=== PATIENT | female | born 1935 | race Hispanic/Latino ===

== ENCOUNTER 2018-10-25 22:07 | Inpatient (IN) | payer OTHER ==
[~2018-10-25] VITALS: Ht 149.9 cm; Wt 66.2 kg
[2018-10-25] MEDS ORDERED: ALBUTEROL/IPRATROPIUM 3 ML NEB NEB ONE (22:30)
[2018-10-25] MEDS ORDERED: METHYLPREDNISOLONE SOD SUCC 125 MG/2ML VIAL IV ONE (22:30)
[2018-10-25] MEDS ORDERED: ACETAMINOPHEN 325 MG TAB PO ONE (22:45)
[2018-10-25] MEDS ORDERED: SODIUM CHLORIDE 0.9% 1000ML 1,000 ML IV SCH (22:45)
[2018-10-25] MEDS ORDERED: CEFTRIAXONE SOD 1 GM/NS 50 ML 50 ML IV ONE (22:45)
[2018-10-25] MEDS ORDERED: LORATADINE10 MG PO (23:05)
[2018-10-25] MEDS ORDERED: TYLENOL WITH C1 EACH PO (23:05)
[2018-10-25] MEDS ORDERED: PRAVASTATIN SOD40 MG (23:05)
[2018-10-25] MEDS ORDERED: LISINOPRIL10 MG PO (23:05)
[2018-10-25] MEDS ORDERED: ALENDRONATE SOD35 MG (23:05)
[2018-10-25] MEDS ORDERED: CARVEDILOL12.5 MG PO (23:05)
[2018-10-25] MEDS ORDERED: CLOPIDOGREL75 MG PO (23:05)
[2018-10-25] MEDS ORDERED: AUGMENTIN 500-1 EACH PO (23:05)
[2018-10-25] MEDS ORDERED: BENZONATATE100 MG PO (23:05)
[2018-10-25] MEDS ORDERED: NIFEDIPINE ER30 M1 PO (23:05)
[2018-10-25] MEDS ORDERED: MAGNESIUM OXID400 MG PO (23:05)
[2018-10-25] MEDS ORDERED: GABAPENTIN300 MG PO (23:05)
[2018-10-25] MEDS ORDERED: FUROSEMIDE40 MG PO (23:05)
[2018-10-25] MEDS ORDERED: SODIUM CHLORIDE FLUSH 10 ML SYR INJ PRN (23:15)
--- NOTE | 2018-10-25 23:24 | Diagnostic Imaging Report ---
Examination: Single AP view of the chest. COMPARISON: None. INDICATION: Cough with blood IMPRESSION: 1. Lines and Tubes: None 2. Bilateral basal airspace opacities, right greater than left. Ill-defined patchy airspace opacity in the right upper lobe. No effusion. Findings may represent multifocal pneumonia, in the appropriate clinical setting. 3. Cardiomediastinal silhouette is normal. Pulmonary vasculature is normal. 4. No acute bony abnormalities. Deformity of the left eighth and likely ninth ribs, likely representing healed fractures. Generalized osteopenia. Signed by: Dr. Mookie Wilkins M.D. on 10/25/2018 11:20 PM
--- OUTSIDE RECORDS SUMMARY | 2018-10-25 23:26 | XMS REPORT | Clinical Summary ---
Author Author CARMELITA [facility] Organization [facility] Address Unknown Phone Unavailable Care Team Providers Care Heel Sorter Name Role Phone Erika Sumner PCP Unavailable Allergies Comments Active Allergy Reactions Severity Noted Date Clindamycin Diarrhea, 08/28/2017 Nausea And Vomiting Medications End Date Status Medication Sig Dispensed Refills Start Date Active insulin aspart Inject 45 0 protamine-insulin aspart Units (NOVOLOG 70/30) 100 subcutaneousl unit/mL (70-30) y daily with injectionIndications: breakfast . diabetes mellitus Active calcium & magnesium Take 1 tablet 0 carbonates (MYLANTA) by mouth 311-232 mg per tablet daily. Active blood sugar diagnostic 1 each by 0 (GLUCOSE BLOOD) Strp Other - See 5 Admin Instructions route. Active insulin pen needles (BD Inject 1 0 ULTRA-FINE RANDY) 4 mm x Syringe 5 32 G subcutaneousl y. Active alendronate (FOSAMAX) 35 35 mg every 7 0 MG tablet days . 5 Active aspirin 81 MG EC tablet Take 81 mg by 0 mouth daily . 5 Active clopidogrel (PLAVIX) 75 75 mg daily . 0 mg tablet 5 Active gabapentin (NEURONTIN) Take 300 mg 0 300 MG capsule by mouth 5 nightly . Active insulin aspart Inject 35 0 protamine-insulin aspart units before 5 (NOVOLOG MIX 70/30) 100 dinner. unit/mL (70-30) injection Active pravastatin (PRAVACHOL) Take 20 mg by 0 20 MG tablet mouth. 5 Active omega-3 fatty acids-fish Take 2 g by 0 oil 340-1,000 mg Cap per mouth daily. capsule Active docusate sodium (COLACE) Take 250 mg 0 250 MG capsule by mouth daily. Active lactulose (CHRONULAC) 20 Take 20 g by 0 gram/30 mL solution mouth 3 (three) times daily as needed. Active lidocaine (LIDODERM) 5 % Place 1 patch 0 patch onto the skin daily Remove & Discard patch within 12 hours or as directed by MD . Active potassium chloride Take 10 mEq 0 (KLOR-CON) 10 MEQ CR by mouth tablet daily. Active ergocalciferol (VITAMIN Take 50,000 0 D2) 50,000 unit capsule Units by mouth once a week. Active acetaminophen-codeine Take 1 tablet 0 (TYLENOL #3) 300-30 mg by mouth per tablet every 4 (four) hours as needed for Pain. Active oxybutynin (DITROPAN) 5 Take 5 mg by 0 MG tablet mouth every night as needed . Active furosemide (LASIX) 40 MG Take 40 mg by 0 tablet mouth 2 (two) times daily. Active NIFEdipine (ADALAT CC) 30 Take 30 mg by 0 MG 24 hr tablet mouth daily. Active lisinopril Take 40 mg by 0 (PRINIVIL,ZESTRIL) 40 MG mouth daily. tablet Active magnesium oxide (MAG-OX) Take 400 mg 0 400 mg (241.3 mg by mouth magnesium) tablet daily. Active carvedilol (COREG) 12.5 Take 12.5 mg 0 MG tablet by mouth 2 (two) times daily with breakfast and dinner. 09/05/2019 Active dicyclomine (BENTYL) 20 Take 1 tablet 20 tablet 0 mg tablet (20 mg total) 9 by mouth 2 (two) times daily. 06/20/2018 carvedilol (COREG) 12.5 Take 1 tablet 60 tablet 11 MG tablet (12.5 mg 7 total) by mouth 2 (two) times daily. 06/20/2018 furosemide (LASIX) 40 MG Take 1 tablet 30 tablet 11 tablet (40 mg total) 7 by mouth daily. 06/20/2018 lisinopril Take 1 tablet 30 tablet 11 (PRINIVIL,ZESTRIL) 40 MG (40 mg total) 7 tablet by mouth daily. 06/20/2018 magnesium oxide (MAG-OX) Take 1 tablet 30 tablet 11 400 mg tablet (400 mg 7 total) by mouth daily. 06/20/2018 NIFEdipine (ADALAT CC) 30 Take 1 tablet 30 tablet 11 MG 24 hr tablet (30 mg total) 7 by mouth daily. 09/05/2018 Discontinued ondansetron (ZOFRAN) 4 MG Take 1 tablet 16 tablet 0 tablet (4 mg total) 9 by mouth every 6 (six) hours for 7 days. 09/12/2018 ciprofloxacin HCl (CIPRO) Take 1 tablet 14 tablet 0 500 MG tablet (500 mg 9 total) by mouth 2 (two) times daily for 7 days. 09/15/2018 diphenoxylate-atropine Take 1 tablet 20 tablet 0 (LOMOTIL) 2.5-0.025 mg by mouth 4 9 per tablet (four) times daily as needed for Diarrhea for up to 10 days. Max Daily Amount: 4 tablets 09/12/2018 ondansetron (ZOFRAN) 4 MG Take 1 tablet 16 tablet 0 tablet (4 mg total) 9 by mouth every 6 (six) hours for 7 days. Active Problems Problem Noted Date Pleural effusion, left 06/13/2017 Multiple rib fractures 05/05/2017 Fall, initial encounter 05/05/2017 Chest wall contusion, right, initial encounter 05/05/2017 Chest wall contusion, left, initial encounter 05/05/2017 Diarrhea 09/24/2014 PAD (peripheral artery disease) 04/24/2014 Chest pain 01/07/2013 CAD (coronary artery disease) CAD (coronary artery disease) Status post coronary artery stent placement Overview: ICD9 DX Bilingual Medical Assistant Encounters Care Team Description Date Type Specialty Stephy Moncada MD Enterocolitis (Primary Dx); Abdominal pain, unspecified abdominal location; Leukocytosis, unspecified type; History of diabetes mellitus 09/05/2018 Emergency Emergency Medicine 09/05/2018 Orders Only General Internal Medicine 09/05/2018 Travel after 10/24/2017 Immunizations Name Dates Previously Given Next Due Pneumococcal 01/09/2013 Polysaccharide (Pneumovax) Social History Date Tobacco Use Types Packs/Day Years Used Never Smoker Smokeless Tobacco: Never Used Alcohol Use Drinks/Week oz/Week Comments No Sex Assigned at Date Recorded Not on file Industry Job Start Date Occupation Not on file Not on file Not on file Travel End Travel History Travel Start No recent travel history available. Last Filed Vital Signs Time Taken Vital Sign Reading 09/05/2018 7:00 PM [facility] Blood Pressure 135/56 09/05/2018 2:17 PM [employer] Pulse 68 09/05/2018 2:17 PM [employer] [employer] Temperature 35.7 C (96.3 F) 09/05/2018 2:17 PM [employer] Respiratory Rate 18 09/05/2018 7:00 PM [employer] Oxygen Saturation 98% - Inhaled Oxygen - Concentration - Weight - 09/05/2018 2:17 PM [employer] [employer] Height 147.3 cm (4' 10") - Body Mass Index - Plan of Treatment Not on file Procedures Comments Procedure Name Priority Date/Time Associated Diagnosis REPORT OF PROCEDURE - 09/09/2018 ENDOSCOPY SCAN 5:[address] ABDOMEN/PELVIS WITH IV STAT 09/05/2018 CONTRAST 5:13 PM [facility]EARCH DIETITIAN ED ECG INTERPRETATION Routine 09/05/2018 4:07 PM [employer]EARCH DI[employer]ITIAN ECG 12-LEAD Routine 09/05/2018 3:28 PM [facility] DI[employer] Procedure Note - Interface, External Ris In - 09/05/2018 6:26 PM [employer]EARCH DI[employer]IAN Ventricula r Rate 76 BPM Atrial Rate 76 BPM P-R Interval 216 ms QRS Duration 86 ms Q-T Interval 422 ms QTC Calculatio n(Bazett) 474 ms P [place] 54 degrees R [place] 31 degrees T [place] 87 degrees Sinus rhythm with 1st degree A-V block Prolonged QT Abnormal ECG When compared with ECG of 7 21:19, Premature ventricula r complexes are no longer Present NM interval has increased T wave inversion less evident in Anterolate ral leads ECG 12-LEAD STAT 09/05/2018 3:28 PM [employer]EARCH DIETITIAN CBC W/PLT COUNT & AUTO STAT 09/05/2018 DIFFERENTIAL 2:49 PM [employer]EARCH DIET[employer]IAN URINALYSIS W/ MICROSCOPIC STAT 09/05/2018 2:49 PM [employer]EARCH DIETITIAN CBC W/PLT COUNT & AUTO STAT 09/05/2018 DIFFERENTIAL 2:49 PM [employer]EARCH DI[employer]IAN LIPASE STAT 09/05/2018 2:49 PM [employer]EARCH DIET[employer]IAN AMYLASE STAT 09/05/2018 2:49 PM [employer]EARCH DIET[employer]IAN HEPATIC FUNCTION PANEL STAT 09/05/2018 2:49 PM [employer]EARCH DIETITIAN BASIC METABOLIC PANEL (7) STAT 09/05/2018 2:49 PM RESEARCH DIETITIAN after 10/24/2017 Results * EKG-SCANNED (09/09/2018 5:23 PM RESEARCH DIETITIAN) Narrative Performed At * CT abdomen pelvis with IV contrast (09/05/2018 5:13 PM RESEARCH DIETITIAN) Narrative Performed At FINAL REPORT [facility] DOSE REDUCTION: The examination was performed according to departmental dose-optimization program which includes automated exposure control, adjustment of the mA and/or kV according to patient size and/or use of iterative reconstruction technique. TECHNIQUE: CT of the abdomen and pelvis with intravenous contrast. COMPARISON: 05/05/2017, CT, 09/24/2014 Discussion: Atelectasis/scarring lung bases noted. Partially depicted heart is enlarged. No suspicious liver lesion. There is dilatation of the common bile duct, stable from before. Status post cholecystectomy. A 1.5 cm cystic structure along the gallbladder fossa with peripheral calcifications is stable from previous.Spleen, pancreas, adrenal glands are unremarkable. There is a subcentimeter hypodensity in the left kidney, too small to characterize. Otherwise kidneys are unremarkable. There is colonic diverticulosis. No findings of diverticulitis. There are fluid levels throughout the small bowel. Fluid levels in the colon are seen. Nonspecific enterocolitis is suspected. The appearance is atypical for diverticulitis. The appendix is not well visualized. However there is noinflammatory stranding or fluid collection inthe right lower quadrant to suggest the presence of appendicitis. No ascites. No organized fluid collections or abscess. Vascular calcifications are noted. Aorta and IVC are normal in caliber. Uterine calcifications are seen. Otherwise uterus, bilateral adnexa, and bladder appear unremarkable. Small fat-containing focal hernia. Bones demonstrate osteopenia and degenerative changes. Left rib deformities are noted. IMPRESSION: 1. Fluid levels in the small bowel and colon suggestive of nonspecific enterocolitis. Colonic diverticulosis, no findings of diverticulitis. Signed: Uriel Hyde MD Report Verified Date/Time:09/05/2018 17:35:39 Reading Location: [facility] Radiology Reading Room Procedure Note Interface, External Ris In - 09/05/2018 5:37 PM RESEARCH DIETITIAN FINAL REPORT DOSE REDUCTION: The examination was performed according to departmental dose-optimization program which includes automated exposure control, adjustment of the mA and/or kV according to patient size and/or use of iterative reconstruction technique. TECHNIQUE: CT of the abdomen and pelvis with intravenous contrast. COMPARISON: 05/05/2017, CT, 09/24/2014 Discussion: Atelectasis/scarring lung bases noted. Partially depicted heart is enlarged. No suspicious liver lesion. There is dilatation of the common bile duct, stable from before. Status post cholecystectomy. A 1.5 cm cystic structure along the gallbladder fossa with peripheral calcifications is stable from previous. Spleen, pancreas, adrenal glands are unremarkable. There is a subcentimeter hypodensity in the left kidney, too small to characterize. Otherwise kidneys are unremarkable. There is colonic diverticulosis. No findings of diverticulitis. There are fluid levels throughout the small bowel. Fluid levels in the colon are seen. Nonspecific enterocolitis is suspected. The appearance is atypical for diverticulitis. The appendix is not well visualized. However there is no inflammatory stranding or fluid collection in the right lower quadrant to suggest the presence of appendicitis. No ascites. No organized fluid collections or abscess. Vascular calcifications are noted. Aorta and IVC are normal in caliber. Uterine calcifications are seen. Otherwise uterus, bilateral adnexa, and bladder appear unremarkable. Small fat-containing focal hernia. Bones demonstrate osteopenia and degenerative changes. Left rib deformities are noted. IMPRESSION: 1. Fluid levels in the small bowel and colon suggestive of nonspecific enterocolitis. Colonic diverticulosis, no findings of diverticulitis. Signed: Uriel Hyde MD Report Verified Date/Time: 09/05/2018 17:35:39 Reading Location: [facility] Radiology Reading Room Performing Organization Address City/State/[facility] Phone Number GE RIS * ECG/EKG Interpretation (09/05/2018 4:07 PM RESEARCH DIETITIAN) Narrative Performed At Stephy Moncada MD 09/05/20188:06 PM ECG/EKG Interpretation Date/Time: 09/05/2018 4:51 PM Performed by: Stephy Moncada MD Authorized by: Stephy Moncada MD The ECG was interpreted by ED physician. This ECG was not compared with previous ECG(s).The ECG is interpreted as sinus rhythm. Rate is normal rate. Conduction: conduction normal. ST segments abnormal. T waves normal. [place] is normal. Other findings: no other findings. Clinical Impression: non-specific ECG and abnormal ECG * ECG 12 lead (09/05/2018 3:28 PM RESEARCH DIETITIAN) Narrative Performed At Ventricular Rate 76 BPM GE MUSE Atrial Rate 76 BPM P-R Interval 216 ms QRS Duration 86 ms Q-T Interval 422 ms QTC Calculation(Bazett) 474 ms P [place] 54 degrees R [place] 31 degrees T [place] 87 degrees Sinus rhythm with 1st degree A-V block Prolonged QT Abnormal ECG When compared with ECG of 13-JUN-2017 21:19, Premature ventricular complexes are no longer Present NM interval has increased T wave inversion less evident in Anterolateral leads Confirmed by MD MIGUEL A, IHAB ([id number]) on 09/06/2018 6:53:15 PM Procedure Note Interface, External Ris In - 09/06/2018 6:53 PM RESEARCH DIETITIAN Ventricular Rate 76 BPM Atrial Rate 76 BPM P-R Interval 216 ms QRS Duration 86 ms Q-T Interval 422 ms QTC Calculation(Bazett) 474 ms P [place] 54 degrees R [place] 31 degrees T [place] 87 degrees Sinus rhythm with 1st degree A-V block Prolonged QT Abnormal ECG When compared with ECG of 13-JUN-2017 21:19, Premature ventricular complexes are no longer Present NM interval has increased T wave inversion less evident in Anterolateral leads Confirmed by MD MIGUEL A, IHAB ([id number]) on 09/06/2018 6:53:15 PM Performing Organization Address City/State/[facility] Hospital[facility] Phone Number GE MUSE * CBC with platelet count + automated diff (09/05/2018 2:49 PM RESEARCH DIETITIAN) WBC 11.8 (H) 3.5 - 10.5 K/L [facility] RBC 4.36 3.93 - 5.22 M/L [facility] Hemoglobin 13.0 11.2 - 15.7 GM/DL [facility] Hematocrit 41.9 34.1 - 44.9 % [facility] MCV 96.1 (H) 79.4 - 94.8 fL [facility] MCH 29.8 25.6 - 32.2 pg [facility] MCHC 31.0 (L) 32.2 - 35.5 GM/DL [facility] RDW 13.2 11.7 - 14.4 % [facility] Platelets 212 150 - 450 K/CU MM [facility] MPV 10.6 9.4 - 12.3 fL [facility] nRBC 0 0 - 0 /100 WBC [facility] % Neutros 84 % [facility] % Lymphs 10 % [facility] % Monos 6 % [facility] % Eos 0 % [facility] % Baso 0 % [facility] # Neutros 9.88 (H) 1.56 - 6.13 K/L [facility] # Lymphs 1.13 (L) 1.18 - 3.74 K/L [facility] # Monos 0.66 (H) 0.24 - 0.36 K/L [facility] # Eos 0.01 (L) 0.04 - 0.36 K/L [facility] # Baso 0.03 0.01 - 0.08 K/L [facility] Immature 1 0 - 1 % [facility] Granulocytes-Relative [facility] Specimen Blood - Arm, Left Performing Organization Address City/[facility]/Zipcode Phone Number [facility] [address] [place] [address] [facility] * Urinalysis w/ Microscopic (09/05/2018 2:49 PM RESEARCH DIETITIAN) Color, UA Light Yellow [facility] Clarity, UA Clear [facility] Specific [place], UA 1.006 1.001 - 1.035 [facility] pH, UA 6.5 5.0 - 8.0 [facility] Protein, UA Negative Negative [facility] Glucose, UA Negative Negative [facility] Ketones, UA Trace (A) Negative [facility] Bilirubin, UA Negative Negative [facility] Blood, UA Trace (A) Negative [facility] Nitrite, UA Negative Negative [facility] Leukocytes, UA Trace (A) Negative [facility] Urobilinogen, UA 0.2 0.2 - 1.0 mg/dL [facility] RBC, UA 2 /HPF [facility] WBC, UA 1 /HPF [facility] Bacteria, UA Occasional [facility] Squam Epithel, UA 1 /HPF [facility] Hyaline Casts, UA 17 /LPF [facility] Specimen Source Urine, Clean Catch [facility] Specimen Urine - Urine, Clean Catch Performing Organization Address City/[facility]/Zipcode Phone Number [facility] [address] [place] [address] [facility] * Lipase (09/05/2018 2:49 PM RESEARCH DIETITIAN) Lipase 44 8 - 78 U/L [facility] Specimen Blood - Arm, Left Performing Organization Address [facility] Hospitalconv Phone Number [address] [address] [phone] * Amylase (09/05/2018 2:49 PM RESEARCH DIETITIAN) Amylase 157 (H) 25 - 125 U/L [facility] Specimen Blood - Arm, Left Performing Organization Address [facility] Hospitalconv Phone Number [place] [phone] * Hepatic function panel (09/05/2018 2:49 PM RESEARCH DIETITIAN) Protein, Total 7.4 6.0 - 8.3 gm/dL [facility] Albumin 3.9 3.5 - 5.0 g/dL [facility] Total Bilirubin 1.0 0.2 - 1.2 mg/dL [facility] Bilirubin, Direct 0.6 (H) 0.1 - 0.5 mg/dL [facility] Alkaline Phosphatase 72 40 - 150 U/L [facility] AST 36 (H) 5 - 34 U/L [facility] ALT 14 6 - 55 U/L [facility] Specimen Blood - Arm, Left Performing Organization Address [facility] Hospitalconv Phone Number [address] [address] [phone] [place] [address] * Basic Metabolic Panel (09/05/2018 2:49 PM RESEARCH DIETITIAN) Sodium 136 136 - 145 meq/L [facility] Potassium 4.4 3.5 - 5.1 meq/L [facility] Chloride 98 98 - 107 meq/L [facility] CO2 27 22 - 29 meq/L [facility] BUN 21 7 - 21 mg/dL [facility] Creatinine 1.14 0.57 - 1.25 mg/dL [facility] Glucose 279 (H) 70 - 105 mg/dL [facility] Calcium 9.2 8.4 - 10.2 mg/dL [facility] EGFR 46Comment: ESTIMATED GFR IS mL/min/1.73 sq m [facility] NOT ACCURATE CREATININE [facility] CLEARANCE IN PREDICTING GLOMERULAR FILTRATION RATE. ESTIMATED GFR IS NOT APPLICABLE FOR DIALYSIS PATIENTS. Specimen Blood - Arm, Left Performing Organization Address City/State/Zipcode Phone Number [facility] [address] [place] [address] [facility] after 10/24/2017 Insurance Payer Benefit Subscriber ID Type Phone Address Plan / Group [employer] [place] Contracted Advance Directives For more information, please contact: [address] [phone] Date Inactivated Comments Code Status Date Activated 06/20/2017 2:25 PM Full Code 06/13/2017 6:02 PM This code status was determined by: Patient 05/07/2017 6:12 PM Full Code 05/05/2017 7:44 AM This code status was determined by: Patient 11/16/2015 12:05 PM Full Code 11/16/2015 5:45 AM This code status was determined by: Patient 04/26/2014 3:00 PM Full Code 04/24/2014 6:35 AM This code status was determined by: Patient 01/09/2013 4:26 PM All possible means of support, including: cardiac massage, mechanical ventilation, and defibrillation will be used to support life. Code ONE 01/08/2013 12:06 AM
--- OUTSIDE RECORDS SUMMARY | 2018-10-25 23:27 | XMS REPORT ---
Author Author [facility] Address Unknown Phone Unavailable Care Team Providers Care Handbag Designer Name Role Phone MEHNAZ MON Unavailable Unavailable Cameron REDDING Unavailable Unavailable KRYSTAL VALENZUELA Unavailable Unavailable SERG BRADLEY Unavailable Unavailable Problems This patient has no known problems. Allergies, Adverse Reactions, Alerts This patient has no known allergies or adverse reactions. Medications This patient has no known medications. Results Test Description Test Time Test Comments Text Results Atomic Results Result Comments CXR 1 [facility] 2018-10-25 23:18:00 [place] [address] Patient Name: DAYSI WALSH MR #: [id number] : 1935 Age/Sex: 83/F Req #: [id number] Adm Physician: MEHNAZ MON MD Ordered by: RICK RAVI MD Report #: [id number] Location: [facility] Room/Bed: [place] [address] Procedure: [id number] HOPD/CXR 1 [facility] Exam Date: 10/25/18 Exam Time: 2310 REPORT STATUS: Signed Examination: Single AP view of the chest. COMPARISON: None. INDICATION: Cough with blood IMPRESSION: 1. Lines and Tubes: None 2. Bilateral basal airspace opacities, right greater than left. Ill-defined patchy airspace opacity in the right upper lobe. No effusion. Findings may represent multifocal pneumonia, in the appropriate clinical setting. 3. Cardiomediastinal silhouette is normal. Pulmonary vasculature is normal. 4. No acute bony abnormalities. Deformity of the left eighth and likely ninth ribs, likely representing healed fractures. Generalized osteopenia. Signed by: Dr. Mookie Marie M.D. on 10/25/2018 11:20 PM Dictated By: MOOKIE MARIE MD 19 Transcribed By: MARY on 10/25/182319 COPY TO: RICK RAVI MD CT, ABDOMEN 2018-09-05 17:35:00 Reason for exam:->ABDOMINAL PAINWhat is the patient's sedation requirement?->No Sedation FINAL REPORT DOSE REDUCTION: The examination was [...] Colonic diverticulosis, no findings of diverticulitis. Signed: Sam [place] port Verified Date/Time: 09/05/2018 17:35:39 Reading Location: [facility] Radiology Reading Room SE 2018-09-05 15:23:00 LIPASE (BEAKER) (test onmr=009) 44 U/L 8-78 [id number] 15:23:00* Test Item Value Reference Range Comments AMYLASE (BEAKER) (test hhtv=142) 157 U/L 25-125 BASIC METABOLIC [id number] 15:23:00* Test Item Value Reference Range Comments SODIUM (BEAKER) (test rwvi=010) 136 meq/L 136-145 POTASSIUM (BEAKER) (test bxbt=524) 4.4 meq/L 3.5-5.1 CHLORIDE (BEAKER) (test vcxl=671) 98 meq/L 98-107 CO2 (BEAKER) (test ajtz=692) 27 meq/L 22-29 BLOOD UREA NITROGEN (BEAKER) (test lzxp=339) 21 mg/dL 7-21 CREATININE (BEAKER) (test oaxp=596) 1.14 mg/dL 0.57-1.25 GLUCOSE RANDOM (BEAKER) (test zdvq=307) 279 mg/dL 70-105 CALCIUM (BEAKER) (test oxoj=182) 9.2 mg/dL 8.4-10.2 EGFR (BEAKER) (test veui=5248) 46 mL/min/1.73 sq m ESTIMATED GFR IS NOT ACCURATE CREATININE CLEARANCE IN PREDICTING GLOMERULAR FILTRATION RATE. ESTIMATED GFR IS NOT APPLICABLE FOR DIALYSIS PATIENTS. HEPATIC FUNCTION [id number] 15:23:00* Test Item Value Reference Range Comments TOTAL PROTEIN (BEAKER) (test llrp=229) 7.4 gm/dL 6.0-8.3 ALBUMIN (BEAKER) (test wvkx=4767) 3.9 g/dL 3.5-5.0 BILIRUBIN TOTAL (BEAKER) (test hjdy=780) 1.0 mg/dL 0.2-1.2 BILIRUBIN DIRECT (BEAKER) (test ebfn=303) 0.6 mg/dL 0.1-0.5 ALKALINE PHOSPHATASE (BEAKER) (test brgf=398) 72 U/L 40-150 AST (SGOT) (BEAKER) (test bfru=677) 36 U/L 5-34 ALT (SGPT) (BEAKER) (test lvjs=055) 14 U/L 6-55 CBC W/PLT COUNT & AUTO [id number] 15:10:00* Test Item Value Reference Range Comments WHITE BLOOD CELL COUNT (BEAKER) (test frgq=417) 11.8 K/ L 3.5-10.5 RED BLOOD CELL COUNT (BEAKER) (test tkkw=272) 4.36 M/ L 3.93-5.22 HEMOGLOBIN (BEAKER) (test yniu=781) 13.0 GM/DL 11.2-15.7 HEMATOCRIT (BEAKER) (test xqif=016) 41.9 % 34.1-44.9 MEAN CORPUSCULAR VOLUME (BEAKER) (test veey=573) 96.1 fL 79.4-94.8 MEAN CORPUSCULAR HEMOGLOBIN (BEAKER) (test idgp=917) 29.8 pg 25.6-32.2 MEAN CORPUSCULAR HEMOGLOBIN CONC (BEAKER) (test aqqm=841) 31.0 GM/DL 32.2-35.5 RED CELL DISTRIBUTION WIDTH (BEAKER) (test tnxg=598) 13.2 % 11.7-14.4 PLATELET COUNT (BEAKER) (test yhah=761) 212 K/CU MM 150-450 MEAN PLATELET VOLUME (BEAKER) (test dpsa=709) 10.6 fL 9.4-12.3 NUCLEATED RED BLOOD CELLS (BEAKER) (test intz=421) 0 /100 WBC 0-0 NEUTROPHILS RELATIVE PERCENT (BEAKER) (test mjeg=164) 84 % LYMPHOCYTES RELATIVE PERCENT (BEAKER) (test qqbc=082) 10 % MONOCYTES RELATIVE PERCENT (BEAKER) (test hxiy=954) 6 % EOSINOPHILS RELATIVE PERCENT (BEAKER) (test dwxm=596) 0 % BASOPHILS RELATIVE PERCENT (BEAKER) (test wfog=906) 0 % NEUTROPHILS ABSOLUTE COUNT (BEAKER) (test fwsl=184) 9.88 K/ L 1.56-6.13 LYMPHOCYTES ABSOLUTE COUNT (BEAKER) (test reqp=963) 1.13 K/ L 1.18-3.74 MONOCYTES ABSOLUTE COUNT (BEAKER) (test jchr=755) 0.66 K/ L 0.24-0.36 EOSINOPHILS ABSOLUTE COUNT (BEAKER) (test zxdz=774) 0.01 K/ L 0.04-0.36 BASOPHILS ABSOLUTE COUNT (BEAKER) (test ualu=912) 0.03 K/ L 0.01-0.08 IMMATURE GRANULOCYTES-RELATIVE PERCENT (BEAKER) (test jaow=5491) 1 % 0-1 URINALYSIS W/ [id number] 15:04:00* Test Item Value Reference Range Comments COLOR (BEAKER) (test jbon=438) Light Yellow CLARITY (BEAKER) (test rzie=089) Clear SPECIFIC GRAVITY UA (BEAKER) (test oxhv=422) 1.006 1.001-1.035 PH UA (BEAKER) (test mayh=476) 6.5 5.0-8.0 PROTEIN UA (BEAKER) (test ahko=197) Negative Negative GLUCOSE UA (BEAKER) (test wchj=756) Negative Negative KETONES UA (BEAKER) (test enir=746) Trace Negative BILIRUBIN UA (BEAKER) (test zono=866) Negative Negative BLOOD UA (BEAKER) (test uqfq=945) Trace Negative NITRITE UA (BEAKER) (test pmjr=498) Negative Negative LEUKOCYTE ESTERASE UA (BEAKER) (test cmle=397) Trace Negative UROBILINOGEN UA (BEAKER) (test tauk=793) 0.2 mg/dL 0.2-1.0 RBC UA (BEAKER) (test vvox=209) 2 /HPF WBC UA (BEAKER) (test lawg=319) 1 /HPF BACTERIA (BEAKER) (test ilzl=879) Occasional SQUAMOUS EPITHELIAL (BEAKER) (test efrn=550) 1 /HPF HYALINE CASTS (BEAKER) (test csnp=909) 17 /LPF SOURCE(BEAKER) (test ivtb=6262) Urine, Clean Catch POCT-GLUCOSE [id number] 08:51:00* Test Item Value Reference Range Comments POC-GLUCOSE METER (BEAKER) (test rrqa=7595) 118 mg/dL 70-110 TESTED AT [facility] [address] [facility] [address] [id number] 06:06:00* Test Item Value Reference Range Comments MAGNESIUM (BEAKER) (test vyhb=018) 2.3 mg/dL 1.6-2.6 BASIC METABOLIC [id number] 06:06:00* Test Item Value Reference Range Comments SODIUM (BEAKER) (test kkbw=982) 140 meq/L 136-145 POTASSIUM (BEAKER) (test antj=864) 4.7 meq/L 3.5-5.1 CHLORIDE (BEAKER) (test okts=871) 103 meq/L 98-107 CO2 (BEAKER) (test amww=590) 29 meq/L 22-29 BLOOD UREA NITROGEN (BEAKER) (test ytkq=171) 25 mg/dL 7-21 CREATININE (BEAKER) (test rwvr=793) 0.81 mg/dL 0.57-1.25 GLUCOSE RANDOM (BEAKER) (test xecf=357) 124 mg/dL 70-105 CALCIUM (BEAKER) (test lamg=753) 9.5 mg/dL 8.4-10.2 EGFR (BEAKER) (test fard=1374) 68 mL/min/1.73 sq m ESTIMATED GFR IS NOT ACCURATE CREATININE CLEARANCE IN PREDICTING GLOMERULAR FILTRATION RATE. ESTIMATED GFR IS NOT APPLICABLE FOR DIALYSIS PATIENTS. POCT-GLUCOSE [id number] 21:34:00* Test Item Value Reference Range Comments POC-GLUCOSE METER (BEAKER) (test zgpf=4052) 113 mg/dL 70-110 TESTED AT [place] [id number] [facility] [address] POCT-GLUCOSE [id number] 17:41:00* Test Item Value Reference Range Comments POC-GLUCOSE METER (BEAKER) (test bmov=0638) 116 mg/dL 70-110 TESTED AT [facility] [address] [facility] [address] POCT-GLUCOSE [id number] 12:00:00* Test Item Value Reference Range Comments POC-GLUCOSE METER (BEAKER) (test yhtq=0617) 327 mg/dL 70-110 TESTED AT [place] [address] [facility] [address] POCT-GLUCOSE [id number] 08:08:00* Test Item Value Reference Range Comments POC-GLUCOSE METER (BEAKER) (test yrhe=7964) 186 mg/dL 70-110 TESTED AT [place] [id number] [facility] [address] RAD, CHEST, 1 VIEW, NON [id number] 07:39:00Reason for exam:->effusionFINAL REPORT Chest one view. Clinical history: effusion Comparison: The liver 2016 Discussion: A frontal chest is provided. Cardiomed iastinal contours are unchanged. There is persistent left basilar atelectasis or consolidation. No new airspace disease identified. No evidence of pneumothor ax, or large effusion. Signed: Gumaro [place] Verified Date/Time: 06/19/2017 07:39:03 Reading Location: [facility] Radiology Reading Room [facility] signed by: GUMARO VEGAS M.D. on 06/19/2017 07:39 AM CBC W/PLT COUNT & AUTO [id number] 07:06:00* Test Item Value Reference Range Comments WHITE BLOOD CELL COUNT (BEAKER) (test skck=929) 5.7 K/ L 3.5-10.5 RED BLOOD CELL COUNT (BEAKER) (test fzsu=074) 4.12 M/ L 3.93-5.22 HEMOGLOBIN (BEAKER) (test zfxl=061) 12.3 GM/DL 11.2-15.7 HEMATOCRIT (BEAKER) (test scch=533) 38.7 % 34.1-44.9 MEAN CORPUSCULAR VOLUME (BEAKER) (test ruco=341) 93.9 fL 79.4-94.8 MEAN CORPUSCULAR HEMOGLOBIN (BEAKER) (test muzg=234) 29.9 pg 25.6-32.2 MEAN CORPUSCULAR HEMOGLOBIN CONC (BEAKER) (test lydd=661) 31.8 GM/DL 32.2-35.5 RED CELL DISTRIBUTION WIDTH (BEAKER) (test tiqi=083) 13.2 % 11.7-14.4 PLATELET COUNT (BEAKER) (test xerv=073) 210 K/CU MM 150-450 MEAN PLATELET VOLUME (BEAKER) (test bvco=177) 10.4 fL 9.4-12.3 NUCLEATED RED BLOOD CELLS (BEAKER) (test tunv=030) 0 /100 WBC 0-0 NEUTROPHILS RELATIVE PERCENT (BEAKER) (test poiz=407) 55 % LYMPHOCYTES RELATIVE PERCENT (BEAKER) (test qeqb=431) 33 % MONOCYTES RELATIVE PERCENT (BEAKER) (test ugpp=525) 9 % EOSINOPHILS RELATIVE PERCENT (BEAKER) (test zney=056) 2 % BASOPHILS RELATIVE PERCENT (BEAKER) (test fxpk=850) 1 % NEUTROPHILS ABSOLUTE COUNT (BEAKER) (test qehc=025) 3.11 K/ L 1.56-6.13 LYMPHOCYTES ABSOLUTE COUNT (BEAKER) (test szwz=734) 1.90 K/ L 1.18-3.74 MONOCYTES ABSOLUTE COUNT (BEAKER) (test piya=759) 0.51 K/ L 0.24-0.36 EOSINOPHILS ABSOLUTE COUNT (BEAKER) (test bfyu=737) 0.12 K/ L 0.04-0.36 BASOPHILS ABSOLUTE COUNT (BEAKER) (test wzxs=788) 0.05 K/ L 0.01-0.08 IMMATURE GRANULOCYTES-RELATIVE PERCENT (BEAKER) (test rltc=2524) 0 % 0-1 [id number] 05:53:00* Test Item Value Reference Range Comments MAGNESIUM (BEAKER) (test pimt=822) 2.1 mg/dL 1.6-2.6 BASIC METABOLIC [id number] 05:53:00* Test Item Value Reference Range Comments SODIUM (BEAKER) (test lafj=331) 139 meq/L 136-145 POTASSIUM (BEAKER) (test fxhw=666) 4.4 meq/L 3.5-5.1 CHLORIDE (BEAKER) (test zpzq=415) 105 meq/L 98-107 CO2 (BEAKER) (test peyj=091) 30 meq/L 22-29 BLOOD UREA NITROGEN (BEAKER) (test cnyi=918) 22 mg/dL 7-21 CREATININE (BEAKER) (test pawa=934) 0.74 mg/dL 0.57-1.25 GLUCOSE RANDOM (BEAKER) (test ztqa=854) 149 mg/dL 70-105 CALCIUM (BEAKER) (test faat=149) 8.8 mg/dL 8.4-10.2 EGFR (BEAKER) (test jrcy=1233) 76 mL/min/1.73 sq m ESTIMATED GFR IS NOT ACCURATE CREATININE CLEARANCE IN PREDICTING GLOMERULAR FILTRATION RATE. ESTIMATED GFR IS NOT APPLICABLE FOR DIALYSIS PATIENTS. POCT-GLUCOSE [id number] 21:33:00* Test Item Value Reference Range Comments POC-GLUCOSE METER (BEAKER) (test dwbj=1620) 238 mg/dL 70-110 TESTED AT [facility] [address] [facility] [address] POCT-GLUCOSE [id number] 18:42:00* Test Item Value Reference Range Comments POC-GLUCOSE METER (BEAKER) (test mxor=0807) 91 mg/dL 70-110 TESTED AT [facility] [address] [facility] [address] POCT-GLUCOSE [id number] 18:08:00* Test Item Value Reference Range Comments POC-GLUCOSE METER (BEAKER) (test dtpo=9097) 48 mg/dL 70-110 TESTED AT [place] [address] [facility] [address] RAD, CHEST, 1 VIEW, NON [id number] 17:06:00Reason for exam:->s/p Thoracentesis pt. in u/s Should this be performed at the bedside?->YesFINAL REPORT Chest, one view. HISTORY: Thoracentesis COMP ARISON: 06/18/2017 at 11:42 AM IMPRESSION: Interval resolution of left-sided pl eural effusion. No identifiable pneumothorax. Unchanged linear atelectasis in th e left lower lung. No new focal consolidation. Cardiomediastinal silhouette is m ildly enlarged but unchanged from prior examination. Signed: Izaiah Braun MDRepo rt Verified Date/Time: 06/18/2017 17:06:55 Reading Location: [address] Reading Room Electronically signed by: IZAIAH BRAUN MD on 2016 05:06 PM U/S, [id number] 16:39:00Laterality?->LeftReason for exam:->hx of fall with fracture ribs . now has pleural effusionFINAL REPORT Ultrasound guided left thoracentesis Clinical History: Pleural effusion Modality: Ultrasound Local Anesthesia: 10 cc1% lidocaine Technique: Informed consent is obtained. The risks of pain, bleeding, infection, lung collapse/pneumothorax, injury to adjacent structures, and adver se medication reactions are discussed with the patient. After informed consent is obtained, the patient's left hemithorax is scanned from the back, with the pa tient upright. After the largest fluid pocket area is marked, the skin is prepp ed and draped in the usual sterile manner. After the area is anesthetized, a 4 Maltese catheter is advanced into the pleural space. Approximately 700 cc. of se rosanguineous fluid is drained, without immediate complications. Fluid is sent for analysis. Post procedure chest x-ray is pending. Patient disposition: Patient is discharged from the ultrasound department after the thoracentesis in good condition. Impression: Successful and uncomplicated ultrasound guided left thoracentesis is performed. Signed: Izaiah Braun Verified Date/Time: 08/18/2016 16:39:25 Reading Location: [facility] [address] Ultrasound Reading Room Estefania ctronically signed by: IZAIAH BRAUN MD on 06/18/2017 04:39 PM RAD, CHEST, 1 VIEW, NON [id number] 12:13:00Reason for exam:->PLEURAL EFFUSIONShould this be performed at the bedside?->YesFINAL REPORT Chest one view. Clinical history: PLEURAL EFFUSION Comparison: June 17, 2017 Discussion: A frontal chest is provided. Cardiomediastinal contours are unchanged. A small left effusion with left basilar atelectasis or consolidation appear unchanged. No new consolidation. No vascular congestion, or pneumothorax. Signed: Gumaro [place] Verified Date/Time: 06/18/2017 12:13:39 Reading Location: [facility] Radiology Reading Room -GLUCOSE [id number] 10:47:00* Test Item Value Reference Range Comments POC-GLUCOSE METER (BEAKER) (test hclq=1980) 229 mg/dL 70-110 TESTED AT [facility] [address] [facility] [address] POCT-GLUCOSE [id number] 07:54:00* Test Item Value Reference Range Comments POC-GLUCOSE METER (BEAKER) (test bjnq=2012) 91 mg/dL 70-110 TESTED AT [place] [address] [facility] [address] [id number] 06:30:00* Test Item Value Reference Range Comments PROTIME (BEAKER) (test mysz=758) 14.7 seconds 11.7-14.7 INR (BEAKER) (test ussk=685) 1.2 <=5.9 PARTIAL THROMBOPLASTIN TIME (BEAKER) (test zecb=250) 37.6 seconds 22.5-36.0 RECOMMENDED COUMADIN/WARFARIN INR THERAPY RANGESSTANDARD DOSE: 2.0 - 3.0 Inclu aliza: PROPHYLAXIS for venous thrombosis, systemic embolization; TREATMENT for jay ous thrombosis and/or pulmonary embolus.HIGH RISK: Target INR is 2.5-3.5 for pat ients with mechanical heart valves.CBC W/PLT COUNT & AUTO [id number] 06:22:00* Test Item Value Reference Range Comments WHITE BLOOD CELL COUNT (BEAKER) (test nxfk=855) 5.8 K/ L 3.5-10.5 RED BLOOD CELL COUNT (BEAKER) (test fkon=927) 3.92 M/ L 3.93-5.22 HEMOGLOBIN (BEAKER) (test eadb=100) 11.7 GM/DL 11.2-15.7 HEMATOCRIT (BEAKER) (test bqez=499) 36.9 % 34.1-44.9 MEAN CORPUSCULAR VOLUME (BEAKER) (test jtlo=384) 94.1 fL 79.4-94.8 MEAN CORPUSCULAR HEMOGLOBIN (BEAKER) (test ntuq=568) 29.8 pg 25.6-32.2 MEAN CORPUSCULAR HEMOGLOBIN CONC (BEAKER) (test wtup=094) 31.7 GM/DL 32.2-35.5 RED CELL DISTRIBUTION WIDTH (BEAKER) (test cygf=344) 13.5 % 11.7-14.4 PLATELET COUNT (BEAKER) (test ytdn=154) 239 K/CU MM 150-450 MEAN PLATELET VOLUME (BEAKER) (test iaic=455) 10.7 fL 9.4-12.3 NUCLEATED RED BLOOD CELLS (BEAKER) (test uwyg=748) 0 /100 WBC 0-0 NEUTROPHILS RELATIVE PERCENT (BEAKER) (test uukn=681) 56 % LYMPHOCYTES RELATIVE PERCENT (BEAKER) (test wmum=114) 32 % MONOCYTES RELATIVE PERCENT (BEAKER) (test tcma=700) 8 % EOSINOPHILS RELATIVE PERCENT (BEAKER) (test sjsu=343) 3 % BASOPHILS RELATIVE PERCENT (BEAKER) (test wldh=145) 1 % NEUTROPHILS ABSOLUTE COUNT (BEAKER) (test tikg=180) 3.25 K/ L 1.56-6.13 LYMPHOCYTES ABSOLUTE COUNT (BEAKER) (test brxh=399) 1.87 K/ L 1.18-3.74 MONOCYTES ABSOLUTE COUNT (BEAKER) (test cxzg=434) 0.46 K/ L 0.24-0.36 EOSINOPHILS ABSOLUTE COUNT (BEAKER) (test wopz=736) 0.16 K/ L 0.04-0.36 BASOPHILS ABSOLUTE COUNT (BEAKER) (test tdxs=980) 0.04 K/ L 0.01-0.08 IMMATURE GRANULOCYTES-RELATIVE PERCENT (BEAKER) (test jsll=9467) 0 % 0-1 [id number] 06:07:00* Test Item Value Reference Range Comments MAGNESIUM (BEAKER) (test hqzh=330) 2.1 mg/dL 1.6-2.6 BASIC METABOLIC [id number] 06:07:00* Test Item Value Reference Range Comments SODIUM (BEAKER) (test vime=927) 141 meq/L 136-145 POTASSIUM (BEAKER) (test ovxb=609) 3.8 meq/L 3.5-5.1 CHLORIDE (BEAKER) (test xupq=791) 106 meq/L 98-107 CO2 (BEAKER) (test tnry=574) 28 meq/L 22-29 BLOOD UREA NITROGEN (BEAKER) (test mgpa=838) 23 mg/dL 7-21 CREATININE (BEAKER) (test letf=206) 0.71 mg/dL 0.57-1.25 GLUCOSE RANDOM (BEAKER) (test afbq=281) 51 mg/dL 70-105 CALCIUM (BEAKER) (test miaz=018) 8.7 mg/dL 8.4-10.2 EGFR (BEAKER) (test ihtg=4656) 79 mL/min/1.73 sq m ESTIMATED GFR IS NOT ACCURATE CREATININE CLEARANCE IN PREDICTING GLOMERULAR FILTRATION RATE. ESTIMATED GFR IS NOT APPLICABLE FOR DIALYSIS PATIENTS. POCT-GLUCOSE [id number] 21:52:00* Test Item Value Reference Range Comments POC-GLUCOSE METER (BEAKER) (test ybhk=1812) 216 mg/dL 70-110 TESTED AT [facility] [address] [facility] [address] RAD, CHEST, 2 [id number] 18:32:00Reason for exam:->left plerual effusion. FINAL REPORT History: Left pleural effusion Comparison: 06/17/2017, 06/15/2017 Findings: Multiple left-sided rib fractures are again not ed. Left lower lobe atelectasis is unchanged in appearance. Small left pleural e ffusion may have slightly increased. No pneumothorax is identified. Small focus of airspace consolidation in the right upper lobe is also unchanged. No right pl eural effusion. The cardiac shadow is partially obscured. The thoracic aorta is tortuous. Signed: Horacio Mcdonald Verified Date/Time: 06/17/2017 18:32:22 Reading Location: [address] Ortho Consult Reading Room -GLUCOSE [id number] 17:28:00* Test Item Value Reference Range Comments POC-GLUCOSE METER (BEAKER) (test hdxk=6851) 177 mg/dL 70-110 TESTED AT [address] [address] POCT-GLUCOSE [id number] 12:36:00* Test Item Value Reference Range Comments POC-GLUCOSE METER (BEAKER) (test htim=9953) 193 mg/dL 70-110 TESTED AT [address] [address] RAD, CHEST, 1 VIEW, NON [id number] 09:59:00Reason for exam:->chfFINAL REPORT CHEST ONE VIEW HISTORY: Congestive heart failure COMPARISON: 06/15/2017 FINDINGS: Single portable AP examination of the chest was performed. Left lower lobe consolidation and small left pleural effusion are unchanged in appearance. Right lung clear. No right pleural effusion. No pne umothorax. Cardiac shadow normal in size. Signed: Horacio Mcdonald Verified Date/Time: 06/17/2017 09:59:30 Reading Location: [address] Ortho Consult Re ading Room -GLUCOSE [id number] 08:33:00* Test Item Value Reference Range Comments POC-GLUCOSE METER (BEAKER) (test coff=7174) 233 mg/dL 70-110 TESTED AT [address] [address] [id number] 06:12:00* Test Item Value Reference Range Comments MAGNESIUM (BEAKER) (test fqou=942) 1.9 mg/dL 1.6-2.6 BASIC METABOLIC [id number] 06:12:00* Test Item Value Reference Range Comments SODIUM (BEAKER) (test yiti=545) 140 meq/L 136-145 POTASSIUM (BEAKER) (test batq=512) 4.2 meq/L 3.5-5.1 CHLORIDE (BEAKER) (test vpah=977) 105 meq/L 98-107 CO2 (BEAKER) (test usan=520) 26 meq/L 22-29 BLOOD UREA NITROGEN (BEAKER) (test dxnf=025) 21 mg/dL 7-21 CREATININE (BEAKER) (test nzdq=096) 0.69 mg/dL 0.57-1.25 GLUCOSE RANDOM (BEAKER) (test pgtk=554) 114 mg/dL 70-105 CALCIUM (BEAKER) (test rvbt=040) 8.8 mg/dL 8.4-10.2 EGFR (BEAKER) (test yilt=1500) 82 mL/min/1.73 sq m ESTIMATED GFR IS NOT ACCURATE CREATININE CLEARANCE IN PREDICTING GLOMERULAR FILTRATION RATE. ESTIMATED GFR IS NOT APPLICABLE FOR DIALYSIS PATIENTS. B-TYPE NATRIURETIC FACTOR (BNP)2017-06-17 06:05:00* Test Item Value Reference Range Comments B-TYPE NATRIURETIC PEPTIDE (BEAKER) (test llel=479) 100 pg/mL 0-100 POCT-GLUCOSE [id number] 22:09:00* Test Item Value Reference Range Comments POC-GLUCOSE METER (BEAKER) (test xnel=2512) 151 mg/dL 70-110 TESTED AT [address] [address] POCT-GLUCOSE [id number] 17:22:00* Test Item Value Reference Range Comments POC-GLUCOSE METER (BEAKER) (test xizx=7179) 131 mg/dL 70-110 TESTED AT [address] [address] POCT-GLUCOSE [id number] 11:53:00* Test Item Value Reference Range Comments POC-GLUCOSE METER (BEAKER) (test vsba=9256) 305 mg/dL 70-110 Notified VERONICA BENAVIDES/TESTED AT [address] [address] POCT-GLUCOSE [id number] 08:04:00* Test Item Value Reference Range Comments POC-GLUCOSE METER (BEAKER) (test gizy=6356) 171 mg/dL 70-110 TESTED AT [facility] [address] [place] [address] [id number] 07:29:00* Test Item Value Reference Range Comments MAGNESIUM (BEAKER) (test naof=514) 2.0 mg/dL 1.6-2.6 BASIC METABOLIC [id number] 07:29:00* Test Item Value Reference Range Comments SODIUM (BEAKER) (test fowa=134) 140 meq/L 136-145 POTASSIUM (BEAKER) (test mdpc=708) 4.1 meq/L 3.5-5.1 CHLORIDE (BEAKER) (test qjsa=794) 105 meq/L 98-107 CO2 (BEAKER) (test xhft=482) 27 meq/L 22-29 BLOOD UREA NITROGEN (BEAKER) (test lxjj=057) 23 mg/dL 7-21 CREATININE (BEAKER) (test kezd=694) 0.73 mg/dL 0.57-1.25 GLUCOSE RANDOM (BEAKER) (test tusv=966) 149 mg/dL 70-105 CALCIUM (BEAKER) (test lrie=691) 8.7 mg/dL 8.4-10.2 EGFR (BEAKER) (test pylb=2385) 77 mL/min/1.73 sq m ESTIMATED GFR IS NOT ACCURATE CREATININE CLEARANCE IN PREDICTING GLOMERULAR FILTRATION RATE. ESTIMATED GFR IS NOT APPLICABLE FOR DIALYSIS PATIENTS. CBC W/PLT COUNT & AUTO [id number] 05:35:00* Test Item Value Reference Range Comments WHITE BLOOD CELL COUNT (BEAKER) (test rhap=061) 5.1 K/ L 3.5-10.5 RED BLOOD CELL COUNT (BEAKER) (test fyyj=656) 3.83 M/ L 3.93-5.22 HEMOGLOBIN (BEAKER) (test pcxx=721) 11.3 GM/DL 11.2-15.7 HEMATOCRIT (BEAKER) (test wgtd=627) 36.1 % 34.1-44.9 MEAN CORPUSCULAR VOLUME (BEAKER) (test jfmk=824) 94.3 fL 79.4-94.8 MEAN CORPUSCULAR HEMOGLOBIN (BEAKER) (test egbf=513) 29.5 pg 25.6-32.2 MEAN CORPUSCULAR HEMOGLOBIN CONC (BEAKER) (test phcl=350) 31.3 GM/DL 32.2-35.5 RED CELL DISTRIBUTION WIDTH (BEAKER) (test rspz=393) 13.5 % 11.7-14.4 PLATELET COUNT (BEAKER) (test jtok=548) 229 K/CU MM 150-450 MEAN PLATELET VOLUME (BEAKER) (test cjom=948) 10.2 fL 9.4-12.3 NUCLEATED RED BLOOD CELLS (BEAKER) (test jesq=877) 0 /100 WBC 0-0 NEUTROPHILS RELATIVE PERCENT (BEAKER) (test esmh=059) 50 % LYMPHOCYTES RELATIVE PERCENT (BEAKER) (test zoow=965) 37 % MONOCYTES RELATIVE PERCENT (BEAKER) (test wgdx=970) 9 % EOSINOPHILS RELATIVE PERCENT (BEAKER) (test qusv=154) 3 % BASOPHILS RELATIVE PERCENT (BEAKER) (test cbbh=868) 1 % NEUTROPHILS ABSOLUTE COUNT (BEAKER) (test bdxp=115) 2.54 K/ L 1.56-6.13 LYMPHOCYTES ABSOLUTE COUNT (BEAKER) (test rfiz=029) 1.89 K/ L 1.18-3.74 MONOCYTES ABSOLUTE COUNT (BEAKER) (test pqil=394) 0.48 K/ L 0.24-0.36 EOSINOPHILS ABSOLUTE COUNT (BEAKER) (test jfry=080) 0.13 K/ L 0.04-0.36 BASOPHILS ABSOLUTE COUNT (BEAKER) (test nigi=831) 0.03 K/ L 0.01-0.08 IMMATURE GRANULOCYTES-RELATIVE PERCENT (BEAKER) (test gmsj=6490) 0 % 0-1 POCT-GLUCOSE [id number] 20:52:00* Test Item Value Reference Range Comments POC-GLUCOSE METER (BEAKER) (test udqp=0145) 232 mg/dL 70-110 TESTED AT [address] [address] POCT-GLUCOSE [id number] 17:40:00* Test Item Value Reference Range Comments POC-GLUCOSE METER (BEAKER) (test nxuq=8868) 164 mg/dL 70-110 TESTED AT [address] [address] POCT-GLUCOSE [id number] 12:14:00* Test Item Value Reference Range Comments POC-GLUCOSE METER (BEAKER) (test tede=9542) 246 mg/dL 70-110 TESTED AT [address] [address] PLATELET AGGREGATION: FUNCTION [id number] 10:23:00* Test Item Value Reference Range Comments WEAK ADP RESULT(BEAKER) (test mpik=2757) 64 % 60-91 PLATELET FUNCTION SCREEN INTERP (BEAKER) (test vgbu=5878) 60-100% indicates normal platelet function [id number] (BEAKER) (test faax=5306) Amanda Guardado MD (electronic signature) PLATELET COUNT AGG (BEAKER) (test xibi=6100) 254 K/CU MM 150-450 RAD, CHEST, 1 VIEW, NON [id number] 08:37:00Reason for exam:->chfFINAL REPORT Chest one view. Clinical history: chf Comparison: June 14, 2017 Discussion: A frontal chest is provided. Cardiomediastinal contours are unchanged. Unchanged vague opacity in the right upper lung. S table pleural-parenchymal opacity in the left lower lung. No pneumothorax. Mild interstitial prominence. Signed: Gumaro Vegas Verified Date/Time: 06/06 08:37:33 Reading Location: [facility] Radiology Reading Room El ectronically signed by: GUMARO VEGAS M.D. on 06/15/2017 08:37 AM POCT-GLUCOSE [id number] 08:21:00* Test Item Value Reference Range Comments POC-GLUCOSE METER (BEAKER) (test ubrn=7456) 168 mg/dL 70-110 TESTED AT [place] [id number] [facility] [address] [id number] 07:04:00* Test Item Value Reference Range Comments MAGNESIUM (BEAKER) (test uxpa=810) 2.2 mg/dL 1.6-2.6 BASIC METABOLIC [id number] 07:04:00* Test Item Value Reference Range Comments SODIUM (BEAKER) (test wjvz=759) 141 meq/L 136-145 POTASSIUM (BEAKER) (test ayoa=836) 3.8 meq/L 3.5-5.1 CHLORIDE (BEAKER) (test ylsh=829) 104 meq/L 98-107 CO2 (BEAKER) (test rbyj=663) 28 meq/L 22-29 BLOOD UREA NITROGEN (BEAKER) (test yfkj=750) 21 mg/dL 7-21 CREATININE (BEAKER) (test cliz=148) 0.81 mg/dL 0.57-1.25 GLUCOSE RANDOM (BEAKER) (test pobf=994) 151 mg/dL 70-105 CALCIUM (BEAKER) (test rzjg=991) 9.1 mg/dL 8.4-10.2 EGFR (BEAKER) (test wbaz=8529) 68 mL/min/1.73 sq m ESTIMATED GFR IS NOT ACCURATE CREATININE CLEARANCE IN PREDICTING GLOMERULAR FILTRATION RATE. ESTIMATED GFR IS NOT APPLICABLE FOR DIALYSIS PATIENTS. POCT-GLUCOSE [id number] 21:27:00* Test Item Value Reference Range Comments POC-GLUCOSE METER (BEAKER) (test ptzw=1152) 209 mg/dL 70-110 TESTED AT [address] [address] POCT-GLUCOSE [id number] 17:49:00* Test Item Value Reference Range Comments POC-GLUCOSE METER (BEAKER) (test byad=0451) 195 mg/dL 70-110 TESTED AT [address] [address] POCT-GLUCOSE [id number] 11:56:00* Test Item Value Reference Range Comments POC-GLUCOSE METER (BEAKER) (test edok=6017) 233 mg/dL 70-110 TESTED AT [address] [address] RAD, CHEST, 1 VIEW, NON [id number] 08:16:00Reason for exam:->SHORTNESS OF BREATHFINAL REPORT Chest one view. Clinical history: SHORTNESS OF BREATH Comparison: 06/13/2017 Discussion: A frontal chest is provided. Cardiomediastinal contours are unchanged. Stable left lower thorax pleural parenchymal opacity. Right upper lung airspace opacity appears slightly more prominent. Low lung volume. No pneumothorax. Signed: Gumaro Vegas Verified Date/Time: 06/14/2017 08:16:32 Reading Location: [facility] Radiology Reading Room -GLUCOSE [id number] 07:47:00* Test Item Value Reference Range Comments POC-GLUCOSE METER (BEAKER) (test ofnl=2596) 126 mg/dL 70-110 TESTED AT [facility] [address] [facility] [address] POCT-GLUCOSE [id number] 07:47:00* Test Item Value Reference Range Comments POC-GLUCOSE METER (BEAKER) (test qnqf=6649) 142 mg/dL 70-110 TESTED AT [facility] [address] [facility] [address] [id number] 05:38:00* Test Item Value Reference Range Comments MAGNESIUM (BEAKER) (test nupv=337) 1.8 mg/dL 1.6-2.6 Specimen slightly hemolyzed BASIC METABOLIC [id number] 05:38:00* Test Item Value Reference Range Comments SODIUM (BEAKER) (test vjmp=379) 143 meq/L 136-145 POTASSIUM (BEAKER) (test ails=953) 4.1 meq/L 3.5-5.1 Specimen slightly hemolyzed CHLORIDE (BEAKER) (test smmc=424) 106 meq/L 98-107 CO2 (BEAKER) (test havt=832) 27 meq/L 22-29 BLOOD UREA NITROGEN (BEAKER) (test sdcg=270) 18 mg/dL 7-21 CREATININE (BEAKER) (test abws=164) 0.78 mg/dL 0.57-1.25 Specimen slightly hemolyzed GLUCOSE RANDOM (BEAKER) (test kdtn=795) 119 mg/dL 70-105 CALCIUM (BEAKER) (test ogcb=226) 9.5 mg/dL 8.4-10.2 EGFR (BEAKER) (test izpu=6449) 71 mL/min/1.73 sq m ESTIMATED GFR IS NOT ACCURATE CREATININE CLEARANCE IN PREDICTING GLOMERULAR FILTRATION RATE. ESTIMATED GFR IS NOT APPLICABLE FOR DIALYSIS PATIENTS. B-TYPE NATRIURETIC FACTOR (BNP)2017-06-14 05:34:00* Test Item Value Reference Range Comments B-TYPE NATRIURETIC PEPTIDE (BEAKER) (test tign=664) 492 pg/mL 0-100 CBC W/PLT COUNT & AUTO [id number] 05:08:00* Test Item Value Reference Range Comments WHITE BLOOD CELL COUNT (BEAKER) (test hmjl=294) 5.9 K/ L 3.5-10.5 RED BLOOD CELL COUNT (BEAKER) (test zybb=167) 3.86 M/ L 3.93-5.22 HEMOGLOBIN (BEAKER) (test prep=366) 11.5 GM/DL 11.2-15.7 HEMATOCRIT (BEAKER) (test jjiu=912) 36.2 % 34.1-44.9 MEAN CORPUSCULAR VOLUME (BEAKER) (test ckyc=536) 93.8 fL 79.4-94.8 MEAN CORPUSCULAR HEMOGLOBIN (BEAKER) (test hzqi=898) 29.8 pg 25.6-32.2 MEAN CORPUSCULAR HEMOGLOBIN CONC (BEAKER) (test gegm=576) 31.8 GM/DL 32.2-35.5 RED CELL DISTRIBUTION WIDTH (BEAKER) (test pvpx=026) 13.8 % 11.7-14.4 PLATELET COUNT (BEAKER) (test psap=621) 235 K/CU MM 150-450 MEAN PLATELET VOLUME (BEAKER) (test scoa=898) 10.3 fL 9.4-12.3 NUCLEATED RED BLOOD CELLS (BEAKER) (test dton=882) 0 /100 WBC 0-0 NEUTROPHILS RELATIVE PERCENT (BEAKER) (test hihy=271) 57 % LYMPHOCYTES RELATIVE PERCENT (BEAKER) (test xswc=715) 33 % MONOCYTES RELATIVE PERCENT (BEAKER) (test pzfs=588) 9 % EOSINOPHILS RELATIVE PERCENT (BEAKER) (test hqor=563) 1 % BASOPHILS RELATIVE PERCENT (BEAKER) (test oagj=843) 1 % NEUTROPHILS ABSOLUTE COUNT (BEAKER) (test psjb=129) 3.35 K/ L 1.56-6.13 LYMPHOCYTES ABSOLUTE COUNT (BEAKER) (test mukv=546) 1.94 K/ L 1.18-3.74 MONOCYTES ABSOLUTE COUNT (BEAKER) (test gxca=048) 0.54 K/ L 0.24-0.36 EOSINOPHILS ABSOLUTE COUNT (BEAKER) (test ilvz=346) 0.06 K/ L 0.04-0.36 BASOPHILS ABSOLUTE COUNT (BEAKER) (test drjd=447) 0.03 K/ L 0.01-0.08 IMMATURE GRANULOCYTES-RELATIVE PERCENT (BEAKER) (test ncfw=4754) 0 % 0-1 CREATINE KINASE (CK), TOTAL AND [id number] 21:58:00* Test Item Value Reference Range Comments CREATINE KINASE TOTAL (BEAKER) (test tyjm=784) 79 U/L 29-200 CREATINE KINASE-MB (BEAKER) (test rpoh=507) 1.8 ng/mL 0.0-6.6 CREATINE KINASE-MB INDEX (BEAKER) (test onnk=500) 2.3 % CK-MB Reference Range:<6.7 Normal6.7-10.0 Borderline>10.0 Abnormal TROPONIN [id number] 21:58:00* Test Item Value Reference Range Comments TROPONIN I (BEAKER) (test mjsh=295) 0.02 ng/mL 0.00-0.03 Troponin I (TnI) levels must be interpreted in the context of the presenting sym ptoms and the clinical findings. Elevated TnI levels indicate myocardial damage, but are not specific for ischemic heart disease. Elevated TnI levels are seen in patients with other cardiac conditions (including myocarditis and congestive h eart failure), and slight TnI elevations occur in patients with other conditions , including sepsis, renal failure, acidosis, acute neurological disease, and per sistent tachyarrhythmia.HEMOGLOBIN [id number] 21:58:00* Test Item Value Reference Range Comments HEMOGLOBIN A1C (BEAKER) (test aujj=367) 5.9 % 4.3-6.1 TSH/FREE T4 IF [id number] 21:55:00* Test Item Value Reference Range Comments THYROID STIMULATING HORMONE (BEAKER) (test fsyt=413) 0.58 uIU/mL 0.35-4.94 LIPID [id number] 21:51:00* Test Item Value Reference Range Comments TRIGLYCERIDES (BEAKER) (test zljt=412) 76 mg/dL CHOLESTEROL (BEAKER) (test pwiz=204) 122 mg/dL HDL CHOLESTEROL (BEAKER) (test mlfr=647) 58 mg/dL LDL CHOLESTEROL CALCULATED (BEAKER) (test cjwa=579) 49 mg/dL Triglyceride Reference Range: Low Risk <150 Borderline 150-199 High Risk 200-499 Very High Risk >=500Cholesterol Reference Range: Low Risk <200 Borderline 200-239 High Risk >240HDL Cholesterol Reference Range: Low Risk >=60 High Risk <40LDL Cholesterol Reference Range: Optimal <100 Near Optimal 100-129 Borderline 130-159 High 160-189 Very High >=190 HEPATIC FUNCTION [id number] 21:51:00* Test Item Value Reference Range Comments TOTAL PROTEIN (BEAKER) (test sedc=075) 6.9 gm/dL 6.0-8.3 ALBUMIN (BEAKER) (test qnpn=7707) 3.6 g/dL 3.5-5.0 BILIRUBIN TOTAL (BEAKER) (test eqkj=180) 0.7 mg/dL 0.2-1.2 BILIRUBIN DIRECT (BEAKER) (test seyo=860) 0.3 mg/dL 0.1-0.5 ALKALINE PHOSPHATASE (BEAKER) (test ssah=103) 79 U/L 40-150 AST (SGOT) (BEAKER) (test irty=304) 21 U/L 5-34 ALT (SGPT) (BEAKER) (test luyr=756) 10 U/L 6-55 CT, CHEST, WITHOUT [id number] 20:07:00FINAL REPORT History: Left pleural effusion. TECHNIQUE: Helical CT of the chest was performed without contrast utilizing multiple windows, sagittal and coronal reformations. This exam was performed according to our departmental dose optimization program which includes automated exposure control, adjustment of the mA and/or KV according to the patient's size and/or use of iterative reconstruction technique. FINDINGS: Correlation is made with patient's previous study performed May 05, 2017. Chest CT: As before, multiple left lower posterior lateral rib fractures are present. No new fractures are identified. A moderate-sized left pleural effusion has developed. Increased opacity in the left lower lobe likely represents atelectasis related to the adjacent fractures and effusion. Patchy airspace opacity has developed in the right upper and lower lobes, possibly pneumonitis. Lungs are otherwise clear. No pneumothorax. Moder ate atherosclerotic calcification of the aorta and great vessels is seen. Scatte red small nonpathologic-appearing mediastinal lymph nodes are present. Thyroid g land is small but otherwise unremarkable. Central airways are patent. Moderate d iffuse degenerative changes of the spine are present. Images obtained through th e upper abdomen are unremarkable. IMPRESSION: 1. New moderate size left pleural effusion and probable left lower lobe atelectasis related to the presence of mil dly displaced left posterior lateral rib fractures, as previously described. 2. New airspace opacity in the right upper and lower lobes, possibly pneumonitis. 3 . Mild cardiomegaly and diffuse atherosclerosis. Signed: Shelly Lazaro Verified Date/Time: 06/13/2017 20:07:50 Reading Location: [facility] B1 [id number] Consult Reading Room 0 8:07 PM CREATINE KINASE (CK), TOTAL AND [id number] 15:35:00* Test Item Value Reference Range Comments CREATINE KINASE TOTAL (BEAKER) (test xzvo=843) 90 U/L 29-200 CREATINE KINASE-MB (BEAKER) (test fdap=858) 1.9 ng/mL 0.0-6.6 CREATINE KINASE-MB INDEX (BEAKER) (test qgkd=854) 2.1 % CK-MB Reference Range:<6.7 Normal6.7-10.0 Borderline>10.0 Abnormal TROPONIN [id number] 15:35:00* Test Item Value Reference Range Comments TROPONIN I (BEAKER) (test cvgk=572) 0.02 ng/mL 0.00-0.03 Troponin I (TnI) levels must be interpreted in the context of the presenting sym ptoms and the clinical findings. Elevated TnI levels indicate myocardial damage, but are not specific for ischemic heart disease. Elevated TnI levels are seen in patients with other cardiac conditions (including myocarditis and congestive h eart failure), and slight TnI elevations occur in patients with other conditions , including sepsis, renal failure, acidosis, acute neurological disease, and per sistent tachyarrhythmia.B-TYPE NATRIURETIC FACTOR (BNP)2017-06-13 15:34:00* Test Item Value Reference Range Comments B-TYPE NATRIURETIC PEPTIDE (BEAKER) (test eppi=271) 554 pg/mL 0-100 BASIC METABOLIC [id number] 15:27:00* Test Item Value Reference Range Comments SODIUM (BEAKER) (test rbkv=114) 140 meq/L 136-145 POTASSIUM (BEAKER) (test gosj=797) 4.1 meq/L 3.5-5.1 CHLORIDE (BEAKER) (test kdxy=744) 106 meq/L 98-107 CO2 (BEAKER) (test oxrs=113) 26 meq/L 22-29 BLOOD UREA NITROGEN (BEAKER) (test kuft=904) 13 mg/dL 7-21 CREATININE (BEAKER) (test xgtw=047) 0.73 mg/dL 0.57-1.25 GLUCOSE RANDOM (BEAKER) (test oewb=789) 105 mg/dL 70-105 CALCIUM (BEAKER) (test apkm=983) 9.5 mg/dL 8.4-10.2 EGFR (BEAKER) (test ffyj=9180) 77 mL/min/1.73 sq m ESTIMATED GFR IS NOT ACCURATE CREATININE CLEARANCE IN PREDICTING GLOMERULAR FILTRATION RATE. ESTIMATED GFR IS NOT APPLICABLE FOR DIALYSIS PATIENTS. CBC W/PLT COUNT & AUTO [id number] 15:09:00* Test Item Value Reference Range Comments WHITE BLOOD CELL COUNT (BEAKER) (test layc=995) 7.1 K/ L 3.5-10.5 RED BLOOD CELL COUNT (BEAKER) (test plaf=038) 3.94 M/ L 3.93-5.22 HEMOGLOBIN (BEAKER) (test npiz=845) 11.8 GM/DL 11.2-15.7 HEMATOCRIT (BEAKER) (test fggi=189) 37.1 % 34.1-44.9 MEAN CORPUSCULAR VOLUME (BEAKER) (test scqh=172) 94.2 fL 79.4-94.8 MEAN CORPUSCULAR HEMOGLOBIN (BEAKER) (test kglv=284) 29.9 pg 25.6-32.2 MEAN CORPUSCULAR HEMOGLOBIN CONC (BEAKER) (test xcxd=265) 31.8 GM/DL 32.2-35.5 RED CELL DISTRIBUTION WIDTH (BEAKER) (test acgl=708) 13.7 % 11.7-14.4 PLATELET COUNT (BEAKER) (test brxz=209) 234 K/CU MM 150-450 MEAN PLATELET VOLUME (BEAKER) (test ezzn=126) 10.4 fL 9.4-12.3 NUCLEATED RED BLOOD CELLS (BEAKER) (test migs=909) 0 /100 WBC 0-0 NEUTROPHILS RELATIVE PERCENT (BEAKER) (test ucdn=909) 65 % LYMPHOCYTES RELATIVE PERCENT (BEAKER) (test ozuj=334) 26 % MONOCYTES RELATIVE PERCENT (BEAKER) (test qsil=150) 8 % EOSINOPHILS RELATIVE PERCENT (BEAKER) (test owio=175) 1 % BASOPHILS RELATIVE PERCENT (BEAKER) (test cana=012) 1 % NEUTROPHILS ABSOLUTE COUNT (BEAKER) (test xzke=444) 4.59 K/ L 1.56-6.13 LYMPHOCYTES ABSOLUTE COUNT (BEAKER) (test abyo=006) 1.80 K/ L 1.18-3.74 MONOCYTES ABSOLUTE COUNT (BEAKER) (test olvz=002) 0.55 K/ L 0.24-0.36 EOSINOPHILS ABSOLUTE COUNT (BEAKER) (test ryew=546) 0.07 K/ L 0.04-0.36 BASOPHILS ABSOLUTE COUNT (BEAKER) (test esof=814) 0.04 K/ L 0.01-0.08 IMMATURE GRANULOCYTES-RELATIVE PERCENT (BEAKER) (test vfuq=5419) 0 % 0-1 RAD, CHEST, 2 [id number] 14:19:00Reason for exam:->SHORTNESS OF BREATHFINAL REPORT AP and lateral chest HISTORY: Shortness of breath COMPARISON: 09/24/2014. Chest CT, 05/05/2017 IMPRESSION:Cardiomegaly similar to previous. Moderate left effusion with adjacent airspace disease. Faint opacities in the right upper lobe may reflect asymmetric edema or pneumonia. No pneum othorax. Signed: Wade Gomez MDReport Verified Date/Time: 06/13/2017 14:19: 33 Reading Location: [facility] Mammo Reading Room -GLUCOSE [id number] 07:57:00* Test Item Value Reference Range Comments POC-GLUCOSE METER (BEAKER) (test azwa=9842) 153 mg/dL 70-110 TESTED AT [address] [address] POCT-GLUCOSE [id number] 21:26:00* Test Item Value Reference Range Comments POC-GLUCOSE METER (BEAKER) (test pdsj=3630) 211 mg/dL 70-110 TESTED AT [address] [address] POCT-GLUCOSE [id number] 17:33:00* Test Item Value Reference Range Comments POC-GLUCOSE METER (BEAKER) (test ianx=8726) 199 mg/dL 70-110 TESTED AT [address] [address] POCT-GLUCOSE [id number] 12:15:00* Test Item Value Reference Range Comments POC-GLUCOSE METER (BEAKER) (test yqcu=4584) 208 mg/dL 70-110 TESTED AT [place] [id number] [facility] [address] POCT-GLUCOSE [id number] 08:13:00* Test Item Value Reference Range Comments POC-GLUCOSE METER (BEAKER) (test ppgv=7672) 142 mg/dL 70-110 TESTED AT [facility] [address] [facility] [address] [id number] 06:14:00* Test Item Value Reference Range Comments PHOSPHORUS (BEAKER) (test pnvk=051) 3.4 mg/dL 2.3-4.7 [id number] 06:14:00* Test Item Value Reference Range Comments MAGNESIUM (BEAKER) (test hqgv=286) 1.5 mg/dL 1.6-2.6 BASIC METABOLIC [id number] 06:14:00* Test Item Value Reference Range Comments SODIUM (BEAKER) (test qkng=964) 141 meq/L 136-145 POTASSIUM (BEAKER) (test qnxa=809) 4.4 meq/L 3.5-5.1 CHLORIDE (BEAKER) (test qyqt=378) 105 meq/L 98-107 CO2 (BEAKER) (test navc=985) 29 meq/L 22-29 BLOOD UREA NITROGEN (BEAKER) (test wbvk=079) 15 mg/dL 7-21 CREATININE (BEAKER) (test xjln=591) 0.74 mg/dL 0.57-1.25 GLUCOSE RANDOM (BEAKER) (test jpji=059) 160 mg/dL 70-105 CALCIUM (BEAKER) (test vsmk=280) 9.1 mg/dL 8.4-10.2 EGFR (BEAKER) (test heys=0665) 76 mL/min/1.73 sq m ESTIMATED GFR IS NOT ACCURATE CREATININE CLEARANCE IN PREDICTING GLOMERULAR FILTRATION RATE. ESTIMATED GFR IS NOT APPLICABLE FOR DIALYSIS PATIENTS. CBC W/PLT COUNT & AUTO [id number] 05:46:00* Test Item Value Reference Range Comments WHITE BLOOD CELL COUNT (BEAKER) (test mgzi=737) 4.5 K/ L 3.5-10.5 RED BLOOD CELL COUNT (BEAKER) (test zuzh=820) 3.53 M/ L 3.93-5.22 HEMOGLOBIN (BEAKER) (test gyqz=604) 10.4 GM/DL 11.2-15.7 HEMATOCRIT (BEAKER) (test bvpp=045) 32.7 % 34.1-44.9 MEAN CORPUSCULAR VOLUME (BEAKER) (test uekj=987) 92.6 fL 79.4-94.8 MEAN CORPUSCULAR HEMOGLOBIN (BEAKER) (test dvpk=147) 29.5 pg 25.6-32.2 MEAN CORPUSCULAR HEMOGLOBIN CONC (BEAKER) (test gldx=768) 31.8 GM/DL 32.2-35.5 RED CELL DISTRIBUTION WIDTH (BEAKER) (test nayr=496) 13.4 % 11.7-14.4 PLATELET COUNT (BEAKER) (test ynok=633) 157 K/CU MM 150-450 MEAN PLATELET VOLUME (BEAKER) (test zvjg=243) 10.8 fL 9.4-12.3 NUCLEATED RED BLOOD CELLS (BEAKER) (test zlrg=601) 0 /100 WBC 0-0 NEUTROPHILS RELATIVE PERCENT (BEAKER) (test styf=109) 50 % LYMPHOCYTES RELATIVE PERCENT (BEAKER) (test axfy=146) 39 % MONOCYTES RELATIVE PERCENT (BEAKER) (test mgds=524) 9 % EOSINOPHILS RELATIVE PERCENT (BEAKER) (test mlzr=862) 2 % BASOPHILS RELATIVE PERCENT (BEAKER) (test spkm=505) 0 % NEUTROPHILS ABSOLUTE COUNT (BEAKER) (test skhj=346) 2.23 K/ L 1.56-6.13 LYMPHOCYTES ABSOLUTE COUNT (BEAKER) (test vrmh=345) 1.75 K/ L 1.18-3.74 MONOCYTES ABSOLUTE COUNT (BEAKER) (test otoh=754) 0.40 K/ L 0.24-0.36 EOSINOPHILS ABSOLUTE COUNT (BEAKER) (test djpq=822) 0.08 K/ L 0.04-0.36 BASOPHILS ABSOLUTE COUNT (BEAKER) (test vhjx=725) 0.02 K/ L 0.01-0.08 IMMATURE GRANULOCYTES-RELATIVE PERCENT (BEAKER) (test gvfv=0639) 0 % 0-1 POCT-GLUCOSE [id number] 21:12:00* Test Item Value Reference Range Comments POC-GLUCOSE METER (BEAKER) (test nuhb=1996) 206 mg/dL 70-110 TESTED AT [facility] [address] [facility] [address] POCT-GLUCOSE [id number] 17:19:00* Test Item Value Reference Range Comments POC-GLUCOSE METER (BEAKER) (test aznt=3495) 209 mg/dL 70-110 TESTED AT [facility] [address] [facility] [address] POCT-GLUCOSE [id number] 15:47:00* Test Item Value Reference Range Comments POC-GLUCOSE METER (BEAKER) (test qwil=0497) 210 mg/dL 70-110 TESTED AT [facility] [address] [facility] [address] URINALYSIS W/ [id number] 14:50:00* Test Item Value Reference Range Comments COLOR (BEAKER) (test bycl=908) Light Yellow CLARITY (BEAKER) (test xeuk=570) Clear SPECIFIC GRAVITY UA (BEAKER) (test lcxi=485) 1.008 1.001-1.035 PH UA (BEAKER) (test rxnl=378) 5.0 5.0-8.0 PROTEIN UA (BEAKER) (test urvf=299) Negative Negative GLUCOSE UA (BEAKER) (test umil=821) Negative Negative KETONES UA (BEAKER) (test znfu=220) Negative Negative BILIRUBIN UA (BEAKER) (test chyz=102) Negative Negative BLOOD UA (BEAKER) (test riqs=133) Trace Negative NITRITE UA (BEAKER) (test qhoi=822) Negative Negative LEUKOCYTE ESTERASE UA (BEAKER) (test iibb=515) Moderate Negative UROBILINOGEN UA (BEAKER) (test icib=659) 0.2 mg/dL 0.2-1.0 RBC UA (BEAKER) (test rmpa=331) 1 /HPF WBC UA (BEAKER) (test yacs=361) 15 /HPF BACTERIA (BEAKER) (test kcso=362) Rare SQUAMOUS EPITHELIAL (BEAKER) (test fxru=425) 2 /HPF HYALINE CASTS (BEAKER) (test kzba=086) 2 /LPF SOURCE(BEAKER) (test uovp=9246) Urine, Clean Catch POCT-GLUCOSE [id number] 09:47:00* Test Item Value Reference Range Comments POC-GLUCOSE METER (BEAKER) (test wukz=1501) 155 mg/dL 70-110 TESTED AT [facility] [address] [facility] [address] BASIC METABOLIC [id number] 06:47:00* Test Item Value Reference Range Comments SODIUM (BEAKER) (test mdkh=628) 139 meq/L 136-145 POTASSIUM (BEAKER) (test vnmn=039) 5.2 meq/L 3.5-5.1 Specimen slightly hemolyzed CHLORIDE (BEAKER) (test hjyb=159) 107 meq/L 98-107 CO2 (BEAKER) (test rvqx=821) 25 meq/L 22-29 BLOOD UREA NITROGEN (BEAKER) (test qigq=241) 19 mg/dL 7-21 CREATININE (BEAKER) (test eswh=234) 0.89 mg/dL 0.57-1.25 Specimen slightly hemolyzed GLUCOSE RANDOM (BEAKER) (test qisw=077) 130 mg/dL 70-105 CALCIUM (BEAKER) (test nirx=529) 9.5 mg/dL 8.4-10.2 EGFR (BEAKER) (test rxnq=6935) 61 mL/min/1.73 sq m ESTIMATED GFR IS NOT ACCURATE CREATININE CLEARANCE IN PREDICTING GLOMERULAR FILTRATION RATE. ESTIMATED GFR IS NOT APPLICABLE FOR DIALYSIS PATIENTS. [id number] 06:17:00* Test Item Value Reference Range Comments PARTIAL THROMBOPLASTIN TIME (BEAKER) (test piju=866) 34.1 seconds 22.5-36.0 PROTHROMBIN [id number] 06:16:00* Test Item Value Reference Range Comments PROTIME (BEAKER) (test bjpr=348) 13.7 seconds 11.7-14.7 INR (BEAKER) (test zunb=617) 1.1 <=5.9 RECOMMENDED COUMADIN/WARFARIN INR THERAPY RANGESSTANDARD DOSE: 2.0 - 3.0 Inclu aliza: PROPHYLAXIS for venous thrombosis, systemic embolization; TREATMENT for jay ous thrombosis and/or pulmonary embolus.HIGH RISK: Target INR is 2.5-3.5 for pat ients with mechanical heart valves.CBC W/PLT COUNT & AUTO [id number] 06:07:00* Test Item Value Reference Range Comments WHITE BLOOD CELL COUNT (BEAKER) (test kxte=553) 7.0 K/ L 3.5-10.5 RED BLOOD CELL COUNT (BEAKER) (test ywmj=969) 3.75 M/ L 3.93-5.22 HEMOGLOBIN (BEAKER) (test zget=184) 11.0 GM/DL 11.2-15.7 HEMATOCRIT (BEAKER) (test iekh=438) 36.7 % 34.1-44.9 MEAN CORPUSCULAR VOLUME (BEAKER) (test ouyo=668) 97.9 fL 79.4-94.8 MEAN CORPUSCULAR HEMOGLOBIN (BEAKER) (test essl=457) 29.3 pg 25.6-32.2 MEAN CORPUSCULAR HEMOGLOBIN CONC (BEAKER) (test skvs=784) 30.0 GM/DL 32.2-35.5 RED CELL DISTRIBUTION WIDTH (BEAKER) (test yora=483) 13.4 % 11.7-14.4 PLATELET COUNT (BEAKER) (test hrwv=070) 174 K/CU MM 150-450 MEAN PLATELET VOLUME (BEAKER) (test qrut=099) 11.0 fL 9.4-12.3 NUCLEATED RED BLOOD CELLS (BEAKER) (test yowu=388) 0 /100 WBC 0-0 NEUTROPHILS RELATIVE PERCENT (BEAKER) (test hkke=044) 65 % LYMPHOCYTES RELATIVE PERCENT (BEAKER) (test cuxt=004) 25 % MONOCYTES RELATIVE PERCENT (BEAKER) (test ihtt=756) 7 % EOSINOPHILS RELATIVE PERCENT (BEAKER) (test pblv=496) 2 % BASOPHILS RELATIVE PERCENT (BEAKER) (test iqwl=282) 1 % NEUTROPHILS ABSOLUTE COUNT (BEAKER) (test gchc=405) 4.50 K/ L 1.56-6.13 LYMPHOCYTES ABSOLUTE COUNT (BEAKER) (test cnbm=939) 1.77 K/ L 1.18-3.74 MONOCYTES ABSOLUTE COUNT (BEAKER) (test grax=425) 0.47 K/ L 0.24-0.36 EOSINOPHILS ABSOLUTE COUNT (BEAKER) (test dmbx=830) 0.13 K/ L 0.04-0.36 BASOPHILS ABSOLUTE COUNT (BEAKER) (test cnyh=401) 0.04 K/ L 0.01-0.08 IMMATURE GRANULOCYTES-RELATIVE PERCENT (BEAKER) (test gvkj=3922) 1 % 0-1 CT, CHEST, WITHOUT [id number] 05:21:00Reason for exam:->FALLWhat is the patient's sedation requirement?->No SedationFINAL REPORT CT, CHEST, WITHOUT CONTRAST, CT, ABDOMEN \T\ PELVIS, WITHOUT IV CONTRAST INDICATION: Abd trauma, blunt, patient is stableFALLon anticoagulation COMPARISON: September 24, 2014 TECHNIQUE:Noncontrast chest, abdomen and pelvis CT. Coronal and sagittal reformatted images obtained. DOSE REDUCTION: Dose modulation, iterative reconstruction, and/or weight-based adjustment of the mA/kV was utilized to reduce the radiation dose to as low as reasonably achievable. NOTE: Absence of intravenous contrast decreases sensitivity for focal lesions and vascular pathology. FINDINGS: Chest:Lungs and pleura: Mild ap ical emphysematous changes. Subsegmental atelectasis at the bases. No effusion o r pneumothorax.Central airways: Patent with senescent calcification of the trach eal cartilages.Adenopathy: None.Heart and pericardium: Normal cardiac size. No p ericardial effusion. Advanced calcified coronary artery disease.Great vessels: N ormal calibers. Regional skeleton: Displaced fractures of left posterior ribs ei ght and nine. Buckle deformities are present posteriorly at rib eight, likely re presenting remote injury. Abdomen/Pelvis: Liver: No parenchymal abnormality.Gall bladder and biliary tree: No ductal dilation. Redemonstration of peripheral calc ifications of the mid to distal gallbladder.Pancreas: No acute findings.Spleen: No acute findingsAdrenal Glands: No acute findings.Kidneys and ureters: No hydro nephrosis or nephrolithiasis.Bladder and reproductive organs: Unremarkable. Stom ach and Duodenum: No significant findings.Small and large intestine: Normal cj bers.Appendix: The appendix is not identified. No pericecal inflammatory changes are present. Major vascular structures: No aortic aneurysm. Dense calcific athe rosclerotic disease with extension into all major branches.Peritoneum and retrop eritoneum: No free air, fluid or adenopathy. Skeleton: Severe degenerative c hanges in the axial skeleton. No vertebral body fracture.Additional findings: Walker perficial soft tissue hematoma over the left flank. Multiple calcified granuloma s over the hips suggesting sequela of subcutaneous injections. Small locules of gas are noted superficial to the aforementioned rib fractures. IMPRESSION: Limi bambi noncontrast evaluation. Displaced fractures posteriorly on the left at eight and nine. Overlying soft tissue hematoma. Tiny subcutaneous locules of gas with out associated pneumothorax. Otherwise, no traumatic abnormality in the chest, a bdomen or pelvis. Signed: JR Coreas Robert [facility] Verified Date/Time: 05/05/2017 05:21:47 Reading Location: [facility] B1 C013Y CT Body Reading Room Elec tronically signed by: RICK COREAS on 05/05/2017 05:[address], ABDOMEN 2017-05-05 05:21:00Reason for exam:->FALLWhat is the patient's sedation requirement?->No SedationFINAL REPORT CT, CHEST, WITHOUT CONTRAST, CT, ABDOMEN \T\ PELVIS, WITHOUT IV CONTRAST INDICATION: Abd trauma, blunt, patient is stableFALLon anticoagulation COMPARISON: September 24, 2014 TECHNIQUE:Noncontrast chest, abdomen and pelvis CT. Coronal and sagittal reformatted images obtained. DOSE REDUCTION: Dose modulation, iterative reconstruction, and/or weight-based adjustment of the mA/kV was utilized to reduce the radiation dose to as low as reasonably achievable. NOTE: Absence of intravenous contrast decreases sensitivity for focal lesions and vascular pathology. FINDINGS: Chest:Lungs and pleura: Mild apical emphysematous changes. Subsegmental atelectasis at the bases. No effusion or pneumothorax.Central airways: Patent with senescent calcification of the tracheal cartilages.Adenopathy: None.Heart and pericardium: Normal cardiac size. No p ericardial effusion. Advanced calcified coronary artery disease.Great vessels: N ormal calibers. Regional skeleton: Displaced fractures of left posterior ribs ei ght and nine. Buckle deformities are present posteriorly at rib eight, likely re presenting remote injury. Abdomen/Pelvis: Liver: No parenchymal abnormality.Gall bladder and biliary tree: No ductal dilation. Redemonstration of peripheral calc ifications of the mid to distal gallbladder.Pancreas: No acute findings.Spleen: No acute findingsAdrenal Glands: No acute findings.Kidneys and ureters: No hydro nephrosis or nephrolithiasis.Bladder and reproductive organs: Unremarkable. Stom ach and Duodenum: No significant findings.Small and large intestine: Normal cj bers.Appendix: The appendix is not identified. No pericecal inflammatory changes are present. Major vascular structures: No aortic aneurysm. Dense calcific athe rosclerotic disease with extension into all major branches.Peritoneum and retrop eritoneum: No free air, fluid or adenopathy. Skeleton: Severe degenerative c hanges in the axial skeleton. No vertebral body fracture.Additional findings: Walker perficial soft tissue hematoma over the left flank. Multiple calcified granuloma s over the hips suggesting sequela of subcutaneous injections. Small locules of gas are noted superficial to the aforementioned rib fractures. IMPRESSION: Limi bambi noncontrast evaluation. Displaced fractures posteriorly on the left at eight and nine. Overlying soft tissue hematoma. Tiny subcutaneous locules of gas with out associated pneumothorax. Otherwise, no traumatic abnormality in the chest, a bdomen or pelvis. Signed: JR Coreas Robert MDReport Verified Date/Time: 05/05/2017 05:21:47 Reading Location: [facility] B1 C013Y CT Body Reading Room Elec tronically signed by: RICK COREAS on 05/05/2017 05:21 AM
[2018-10-25] MEDS ORDERED: ACETAMINOPHEN 325 MG TAB PO PRN (23:30)
[2018-10-25] MEDS ORDERED: ONDANSETRON HCL INJ 2MG/ML 2ML 2 MG/ML VIAL IV PRN (23:30)
[2018-10-25] MEDS ORDERED: DEXTROSE 50% SYRINGE 50 ML IV PRN (23:30)
[2018-10-25] MEDS ORDERED: MORPHINE SULFATE INJ 4 MG/ML INJ 1ML IV PRN (23:30)
[2018-10-25] MEDS ORDERED: MORPHINE SULFATE 2 MG/ML SYR 1ML IV STA (23:54)
[2018-10-26] VITALS (7 sets, daily range): BP systolic 128–176; BP diastolic 66–73
[2018-10-26] MEDS ORDERED: SODIUM CHLORIDE 0.9% 250ML 250 ML ONE (01:33)
[2018-10-26] MEDS: AZITHROMYCIN 500MG/SOD CHL 0.9% 250ML BAG IV SCH ×2 (01:52→23:45)
[2018-10-26] MEDS: ALBUTEROL SULF 0.083% NEB SOLN 3 ML NEB NEB SCH ×2 (03:00→07:48)
[2018-10-26] MEDS: IPRATROPIUM BROMIDE 0.02% 2.5 ML NEB NEB SCH ×2 (03:00→07:48)
--- NOTE | 2018-10-26 03:08 | NUR ---
PT ARRIVED ON THE UNIT VIA STRETCHER AT 0034 WITH AMBULANCE SERVICE. PT DAUGHTER AT BEDSIDE. PT IS A&OX3. NO RESPIRATORY DISTRESS NOTED. BED IN THE LOWEST POSITION, LOCKED, BED ALARM ON, AND CALL LIGHT WITHIN REACH. PT AND DAUGHTER ORIENTED TO THE ROOM. ADMISSION AND CALL LIGHT WITHIN REACH. WILL CONTINUE TO MONITOR.
[2018-10-26] MEDS ORDERED: ASPIR 8181 MG (06:13)
--- NOTE | 2018-10-26 07:03 | NUR ---
RECEIVED PATIENT RESTING IN BED. NO ACUTE DISTRESS NOTED. DAUGHTER AT BEDSIDE. CALL LIGHT WITHIN REACH. BED IN THE LOWEST POSITION. BED ALARM ON.
[2018-10-26] MEDS: INSULIN REGULAR, HUMAN 100 UNIT/1 ML 3ML VIAL SQ SCH ×4 (08:30→21:59)
[2018-10-26] MEDS ORDERED: ALBUTEROL/IPRATROPIUM 3 ML NEB NEB PRN (10:00)
[2018-10-26] MEDS ORDERED: ACETAMINOPHEN/CODEINE 300MG - 30MG TAB PO PRN (10:00)
[2018-10-26] MEDS ORDERED: INSULIN GLARGINE 100 UNITS/ML VIAL SQ ONE (10:30)
[2018-10-26] MEDS: PIPER-TAZ 3.375 GM 50 ML IV SCH ×3 (10:53→21:58)
[2018-10-26] MEDS: MAGNESIUM OXIDE 400 MG TAB PO SCH (10:53)
[2018-10-26] MEDS: CLOPIDOGREL BISULFATE 75 MG TAB PO SCH (10:53)
[2018-10-26] MEDS: CARVEDILOL 12.5 MG TAB PO SCH ×2 (10:53→17:00)
[2018-10-26] MEDS: LORATADINE 10 MG TAB PO SCH (10:53)
--- NOTE | 2018-10-26 11:30 | NUR ---
PARI FROM LAB CALLED STATING THAT PATIENT HAS AN ORDER FOR SPUTUM THAT NEEDS TO BE COLLECTED. UPON CHECKING THE MICROBIOLOGY TAB IT SEEMS THAT THE SAMPLE HAS ALREADY BEEN SENT AND PENDING.
[2018-10-26] MEDS: ALBUTEROL/IPRATROPIUM 3 ML NEB NEB SCH ×2 (13:40→18:22)
--- NOTE | 2018-10-26 14:07 | Diagnostic Imaging Report ---
CT chest without enhancement CPT code: 01332 INDICATION: Hemoptysis for 2 1/2 weeks TECHNIQUE: Thin collimation axial images obtained from the thoracic inlet to the level of the diaphragm without intravenous contrast. Dose reduction techniques used: Automated exposure control, adjustment of the mAs and/or kVp according to patient size, standardized low-dose protocol, and/or iterative reconstruction technique. RADIATION DOSE: Total DLP: 481.05 mGy*cm Estimated effective dose: (DLP x 0.015 x size factor) mSv CTDIvol has been reviewed. It is below the limits set by the Radiation Protocol Committee (RPC). COMPARISON: Chest x-ray 10/25/2018. CHEST FINDINGS: Lymph nodes: No enlarged axillary, supraclavicular lymph nodes. Mediastinal lymph nodes are increased in number and size. For example, a subcarinal lymph node measures 1.5 cm in AP dimension. A right paratracheal lymph node measures 1.1 cm.. Thyroid: Normal in size with coarse calcification in the left lobe.. Mediastinum/airways: The heart is enlarged with heavy calcifications of the coronary arteries. No pericardial effusion. Main pulmonary artery measures 2.7 cm. The ascending aorta measures 3.3 cm. There are occasional throughout the tracheobronchial tree and small amount of mucous layering dependently in the right and left bronchi. Lungs: Right: Diffusely hyperinflated. As seen on chest x-ray, there are multifocal airspace opacities in each lobe. No increased attenuation to suggest blood products Left: Diffusely hyperinflated. As seen on chest x-ray, there are multifocal airspace opacities in each lobe, particularly in the lower lobe. No increased attenuation to suggest blood products. Pleura: Small posterior layering right pleural effusion. No pneumothorax. ABDOMEN FINDINGS: Calcification in the hilum of the liver may be within the gallbladder. There are vascular calcifications throughout. No soft tissue mass or lymphadenopathy. Bones: Diffusely demineralized with moderate degenerative changes throughout the spine. No destructive lesions. There are multiple chronic fracture deformities of several left posterior ribs. IMPRESSION: 1. Multifocal airspace opacities consistent with pneumonia. The presence of dependently layering material in the bronchi raises the possibility of aspiration. 2. Prominent mediastinal lymph nodes may be reactive to an infectious process. 3. Cardiomegaly and atherosclerosis. 4. Hilar calcification at the liver may be vascular or due to a calcified gallstone. Signed by: Dr. Jun Almanza MD on 10/26/2018 2:04 PM
--- NOTE | 2018-10-26 15:57 | Consultation ---
DATE OF CONSULTATION: 10/26/2018 Pulmonary Consultation CONSULTING PHYSICIAN: Richard Quiñones MD REASON FOR CONSULT: Pneumonia and hemoptysis. CHIEF COMPLAINT: Cough and shortness of breath. HISTORY OF PRESENT ILLNESS: Ms. Aguirre is an 83-year-old female. She is Niuean speaking. She presented to the emergency room with a complaint of shortness of breath and cough. The patient reports that a week ago, she traveled to [place] and she started having some cough there and when she came here, she started having some shortness of breath. She is a lifelong nonsmoker. Denies any history of asthma. She does not drink. She has history of hypertension, coronary artery disease, peripheral artery disease, and history of carotid stents. REVIEW OF SYSTEMS: GENERAL: Denies any fever or chills. HEAD: Denies any head trauma. ENT: Denies any earache. CVS: Denies any chest pain. RESPIRATORY: Shortness of breath. GI: Denies any nausea or vomiting. MUSCULOSKELETAL: Denies any arthralgias or myalgias. NEURO: Denies any focal weakness. The rest of the review of systems are negative except as in HPI. PAST MEDICAL HISTORY: Diabetes, coronary artery disease, peripheral arterial disease, and carotid stent. PAST SURGICAL HISTORY: Toe amputation. FAMILY AND SOCIAL HISTORY: She does not smoke. Does not drink. She lives with her . No one sick at home. PHYSICAL EXAMINATION: VITAL SIGNS: Temperature 97.3, pulse of 66, blood pressure 161/66, respiratory rate of 18, and O2 saturation 95% on 3 L. HEENT: Head is atraumatic, normocephalic. NECK: Supple. CHEST: Crackles more pronounced on the right side and wheezing as well. Reduced air entry. HEART: S1 and S2 audible. ABDOMEN: Soft, nontender. EXTREMITIES: No clubbing, cyanosis, or edema. NEUROLOGIC: Awake and alert. IMAGING: Chest x-ray, I have reviewed the images showing dense right lower lobe infiltrate on the left side. Also, there is an ill-defined infiltrate. LABORATORY DATA: She had her labs done at the free-standing ER. Sodium was 139, potassium 3.8. Her white cell count was less than 11,000 with platelets of 223. ASSESSMENT AND PLAN: Ms. Aguirre is an 83-year-old female, presented with cough and shortness of breath. Chest x-ray is highly suggestive of pneumonia. Current problems: 1. Multilobar pneumonia, the patient recently traveled outside the country and mild hemoptysis. I will send sputum for Gram stain cultures and AFB. 2. If hemoptysis persists, may need bronchoscopy. 3. Continue the patient on Zosyn and azithromycin as ordered by you. Nebulizer treatment. Oxygen as needed. Thank you for this consult. MD SAGAR Caruso/JOSE /[id number]
--- NOTE | 2018-10-26 16:37 | NUR ---
PT LIVES WITH HER DTR PIETER GOOD [phone] IN A HOUSE IN [place] DTR IS HOME WITH HER ALL DAY PT HAS A WALKER AND GLUCOMETER NO HOME HEALTH CARE PCP DR RITCHIE SAGE PLAN IS HOME WITH HOME HEALTH VS SNF GAVE PT'S DTR MY CARD CM TO FOLLOW
--- NOTE | 2018-10-26 16:57 | History and Physical ---
PRIMARY CARE PHYSICIAN: Beverly Soto MD CHIEF COMPLAINT: Hemoptysis, hypoxia, pneumonia, not feeling well. HISTORY OF PRESENT ILLNESS: The patient is an 83-year-old female, who has not been feeling well for the past week or so. The patient came in with wheezing. She has also had fever and increasing cough with productive sputum, greenish flaky bloody sputum. The patient is a nonsmoker. She has extensive history of coronary disease with previous coronary stent. The patient also has peripheral vascular disease as well as diabetes type 2. She is admitted. She is still having fever. PAST MEDICAL HISTORY: Diabetes type 2, coronary disease with stents, osteoporosis, hypertension, peripheral vascular and arterial disease, carotid disease with stents. PAST SURGICAL HISTORY: Multiple toe amputations, total of 3. Stent in lower extremity. Appendectomy at a young age. ALLERGIES: CLINDAMYCIN. HOME MEDICATIONS: Alendronate, acetaminophen, Augmentin, aspirin, Tessalon Perles, Coreg, Plavix, Lasix, gabapentin, lisinopril, Claritin, magnesium, nifedipine, and pravastatin. REVIEW OF SYSTEMS: Hemoptysis, increasing shortness of breath, weakness, productive cough with greenish sputum. PHYSICAL EXAMINATION: VITAL SIGNS: T-max was 101, blood pressure 148/79, pulse rate 104, and respirations 22. GENERAL: The patient is ambulatory. She is not in any distress at this time. HEENT: Normocephalic, atraumatic. Anicteric. NECK: Supple grossly. PULMONARY: Bilateral coarse rales and wheezing. CARDIOVASCULAR: S1, S2. Tachycardia. ABDOMEN: Soft. EXTREMITIES: No cyanosis or edema. NEUROLOGIC: No gross focal deficit. LABORATORY DATA: WBC is 11.8, hemoglobin 11.3, hematocrit 34.2, and platelets 223. Chemistry: Sodium 139, potassium 3.8, chloride is 103, bicarb 29, BUN is 16, creatinine 0.7, glucose is 300. Chest x-ray showed bilateral basilar airspace opacity, right greater than left, ill-defined patchy airspace opacity in the right upper lobe as well. No effusion. IMPRESSION: 1. Multilobar pneumonia. 2. Fever. 3. Sepsis. 4. Multiple extensive chronic medical problems. PLAN: A CT of the chest without contrast. Repeated lab work. Insulin sliding scale coverage. We will continue with home medications. Because of the patient's stent and coronary problem, we will continue with aspirin and Plavix. We will give the patient nebulizer treatment and antitussive. We will follow up on the patient's status. MD JEANIE Wynne/DEVONL /[id number] cc: Beverly Soto MD Office #[phone]
[2018-10-26] MEDS ORDERED: ENOXAPARIN SOD INJ 40 MG/0.4 ML SYR SC SCH (17:00)
[2018-10-26] MEDS: LISINOPRIL 20 MG TAB PO SCH (17:00)
[2018-10-26] MEDS: BENZONATATE 100 MG CAP PO SCH ×2 (17:00→21:58)
[2018-10-26] MEDS ORDERED: LISINOPRIL 10 MG TAB PO SCH (17:00)
--- NOTE | 2018-10-26 19:02 | NUR ---
REPORT GIVEN TO ONCOMING NURSE, PATIENT IS RESTING IN BED. NO ACUTE DISTRESS NOTED. DAUGHTER AT BEDSIDE. CALL LIGHT WITHIN REACH. BED IN THE LOWEST POSITION.
--- NOTE | 2018-10-26 19:45 | NUR ---
Received patient from day nurse, patient is stable, safety and fall precautions maintained as per hospital protocol: bed in lowest position and locked, needed items beside bed and call or[place] placed close to patient, patient is currently stable will continue to monitor.
[2018-10-26] MEDS: GABAPENTIN 300 MG CAP PO SCH (21:58)
[2018-10-27] VITALS (9 sets, daily range): BP systolic 105–156; BP diastolic 46–98
[2018-10-27] MEDS: PIPER-TAZ 3.375 GM 50 ML IV SCH ×3 (05:20→16:45)
[2018-10-27] MEDS: NIFEDIPINE CR 30 MG TAB PO SCH ×2 (05:20→08:37)
--- NOTE | 2018-10-27 06:56 | NUR ---
RECEIVED PATIENT RESTING IN BED. NO ACUTE DISTRESS NOTED. DAUGHTER AT BEDSIDE. CALL LIGHT WITHIN REACH. BED IN THE LOWEST POSITION. BED ALARM ON.
[2018-10-27 07:00] LABS: BASOPHILS % 0.1 % (0.0-1.0); HEMATOCRIT 30.6 % (34.2-44.1); HEMOGLOBIN 9.7 g/dL (12.0-16.0); LYMPHOCYTES # (AUTO) 1.5 (1.0-3.2); LYMPHOCYTES % 10.4 % (18.0-39.1); MEAN CORPUSCULAR HGB CONC 31.7 g/dL (31-35); MEAN CORPUSCULAR VOLUME 91.6 fL (81-99); MONOCYTES # (AUTO) 0.6 (0.2-0.8); MONOCYTES % 4.4 % (4.4-11.3); NEUTROPHILS # (AUTO) 12.2 (2.1-6.9); NEUTROPHILS % 84.5 % (38.7-80.0); PLATELET COUNT 202 x10e3/uL (140-360); RED BLOOD COUNT 3.34 x10e6/uL (3.6-5.1); RED CELL DISTRIBUTION WIDTH 13.8 % (11.7-14.4)
--- NOTE | 2018-10-27 07:19 | NUR ---
patient endorsed to next shift for continuity of care.
[2018-10-27] MEDS: INSULIN REGULAR, HUMAN 100 UNIT/1 ML 3ML VIAL SQ SCH ×4 (07:30→21:26)
[2018-10-27 07:31] LABS: CHOL/HDL RATIO 1.9 (3.0-3.6); MAGNESIUM 1.9 MG/DL (1.3-2.1); PHOSPHORUS 2.6 MG/DL (2.3-4.7)
[2018-10-27 07:34] LABS: THYROID STIMULATING HORMONE 0.42 uIU/mL (0.350-4.940)
[2018-10-27 07:42] LABS: ANION GAP 10.4 mmol/L (8-16); BLOOD UREA NITROGEN 19 mg/dL (7-26); BUN/CREATININE RATIO 25 (6-25); CALCIUM 8.4 mg/dL (8.4-10.2); CARBON DIOXIDE 27 mmol/L (22-29); CHLORIDE 104 mmol/L (98-107); CREATININE, SERUM 0.75 mg/dL (0.57-1.11); EST GLOMERULAR FILTRATION RATE > 60 ML/MIN (60-); GLUCOSE 113 mg/dL (74-118); POTASSIUM 3.4 mmol/L (3.5-5.1); SODIUM 138 mmol/L (136-145)
[2018-10-27] MEDS: ALBUTEROL/IPRATROPIUM 3 ML NEB NEB SCH ×4 (07:50→22:25)
[2018-10-27 07:52] LABS: FOLATE 10.8 ng/mL (7.0-15.4)
[2018-10-27] MEDS: ASPIRIN 81 MG CHEW TAB PO SCH (08:44)
[2018-10-27] MEDS: CLOPIDOGREL BISULFATE 75 MG TAB PO SCH (08:45)
[2018-10-27] MEDS: BENZONATATE 100 MG CAP PO SCH (08:45)
[2018-10-27] MEDS: MAGNESIUM OXIDE 400 MG TAB PO SCH (08:45)
[2018-10-27] MEDS: CARVEDILOL 12.5 MG TAB PO SCH ×2 (08:45→16:45)
[2018-10-27] MEDS: LISINOPRIL 20 MG TAB PO SCH ×2 (08:45→16:45)
[2018-10-27] MEDS: LORATADINE 10 MG TAB PO SCH (08:45)
[2018-10-27] MEDS ORDERED: GUAIFENESIN/CODEINE 10 ML CUP PO PRN (12:00)
--- NOTE | 2018-10-27 12:21 | NUR ---
DR. MON ROUNDMAGY AT THIS TIME. NOTIFIED OF POTASSIUM LEVEL OF 3.4, PER MD HE WILL TAKE CARE OF IT.
[2018-10-27] MEDS ORDERED: POTASSIUM CHLORIDE 10MEQ EA PO NR (12:45)
--- NOTE | 2018-10-27 15:15 | NUR ---
PATIENT'S O2 SAT AT 86 ON NC @ 3L, RT PLACED PATIENT ON HIGH FLOW NC AT 10L.
--- NOTE | 2018-10-27 17:46 | NUR ---
PATIENT IS ON HIGH FLOW NC @ 5L AND O2 SAT IS 85-87%, PATIENT IS HAVING MILD SOB, NOTIFIED RT.
--- NOTE | 2018-10-27 17:54 | NUR ---
PATIENT PLACED ON NON-REBREATHER MASK, HER O2 SAT IS 94%. WILL NOTIFY LAY OUT DRAFTER.
--- NOTE | 2018-10-27 17:56 | NUR ---
PAGED CONDUIT WORKER TO INFORM HIM OF PATIENT'S STATUS IN REGARDS TO O2 SAT.
--- NOTE | 2018-10-27 18:00 | NUR ---
PER DR. IVAN ORDER CHEST X-RAY AND TRANSFER PATIENT TO ICU FOR CLOSE MONITORING.
--- NOTE | 2018-10-27 18:15 | NUR ---
SPOKE TO CUONG OTERO FOR PATIENT TO BE TRANSFERRED TO IMCU INSTEAD OF ICU.
--- NOTE | 2018-10-27 18:20 | NUR ---
PATIENT'S O2 SAT IS 98% ON NON-REBREATHER MASK, RESPIRATIONS EVEN AND UNLABORED. WILL CONTINUE TO MONITOR.
--- NOTE | 2018-10-27 18:47 | Diagnostic Imaging Report ---
Examination: Single AP view of the chest. COMPARISON: None. INDICATION: Shortness of breath DISCUSSION: Lines/tubes: None. Lungs: Multifocal pneumonia most prominent involving the right lung. Pleura: No pleural effusion or pneumothorax. Heart and mediastinum: The heart and the mediastinum are unremarkable. Bones and soft tissues: No acute bony abnormalities. IMPRESSION: 1. No acute cardiopulmonary abnormalities. Signed by: Dr. Elmer Finley M.D. on 10/27/2018 6:44 PM
--- NOTE | 2018-10-27 19:16 | NUR ---
REPORT GIVEN TO ONCOMING NURSE. PATIENT IS RESTING IN BED, RESPIRATIONS EVEN AND UNLABORED, NO ACUTE DISTRESS NOTED, NO SOB. DAUGHTER AT BEDSIDE. CALL LIGHT WITHIN REACH. BED IN THE LOWEST POSITION. PATIENT IS TO BE TRANSFERRED TO [facility] ONCE BED IN AVAILABLE, ONCOMING NURSE TO NOTIFY ATTENDING PHYSICIAN OF ROOM NUMBER ONCE PATIENT IS MOVED.
--- NOTE | 2018-10-27 20:31 | NUR ---
PATIENT TRANSFERRED TO IMCU DUE TO HYPOXIA, Dr. Laird made aware. Report given to nurse Dina.
--- NOTE | 2018-10-27 22:05 | NUR ---
PATIENT CONTINUE RESTING IN BED, HIGH FLOW PER NC REMAIN INTACT, PATIENT OPEN HER EYES AND ABLE TO COMMUNICATE THROUGH HER DAUGHTER BECAUSE SHE'S [place] SPEAKING ONLY BUT ONCE SHE ANSWERS THE QUESTION OR QUESTIONS SHES BACK TO SLEEPING. TEMPERATURE NOTED, CALL MD AND NEW ORDERS NOTED.
[2018-10-27] MEDS ORDERED: FUROSEMIDE INJ 10 MG/ML 4 ML VIAL ONE (22:59)
[2018-10-27] MEDS ORDERED: FUROSEMIDE INJ 10 MG/ML 4 ML VIAL IV ONE (23:00)
[2018-10-27] MEDS ORDERED: CEFTRIAXONE SOD 1 GRAM/0.9% SOD CHL 50ML BAG IV SCH (23:15)
[2018-10-27] MEDS ORDERED: VANCOMYCIN 1GM/NS 250 ML 250 ML ONE (23:36)
[2018-10-27] MEDS ORDERED: SODIUM CHLORIDE 0.9% 250ML 250 ML ONE (23:40)
[2018-10-27] MEDS: VANCOMYCIN 500MG/NS 0.9% 100ML 100 ML IV SCH (23:55)
[2018-10-27] MEDS: GABAPENTIN 300 MG CAP PO SCH (23:55)
--- NOTE | 2018-10-27 23:59 | NUR ---
CALLED DR. MON AND RECEIVED ORDER AND WAS INFORMED TO CALL DR. IVAN, CALLED DR. IVAN AND NEW ORDERS NOTED. ABG'S DONE. FAMILY AT THE BEDSIDE. WILL CONTINUE TO MONITOR.
[2018-10-28] VITALS (9 sets, daily range): BP systolic 122–161; BP diastolic 45–62
[2018-10-28] MEDS: ACETAMINOPHEN 325 MG TAB PO PRN
[2018-10-28] MEDS: AZITHROMYCIN 500MG/SOD CHL 0.9% 250ML BAG IV SCH ×2 (01:27→22:42)
[2018-10-28] MEDS: ALBUTEROL/IPRATROPIUM 3 ML NEB NEB SCH ×4 (02:05→19:45)
[2018-10-28] MEDS: PIPER-TAZ 3.375 GM 50 ML IV SCH ×5 (02:10→22:01)
[2018-10-28 05:18] LABS: BASOPHILS % 0.2 % (0.0-1.0); HEMATOCRIT 30.5 % (34.2-44.1); HEMOGLOBIN 9.5 g/dL (12.0-16.0); LYMPHOCYTES # (AUTO) 1.8 (1.0-3.2); LYMPHOCYTES % 14.3 % (18.0-39.1); MEAN CORPUSCULAR HEMOGLOBIN 28.9 pg (28-32); MEAN CORPUSCULAR HGB CONC 31.1 g/dL (31-35); MEAN CORPUSCULAR VOLUME 92.7 fL (81-99); MONOCYTES # (AUTO) 0.6 (0.2-0.8); NEUTROPHILS % 80.1 % (38.7-80.0); PLATELET COUNT 175 x10e3/uL (140-360); RED BLOOD COUNT 3.29 x10e6/uL (3.6-5.1)
[2018-10-28 05:48] LABS: ANION GAP 11.7 mmol/L (8-16); BLOOD UREA NITROGEN 20 mg/dL (7-26); BUN/CREATININE RATIO 26 (6-25); CALCIUM 8.6 mg/dL (8.4-10.2); CARBON DIOXIDE 26 mmol/L (22-29); CHLORIDE 104 mmol/L (98-107); CREATININE, SERUM 0.77 mg/dL (0.57-1.11); EST GLOMERULAR FILTRATION RATE > 60 ML/MIN (60-); GLUCOSE 96 mg/dL (74-118); POTASSIUM 3.7 mmol/L (3.5-5.1); SODIUM 138 mmol/L (136-145)
[2018-10-28 06:22] LABS: ABG HCO3 26 mmol/L (23-28); ABG PCO2 42 mmHg (41-51); ABG PO2 104 mmHg (80-105)
[2018-10-28] MEDS: INSULIN REGULAR, HUMAN 100 UNIT/1 ML 3ML VIAL SQ SCH ×4 (07:30→20:44)
--- NOTE | 2018-10-28 08:00 | NUR ---
MD IVAN INTO SEE PT, DISCUSSED POC
--- NOTE | 2018-10-28 08:41 | NUR ---
MD MON INTO SEE PT, DISCUSSED POC
[2018-10-28] MEDS ORDERED: FUROSEMIDE INJ 10 MG/ML 4 ML VIAL IV ONE (08:45)
[2018-10-28] MEDS: CARVEDILOL 12.5 MG TAB PO SCH ×2 (09:00→20:45)
[2018-10-28] MEDS: CLOPIDOGREL BISULFATE 75 MG TAB PO SCH (09:00)
[2018-10-28] MEDS: ASPIRIN 81 MG CHEW TAB PO SCH (09:00)
[2018-10-28] MEDS: NIFEDIPINE CR 30 MG TAB PO SCH (09:00)
[2018-10-28] MEDS: LISINOPRIL 10 MG TAB PO SCH ×2 (09:00→20:45)
[2018-10-28] MEDS: MAGNESIUM OXIDE 400 MG TAB PO SCH (09:00)
[2018-10-28] MEDS ORDERED: LISINOPRIL 20 MG TAB PO SCH ×2 (09:00)
[2018-10-28] MEDS: LORATADINE 10 MG TAB PO SCH (09:00)
--- NOTE | 2018-10-28 09:30 | NUR ---
PT FAMILY REMOVED PT BIPAP, GAVE A "FEW SIPS OF WATER", PT NOTED TO BE COUGHING, PT FAMILY EDUCATED TO NOT GIVE ANYTHING BY MOUTH UNTIL OKAYED BY NURSE OR MD, FAMILY VERBALIZED UNDERSTANDING
--- NOTE | 2018-10-28 09:45 | NUR ---
EDUCATED ABOUT IMM, SIGNED, FILED IN CHART, WITH COPY LEFT WITH FAMILY AT BEDSIDE.
--- NOTE | 2018-10-28 09:45 | NUR ---
SPOKE WITH SPEECH THERAPIST, AWARE OF CONSULT
[2018-10-28] MEDS: VANCOMYCIN 500MG/NS 0.9% 100ML 100 ML IV SCH ×2 (10:30→20:45)
--- NOTE | 2018-10-28 10:55 | NUR ---
RESPIRATORY ATTEMPTED TO PLACE PT ON HI FOR SPEECH SWALLOW EVALUATION, PT SATS DECREASED, BIPAP PLACED Addendum: 10/28/18 at 1528 by Chantell Nick RN UNABLE TO COMPLETE SWALLOW EVALUATION AT THIS TIME, "WILL TRY AGAIN TOMORROW"
[2018-10-28] MEDS: HEPARIN SOD (PORCINE) 5,000 UNIT/ML VIAL SC SCH ×2 (11:00→20:44)
--- NOTE | 2018-10-28 11:00 | NUR ---
BLACKWOOD PLACED PER MD ORDER, 950ML YELLOW URINE DRAINED UPON INSERTION, PT TOLERATED WELL
[2018-10-28] MEDS ORDERED: ETOMIDATE 40 MG/ 20ML VIAL IV ONE (12:00)
[2018-10-28] MEDS ORDERED: SUCCINYLCHOLINE CHLORIDE 20 MG/ML 10ML VIAL ONE (12:00)
--- NOTE | 2018-10-28 12:45 | NUR ---
MOUTH CARE PROVIDED, CALL LIGHT WITHIN REACH
--- NOTE | 2018-10-28 15:28 | NUR ---
VOICES NO NEEDS AT THIS TIME, CALL LIGHT WITHIN REACH, FAMILY AT SIDE
--- NOTE | 2018-10-28 17:11 | NUR ---
TELEPHONED MD MON TO MAKE AWARE PT UNABLE TO SWALLOW PO MEDICATIONS AT THIS TIME DUE TO COUGHING WITH LIQUIDS AND SATS DECREASING WITHOUT BIPAP IN PLACE, AND THAT SPEECH WILL ATTEMPT ANOTHER TIME TOMORROW TO DO BEDSIDE SWALLOW, AWAITING CALL BACK
--- NOTE | 2018-10-28 18:32 | NUR ---
REPOSITIONED, MOUTH CARE PROVIDED, CALL LIGHT WITHIN REACH, FAMILY AT SIDE
--- NOTE | 2018-10-28 20:28 | NUR ---
CALLED AND SPOKE WITH DR MON, MADE HIM AWARE THAT PER REPORTS FROM DAY SHIFT NURSE PATIENT GOT ASPIRATED AND COUGHING EVERY TIME SHE DRINKS, AND SHE HASNT BEEN GETTING PO MEDS EITHER. MD ORDERED CLONIDINE PATCH AT THIS TIME. ORDER CARRIED OUT.
[2018-10-28] MEDS: GABAPENTIN 300 MG CAP PO SCH (20:45)
[2018-10-28] MEDS: CLONIDINE HCL 0.2 MG/24 HR 1 EA PATCH TOP SCH (22:00)
[2018-10-29] VITALS (19 sets, daily range): BP systolic 109–159; BP diastolic 38–85
[2018-10-29] MEDS: ALBUTEROL/IPRATROPIUM 3 ML NEB NEB SCH ×4 (01:20→19:15)
[2018-10-29] MEDS: PIPER-TAZ 3.375 GM 50 ML IV SCH ×3 (04:38→16:12)
[2018-10-29 05:28] LABS: BASOPHILS % 0.1 % (0.0-1.0); HEMATOCRIT 32.2 % (34.2-44.1); HEMOGLOBIN 10.1 g/dL (12.0-16.0); LYMPHOCYTES # (AUTO) 0.8 (1.0-3.2); LYMPHOCYTES % 5.8 % (18.0-39.1); MEAN CORPUSCULAR HEMOGLOBIN 28.9 pg (28-32); MEAN CORPUSCULAR HGB CONC 31.4 g/dL (31-35); MONOCYTES # (AUTO) 0.7 (0.2-0.8); MONOCYTES % 5.3 % (4.4-11.3); NEUTROPHILS % 88.2 % (38.7-80.0); PLATELET COUNT 211 x10e3/uL (140-360); RED CELL DISTRIBUTION WIDTH 13.9 % (11.7-14.4)
[2018-10-29 05:52] LABS: INR 1.2; PROTHROMBIN TIME 15.8 seconds (11.9-14.5)
[2018-10-29 06:03] LABS: ANION GAP 12.3 mmol/L (8-16); BLOOD UREA NITROGEN 17 mg/dL (7-26); BUN/CREATININE RATIO 23 (6-25); CALCIUM 9.3 mg/dL (8.4-10.2); CARBON DIOXIDE 27 mmol/L (22-29); CHLORIDE 101 mmol/L (98-107); CREATININE, SERUM 0.73 mg/dL (0.57-1.11); EST GLOMERULAR FILTRATION RATE > 60 ML/MIN (60-); GLUCOSE 183 mg/dL (74-118); POTASSIUM 3.3 mmol/L (3.5-5.1); SODIUM 137 mmol/L (136-145)
--- NOTE | 2018-10-29 07:09 | Diagnostic Imaging Report ---
EXAMINATION: CHEST SINGLE (PORTABLE) INDICATION: pneumonia COMPARISON: Chest x-ray 10/27/2018, chest CT FINDINGS: AP view TUBES and LINES: None. LUNGS: Mild worsening of multifocal pneumonia PLEURA: Small pleural effusions. No pneumothorax. HEART AND MEDIASTINUM: The cardiomediastinal silhouette is unremarkable. BONES AND SOFT TISSUES: No acute osseous lesion. Soft tissues are unremarkable. UPPER ABDOMEN: No free air under the diaphragm. IMPRESSION: Mild interval worsening of multifocal pneumonia. Signed by: DR. Duane Alonso MD on 10/29/2018 7:05 AM
--- NOTE | 2018-10-29 07:57 | NUR ---
Consult called to Dr. Addison service
--- NOTE | 2018-10-29 08:45 | NUR ---
ASSESSMENT: Spiritual distress Kettle Worker responded to Rapid Response. Pt's daughter, Rosangela, worried about mother's health. Pt's daughter states she and her sister take turns staying with their mother. Pt's daughter states her sister is en route. Intervention: Provided calming pastoral presence. Provided prayer. Provided information about availability of guide domestic tour and provided business card. Outcome: Will follow as able. GIANCARLO Rueda Spiritual Care Department O: [phone] Pager: [phone] ([phone] number calling from)
[2018-10-29] MEDS ORDERED: PANTOPRAZOLE 40 MG 10ML VIAL IV STA (08:55)
[2018-10-29] MEDS: NIFEDIPINE CR 30 MG TAB PO SCH (09:00)
[2018-10-29] MEDS ORDERED: PROPOFOL IV EMULSION 10MG/ML 100 ML IV PRN (09:00)
[2018-10-29] MEDS: PANTOPRAZOLE 40 MG 10ML VIAL IV SCH (09:00)
[2018-10-29] MEDS ORDERED: POTASSIUM CHLORIDE 20MEQ/15ML UDC NG PRN (09:15)
[2018-10-29] MEDS: INSULIN REGULAR, HUMAN 100 UNIT/1 ML 3ML VIAL SQ SCH ×4 (09:29→21:37)
--- NOTE | 2018-10-29 09:31 | NUR ---
MD MORALEZ PAGED TO NOTIFY OF ELEVATED TROPONIN. AWAITING CALL BACK
[2018-10-29] MEDS ORDERED: POTASSIUM CHLORIDE 20MEQ/15ML UDC ONE (09:47)
[2018-10-29] MEDS ORDERED: PANTOPRAZOLE 40 MG 10ML VIAL ONE (09:47)
[2018-10-29] MEDS: ASPIRIN 81 MG CHEW TAB PO SCH (10:03)
[2018-10-29] MEDS: MAGNESIUM OXIDE 400 MG TAB PO SCH (10:03)
[2018-10-29] MEDS: CLOPIDOGREL BISULFATE 75 MG TAB PO SCH (10:03)
[2018-10-29] MEDS: PROPOFOL IV EMULSION 10MG/ML 100 ML IV SCH (10:04)
[2018-10-29] MEDS: CARVEDILOL 12.5 MG TAB PO SCH ×2 (10:05→21:00)
[2018-10-29] MEDS: LISINOPRIL 10 MG TAB PO SCH ×2 (10:05→21:00)
--- NOTE | 2018-10-29 10:07 | Diagnostic Imaging Report ---
EXAM: CHEST SINGLE (PORTABLE), AP Portable DATE: 10/29/2018 Time stamp on exam: 8:54 AM INDICATION: Respiratory distress with rapid response team called. COMPARISON: 10/29/2018 at 5:57 AM FINDINGS: LINES/TUBES: Endotracheal tube has been added. LUNGS: Worsening multifocal pulmonary opacities. PLEURA: No effusions or pneumothorax. HEART AND MEDIASTINUM: Normal size and contour. BONES AND SOFT TISSUES: No acute findings. IMPRESSION: 1. Endotracheal tube in appropriate location. 2. Significant worsening of pulmonary opacities. Signed by: Dr. Chema Mcconnell DO on 10/29/2018 10:04 AM
--- NOTE | 2018-10-29 10:16 | Diagnostic Imaging Report ---
Abdomen, one view dated 10/29/2018 at 9:17 AM. History: NG tube placement. Findings: There is an NG tube with tip below the diaphragm extending into the stomach. Stomach bubble is prominent. The intestinal gas pattern is nonobstructive. Diffuse vascular calcification is present. There no masses or abnormal calcifications. The osseous structures reveal severe degenerative changes of the spine. IMPRESSION: 1. No acute abdominal abnormality. 2. NG tube with its tip below the diaphragm. Signed by: Dr. Chema Mcconnell DO on 10/29/2018 10:12 AM
[2018-10-29] MEDS: VANCOMYCIN 500MG/NS 0.9% 100ML 100 ML IV SCH ×2 (10:20→22:11)
[2018-10-29] MEDS: HEPARIN SOD (PORCINE) 5,000 UNIT/ML VIAL SC SCH (10:20)
[2018-10-29] MEDS: FENTANYL CITRATE INJ 2,000 MCG in SODIUM CHLORIDE 0.9% 250ML 210 ML IV PRN (10:21)
[2018-10-29] MEDS ORDERED: ASPIRIN 81 MG CHEW TAB PO ONE (10:30)
[2018-10-29 10:39] LABS: ABG HCO3 22 mmol/L (23-28); ABG PCO2 24 mmHg (41-51); ABG PH 7.57 (7.31-7.41); ABG PO2 86 mmHg (80-105)
[2018-10-29 13:44] LABS: ABG HCO3 26 mmol/L (23-28); ABG PCO2 40 mmHg (41-51); ABG PH 7.42 (7.31-7.41); ABG PO2 67 mmHg (80-105)
--- NOTE | 2018-10-29 14:31 | NUR ---
ST Note: Recent events noted. Pt currently intubated and transferred to ICU. Will f/u as indicated.
[2018-10-29 15:01] LABS: ABG HCO3 27 mmol/L (23-28); ABG PCO2 39 mmHg (41-51); ABG PH 7.45 (7.31-7.41); ABG PO2 72 mmHg (80-105)
--- NOTE | 2018-10-29 15:23 | NUR ---
Nutrition Intervention Note RD Recommendation(s) for Physician: -Rec to initiate continuous TF of Vital HP @20mL/hr and advance to goal rate of 55mL/hr as tolerated (1320kcal, 116g protein, and 1103mL H2O) -Rec 30mL free water flushes q 4hr; additional per MD discretion -Check daily labs, weight, and gastric tolerance Plan of Care: RD following, monitoring for tolerance and adequacy, TF rec Nutrition reason for involvement: Diagnosis RD Assessment Chart reviewed. 83yo F, who was admitted for fever, cough, and wheezing. Rapid response was called this AM. Pt was subsequently intubated and ventilated. Abd X-ray was negative. RUBBER ENGRAVER following. Unable to obtain hx from pt; no family on bedside during my time of visit. Labs reviewed. Will communicate TF rec with RN when ok to feed. Will continue to monitor and follow. Principal Problems/Diagnoses: PNA, sepsis PMH: Diabetes type 2, coronary disease with stents, osteoporosis, hypertension, peripheral vascular and arterial disease, carotid disease with stents. GI: abdomen soft, non-tender round, flatus present, +NGT Skin: No pressure wound noted Labs: (10/29) K 3.3 L, Glucose 183 216 H Meds: insulin, fentanyl, abx, propofol, mg oxide Ht: 59in Wt: 152.31lb BMI: 30.8kg/m2 IBW: 95lb Malnutrition Evaluation (10/29) The patient does not meet criteria for a specified degree of malnutrition at this time. Will re-evaluate at follow-up as appropriate. Nutrition Prescription (Diet Order): NPO Estimated Nutritional Needs: Calories: 1242 1380kcal(18-20kcal/kg/d) Weight used: current BW Protein: 90 138g(1.3-2g/kg/d) Weight used: current BW Diet Adequacy: Not meeting calorie needs, Not meeting protein needs Diet Education Needs Assessment: Diet education indicated, but patient not appropriate for education at this time. Nutrition Care Level: mod Nutrition Diagnosis: Inadequate oral intake related to current medical status (intubated/ ventilated) as evidenced by pt requiring EN as main source of nutrition. Goal: Patient will meet 75-100% of estimated needs by follow up Progress: N/A Interventions: Composition, Rate, Route Monitoring/Evaluation: Total energy intake, Total protein intake, Formula/Solution, Weight change, Labs, Gastric tolerance Signed: Kena Ha, MS, RD, LD
--- NOTE | 2018-10-29 17:08 | Consultation ---
DATE OF CONSULTATION: 10/29/2018 Cardiology Consultation Note Thank you so much for asking me see this challenging patient in consultation. HISTORY OF PRESENT ILLNESS: Ms. Aguirre is an 83-year-old lady with diabetes and known coronary artery disease, who has been hospitalized at [facility] since presentation on October 25. History of present illness obtained from the family at the bedside. Her family reports that she had been having some dyspnea and cough, but has been doing pretty well in the recent past. PAST MEDICAL HISTORY: Significant for diabetes, previous coronary artery disease. I am told by the family that she had coronary stenting and myocardial infarction about 2010. There is some peripheral vascular disease as well with toe amputation. She may have had a carotid stent as well. Full details are not available. She has hypertension and takes a complex medical regimen at home. PERSONAL HISTORY: Not available at this time. SOCIAL HISTORY: Not available at this time. FAMILY HISTORY: Not available at this time. PHYSICAL EXAMINATION: GENERAL: At this time shows an elderly woman who is sedated and on ventilator. She was intubated this morning for respiratory insufficiency. VITAL SIGNS: Temperature is 100.4, blood pressure 159/61. HEAD, EYES, EARS, NOSE, AND THROAT: Remarkable for the endotracheal tube. THORAX: Heart sounds S1, S2 are equal. There is no significant murmur audible. LUNGS: Have good air movement with the ventilator and endotracheal tube. ABDOMEN: Protuberant. EXTREMITIES: Have no edema. DIAGNOSTIC DATA: EKG shows sinus rhythm with anteroseptal scar. LABORATORY DATA: Today's laboratory studies show hemoglobin 10.1, white count 13.6. BUN 17, creatinine 0.7, glucose 183. Chest x-ray shows multifocal pneumonia. ASSESSMENT: 1. Pneumonia with respiratory insufficiency. 2. Clinical congestive heart failure with echocardiogram yesterday suggesting ejection fraction 30% to 35%. 3. Type 2 adult onset diabetes. 4. Peripheral vascular disease. PLAN: Agree with ventilator support and antibiotics. Her prognosis is guarded. I have discussed with family at the bedside. Thank you for asking me to see her in consultation. MD PAULINA Palm/JOSE /[id number] cc: MD Fernando Romero MD
[2018-10-29 17:26] LABS: CREATINE KINASE MB 0.4 ng/mL (0-5.0)
[2018-10-29] MEDS: ACETAMINOPHEN 325 MG TAB PO PRN (17:59)
--- NOTE | 2018-10-29 18:55 | NUR ---
MD MORALEZ PAGED FOR TROPONIN RESULTS. AWAITING CALL BACK
--- NOTE | 2018-10-29 18:58 | NUR ---
SPOKE TO REGARDING TROPONIN. NO NEW ORDERS RECEIVED
--- NOTE | 2018-10-29 20:16 | NUR ---
APPLIED COOL COMPRESSES TO PATIENTS BACK OF NECK, APPLIED TWO TOWELS AROUND COMPRESSES TO PREVENT SKIN INJURY
[2018-10-29] MEDS: GABAPENTIN 300 MG CAP PO SCH (21:00)
[2018-10-29] MEDS: METHYLPREDNISOLONE SOD SUCC 40 MG/ML VIAL 1ML IV SCH (22:11)
[2018-10-29 22:48] LABS: HIV 1&2 AB SCREEN NON-REACTIVE (NONREACTIVE)
[2018-10-30] VITALS (22 sets, daily range): BP systolic 132–174; BP diastolic 40–69
[2018-10-30] LABS: CREATINE KINASE MB 0.6 ng/mL (0-5.0)
[2018-10-30] MEDS: PIPER-TAZ 3.375 GM 50 ML IV SCH ×5 (00:09→22:30)
[2018-10-30] MEDS: AZITHROMYCIN 500MG/SOD CHL 0.9% 250ML BAG IV SCH ×2 (00:45→23:50)
--- NOTE | 2018-10-30 01:01 | NUR ---
DR SILVA PAGED FOR ELEVATED TROPONIN
--- NOTE | 2018-10-30 01:06 | NUR ---
SPOKE TO DR SILVA, READ BACK TROPONIN 2.695, NEW ORDERS WERE TO CANCEL CARDIAC ENZYMES DUE AT 0600, TELEPHONE ORDER READ BACK
--- NOTE | 2018-10-30 01:30 | Consultation ---
DATE OF CONSULTATION: 10/29/2018 Consultation Note REASON FOR CONSULTATION: Respiratory failure, pneumonia, and sepsis. HISTORY OF PRESENT ILLNESS: This patient who is currently in the intensive care unit. She originally came to our hospital here on October 25. According to the family, the patient has been sick for 2 weeks before she came here with cough, fever, sensation of not feeling well, and some shortness of breath. She went to see her doctor. The patient was seen and started on oral meds . She was given oral antibiotics and some cough syrup, but the patient continued to not feeling well and then she started to have blood in her sputum. So, the patient was sent to the Emergency Room. In the Emergency Room, she was evaluated and she was admitted. She comes here with shortness of breath and cough with productive of some blood recently. The patient apparently was in [place] a week ago and started to have cough when she was back from [place]. The patient is currently intubated. The family is at the bedside. PAST MEDICAL HISTORY: Diabetes mellitus, coronary artery disease, peripheral vascular disease, and carotid artery stent placement. PAST SURGICAL HISTORY: Toe amputation. ALLERGIES: NKA. SOCIAL HISTORY: There is no smoking, drug abuse, or alcohol abuse. She lives with her . There is no one sick in the family. She was in [place] recently. The patient was admitted on October 26. She has been seen by Pulmonary. She has been seen by Cardiology. When she came here, her workup showed that she had multilobar pneumonia, so the patient was admitted. Blood cultures obtained and sputum cultures obtained. LABORATORY DATA: Revealed a white count of 14.4, came down to 12.47, then 13.62; hemoglobin 9.7; hematocrit 30; the diff was reviewed. Her sodium is 137, potassium 3.3, and creatinine 0.73. Her cultures _ still pending. Her influenza A and B were negative. The patient who is currently on insulin, piperacillin/tazobactam, vancomycin, lisinopril, aspirin, azithromycin, and nifedipine. She had a chest CT on the , which showed multilobar opacities noted, consistent with pneumonia. Because of the distribution, there was a concern about aspiration. Chest x-ray showed worsening pulmonary opacity. PHYSICAL EXAMINATION: GENERAL: She is intubated and sedated. VITAL SIGNS: Her temperature is 100.4. She has been running with temperatures since admission. Currently, her heart rate is 54, O2 saturation is 100, and blood pressure 103/99. HEENT: She is not icteric. NECK: Supple. No JVD. No carotid bruit. No thyromegaly. CHEST: Few crackles bilateral. COR: S1 and S2. No S3, S4, or murmur. ABDOMEN: Soft. Bowel sounds present. No tenderness. No hepatosplenomegaly. EXTREMITIES: No edema. IMPRESSION: 1. Pneumonia, multifocal. I am concerned she may also have an early adult respiratory distress syndrome or bronchiolitis obliterans organizing pneumonia. 2. Anemia. 3. I am concerned that the patient while on good coverage of antibiotic, remains on fever, which is a concern if she has other pathology, so I agree with collagen workup. We will also obtain human immunodeficiency virus. Continue with the IV antibiotic. We would also add steroid. We will discuss with Pulmonary. 4. Agree with OFELIA, sed rates, C reactive protein and we will also check human immunodeficiency virus. We will follow. MD CHANCE Romero/JOSE /[id number]
[2018-10-30] MEDS: ALBUTEROL/IPRATROPIUM 3 ML NEB NEB SCH ×4 (02:40→18:45)
[2018-10-30 05:04] LABS: BASOPHILS % 0.1 % (0.0-1.0); HEMATOCRIT 29.4 % (34.2-44.1); LYMPHOCYTES # (AUTO) 0.8 (1.0-3.2); LYMPHOCYTES % 6.7 % (18.0-39.1); MEAN CORPUSCULAR HEMOGLOBIN 28.3 pg (28-32); MEAN CORPUSCULAR HGB CONC 30.6 g/dL (31-35); MEAN CORPUSCULAR VOLUME 92.5 fL (81-99); MONOCYTES # (AUTO) 0.4 (0.2-0.8); MONOCYTES % 3.4 % (4.4-11.3); NEUTROPHILS % 89.3 % (38.7-80.0); PLATELET COUNT 196 x10e3/uL (140-360); RED BLOOD COUNT 3.18 x10e6/uL (3.6-5.1); RED CELL DISTRIBUTION WIDTH 14.2 % (11.7-14.4)
[2018-10-30] MEDS: METHYLPREDNISOLONE SOD SUCC 40 MG/ML VIAL 1ML IV SCH ×3 (05:29→22:00)
[2018-10-30 05:30] LABS: ANION GAP 12.8 mmol/L (8-16); POTASSIUM 3.8 mmol/L (3.5-5.1)
--- NOTE | 2018-10-30 06:18 | Diagnostic Imaging Report ---
EXAMINATION: CHEST SINGLE (PORTABLE) INDICATION: PNEUMONIA COMPARISON: Chest x-ray 10/29/2018, chest CT 10/26/2018 FINDINGS: AP view TUBES and LINES: Endotracheal tube tip projects 3.9 cm above the ara. NG/OG tube side hole and tip project over the gastric body. LUNGS: Improvement of multifocal airspace opacities. PLEURA: Small pleural effusions. No pneumothorax. HEART AND MEDIASTINUM: The cardiomediastinal silhouette is unremarkable. There are atherosclerotic calcifications within the aorta. BONES AND SOFT TISSUES: No acute osseous lesion. Soft tissues are unremarkable. UPPER ABDOMEN: No free air under the diaphragm. IMPRESSION: Improvement in multifocal airspace opacities. Signed by: DR. Duane Alonso MD on 10/30/2018 6:14 AM
[2018-10-30] MEDS: PROPOFOL IV EMULSION 10MG/ML 100 ML IV SCH (06:34)
[2018-10-30] MEDS: INSULIN REGULAR, HUMAN 100 UNIT/1 ML 3ML VIAL SQ SCH ×4 (08:00→17:22)
[2018-10-30] MEDS: CARVEDILOL 12.5 MG TAB PO SCH ×2 (09:00→18:19)
[2018-10-30] MEDS: LISINOPRIL 10 MG TAB PO SCH ×2 (09:00→18:20)
[2018-10-30] MEDS: NIFEDIPINE CR 30 MG TAB PO SCH (09:00)
--- NOTE | 2018-10-30 09:30 | NUR ---
ST note: Pt remains intubated. Will f/u as indicated.
[2018-10-30] MEDS: VANCOMYCIN 500MG/NS 0.9% 100ML 100 ML IV SCH ×2 (09:32→21:13)
[2018-10-30] MEDS: PANTOPRAZOLE 40 MG 10ML VIAL IV SCH (09:32)
[2018-10-30] MEDS ORDERED: SODIUM CHLORIDE 0.9% 250ML 250 ML ONE (09:42)
[2018-10-30] MEDS ORDERED: LIDOCAINE HCL 4% 50 ML BTL ONE (10:26)
--- NOTE | 2018-10-30 11:00 | NUR ---
ASSESSMENT: Spiritual concern Pt's daughters relieved and hopeful following mother's procedure. Laborer Tanbark visited family in waiting room. Intervention: Provided empathic listening. Reminded pt's family of availability of client service administrator's services. Outcome: Will continue to follow as able. GIANCALRO Rueda Spiritual Care Department O: [phone] Pager: [phone] ([phone] number calling from)
--- NOTE | 2018-10-30 12:16 | Diagnostic Imaging Report ---
Examination: Single AP view of the chest. COMPARISON: 10/30/2018 at 0541 INDICATION: Status post bronchoscopy DISCUSSION: Endotracheal and enteric tubes are unchanged in position. Interval progression of multifocal consolidations right worse than left. No pneumothorax status post bronchoscopy. Stable cardiomediastinal contour. No acute osseous abnormality. IMPRESSION: Stable position of support lines and tubes. Worsening multifocal consolidations right greater than left relative to the examination from 0542 hours. Signed by: Dr. Fernando Corley M.D. on 10/30/2018 12:13 PM
--- NOTE | 2018-10-30 13:31 | NUR ---
WOUND CARE SCREEN: THIS IS AN 83 YEAR OLD FEMALE PATIENT ADMITTED TO [facility]. PATIENT'S NURYS SCORE IS 15, WHICH IS APPROPRIATE FOR PATIENT. PUP INTERVENTIONS ARE IN PLACE, INCLUDING ALTERNATING PRESSURE RELIEF MATTRESS, BILATERAL HEEL PROTECTORS WITH PILLOW SUSPENSION, AND TURN EVERY 2 HOURS AND PRN. THANK YOU FOR THIS WOUND CARE SCREEN. Addendum: 10/30/18 at 1335 by Maria E Anthony RN Amended: Links added.
--- NOTE | 2018-10-30 13:34 | Operative Report ---
DATE OF PROCEDURE: 10/30/2018 SURGEON: Fernando De Oliveira MD The patient of Dr. Quiñones and Dr. Shelton. The patient with bilateral pulmonary infiltrates and fever, cultures negative today. Procedure was performed for bacteriologic studies. The patient was bronchoscoped through a #7.5 mm endotracheal tube. Tube was seen to be in good position, approximately 2 cm above the ara. Lavage was obtained from the right upper lobe. Approximately 60 mL of saline was instilled. Following this, washings were obtained from the tracheobronchial tree. There was moderate amount of white secretion. No obstructing endobronchial lesions, moderate bronchitis. No obvious blood loss. Procedure was well tolerated. She was oxygenated with 100% oxygen during the procedure with saturation remained above 96%. MD RIK Paulino/MODL /[id number]
[2018-10-30] MEDS: ACETAMINOPHEN 325 MG TAB PO PRN (17:17)
[2018-10-30] MEDS: MAGNESIUM OXIDE 400 MG TAB PO SCH (17:29)
--- NOTE | 2018-10-30 19:30 | NUR ---
Received patient hemodynamically stable
[2018-10-30] MEDS: GABAPENTIN 300 MG CAP PO SCH (21:13)
[2018-10-31] VITALS (23 sets, daily range): BP systolic 139–178; BP diastolic 0–103
[2018-10-31] MEDS ORDERED: SODIUM CHLORIDE 0.9% 250ML 250 ML ONE (01:06)
[2018-10-31] MEDS: ALBUTEROL/IPRATROPIUM 3 ML NEB NEB SCH ×4 (02:25→19:33)
[2018-10-31] MEDS: PIPER-TAZ 3.375 GM 50 ML IV SCH ×4 (04:30→22:30)
--- NOTE | 2018-10-31 05:00 | NUR ---
Patient given a full bedbath, hemodynamically stable
[2018-10-31] MEDS: INSULIN REGULAR, HUMAN 100 UNIT/1 ML 3ML VIAL SQ SCH ×4 (06:30→16:30)
[2018-10-31] MEDS: METHYLPREDNISOLONE SOD SUCC 40 MG/ML VIAL 1ML IV SCH ×2 (06:30→17:00)
--- NOTE | 2018-10-31 07:07 | NUR ---
Patient handed over hemodynamically stable
[2018-10-31] MEDS: NIFEDIPINE CR 30 MG TAB PO SCH (09:00)
[2018-10-31] MEDS: PANTOPRAZOLE 40 MG 10ML VIAL IV SCH (09:00)
[2018-10-31] MEDS: CARVEDILOL 12.5 MG TAB PO SCH ×2 (09:00→20:23)
[2018-10-31] MEDS: LISINOPRIL 10 MG TAB PO SCH ×2 (09:00→20:24)
[2018-10-31] MEDS: ASPIRIN 81 MG CHEW TAB PO SCH (09:00)
[2018-10-31] MEDS: MAGNESIUM OXIDE 400 MG TAB PO SCH (09:00)
[2018-10-31] MEDS: VANCOMYCIN 500MG/NS 0.9% 100ML 100 ML IV SCH ×2 (09:30→21:30)
[2018-10-31] MEDS: PROPOFOL IV EMULSION 10MG/ML 100 ML IV SCH (14:31)
--- NOTE | 2018-10-31 16:41 | NUR ---
Nutrition Intervention Note RD Recommendation(s) for Physician: -Rec to increase continuous TF of Vital HP to goal rate of 55mL/hr as tolerated. (1320kcal, 116g protein, and 1103mL H2O) -Rec 30mL free water flushes q 4hr; additional per MD discretion -Check daily labs, weight, and gastric tolerance Plan of Care: RD following, monitoring for tolerance and adequacy, TF rec Nutrition reason for involvement: Follow up RD Assessment 10/31: Chart reviewed. Pt was discussed during AM rounds. Pt remained intubated and ventilated. Sedation on. No pressor meds. Vital HP started at 20mL/hr today. RN aware of goal rate; will advance as tolerated. BG running 230 290 with Solu-medrol (insulin ordered). Will continue to monitor and follow. 10/29: Chart reviewed. 83yo F, who was admitted for fever, cough, and wheezing. Rapid response was called this AM. Pt was subsequently intubated and ventilated. Abd X-ray was negative. FENCE GATE ASSEMBLER following. Unable to obtain hx from pt; no family on bedside during my time of visit. Labs reviewed. Will communicate TF rec with RN when ok to feed. Will continue to monitor and follow. Principal Problems/Diagnoses: PNA, sepsis PMH: Diabetes type 2, coronary disease with stents, osteoporosis, hypertension, peripheral vascular and arterial disease, carotid disease with stents. GI: abdomen soft, non-tender round, LBM 10/28, +NGT Skin: No pressure wound noted Labs: (10/31) No chemistry lab (10/29) K 3.3 L, Glucose 183 216 H Meds: propofol, insulin, abx, protonix, Mag Oxide Ht: 59in Wt: 152.31lb; 147lb BMI: 30.8kg/m2 IBW: 95lb Malnutrition Evaluation (10/29) The patient does not meet criteria for a specified degree of malnutrition at this time. Will re-evaluate at follow-up as appropriate. Nutrition Prescription (Diet Order): Vital HP @40mL/hr Estimated Nutritional Needs: Calories: 1242 1380kcal (18-20kcal/kg/d) Weight used: current BW Protein: 90 138g (1.3-2g/kg/d) Weight used: current BW Diet Adequacy: Not meeting calorie needs, Not meeting protein needs Diet Education Needs Assessment: Diet education indicated, but patient not appropriate for education at this time. Nutrition Care Level: mod Nutrition Diagnosis: Inadequate oral intake related to current medical status (intubated/ ventilated) as evidenced by pt requiring EN as main source of nutrition. Goal: Patient will meet 75-100% of estimated needs by follow up Progress: Progressing Interventions: Composition, Rate, Route Monitoring/Evaluation: Total energy intake, Total protein intake, Formula/Solution, Weight change, Labs, Gastric tolerance Signed: Kena Ha MS, RD, LD
--- NOTE | 2018-10-31 19:30 | NUR ---
Received patient stable in bed, remains sedated with fentanyl and propofol and mechanically ventilated. Restrained. for rapid weaning in the AM
[2018-10-31] MEDS: ACETAMINOPHEN 325 MG TAB PO PRN (20:00)
[2018-10-31] MEDS: GABAPENTIN 300 MG CAP PO SCH (20:23)
[2018-10-31] MEDS: AZITHROMYCIN 500MG/SOD CHL 0.9% 250ML BAG IV SCH (23:15)
[2018-11-01] VITALS (24 sets, daily range): BP systolic 102–188; BP diastolic 35–66
[2018-11-01] MEDS: ALBUTEROL/IPRATROPIUM 3 ML NEB NEB SCH ×4 (01:10→19:10)
[2018-11-01] MEDS: PIPER-TAZ 3.375 GM 50 ML IV SCH ×4 (04:30→21:22)
--- NOTE | 2018-11-01 05:00 | NUR ---
Patient given a full bath, NPO since 3am, rapid weaning initiated
[2018-11-01 05:14] LABS: HEMATOCRIT 31.1 % (34.2-44.1); HEMOGLOBIN 9.6 g/dL (12.0-16.0); LYMPHOCYTES # (AUTO) 0.6 (1.0-3.2); LYMPHOCYTES % 7.4 % (18.0-39.1); MEAN CORPUSCULAR HGB CONC 30.9 g/dL (31-35); MONOCYTES # (AUTO) 0.6 (0.2-0.8); MONOCYTES % 6.8 % (4.4-11.3); NEUTROPHILS # (AUTO) 7.2 (2.1-6.9); NEUTROPHILS % 85.1 % (38.7-80.0); PLATELET COUNT 170 x10e3/uL (140-360); RED BLOOD COUNT 3.31 x10e6/uL (3.6-5.1)
[2018-11-01 05:46] LABS: CALCIUM 8.4 mg/dL (8.4-10.2); CREATININE, SERUM 0.9 mg/dL (0.57-1.11)
[2018-11-01] MEDS: INSULIN REGULAR, HUMAN 100 UNIT/1 ML 3ML VIAL SQ SCH (06:00)
--- NOTE | 2018-11-01 06:30 | Diagnostic Imaging Report ---
EXAMINATION: CHEST SINGLE (PORTABLE) INDICATION: intubated COMPARISON: Chest x-ray 10/30/2018 at 1200 hrs, chest CT 10/26/2018 FINDINGS: AP view TUBES and LINES: Endotracheal tube tip projects 4 cm above the ara. NG/OG tube side hole projects over the gastric body, tip extends out of the field of view. LUNGS: Improvement of multifocal airspace opacities. PLEURA: Small pleural effusions. No pneumothorax. HEART AND MEDIASTINUM: The cardiomediastinal silhouette is unremarkable. There are atherosclerotic calcifications within the aorta. BONES AND SOFT TISSUES: No acute osseous lesion. Soft tissues are unremarkable. UPPER ABDOMEN: No free air under the diaphragm. IMPRESSION: Improvement in multifocal airspace opacities. Signed by: DR. Duane Alonso MD on 11/01/2018 6:27 AM
--- NOTE | 2018-11-01 07:09 | NUR ---
Handed over stable
[2018-11-01] MEDS: LISINOPRIL 10 MG TAB PO SCH ×2 (08:56→20:33)
[2018-11-01] MEDS: METHYLPREDNISOLONE SOD SUCC 40 MG/ML VIAL 1ML IV SCH ×2 (08:56→18:34)
[2018-11-01] MEDS: MAGNESIUM OXIDE 400 MG TAB PO SCH (08:56)
[2018-11-01] MEDS: ASPIRIN 81 MG CHEW TAB PO SCH (08:56)
[2018-11-01] MEDS: CARVEDILOL 12.5 MG TAB PO SCH ×2 (08:56→20:32)
[2018-11-01] MEDS: PANTOPRAZOLE 40 MG 10ML VIAL IV SCH (08:56)
[2018-11-01] MEDS: NIFEDIPINE CR 30 MG TAB PO SCH (09:00)
[2018-11-01] MEDS: VANCOMYCIN 500MG/NS 0.9% 100ML 100 ML IV SCH ×2 (09:30→20:32)
[2018-11-01] MEDS ORDERED: DEXTROSE 50% SYRINGE 50 ML IV PRN (09:45)
[2018-11-01] MEDS ORDERED: INSULIN GLARGINE 100 UNITS/ML VIAL SQ ONE ×2 (09:45→18:15)
--- NOTE | 2018-11-01 10:43 | NUR ---
ST Note: Pt remains intubated. Pt is at very high risk for aspiration due to PNA on admission and vent >48 hours. Pt should have bedside swallow evaluation by this service prior to the initiation of any po diet. Recommend NGT stay in place if pt to be extubated soon. Discussed with VERONICA Bernard, who will pass information along to VERONICA Ruiz.
[2018-11-01] MEDS ORDERED: INSULIN LISPRO 100 UNIT/1 ML 3ML VIAL SQ SCH ×2 (11:30→18:00)
[2018-11-01] MEDS: ACETAMINOPHEN 325 MG TAB PO PRN (12:30)
[2018-11-01] MEDS: DEXTROSE 5% 1,000 ML IV SCH (14:35)
[2018-11-01] MEDS: PROPOFOL IV EMULSION 10MG/ML 100 ML IV SCH (16:16)
--- NOTE | 2018-11-01 18:11 | NUR ---
notified dr. morales of temp 102, blood sugar 393, and bp 188/58 hr 64. see orders for meds, and he states check with dr. abdalla to see about anything besides tylenol and cooling for the fever. paged eliasb
[2018-11-01] MEDS ORDERED: ACETAMINOPHEN 1000 MG/100 ML IV PRN (18:15)
[2018-11-01] MEDS: INSULIN LISPRO 100 UNIT/1 ML 3ML VIAL SQ SCH ×2 (18:34→22:06)
--- NOTE | 2018-11-01 19:00 | NUR ---
Bedside report received from Sara Jacome RN. Care plan reviewed, family is present at the bedside. No signs of distress, pain, or discomfort noted at this time.
[2018-11-01] MEDS: GABAPENTIN 300 MG CAP PO SCH (20:33)
[2018-11-01] MEDS: FENTANYL CITRATE INJ 2,000 MCG in SODIUM CHLORIDE 0.9% 250ML 210 ML IV PRN (20:54)
[2018-11-01] MEDS ORDERED: INSULIN GLARGINE 100 UNITS/ML VIAL SQ SCH (21:00)
[2018-11-01] MEDS: HEPARIN SOD (PORCINE) 5,000 UNIT/ML VIAL SC SCH (21:13)
[2018-11-01] MEDS: INSULIN GLARGINE 100 UNITS/ML VIAL SQ SCH (22:05)
[2018-11-01] MEDS: AZITHROMYCIN 500MG/SOD CHL 0.9% 250ML BAG IV SCH (23:00)
[2018-11-02] VITALS (22 sets, daily range): BP systolic 152–197; BP diastolic 40–64
[2018-11-02] MEDS: ALBUTEROL/IPRATROPIUM 3 ML NEB NEB SCH ×4 (00:50→18:27)
[2018-11-02] MEDS: INSULIN LISPRO 100 UNIT/1 ML 3ML VIAL SQ SCH ×6 (02:05→21:54)
[2018-11-02] MEDS: PROPOFOL IV EMULSION 10MG/ML 100 ML IV SCH (04:00)
[2018-11-02 05:00] LABS: BASOPHILS % 0.1 % (0.0-1.0); LYMPHOCYTES # (AUTO) 0.8 (1.0-3.2); LYMPHOCYTES % 8.3 % (18.0-39.1); MEAN CORPUSCULAR HEMOGLOBIN 28.2 pg (28-32); MEAN CORPUSCULAR HGB CONC 30.3 g/dL (31-35); MONOCYTES # (AUTO) 0.5 (0.2-0.8); MONOCYTES % 5.4 % (4.4-11.3); NEUTROPHILS # (AUTO) 8.4 (2.1-6.9); NEUTROPHILS % 84.5 % (38.7-80.0); PLATELET COUNT 134 x10e3/uL (140-360); RED BLOOD COUNT 3.55 x10e6/uL (3.6-5.1); RED CELL DISTRIBUTION WIDTH 14.2 % (11.7-14.4)
[2018-11-02] MEDS: PIPER-TAZ 3.375 GM 50 ML IV SCH ×4 (05:00→21:54)
[2018-11-02 05:17] LABS: ANION GAP 11.9 mmol/L (8-16); CREATININE, SERUM 0.93 mg/dL (0.57-1.11); POTASSIUM 3.9 mmol/L (3.5-5.1)
[2018-11-02] MEDS: DEXTROSE 5% 1,000 ML IV SCH (05:28)
--- NOTE | 2018-11-02 07:00 | NUR ---
Bedside report given to Sara Jacome RN. Care plan reviewed. Family present at the bedside.
[2018-11-02] MEDS: METHYLPREDNISOLONE SOD SUCC 40 MG/ML VIAL 1ML IV SCH ×2 (08:04→17:34)
[2018-11-02] MEDS: PANTOPRAZOLE 40 MG 10ML VIAL IV SCH (08:56)
[2018-11-02] MEDS: HEPARIN SOD (PORCINE) 5,000 UNIT/ML VIAL SC SCH ×2 (08:57→20:00)
[2018-11-02] MEDS: MAGNESIUM OXIDE 400 MG TAB PO SCH (09:05)
[2018-11-02] MEDS: ASPIRIN 81 MG CHEW TAB PO SCH (09:05)
[2018-11-02] MEDS: LISINOPRIL 10 MG TAB PO SCH ×2 (09:05→20:00)
[2018-11-02] MEDS: CARVEDILOL 12.5 MG TAB PO SCH ×2 (09:05→20:00)
[2018-11-02] MEDS: VANCOMYCIN 500MG/NS 0.9% 100ML 100 ML IV SCH ×2 (09:44→20:00)
[2018-11-02 10:03] LABS: ABG HCO3 26 mmol/L (23-28); ABG PCO2 38 mmHg (41-51); ABG PH 7.44 (7.31-7.41); ABG PO2 61 mmHg (80-105)
--- NOTE | 2018-11-02 19:00 | NUR ---
Bedside report received from Sara Jacome RN. Care plan reviewed, family is present at the bedside. No signs of distress, pain, or discomfort noted at this time. Per report from Sara Jacome RN pt tolerated temporary weaning trial this morning and wants to repeat again in the morning.
[2018-11-02] MEDS: ACETAMINOPHEN 325 MG TAB PO PRN (19:53)
[2018-11-02] MEDS: GABAPENTIN 300 MG CAP PO SCH (20:00)
[2018-11-02] MEDS: INSULIN GLARGINE 100 UNITS/ML VIAL SQ SCH (21:54)
--- NOTE | 2018-11-02 22:43 | Progress Note ---
DATE: 11/02/2018 SUBJECTIVE: Ms. Aguirre remains on the ventilator, but she is doing better, more comfortable. Her vent setting has also improved. Could not obtain review of system. Her family at the bedside. Discussed with them the findings so far. All her cultures are negative. The bronch shows yeast. LABORATORY DATA: Showed the white count is 9.98, hemoglobin of 10, hematocrit of 33. Her sodium 150, potassium of 3.9, creatinine 0.93. PHYSICAL EXAMINATION: GENERAL: She is sedated. VITAL SIGNS: Temperature is 100.3. HEENT: She does not appear icteric. NECK: Supple. CHEST: Few crackles. COR: S1, S2. No S3, S4, or murmur. ABDOMEN: Soft. Bowel sounds present. No tenderness. EXTREMITIES: No edema. IMPRESSION AND PLAN: Pneumonia, concerned about development of bronchiolitis obliterans organizing pneumonia. Chest x-ray showing improvement. Ventilatory-holland seem to be getting better. Continue with the current choice plan of 8 days of IV antibiotic and steroid to be weaned slowly. So far, her laboratory data, her chlamydia is negative, HIV negative, influenza was negative, Legionella was negative. Discussed with Pulmonary, Dr. De Oliveira. Discussed with the patient and son and the nurse. Continue as ordered. We will follow. MD CHANCE Romero/MODL /[id number]
--- NOTE | 2018-11-02 23:00 | NUR ---
New bottle of propofol hung at this time.
[2018-11-02] MEDS: AZITHROMYCIN 500MG/SOD CHL 0.9% 250ML BAG IV SCH (23:56)
[2018-11-03] VITALS (21 sets, daily range): BP systolic 129–188; BP diastolic 33–74
[2018-11-03] MEDS: ALBUTEROL/IPRATROPIUM 3 ML NEB NEB SCH ×4 (00:30→19:30)
[2018-11-03] MEDS: DEXTROSE 5% 1,000 ML IV SCH ×2 (02:00→19:35)
[2018-11-03] MEDS: INSULIN LISPRO 100 UNIT/1 ML 3ML VIAL SQ SCH ×6 (02:26→21:37)
[2018-11-03] MEDS: PIPER-TAZ 3.375 GM 50 ML IV SCH ×3 (05:45→16:26)
--- NOTE | 2018-11-03 06:13 | Diagnostic Imaging Report ---
EXAMINATION: CHEST SINGLE (PORTABLE) INDICATION: pneumonia COMPARISON: Chest x-ray 11/01/2018 at 1200 hrs, chest CT 10/26/2018 FINDINGS: AP view TUBES and LINES: Endotracheal tube tip projects 5 cm above the ara. NG/OG tube side hole projects over the gastric body, tip extends out of the field of view. LUNGS: Mild improvement of multifocal airspace opacities. PLEURA: Small pleural effusions, left greater than right. No pneumothorax. HEART AND MEDIASTINUM: The cardiomediastinal silhouette is unremarkable. There are atherosclerotic calcifications within the aorta. BONES AND SOFT TISSUES: No acute osseous lesion. Soft tissues are unremarkable. UPPER ABDOMEN: No free air under the diaphragm. IMPRESSION: Mild improvement in multifocal airspace opacities. Signed by: DR. Duane Alonso MD on 11/03/2018 6:10 AM
--- NOTE | 2018-11-03 07:00 | NUR ---
Bedside report given to Sara Jacome RN.
[2018-11-03] MEDS: PROPOFOL IV EMULSION 10MG/ML 100 ML IV SCH ×3 (09:00→22:00)
[2018-11-03] MEDS: PANTOPRAZOLE 40 MG 10ML VIAL IV SCH (09:58)
[2018-11-03] MEDS: METHYLPREDNISOLONE SOD SUCC 40 MG/ML VIAL 1ML IV SCH ×2 (09:58→16:26)
[2018-11-03] MEDS: ASPIRIN 81 MG CHEW TAB PO SCH (09:59)
[2018-11-03] MEDS: CARVEDILOL 12.5 MG TAB PO SCH ×2 (09:59→21:35)
[2018-11-03] MEDS: MAGNESIUM OXIDE 400 MG TAB PO SCH (09:59)
[2018-11-03] MEDS: LISINOPRIL 10 MG TAB PO SCH ×2 (09:59→21:35)
[2018-11-03] MEDS: HEPARIN SOD (PORCINE) 5,000 UNIT/ML VIAL SC SCH ×2 (10:01→21:36)
[2018-11-03] MEDS: VANCOMYCIN 500MG/NS 0.9% 100ML 100 ML IV SCH (10:04)
[2018-11-03] MEDS ORDERED: FENTANYL CITRATE/PF 100MCG/2 ML INJ IV ONE (13:30)
--- NOTE | 2018-11-03 18:52 | Progress Note ---
DATE: 11/03/2018 SUBJECTIVE: Ms. Aguirre remains on the ventilator, lethargic but clinically she seems comfortable. Her vitals are stable. Temperature 99.6, although she had fever only of 101.5. Vent holland setting seem to be stable. Discussed with Dr. De Oliveira earlier and also discussed with the family and her nurse. REVIEW OF SYSTEMS: Could not be obtained. PHYSICAL EXAMINATION: GENERAL: She is currently comfortable. VITAL SIGNS: Stable as mentioned above. HEENT: Normocephalic. NECK: Supple. CHEST: Few crackles at the bases. COR: S1, S2. No murmur. ABDOMEN: Soft. Bowel sounds present. No tenderness. EXTREMITIES: No edema. IMPRESSION: 1. Pneumonia. The patient received nine days of IV antibiotic. I am going to stop her antibiotic based on her fever, still concerned about early bronchiolitis obliterans organizing pneumonia or other, however, x-ray does not suggest that. At one point she was in high FiO2 and I was thinking maybe she was going to develop ARDS, but her oxygenation has improved and we cannot wean her out of the vent totally. We are going to observe one more day. 2. The issue is her fever now. It could be drug fever. At the present time, I am going to stop her antibiotics since clinically she seems to be stable and reassess in the morning. 3. Respiratory failure. 4. Anemia of chronic disease. 5. We will follow. MD CHANCE Romero/MODFredo /[id number]
--- NOTE | 2018-11-03 19:00 | NUR ---
Bedside report received from Sara Jacome RN.
[2018-11-03] MEDS: GABAPENTIN 100 MG CAP PO SCH (21:35)
[2018-11-03] MEDS: INSULIN GLARGINE 100 UNITS/ML VIAL SQ SCH (21:36)
[2018-11-04] VITALS (23 sets, daily range): BP systolic 125–180; BP diastolic 34–92
[2018-11-04] MEDS: ALBUTEROL/IPRATROPIUM 3 ML NEB NEB SCH ×4 (01:10→19:32)
[2018-11-04] MEDS: INSULIN LISPRO 100 UNIT/1 ML 3ML VIAL SQ SCH ×6 (02:05→22:45)
[2018-11-04 05:30] LABS: BASOPHILS % 0.2 % (0.0-1.0); EOSINOPHILS # (AUTO) 0.1 (0.0-0.4); EOSINOPHILS % 0.4 % (0.0-6.0); HEMATOCRIT 30.5 % (34.2-44.1); HEMOGLOBIN 9.4 g/dL (12.0-16.0); LYMPHOCYTES # (AUTO) 1.5 (1.0-3.2); LYMPHOCYTES % 11.8 % (18.0-39.1); MEAN CORPUSCULAR HEMOGLOBIN 28.5 pg (28-32); MEAN CORPUSCULAR HGB CONC 30.8 g/dL (31-35); MEAN CORPUSCULAR VOLUME 92.4 fL (81-99); MONOCYTES # (AUTO) 0.6 (0.2-0.8); MONOCYTES % 4.4 % (4.4-11.3); NEUTROPHILS # (AUTO) 10.3 (2.1-6.9); NEUTROPHILS % 81.5 % (38.7-80.0); PLATELET COUNT 128 x10e3/uL (140-360)
[2018-11-04 05:45] LABS: ANION GAP 10.9 mmol/L (8-16); BLOOD UREA NITROGEN 41 mg/dL (7-26); BUN/CREATININE RATIO 50 (6-25); CALCIUM 7.9 mg/dL (8.4-10.2); CARBON DIOXIDE 25 mmol/L (22-29); CHLORIDE 112 mmol/L (98-107); CREATININE, SERUM 0.82 mg/dL (0.57-1.11); EST GLOMERULAR FILTRATION RATE > 60 ML/MIN (60-); GLUCOSE 389 mg/dL (74-118); POTASSIUM 3.9 mmol/L (3.5-5.1); SODIUM 144 mmol/L (136-145)
--- NOTE | 2018-11-04 06:36 | Diagnostic Imaging Report ---
EXAMINATION: CHEST SINGLE (PORTABLE) INDICATION: Mechanical Ventilation, PNA COMPARISON: Chest x-ray 11/03/2018 at 1200 hrs, chest CT 10/26/2018 FINDINGS: AP view TUBES and LINES: Endotracheal tube tip projects 4.6 cm above the ara. NG/OG tube side hole projects over the gastric body, tip extends out of the field of view. LUNGS: Mild improvement of multifocal airspace opacities. PLEURA: Small pleural effusions, left greater than right. No pneumothorax. HEART AND MEDIASTINUM: The cardiomediastinal silhouette is unremarkable. There are atherosclerotic calcifications within the aorta. BONES AND SOFT TISSUES: No acute osseous lesion. Soft tissues are unremarkable. UPPER ABDOMEN: No free air under the diaphragm. IMPRESSION: Mild improvement in multifocal airspace opacities. Signed by: DR. Duane Alonso MD on 11/04/2018 6:33 AM
--- NOTE | 2018-11-04 08:41 | NUR ---
ST Note: Pt remains intubated. Pt is at very high risk for aspiration due to PNA on admission and vent >48 hours. Pt should have bedside swallow evaluation by this service prior to the initiation of any po diet. Recommend NGT stay in place if pt to be extubated soon. Handoff to VERONICA Landaverde
[2018-11-04] MEDS: METHYLPREDNISOLONE SOD SUCC 40 MG/ML VIAL 1ML IV SCH ×2 (08:46→16:26)
[2018-11-04] MEDS: PANTOPRAZOLE 40 MG 10ML VIAL IV SCH (08:46)
[2018-11-04] MEDS: ASPIRIN 81 MG CHEW TAB PO SCH (08:48)
[2018-11-04] MEDS: CARVEDILOL 12.5 MG TAB PO SCH ×2 (08:49→20:26)
[2018-11-04] MEDS: LISINOPRIL 10 MG TAB PO SCH ×2 (08:49→20:27)
[2018-11-04] MEDS: MAGNESIUM OXIDE 400 MG TAB PO SCH (08:49)
--- NOTE | 2018-11-04 09:20 | NUR ---
RT NOTIFIED DR TIRADO REGARDING PT STATUS AND WEANING. EXTUBATED BY RT AT THIS TIME. TOLERATES WELL. FAMILY IS AT BEDSIDE AND IS UPDATED ON CURRENT POC. THEY VERBALIZE UNDERSTANDING AND CONSENT. NPO UNTIL SPEECH EVAL.
--- NOTE | 2018-11-04 10:14 | NUR ---
ASSESSMENT: Spiritual concern Pt's daughter relieved and optimistic concerning mother's progress. Pt's daughter and brother at bedside. Intervention: Provided pastoral presence and empathic listening. Provided prayer. Outcome: Pt's family expressed appreciation for prayer and support. GIANCARLO FRANCIS Head Pumper Spiritual Care Department O: [phone] Pager: [phone] ([phone] number calling from)
--- NOTE | 2018-11-04 10:24 | NUR ---
ST WITH NEMS THERAPY AT THIS TIME. PT PARTICIPATING POSSIBLE Addendum: 11/04/18 at 1634 by Saima Hill RN WRONG PT
[2018-11-04] MEDS ORDERED: FUROSEMIDE INJ 10 MG/ML 2 ML VIAL IV ONE (14:00)
--- NOTE | 2018-11-04 14:19 | NUR ---
WOUND CARE - PUP SCREEN NURYS SCALE: 11 HOB : 45 DEGREES PUP : STRICT ACTIVE PARTIAL SKIN SCREEN DONE FOR PRESSURE ULCERS. RECEIVED PT WITH HOB AT 45 DEGREES DUE RECENT EXTUBATION, CONTRAINDICATION TO LOWER BED TO 30 DEGREES AND REPOSITION PATIENT AT THIS TIME. PATIENT TO REMAIN IN SUPINE POSITION AT THIS TIME. UNABLE TO TO ASSESS SACRUM. PATIENT HAS HEEL PROTECTOR IN PLACE. NO PRESSURE ULCERS. Addendum: 11/04/18 at 1445 by Rex Bey RN Amended: Links added. Addendum: 11/04/18 at 1448 by Rex Bey RN PT ON ALTERNATING PRESSURE MATTRESS
--- NOTE | 2018-11-04 16:34 | NUR ---
CALLED DR MON REGARDING ELEVATED BS. LEFT VM.
--- NOTE | 2018-11-04 16:37 | NUR ---
ST NOTE: BSE acknowledged, pt extubated at 0900, will complete BSE on 11/05/18. Handoff to VERONICA Landaverde
[2018-11-04 17:46] LABS: ABG HCO3 24 mmol/L (23-28); ABG PCO2 36 mmHg (41-51); ABG PH 7.43 (7.31-7.41); ABG PO2 132 mmHg (80-105)
[2018-11-04] MEDS: CLONIDINE HCL 0.2 MG/24 HR 1 EA PATCH TOP SCH (20:26)
[2018-11-04] MEDS: GABAPENTIN 100 MG CAP PO SCH (20:26)
[2018-11-04] MEDS: INSULIN GLARGINE 100 UNITS/ML VIAL SQ SCH (20:27)
[2018-11-05] VITALS (25 sets, daily range): BP systolic 129–177; BP diastolic 31–51
[2018-11-05] MEDS: ALBUTEROL/IPRATROPIUM 3 ML NEB NEB SCH ×4 (01:20→19:20)
[2018-11-05] MEDS: INSULIN GLARGINE 100 UNITS/ML VIAL SQ SCH ×3 (05:55→21:19)
[2018-11-05] MEDS: INSULIN LISPRO 100 UNIT/1 ML 3ML VIAL SQ SCH ×3 (06:01→17:10)
[2018-11-05] MEDS: ASPIRIN 81 MG CHEW TAB PO SCH (08:03)
[2018-11-05] MEDS: PANTOPRAZOLE 40 MG 10ML VIAL IV SCH (08:03)
[2018-11-05] MEDS: METHYLPREDNISOLONE SOD SUCC 40 MG/ML VIAL 1ML IV SCH ×2 (08:03→17:09)
[2018-11-05] MEDS: CARVEDILOL 12.5 MG TAB PO SCH ×3 (08:04→22:21)
[2018-11-05] MEDS: MAGNESIUM OXIDE 400 MG TAB PO SCH (08:04)
[2018-11-05] MEDS: LISINOPRIL 10 MG TAB PO SCH ×2 (08:05→21:17)
[2018-11-05] MEDS: POTASSIUM CHLORIDE 20MEQ/15ML UDC NG SCH (12:20)
[2018-11-05] MEDS: FUROSEMIDE 20 MG TAB PO SCH (12:21)
--- NOTE | 2018-11-05 14:36 | NUR ---
Nutrition Intervention Note RD Recommendation(s) for Physician: - Rec advancing to ADA 1600 if PO is feasible; diet texture per SOLAR TECH - If PO is not feasible, rec changing continuous TF to Glucerna 1.2 @45mL/hr (1296kcal, 65g protein, 870mL water). - Check daily labs, weight, and gastric tolerance Plan of Care: RD following, monitoring for tolerance and adequacy, TF rec Nutrition reason for involvement: Follow up RD Assessment 11/05: Pt was discussed during AM rounds. Pt was extubated on 11/04. TF running with Vital HP @40ml/hr, tolerating well with 30ml gastric residual recorded. BG between 270 - 380, on Solu-Medrol. Insulin has been increased. BSE pending. Will communicate TF rec with RN if PO is not feasible after swallow eval. Will continue to monitor and follow. 10/31: Chart reviewed. Pt was discussed during AM rounds. Pt remained intubated and ventilated. Sedation on. No pressor meds. Vital HP started at 20mL/hr today. RN aware of goal rate; will advance as tolerated. BG running 230 290 with Solu-medrol (insulin ordered). Will continue to monitor and follow. 10/29: Chart reviewed. 83yo F, who was admitted for fever, cough, and wheezing. Rapid response was called this AM. Pt was subsequently intubated and ventilated. Abd X-ray was negative. SOLAR TECH following. Unable to obtain hx from pt; no family on bedside during my time of visit. Labs reviewed. Will communicate TF rec with RN when ok to feed. Will continue to monitor and follow. Principal Problems/Diagnoses: PNA, sepsis PMH: Diabetes type 2, coronary disease with stents, osteoporosis, hypertension, peripheral vascular and arterial disease, carotid disease with stents. GI: abdomen soft, non-tender round, flatus present, +NGT Skin: No pressure wound noted Labs: No lab for 11/05 (10/31) No chemistry lab (10/29) K 3.3 L, Glucose 183 216 H Meds: lasix, KCl, insulin, lantus, lisinopril, Mg oxide, Solu-medrol, protonix Ht: 59in Wt: 152.31lb; 147lb; 153.37lb BMI: 30.8kg/m2 IBW: 95lb Malnutrition Evaluation (10/29) The patient does not meet criteria for a specified degree of malnutrition at this time. Will re-evaluate at follow-up as appropriate. Nutrition Prescription (Diet Order): Vital HP @40mL/hr Estimated Nutritional Needs: Calories: 1242 1380kcal (18-20kcal/kg/d) Weight used: current BW Protein: 90 138g (1.3-2g/kg/d) Weight used: current BW Diet Adequacy: meeting calorie needs, meeting protein needs Diet Education Needs Assessment: Diet education indicated, but patient not appropriate for education at this time. Nutrition Care Level: low Nutrition Diagnosis: Inadequate oral intake related to current medical status (intubated/ ventilated) as evidenced by pt requiring EN as main source of nutrition. Goal: Patient will meet 75-100% of estimated needs by follow up Progress: Goal met Interventions: Composition, Rate, Route Monitoring/Evaluation: Total energy intake, Total protein intake, Formula/Solution, Weight change, Labs, Gastric tolerance Signed: Kena Ha, MS, RD, LD
[2018-11-05] MEDS: GABAPENTIN 100 MG CAP PO SCH (21:17)
[2018-11-06] VITALS (26 sets, daily range): BP systolic 118–182; BP diastolic 33–111
[2018-11-06] MEDS: INSULIN LISPRO 100 UNIT/1 ML 3ML VIAL SQ SCH ×6 (00:31→23:37)
[2018-11-06] MEDS: ALBUTEROL/IPRATROPIUM 3 ML NEB NEB SCH ×5 (01:35→19:15)
[2018-11-06] MEDS: HYDRALAZINE HCL 20 MG/ML VIAL IV PRN (03:50)
[2018-11-06] MEDS: POTASSIUM CHLORIDE 20MEQ/15ML UDC NG SCH (10:37)
[2018-11-06] MEDS: LISINOPRIL 10 MG TAB PO SCH ×2 (10:37→20:23)
[2018-11-06] MEDS: CARVEDILOL 12.5 MG TAB PO SCH ×2 (10:37→20:23)
[2018-11-06] MEDS: METHYLPREDNISOLONE SOD SUCC 40 MG/ML VIAL 1ML IV SCH ×2 (10:37→18:46)
[2018-11-06] MEDS: MAGNESIUM OXIDE 400 MG TAB PO SCH (10:37)
[2018-11-06] MEDS: ASPIRIN 81 MG CHEW TAB PO SCH (10:37)
[2018-11-06] MEDS: PANTOPRAZOLE 40 MG 10ML VIAL IV SCH (10:37)
[2018-11-06] MEDS: INSULIN GLARGINE 100 UNITS/ML VIAL SQ SCH ×2 (10:38→20:07)
--- NOTE | 2018-11-06 13:00 | NUR ---
WOUND CARE ROUNDS- PUP SCREEN BS 11 HOB Elevated 30 Degrees ( NGT Feeds) Patient Turned Left Position with wedges Bilateral Heel Protectors in Place Barrier Cream to perirectal area. Right Gluteal/ Perirectal ulceration present. Serous scant fluid noted. Superficial ucleration r/t erosion. IMPRESSION: Right Gluteal- Incontinence Related Ulceration- Superficial, erosion Sacral- DTI- Pressure Ulcer RECOMMENDATION: 1. SACRUM- DTI- Pressure Ulcer: - Apply Venelex and cover with Allevyn Foam Dressing Daily 2. Right Gluteal- Incontinence Related Ulcer - Cleanse area with Mild Soap and Water then pat dry thoroughly. - Apply Largo Cream q12h and PRN Soiling. 3.Continue Alternating Pressure Air Mattress 4. Turn and Reposition q2h 5. Maintain HOB elevated up to 30 Degrees. 6. Continue Bilateral Heel Protectors. Addendum: 11/06/18 at 1452 by Mario Fried RN Amended: Links added.
--- NOTE | 2018-11-06 16:23 | Diagnostic Imaging Report ---
PROCEDURE: X-RAY MODIFIED BARIUM SWALLOW COMPARISON: None. INDICATION: Possible aspiration. Radiation Details: Fluoroscopy time: 2.2 minutes Cumulative dose: 8.9 mGy DISCUSSION: Fluoroscopic examination was performed in conjunction with speech pathology during swallowing a variety of thin and thick liquid consistencies. Provided images demonstrate laryngeal penetration with trace aspiration. Partially seen nasogastric tube. CONCLUSION: Modified barium swallow demonstrating laryngeal penetration with trace aspiration. Please refer to the speech pathology report for further details. Signed by: Dr. Lawanda Ascencio MD on 11/06/2018 4:20 PM
[2018-11-06] MEDS: ZINC OXIDE / BALSAM PERU 30 GM TUBE TOP SCH (16:43)
[2018-11-06] MEDS: GABAPENTIN 100 MG CAP PO SCH (20:23)
[2018-11-07] VITALS (17 sets, daily range): BP systolic 100–167; BP diastolic 32–87
[2018-11-07] MEDS: ALBUTEROL/IPRATROPIUM 3 ML NEB NEB SCH ×3 (01:25→19:00)
[2018-11-07] MEDS: ZINC OXIDE / BALSAM PERU 30 GM TUBE TOP SCH ×2 (03:00→15:49)
[2018-11-07] MEDS: INSULIN LISPRO 100 UNIT/1 ML 3ML VIAL SQ SCH ×3 (06:00→17:35)
[2018-11-07] MEDS: POTASSIUM CHLORIDE 20MEQ/15ML UDC NG SCH (09:00)
[2018-11-07] MEDS: INSULIN GLARGINE 100 UNITS/ML VIAL SQ SCH ×2 (09:00→21:30)
[2018-11-07] MEDS: ASPIRIN 81 MG CHEW TAB PO SCH (09:00)
[2018-11-07] MEDS: PANTOPRAZOLE 40 MG 10ML VIAL IV SCH (09:00)
[2018-11-07] MEDS: CARVEDILOL 12.5 MG TAB PO SCH ×2 (09:00→21:00)
[2018-11-07] MEDS: MAGNESIUM OXIDE 400 MG TAB PO SCH (09:00)
[2018-11-07] MEDS: CLOPIDOGREL BISULFATE 75 MG TAB PO SCH (09:00)
[2018-11-07] MEDS: FUROSEMIDE 20 MG TAB PO SCH (09:00)
[2018-11-07] MEDS: LISINOPRIL 10 MG TAB PO SCH ×2 (09:00→22:30)
[2018-11-07] MEDS: METHYLPREDNISOLONE SOD SUCC 40 MG/ML VIAL 1ML IV SCH ×2 (09:45→17:34)
--- NOTE | 2018-11-07 10:50 | NUR ---
Pt unavailable at this time. Pt's nurse performing procedure bedside. I will follow up as able. GIANCARLO FRANCIS [facility] O: [phone] Pager: [phone] ([phone] number calling from)
--- NOTE | 2018-11-07 16:55 | NUR ---
Received report from ICU. Patient is being transferred to room 209.
--- NOTE | 2018-11-07 20:29 | NUR ---
RECEIVED PT IN BED LETHARGIC .DENIES PAIN .FAMILY AT THE BEDSIDE .CALL LIGHT WITH IN REACH .HELPED THE PT WITH BEDPAN .SACRUM STAGE 1 AND PUT THE DRESSING .CONTINUE TO MONITOR
[2018-11-07] MEDS: GABAPENTIN 100 MG CAP PO SCH (22:30)
[2018-11-08] VITALS (8 sets, daily range): BP systolic 135–177; BP diastolic 60–73
[2018-11-08] MEDS: ZINC OXIDE / BALSAM PERU 30 GM TUBE TOP SCH ×3 (03:00→14:24)
[2018-11-08 05:35] LABS: BASOPHILS % 0.2 % (0.0-1.0); EOSINOPHILS # (AUTO) 0.2 (0.0-0.4); EOSINOPHILS % 1.8 % (0.0-6.0); HEMATOCRIT 29.2 % (34.2-44.1); HEMOGLOBIN 9.1 g/dL (12.0-16.0); LYMPHOCYTES # (AUTO) 1.6 (1.0-3.2); LYMPHOCYTES % 13.2 % (18.0-39.1); MEAN CORPUSCULAR HEMOGLOBIN 28.9 pg (28-32); MEAN CORPUSCULAR HGB CONC 31.2 g/dL (31-35); MEAN CORPUSCULAR VOLUME 92.7 fL (81-99); MONOCYTES # (AUTO) 0.8 (0.2-0.8); MONOCYTES % 6.8 % (4.4-11.3); NEUTROPHILS # (AUTO) 9.1 (2.1-6.9); NEUTROPHILS % 76.6 % (38.7-80.0); PLATELET COUNT 244 x10e3/uL (140-360); RED BLOOD COUNT 3.15 x10e6/uL (3.6-5.1); RED CELL DISTRIBUTION WIDTH 15.1 % (11.7-14.4)
[2018-11-08] MEDS: INSULIN LISPRO 100 UNIT/1 ML 3ML VIAL SQ SCH ×4 (06:00→17:33)
[2018-11-08 06:07] LABS: ALANINE AMINOTRANSFERASE 34 IU/L (0-55); ALBUMIN 1.8 g/dL (3.5-5.0); ALBUMIN/GLOBULIN RATIO 0.6 (0.8-2.0); ALKALINE PHOSPHATASE 63 IU/L (40-150); ANION GAP 7.8 mmol/L (8-16); BLOOD UREA NITROGEN 25 mg/dL (7-26); BUN/CREATININE RATIO 42 (6-25); CALCIUM 8.2 mg/dL (8.4-10.2); CARBON DIOXIDE 30 mmol/L (22-29); CHLORIDE 106 mmol/L (98-107); CREATININE, SERUM 0.59 mg/dL (0.57-1.11); EST GLOMERULAR FILTRATION RATE > 60 ML/MIN (60-); GLUCOSE 64 mg/dL (74-118); POTASSIUM 3.8 mmol/L (3.5-5.1); SODIUM 140 mmol/L (136-145)
--- NOTE | 2018-11-08 06:30 | NUR ---
PT RESTING AND DENIES PAIN BS IS 69 AND GIVEN ORANGE JUICE .CALL LIGHT WITH IN REACH .FAMILY AT THE BEDSIDE
[2018-11-08] MEDS: ALBUTEROL/IPRATROPIUM 3 ML NEB NEB SCH ×4 (07:00→20:40)
--- NOTE | 2018-11-08 07:35 | NUR ---
REPORT GIVEN TO ON COMING NURSE
[2018-11-08] MEDS: INSULIN GLARGINE 100 UNITS/ML VIAL SQ SCH ×2 (09:00→21:30)
[2018-11-08] MEDS: METHYLPREDNISOLONE SOD SUCC 40 MG/ML VIAL 1ML IV SCH ×2 (09:37→16:48)
[2018-11-08] MEDS: LISINOPRIL 10 MG TAB PO SCH ×2 (09:37→21:36)
[2018-11-08] MEDS: CARVEDILOL 12.5 MG TAB PO SCH ×2 (09:37→21:36)
[2018-11-08] MEDS: MAGNESIUM OXIDE 400 MG TAB PO SCH (09:37)
[2018-11-08] MEDS: PANTOPRAZOLE 40 MG 10ML VIAL IV SCH (09:37)
[2018-11-08] MEDS: CLOPIDOGREL BISULFATE 75 MG TAB PO SCH (09:37)
[2018-11-08] MEDS: ASPIRIN 81 MG CHEW TAB PO SCH (09:37)
[2018-11-08] MEDS: FUROSEMIDE 20 MG TAB PO SCH (09:37)
[2018-11-08] MEDS: POTASSIUM CHLORIDE 20MEQ/15ML UDC NG SCH (09:38)
--- NOTE | 2018-11-08 12:50 | NUR ---
GOT CHOICE SIGNED FOR [facility] FAXED CLINICALS WAITING ON AUTH.
--- NOTE | 2018-11-08 16:30 | NUR ---
patient c/o mouth being sore. notified.
[2018-11-08] MEDS: NYSTATIN SUSPENSION 5 ML UDC PO SCH ×2 (17:32→21:36)
[2018-11-08] MEDS: GABAPENTIN 100 MG CAP PO SCH (21:36)
[2018-11-09] VITALS (8 sets, daily range): BP systolic 123–183; BP diastolic 52–76
[2018-11-09] MEDS: ALBUTEROL/IPRATROPIUM 3 ML NEB NEB SCH ×4 (01:00→18:40)
[2018-11-09] MEDS: ZINC OXIDE / BALSAM PERU 30 GM TUBE TOP SCH ×3 (04:00→23:52)
[2018-11-09] MEDS: NYSTATIN SUSPENSION 5 ML UDC PO SCH ×3 (05:57→21:05)
[2018-11-09] MEDS: INSULIN LISPRO 100 UNIT/1 ML 3ML VIAL SQ SCH ×4 (05:57→18:00)
[2018-11-09] MEDS: MAGNESIUM OXIDE 400 MG TAB PO SCH (09:32)
[2018-11-09] MEDS: PANTOPRAZOLE SOD 40 MG TABEC PO SCH (09:32)
[2018-11-09] MEDS: CLOPIDOGREL BISULFATE 75 MG TAB PO SCH (09:32)
[2018-11-09] MEDS: LISINOPRIL 10 MG TAB PO SCH (09:32)
[2018-11-09] MEDS: FUROSEMIDE 20 MG TAB PO SCH (09:32)
[2018-11-09] MEDS: ASPIRIN 81 MG CHEW TAB PO SCH (09:32)
[2018-11-09] MEDS: CARVEDILOL 12.5 MG TAB PO SCH ×2 (09:32→21:05)
[2018-11-09] MEDS: METHYLPREDNISOLONE SOD SUCC 40 MG/ML VIAL 1ML IV SCH (09:32)
[2018-11-09] MEDS: POTASSIUM CHLORIDE 20MEQ/15ML UDC NG SCH (09:36)
[2018-11-09] MEDS: INSULIN GLARGINE 100 UNITS/ML VIAL SQ SCH ×2 (09:56→20:50)
[2018-11-09] MEDS: HYDRALAZINE HCL 20 MG/ML VIAL IV PRN (12:09)
[2018-11-09] MEDS: GABAPENTIN 100 MG CAP PO SCH (21:05)
[2018-11-09] MEDS: LISINOPRIL 20 MG TAB PO SCH (21:05)
[2018-11-10] VITALS (8 sets, daily range): BP systolic 114–161; BP diastolic 48–71
[2018-11-10] MEDS: INSULIN LISPRO 100 UNIT/1 ML 3ML VIAL SQ SCH ×5 (00:33→21:30)
[2018-11-10] MEDS: ALBUTEROL/IPRATROPIUM 3 ML NEB NEB SCH ×4 (00:40→19:55)
[2018-11-10] MEDS: NYSTATIN SUSPENSION 5 ML UDC PO SCH ×3 (05:49→21:02)
[2018-11-10] MEDS: MAGNESIUM OXIDE 400 MG TAB PO SCH (08:56)
[2018-11-10] MEDS: FUROSEMIDE 20 MG TAB PO SCH (08:56)
[2018-11-10] MEDS: PANTOPRAZOLE SOD 40 MG TABEC PO SCH (08:56)
[2018-11-10] MEDS: METHYLPREDNISOLONE SOD SUCC 40 MG/ML VIAL 1ML IV SCH (08:56)
[2018-11-10] MEDS: ASPIRIN 81 MG CHEW TAB PO SCH (08:56)
[2018-11-10] MEDS: CLOPIDOGREL BISULFATE 75 MG TAB PO SCH (08:56)
[2018-11-10 08:57] LABS: BASOPHILS % 0.1 % (0.0-1.0); EOSINOPHILS # (AUTO) 0.1 (0.0-0.4); HEMATOCRIT 30.6 % (34.2-44.1); HEMOGLOBIN 9.7 g/dL (12.0-16.0); LYMPHOCYTES # (AUTO) 1.8 (1.0-3.2); LYMPHOCYTES % 18.6 % (18.0-39.1); MEAN CORPUSCULAR HEMOGLOBIN 29.1 pg (28-32); MEAN CORPUSCULAR HGB CONC 31.7 g/dL (31-35); MEAN CORPUSCULAR VOLUME 91.9 fL (81-99); MONOCYTES # (AUTO) 0.8 (0.2-0.8); MONOCYTES % 8.1 % (4.4-11.3); NEUTROPHILS # (AUTO) 6.8 (2.1-6.9); NEUTROPHILS % 70.7 % (38.7-80.0); PLATELET COUNT 302 x10e3/uL (140-360); RED BLOOD COUNT 3.33 x10e6/uL (3.6-5.1); RED CELL DISTRIBUTION WIDTH 15.7 % (11.7-14.4)
[2018-11-10] MEDS: CARVEDILOL 12.5 MG TAB PO SCH ×2 (08:57→20:18)
[2018-11-10] MEDS: LISINOPRIL 20 MG TAB PO SCH ×2 (08:57→20:19)
[2018-11-10] MEDS: INSULIN GLARGINE 100 UNITS/ML VIAL SQ SCH ×2 (09:00→21:30)
[2018-11-10 09:03] LABS: ANION GAP 9.1 mmol/L (8-16); BLOOD UREA NITROGEN 21 mg/dL (7-26); BUN/CREATININE RATIO 33 (6-25); CALCIUM 8.2 mg/dL (8.4-10.2); CARBON DIOXIDE 29 mmol/L (22-29); CHLORIDE 103 mmol/L (98-107); CREATININE, SERUM 0.63 mg/dL (0.57-1.11); EST GLOMERULAR FILTRATION RATE > 60 ML/MIN (60-); GLUCOSE 63 mg/dL (74-118); POTASSIUM 4.1 mmol/L (3.5-5.1); SODIUM 137 mmol/L (136-145)
[2018-11-10] MEDS: POTASSIUM CHLORIDE 20MEQ/15ML UDC NG SCH (09:27)
[2018-11-10] MEDS: ZINC OXIDE / BALSAM PERU 30 GM TUBE TOP SCH (15:26)
[2018-11-10] MEDS: GABAPENTIN 100 MG CAP PO SCH (20:19)
[2018-11-11] VITALS (9 sets, daily range): BP systolic 106–166; BP diastolic 44–63
[2018-11-11] MEDS: ALBUTEROL/IPRATROPIUM 3 ML NEB NEB SCH ×4 (00:35→19:42)
[2018-11-11] MEDS: ZINC OXIDE / BALSAM PERU 30 GM TUBE TOP SCH ×2 (01:09→14:35)
[2018-11-11] MEDS: NYSTATIN SUSPENSION 5 ML UDC PO SCH ×3 (05:24→22:00)
[2018-11-11] MEDS: INSULIN LISPRO 100 UNIT/1 ML 3ML VIAL SQ SCH ×4 (07:30→21:00)
[2018-11-11] MEDS: PANTOPRAZOLE SOD 40 MG TABEC PO SCH (07:30)
--- NOTE | 2018-11-11 08:30 | NUR ---
The pt. is awake and alert. The daughter is at the bedside and is assisting with movement for the pt. The bed rails are elevated and the pt advised to call for assistance if needed.
[2018-11-11] MEDS: INSULIN GLARGINE 100 UNITS/ML VIAL SQ SCH ×2 (09:00→21:00)
[2018-11-11] MEDS: POTASSIUM CHLORIDE 20MEQ/15ML UDC NG SCH (09:19)
[2018-11-11] MEDS: METHYLPREDNISOLONE SOD SUCC 40 MG/ML VIAL 1ML IV SCH (09:19)
[2018-11-11] MEDS: ASPIRIN 81 MG CHEW TAB PO SCH (09:19)
[2018-11-11] MEDS: FUROSEMIDE 20 MG TAB PO SCH (09:20)
[2018-11-11] MEDS: CLOPIDOGREL BISULFATE 75 MG TAB PO SCH (09:20)
[2018-11-11] MEDS: LISINOPRIL 20 MG TAB PO SCH ×2 (09:20→21:42)
[2018-11-11] MEDS: CARVEDILOL 12.5 MG TAB PO SCH ×2 (09:20→21:00)
[2018-11-11] MEDS: MAGNESIUM OXIDE 400 MG TAB PO SCH (09:20)
[2018-11-11] MEDS: ACETAMINOPHEN 325 MG TAB PO PRN (10:14)
[2018-11-11] MEDS ORDERED: ONDANSETRON HCL 4 MG ORAL DISINTEGRATING TAB PO PRN (15:30)
--- NOTE | 2018-11-11 19:20 | NUR ---
Patient received lying in bed. AAO x 2. Daughter at bedside. Patient made comfortable and instructed to call for assistance when needed. Call light within reach.
[2018-11-11] MEDS: CLONIDINE HCL 0.2 MG/24 HR 1 EA PATCH TOP SCH (21:42)
[2018-11-11] MEDS: GABAPENTIN 100 MG CAP PO SCH (21:45)
[2018-11-12] VITALS (8 sets, daily range): BP systolic 105–142; BP diastolic 40–62
[2018-11-12] MEDS: ALBUTEROL/IPRATROPIUM 3 ML NEB NEB SCH ×4 (01:07→20:00)
[2018-11-12] MEDS: ZINC OXIDE / BALSAM PERU 30 GM TUBE TOP SCH ×2 (03:00→15:39)
[2018-11-12] MEDS: NYSTATIN SUSPENSION 5 ML UDC PO SCH ×3 (06:40→22:00)
--- NOTE | 2018-11-12 06:51 | Diagnostic Imaging Report ---
EXAMINATION: CHEST 2 VIEWS INDICATION: Hypoxia. Pneumonia. COMPARISON: Chest x-ray 11/04/2018. 11/03/2018. FINDINGS: PA and lateral views TUBES and LINES: None. LUNGS: Lungs are moderately inflated. Increasing bilateral airspace opacities predominantly in the upper lobes. PLEURA: Tiny bilateral pleural effusions HEART AND MEDIASTINUM: The cardiomediastinal silhouette is unremarkable. BONES AND SOFT TISSUES: No acute osseous lesion. Healed left rib fracture deformities. Soft tissues are unremarkable. UPPER ABDOMEN: No free air under the diaphragm. IMPRESSION: Increase in bilateral multifocal airspace opacities. Signed by: Dr. Emanuel Claros M.D. on 11/12/2018 6:48 AM
--- NOTE | 2018-11-12 07:12 | NUR ---
pt asleep resp even and unlabored at this time no distress noted, family member at bedside, pt easily aroused, pt able to make needs known, call light in reach.
[2018-11-12] MEDS: INSULIN LISPRO 100 UNIT/1 ML 3ML VIAL SQ SCH ×4 (07:30→21:00)
[2018-11-12] MEDS: PANTOPRAZOLE SOD 40 MG TABEC PO SCH (07:30)
[2018-11-12] MEDS: CARVEDILOL 12.5 MG TAB PO SCH ×2 (09:00→21:58)
[2018-11-12] MEDS: ASPIRIN 81 MG CHEW TAB PO SCH (09:00)
[2018-11-12] MEDS: POTASSIUM CHLORIDE 20MEQ/15ML UDC NG SCH (09:00)
[2018-11-12] MEDS: METHYLPREDNISOLONE SOD SUCC 40 MG/ML VIAL 1ML IV SCH (09:00)
[2018-11-12] MEDS: FUROSEMIDE 20 MG TAB PO SCH (09:00)
[2018-11-12] MEDS: MAGNESIUM OXIDE 400 MG TAB PO SCH (09:00)
[2018-11-12] MEDS: LISINOPRIL 20 MG TAB PO SCH ×2 (09:00→21:58)
[2018-11-12] MEDS: CLOPIDOGREL BISULFATE 75 MG TAB PO SCH (09:00)
--- NOTE | 2018-11-12 09:48 | NUR ---
ASSESSMENT: Spiritual concern Pt & daughter anxious about selecting a rehab facility. Pt's daughter states she wants to select the "right" place for her mother. Pt's daughter states she will visit facilities tomorrow before making a decision. Intervention: Provided empathic listening. Provided prayer. Outcome: Pt & daughter expressed appreciation for visit. GIANCARLO Chaparrolain Spiritual Care Department O: [phone] Pager: [phone] ([phone] number calling from)
--- NOTE | 2018-11-12 14:45 | NUR ---
WOUND CARE ROUNDS- PUP SCREEN BS 11 Strict PUP Protocol active HOB Elevated 30 Degrees ( NGT Feeds) Patient Turned Right Position with wedges Bilateral Heel Protectors in Place Patient presents with Dermatologic rash to bilateral groin and perirectal area. - Pressure ulcer Healing to Sacral. Linear Ulcer (0.5x0.2cm). Healing IMPRESSION: PERIRECTAL, BILATERAL GLUTEAL, AND GROIN AREAS - YEAST- DERMATOLOGIC RASH Sacral- DTI- Pressure Ulcer - Healing RECOMMENDATION: 1. Sacral - DTI - Continue Chelsey Cream Daily and PRN Soiling. 2. Perineal/ Bilateral Gluteal/ Perirectal Area- Dermatologic Rash- Yeast: - Wash area with mild soap and water then pat dry thoroughly. - Apply Nystatin Cream q12h and PRN Soiling 3.Continue Alternating Pressure Air Mattress 4. Turn and Reposition q2h 5. Maintain HOB elevated up to 30 Degrees. 6. Continue Bilateral Heel Protectors. Addendum: 11/12/18 at 1502 by Mario Fried RN Amended: Links added.
--- NOTE | 2018-11-12 16:25 | NUR ---
Nutrition Intervention Note RD Recommendation(s) for Physician: - Continue current diet Plan of Care: RD following, monitoring for tolerance and adequacy Nutrition reason for involvement: Follow up RD Assessment 11/11: Pt discussed during am rounds. Pt advanced to diet on 11/07, pt tolerating and eating well per daughter at bedside. Noted 75-100% po intake per chart. No reported GI distress or difficulties chewing or swallowing. Will monitor and continue to follow. 11/05: Pt was discussed during AM rounds. Pt was extubated on 11/04. TF running with Vital HP @40ml/hr, tolerating well with 30ml gastric residual recorded. BG between 270 - 380, on Solu-Medrol. Insulin has been increased. BSE pending. Will communicate TF rec with RN if PO is not feasible after swallow eval. Will continue to monitor and follow. 10/31: Chart reviewed. Pt was discussed during AM rounds. Pt remained intubated and ventilated. Sedation on. No pressor meds. Vital HP started at 20mL/hr today. RN aware of goal rate; will advance as tolerated. BG running 230 290 with Solu-medrol (insulin ordered). Will continue to monitor and follow. 10/29: Chart reviewed. 83yo F, who was admitted for fever, cough, and wheezing. Rapid response was called this AM. Pt was subsequently intubated and ventilated. Abd X-ray was negative. ENVIRONMENTAL EDUCATOR following. Unable to obtain hx from pt; no family on bedside during my time of visit. Labs reviewed. Will communicate TF rec with RN when ok to feed. Will continue to monitor and follow. Principal Problems/Diagnoses: PNA, sepsis PMH: Diabetes type 2, coronary disease with stents, osteoporosis, hypertension, peripheral vascular and arterial disease, carotid disease with stents. GI: abdomen soft, non-tender round, flatus present. LBM 11/10 Skin: R buttocks wound- no staging Labs: 11/10: Gluc 63, POC Gluc 101-221 No lab for 11/05 (10/31) No chemistry lab (10/29) K 3.3 L, Glucose 183 216 H Meds: lasix, KCl, insulin, lantus, Mg oxide, Solu-medrol, protonix, zofran Ht: 59in Wt: 152.31lb; 147lb; 153.37lb BMI: 30.8kg/m2 IBW: 95lb Malnutrition Evaluation (10/29) The patient does not meet criteria for a specified degree of malnutrition at this time. Will re-evaluate at follow-up as appropriate. Nutrition Prescription (Diet Order): 1800 ADA Estimated Nutritional Needs: Calories: 1242 1380kcal (18-20kcal/kg/d) Weight used: current BW Protein: 90 138g (1.3-2g/kg/d) Weight used: current BW Diet Adequacy: meeting calorie needs, meeting protein needs Diet Education Needs Assessment: Diet education not indicated at this time. Nutrition Care Level: low Nutrition Diagnosis: Inadequate oral intake related to current medical status (intubated/ ventilated) as evidenced by pt requiring EN as main source of nutrition. Goal: Patient will meet 75-100% of estimated needs by follow up Progress: Goal met Interventions: Modified diet Monitoring/Evaluation: Total energy intake, Total protein intake, Modified diet Signed: Lucy Knott RD, LD, [facility]
--- NOTE | 2018-11-12 19:14 | NUR ---
report given to oncoming nurse, for continued care.
[2018-11-12] MEDS: NYSTATIN 100,000 UNITS/GM CRM 30GM TUBE TOP SCH (21:58)
[2018-11-12] MEDS: GABAPENTIN 100 MG CAP PO SCH (21:58)
[2018-11-13] VITALS: BP 106/46
[2018-11-13] MEDS: ALBUTEROL/IPRATROPIUM 3 ML NEB NEB SCH ×3 (00:15→13:00)
[2018-11-13] MEDS: ZINC OXIDE / BALSAM PERU 30 GM TUBE TOP SCH ×2 (03:00→16:15)
[2018-11-13 04:00] VITALS: BP 135/39
[2018-11-13] MEDS: NYSTATIN SUSPENSION 5 ML UDC PO SCH ×2 (05:40→14:51)
--- NOTE | 2018-11-13 06:41 | NUR ---
Wound dressing performed as per MD's orders. Patient tolerated well.
[2018-11-13] MEDS: INSULIN LISPRO 100 UNIT/1 ML 3ML VIAL SQ SCH ×3 (07:30→17:37)
[2018-11-13 08:10] VITALS: BP 164/65
[2018-11-13 08:30] VITALS: BP 164/65
[2018-11-13] MEDS ORDERED: PREDNISONE 20 MG TAB PO SCH (09:00)
[2018-11-13] MEDS: ASPIRIN 81 MG CHEW TAB PO SCH (09:30)
[2018-11-13] MEDS: CLOPIDOGREL BISULFATE 75 MG TAB PO SCH (09:30)
[2018-11-13] MEDS: FUROSEMIDE 20 MG TAB PO SCH (09:30)
[2018-11-13] MEDS: PANTOPRAZOLE SOD 40 MG TABEC PO SCH (09:30)
[2018-11-13] MEDS: MAGNESIUM OXIDE 400 MG TAB PO SCH (09:30)
[2018-11-13] MEDS: NYSTATIN 100,000 UNITS/GM CRM 30GM TUBE TOP SCH (09:31)
[2018-11-13] MEDS: LISINOPRIL 20 MG TAB PO SCH (09:31)
[2018-11-13] MEDS: CARVEDILOL 12.5 MG TAB PO SCH (09:33)
[2018-11-13 09:47] LABS: BASOPHILS % 0.4 % (0.0-1.0); EOSINOPHILS # (AUTO) 0.1 (0.0-0.4); EOSINOPHILS % 1.4 % (0.0-6.0); HEMATOCRIT 31.3 % (34.2-44.1); HEMOGLOBIN 9.8 g/dL (12.0-16.0); LYMPHOCYTES % 23.9 % (18.0-39.1); MEAN CORPUSCULAR HEMOGLOBIN 28.9 pg (28-32); MEAN CORPUSCULAR HGB CONC 31.3 g/dL (31-35); MEAN CORPUSCULAR VOLUME 92.3 fL (81-99); MONOCYTES # (AUTO) 0.5 (0.2-0.8); MONOCYTES % 6.5 % (4.4-11.3); NEUTROPHILS # (AUTO) 5.6 (2.1-6.9); NEUTROPHILS % 67.1 % (38.7-80.0); PLATELET COUNT 268 x10e3/uL (140-360); RED BLOOD COUNT 3.39 x10e6/uL (3.6-5.1); RED CELL DISTRIBUTION WIDTH 15.8 % (11.7-14.4)
[2018-11-13 10:04] LABS: ANION GAP 8.8 mmol/L (8-16); BLOOD UREA NITROGEN 16 mg/dL (7-26); BUN/CREATININE RATIO 24 (6-25); CALCIUM 8.3 mg/dL (8.4-10.2); CARBON DIOXIDE 32 mmol/L (22-29); CHLORIDE 100 mmol/L (98-107); CREATININE, SERUM 0.66 mg/dL (0.57-1.11); EST GLOMERULAR FILTRATION RATE > 60 ML/MIN (60-); GLUCOSE 133 mg/dL (74-118); POTASSIUM 4.8 mmol/L (3.5-5.1); SODIUM 136 mmol/L (136-145)
[2018-11-13] MEDS: POTASSIUM CHLORIDE 20MEQ/15ML UDC NG SCH (10:47)
[2018-11-13 12:00] VITALS: BP 171/63
--- NOTE | 2018-11-13 16:17 | NUR ---
IMM letter delivered and explained to pt's daughter Leilani at bedside. She verbalized understanding. Signed copy placed in chart. Copy to Leilani.
--- NOTE | 2018-11-13 16:23 | NUR ---
PT ACCEPTED AT [facility] [address] SHELLEY AMOS CALL REPORT TO [phone], RTF GIVEN TO NURSE WILL FAX PASRR IN AM, FILED POST DISCHARGE STATUS FORM IN CHART
--- NOTE | 2018-11-13 16:44 | NUR ---
CARE HOME FACILITY DISCHARGE INFORMATION PATIENT HAS BEEN ACCEPTED TO: NAME: [facility] ADDRESS: [id number] , [place] [address] ACCEPTING MD: DR. ROSA ROOM: 112A NURSE CALL REPORT TO: [phone] IMM SIGNED AND OBTAINED (if applicable): THE FOLLOWING DOCUMENTS MUST ACCOMPANY PATIENT FOR TRANSFER: COPIED CHART: SQE RTF: AG ONTIVEROS [id number] DNR: N/A Addendum: 11/13/18 at 1649 by Brandy Marte CM DTR SIGNED AMBULANCE CHOICE LETTER. WILLY DISPO SIGNED AND PLACED IN CHART.
[2018-11-13 17:00] VITALS: BP 168/67
--- NOTE | 2018-11-13 17:02 | NUR ---
Spoke to and received new orders to d/c patient and transfer to [facility], [place]. patient accepted and will be admiting to room 112A.
--- NOTE | 2018-11-13 17:18 | NUR ---
report called to Aaliyah nurse at [facility].
[2018-11-13] MEDS ORDERED: INSULIN GLARGINE 100 UNITS/ML VIAL SQ SCH (21:00)
[2018-11-14] MEDS ORDERED: FUROSEMIDE 20 MG TAB PO SCH (09:00)
[2018-11-14] MEDS ORDERED: FUROSEMIDE 40 MG TAB PO SCH (09:00)
== END 2018-11-13 19:17 | DRG 870 ==
LOC: FSED 22:07 → ERHOLD 22:22 → MED/SURG3 10-26 00:42 → IMCU 10-27 20:22 → ICU 10-29 13:21 → MED/SURG2 11-07 17:51
PROVIDERS: ADMIT Internal Medicine; ATTEND Internal Medicine
PROC: 5A09357 Assistance with Respiratory Ventilation, Less than 24 Consecutive Hours, Continuous Positive Airway Pressure (ICD-10-PCS; 2018-10-28)
PROC: 5A1955Z Respiratory Ventilation, Greater than 96 Consecutive Hours (ICD-10-PCS; 2018-10-29)
PROC: 0BH17EZ Insertion of Endotracheal Airway into Trachea, Via Natural or Artificial Opening (ICD-10-PCS; 2018-10-29)
PROC: 0B9C8ZX Drainage of Right Upper Lung Lobe, Via Natural or Artificial Opening Endoscopic, Diagnostic (ICD-10-PCS; 2018-10-30)
PROC: 0B918ZX Drainage of Trachea, Via Natural or Artificial Opening Endoscopic, Diagnostic (ICD-10-PCS; principal; 2018-10-30 09:30)
DX: A41.9 Sepsis, unspecified organism (principal); J18.0 Bronchopneumonia, unspecified organism; J15.9 Unspecified bacterial pneumonia; B37.1 Pulmonary candidiasis; J96.01 Acute respiratory failure with hypoxia; R65.21 Severe sepsis with septic shock; I50.23 Acute on chronic systolic (congestive) heart failure; J69.0 Pneumonitis due to inhalation of food and vomit; R04.2 Hemoptysis; R09.02 Hypoxemia; E11.65 Type 2 diabetes mellitus with hyperglycemia; Z88.8 Allergy status to other drugs, medicaments and biological substances; Z82.49 Family history of ischemic heart disease and other diseases of the circulatory system; I25.10 Atherosclerotic heart disease of native coronary artery without angina pectoris; Z95.5 Presence of coronary angioplasty implant and graft; E11.51 Type 2 diabetes mellitus with diabetic peripheral angiopathy without gangrene; Z95.820 Peripheral vascular angioplasty status with implants and grafts; M81.0 Age-related osteoporosis without current pathological fracture; Z95.828 Presence of other vascular implants and grafts; Z79.82 Long term (current) use of aspirin; Z89.429 Acquired absence of other toe(s), unspecified side; D63.8 Anemia in other chronic diseases classified elsewhere; R13.10 Dysphagia, unspecified; R53.81 Other malaise; I11.0 Hypertensive heart disease with heart failure
CPT/HCPCS: 31622; 36415; 36600; 71045; 71046; 71250; 74018; 74230; 80048; 80053; 80061; 80202; 82550; 82553; 82607; 82746; 82805; 82948; 83036; 83605; 83735; 84100; 84145; 84443; 84484; 85025; 85610; 85651; 86021; 86039; 86140; 86332; 86631; 86738; 87040; 87070; 87086; 87102; 87109; 87110; 87116; 87205; 87206; 87278; 87335; 87390; 87400; 87449; 88112; 88305; 88312; 93005; 93306; 94002; 94003; 94640; 94660; 96372; 97139; 99284; G0433; G0435; J0330; J0360; J0456; J1644; J1815; J1940; J2270; J2543; J2920; J3370; J7050; J7070; J7512

== ENCOUNTER 2019-07-26 12:51 | Inpatient (IN) | payer OTHER ==
[~2019-07-26] VITALS: Ht 149.9 cm; Wt 65.8 kg
[~2019-07-26 12:51] MED LIST: ALENDRONATE SOD35 MG; ASPIR 8181 MG PO; AUGMENTIN 500-1 EACH PO; BENZONATATE100 MG PO; CARVEDILOL12.5 MG PO; CLOPIDOGREL75 MG PO; FUROSEMIDE40 MG PO; GABAPENTIN300 MG PO; LISINOPRIL10 MG PO; LORATADINE10 MG PO; MAGNESIUM OXID400 MG PO; NIFEDIPINE ER30 M1 PO; PRAVASTATIN SOD40 MG PO; TYLENOL WITH C1 EACH PO
[2019-07-26 14:01] LABS: BASOPHILS % 0.5 % (0.0-1.0); EOSINOPHILS # (AUTO) 0.1 (0.0-0.4); EOSINOPHILS % 0.9 % (0.0-6.0); HEMATOCRIT 30.9 % (34.2-44.1); HEMOGLOBIN 9.8 g/dL (12.0-16.0); LYMPHOCYTES # (AUTO) 1.8 (1.0-3.2); LYMPHOCYTES % 22.8 % (18.0-39.1); MEAN CORPUSCULAR HEMOGLOBIN 28.9 pg (28-32); MEAN CORPUSCULAR HGB CONC 31.7 g/dL (31-35); MEAN CORPUSCULAR VOLUME 91.2 fL (81-99); MONOCYTES # (AUTO) 0.5 (0.2-0.8); MONOCYTES % 6.4 % (4.4-11.3); NEUTROPHILS # (AUTO) 5.3 (2.1-6.9); NEUTROPHILS % 68.7 % (38.7-80.0); PLATELET COUNT 300 x10e3/uL (140-360); RED BLOOD COUNT 3.39 x10e6/uL (3.6-5.1); RED CELL DISTRIBUTION WIDTH 13.4 % (11.7-14.4)
[2019-07-26] MEDS ORDERED: IPRATROPIUM BROMIDE 0.02% 2.5 ML NEB NEB STA (14:09)
[2019-07-26 14:15] LABS: ALANINE AMINOTRANSFERASE 13 IU/L (0-55); ALBUMIN 2.9 g/dL (3.5-5.0); ALKALINE PHOSPHATASE 71 IU/L (40-150); ANION GAP 14.3 mmol/L (8-16); BLOOD UREA NITROGEN 17 mg/dL (7-26); BUN/CREATININE RATIO 20 (6-25); CALCIUM 8.8 mg/dL (8.4-10.2); CARBON DIOXIDE 26 mmol/L (22-29); CHLORIDE 103 mmol/L (98-107); CREATININE, SERUM 0.84 mg/dL (0.57-1.11); EST GLOMERULAR FILTRATION RATE > 60 ML/MIN (60-); GLUCOSE 172 mg/dL (74-118); POTASSIUM 4.3 mmol/L (3.5-5.1); SODIUM 139 mmol/L (136-145)
[2019-07-26] MEDS ORDERED: ALBUTEROL SULF 0.083% NEB SOLN 3 ML NEB NEB ONE (14:30)
--- NOTE | 2019-07-26 15:22 | Diagnostic Imaging Report ---
EXAMINATION: CHEST SINGLE (PORTABLE) INDICATION: Cough, URI. COMPARISON: Chest radiograph 11/12/2018. FINDINGS: TUBES and LINES: None. LUNGS: Lungs are moderately inflated. There are patchy opacities in the bilateral lung bases. Central vascular congestion. PLEURA: No pleural effusion or pneumothorax. HEART AND MEDIASTINUM: The cardiomediastinal silhouette is mildly enlarged. BONES AND SOFT TISSUES: No acute osseous lesion. Soft tissues are unremarkable. UPPER ABDOMEN: No free air under the diaphragm. IMPRESSION: Patchy opacities in the lung bases, suggestive of pneumonia in the setting of cough. Recommend follow-up chest radiograph in 6-8 weeks to assess for resolution. Mild cardiomegaly with central vascular congestion. Signed by: Dr. Lawanda Ascencio MD on 07/26/2019 3:19 PM
[2019-07-26] MEDS ORDERED: AZITHROMYCIN 500MG/SOD CHL 0.9% 250ML BAG IV SCH (16:15)
[2019-07-26] MEDS ORDERED: CEFTRIAXONE SOD 1 GRAM/0.9% SOD CHL 50ML BAG IV SCH (16:15)
[2019-07-26] MEDS ORDERED: CEFTRIAXONE SOD 1 GM/NS 50 ML 50 ML IV SCH (16:30)
[2019-07-26] MEDS: AZITHROMYCIN 500MG/NS 250 ML 250 ML IV SCH (16:41)
[2019-07-26 17:44] LABS: CREATINE KINASE MB 2.1 ng/mL (0-5.0)
[2019-07-26 17:49] VITALS: BP 142/65
[2019-07-26 17:57] VITALS: BP 142/65
[2019-07-26] MEDS ORDERED: OMEGA 3 FISH O1 EACH PO (17:57)
[2019-07-26] MEDS ORDERED: CALCIUM 500+D1 EACH PO (17:57)
[2019-07-26] MEDS ORDERED: FLUTICASONE PRO16 GM (17:57)
[2019-07-26] MEDS ORDERED: PANTOPRAZOLE SO40 MG PO (17:57)
[2019-07-26] MEDS ORDERED: VITAMIN D250 MCG PO (17:57)
[2019-07-26] MEDS ORDERED: LYRICA25 MG PO (17:57)
[2019-07-26] MEDS ORDERED: IPRATROPIU0.2 MG/1 M (17:57)
[2019-07-26] MEDS ORDERED: GLARGINE SQ (17:57)
[2019-07-26] MEDS ORDERED: BACLOFEN10 MG PO (17:57)
[2019-07-26] MEDS ORDERED: DOXYCYCLINE HY100 MG PO (17:57)
[2019-07-26] MEDS ORDERED: NOVOLIN 70100 UNIT/3 SQ (17:57)
[2019-07-26] MEDS ORDERED: SYMBICORT 16010.2 GM INH (17:57)
[2019-07-26 18:03] VITALS: BP 142/65
[2019-07-26] MEDS ORDERED: ACETAMINOPHEN/CODEINE 300MG - 30MG TAB PO PRN (18:30)
[2019-07-26] MEDS ORDERED: BACLOFEN 10 MG TAB PO PRN (18:30)
[2019-07-26] MEDS ORDERED: ACETAMINOPHEN 325 MG TAB PO PRN (18:30)
[2019-07-26] MEDS ORDERED: DEXTROSE 50% SYRINGE 50 ML IV PRN (18:30)
--- NOTE | 2019-07-26 18:30 | NUR ---
Pt received from ER at 1700. Pt axo4 and able to verbalize needs. Pt is mostly east timorese speaking. Pt is being admitted for Pneumonia. She is on 2l/NC and breaths are even and unlabored. Dr. Quiñones notified and home medications were restarted. Pt denies any pain at this time. Family at the bedside.
--- NOTE | 2019-07-26 19:15 | NUR ---
patient received awake, alert, lying quietly in bed. no c/o pain noted. respirations even and unlabored. 02/2l/nc in use. family noted at the bedside. patient/family instructed to call for assistance when needed.
[2019-07-26 19:30] VITALS: BP 128/83
[2019-07-26 20:00] VITALS: BP 128/83
[2019-07-26] MEDS: INSULIN LISPRO 100 UNIT/1 ML 3ML VIAL SQ SCH (20:55)
[2019-07-26] MEDS: PREGABALIN 25 MG CAP PO SCH (21:00)
[2019-07-26] MEDS ORDERED: PRAVASTATIN 20 MG TAB PO SCH (21:00)
[2019-07-26] MEDS: NIFEDIPINE CR 30 MG TAB PO SCH (21:00)
[2019-07-26] MEDS: BENZONATATE 100 MG CAP PO PRN (21:05)
[2019-07-27] VITALS (7 sets, daily range): BP systolic 103–152; BP diastolic 55–68
--- NOTE | 2019-07-27 03:30 | NUR ---
cardiac markers #2 drawn with am labs and sent to lab at this time.
[2019-07-27 03:44] LABS: BASOPHILS % 0.7 % (0.0-1.0); EOSINOPHILS # (AUTO) 0.1 (0.0-0.4); EOSINOPHILS % 1.9 % (0.0-6.0); HEMATOCRIT 31.7 % (34.2-44.1); HEMOGLOBIN 9.9 g/dL (12.0-16.0); LYMPHOCYTES # (AUTO) 2.1 (1.0-3.2); MEAN CORPUSCULAR HEMOGLOBIN 28.4 pg (28-32); MEAN CORPUSCULAR HGB CONC 31.2 g/dL (31-35); MEAN CORPUSCULAR VOLUME 91.1 fL (81-99); MONOCYTES # (AUTO) 0.5 (0.2-0.8); MONOCYTES % 8.8 % (4.4-11.3); NEUTROPHILS % 51.3 % (38.7-80.0); PLATELET COUNT 279 x10e3/uL (140-360); RED BLOOD COUNT 3.48 x10e6/uL (3.6-5.1); RED CELL DISTRIBUTION WIDTH 13.3 % (11.7-14.4)
[2019-07-27 03:57] LABS: ANION GAP 12.2 mmol/L (8-16); BLOOD UREA NITROGEN 15 mg/dL (7-26); BUN/CREATININE RATIO 20 (6-25); CARBON DIOXIDE 29 mmol/L (22-29); CHLORIDE 104 mmol/L (98-107); CREATININE, SERUM 0.76 mg/dL (0.57-1.11); EST GLOMERULAR FILTRATION RATE > 60 ML/MIN (60-); GLUCOSE 72 mg/dL (74-118); POTASSIUM 4.2 mmol/L (3.5-5.1); SODIUM 141 mmol/L (136-145)
[2019-07-27 04:04] LABS: CREATINE KINASE MB 1.2 ng/mL (0-5.0)
[2019-07-27] MEDS ORDERED: LISINOPRIL 20 MG TAB PO SCH (09:00)
[2019-07-27] MEDS: CALCIUM CARBONATE 500 MG CHEWABLE TABS PO SCH (09:00)
[2019-07-27] MEDS ORDERED: FUROSEMIDE 40 MG TAB PO SCH (09:00)
[2019-07-27] MEDS ORDERED: ERGOCALCIFEROL 50,000 UNIT CAP PO SCH (09:00)
[2019-07-27] MEDS: CARVEDILOL 12.5 MG TAB PO SCH ×2 (09:20→16:57)
[2019-07-27] MEDS: PANTOPRAZOLE SOD 40 MG TABEC PO SCH (09:20)
[2019-07-27] MEDS: FLUTICASONE PROPIONATE NASAL SPRAY NS SCH (09:21)
[2019-07-27] MEDS: MAGNESIUM OXIDE 400 MG TAB PO SCH (09:21)
[2019-07-27] MEDS: LORATADINE 10 MG TAB PO SCH (09:21)
[2019-07-27] MEDS: ASPIRIN 81 MG CHEW TAB PO SCH (09:21)
[2019-07-27] MEDS: OMEGA 3 POLYUNSAT FATTY ACIDS 1000 MG SOFTGEL PO SCH (09:21)
[2019-07-27] MEDS: CLOPIDOGREL BISULFATE 75 MG TAB PO SCH (09:22)
[2019-07-27] MEDS: INSULIN LISPRO 100 UNIT/1 ML 3ML VIAL SQ SCH ×4 (09:29→21:02)
[2019-07-27] MEDS: BENZONATATE 100 MG CAP PO PRN ×3 (09:40→23:18)
[2019-07-27] MEDS: ALBUTEROL/IPRATROPIUM 3 ML NEB NEB SCH ×4 (10:10→23:00)
[2019-07-27] MEDS: BUDESONIDE/FORMOTEROL 160/4.5MCG INHALER INH SCH ×2 (10:21→20:52)
[2019-07-27] MEDS ORDERED: SODIUM CHLORIDE 0.9% 250ML 250 ML ONE (11:54)
[2019-07-27] MEDS: PIPER-TAZ 3.375 GM 50 ML IV SCH ×3 (12:00→23:25)
--- NOTE | 2019-07-27 13:08 | Diagnostic Imaging Report ---
EXAMINATION: CT scan of the chest without contrast. TECHNIQUE: Spiral CT images of the chest were performed from the lung apices to the level of the adrenal glands. No intravenous contrast was administered per physician's request. Coronal and sagittal reformatted images were obtained. COMPARISON: Portable chest 07/26/2019 CLINICAL HISTORY:Pneumonia DISCUSSION: ABSENCE OF INTRAVENOUS CONTRAST DECREASES SENSITIVITY FOR DETECTION OF FOCAL LESIONS AND VASCULAR PATHOLOGY. LINES/TUBES: None. LUNGS AND AIRWAYS: Moderate right and mild left lower lobe compressive atelectasis. Wedge-shaped consolidation with a few air bronchograms in the lateral aspect of the right middle lobe against the major fissure (best seen in sagittal image 34). Multiple linear opacities in the lingula, bilateral lower lobes, likely represent subsegmental atelectasis or scarring. Bilateral central bronchial wall thickening. No pulmonary nodules or masses are noted in the aerated parenchyma. Mild intralobular septal thickening in the upper lobes. The airways are clear, without endobronchial lesions. PLEURA: Small to moderate right and small left pleural effusions. No pneumothorax. HEART AND MEDIASTINUM: 9 mm peripherally calcified nodule in the left thyroid lobe (series 2, image 8). Mild cardiomegaly. Extensive atherosclerotic calcification of the coronary arteries and to lesser degree thoracic aorta. Aorta is nonaneurysmal. Main pulmonary artery is borderline the mildly enlarged, measuring 3.1 cm. LYMPH NODES: There is no mediastinal or axillary lymphadenopathy. Difficult to assess for hilar adenopathy given the lack of intravenous contrast. ABDOMEN: Limited unenhanced views of the upper abdomen show no abnormality within the visualized liver, spleen, pancreas. 3 mm calcification in the right renal sinus (series 2, image 120 and 3 mm calcification in the left superior pole (series 2, image 104) may represent nonobstructing calculi versus vascular calcifications. Marked atherosclerotic calcification of the aorta, aortic branches (particularly the origin of the SMA and bilateral renal arteries). The adrenal glands are normal. Peripherally calcified structure near level of the mary hepatis may represent a gallstone. BONES AND SOFT TISSUES: Generalized osteopenia. Moderate to marked multilevel degenerative disc changes in the thoracic spine. Bilateral breast calcifications (series 2, image 68 and 59), suggesting calcified fibroadenomas. There are punctate calcifications in the left breast tissue (for example series 2, images 63 and 65). IMPRESSION: 1. Small to moderate right and small left pleural effusions with moderate right and mild left lower lobe compressive atelectasis. 2. Wedge-shaped consolidation with air bronchograms in the lateral aspect of the right middle lobe likely represents atelectasis, however, pneumonia is also a consideration, in the appropriate clinical setting.. 3. Mild cardiomegaly. Mild intralobular septal thickening in the upper lobes. Given bilateral pleural effusions, this suggests mild CHF/fluid overload. 4. Punctate calcifications in the left breast tissue which should be further assessed with mammography. Signed by: Dr. Mookie Wilkins M.D. on 07/27/2019 1:04 PM
[2019-07-27 13:14] LABS: CREATINE KINASE MB 1.7 ng/mL (0-5.0)
--- NOTE | 2019-07-27 15:25 | NUR ---
Visit made by the Spiritual Care Department Pastoral Visitor, Kylie Guevara. PV provided pastoral presence, hospitality, prayer, and supportive listening. Pastoral Visitor informed pt/family of the scope of Title Inspector Services and availability. GIANCARLO FRANCIS Pulp Plant Supervisor Spiritual Care Department O: [phone] Pager: [phone] ([phone] number calling from)
--- NOTE | 2019-07-27 15:56 | History and Physical ---
PRIMARY CARE PHYSICIAN: Dr. Beverly Soto. CHIEF COMPLAINT: Failed outpatient treatment for pneumonia. HISTORY: An 84-year-old female was treated for pneumonia, started on the 12th of this month and apparently did not get better. Follow up with Dr. Soto, multiple other antibiotics given, the patient did not get better; therefore, the patient came to the hospital for evaluation. Here, the patient found to have multiple infiltrate in the portable chest x-ray. CT scan of the chest will be needed, but in the meantime, the patient is started on antibiotics. The patient is otherwise, stable. She did have cough and fever. Blood pressure is slightly low, but the patient is on blood pressure medication. Her last admission was back in October 2018, where she was septic due to pneumonia and respiratory failure, required BiPAP and subsequently went into ARDS. The patient was very ill at that time, but started with pneumonia. The patient therefore, will be needed to be admitted now. The patient is otherwise with cough and coarse lung sounds, much improved now. She did have multilobar pneumonia back in October 2018. The patient is admitted for aggressive antibiotic treatment. PAST MEDICAL HISTORY: Congestive heart failure, compensated with ejection fraction of 30% to 35%. Previous severe infection, pneumonia with respiratory failure. Peripheral vascular disease with carotid stent, toe amputation and lower extremity stent. Diabetes type 2, hypertension, dyslipidemia, reflux history, allergic rhinitis. PAST SURGICAL HISTORY: Appendectomy. SOCIAL HISTORY: The patient lives with her family. does not smoke or use alcohol. No regular drug use. ALLERGIES: CLINDAMYCIN. HOME MEDICATIONS: Reviewed. The patient was previously on Augmentin, pneumonia, Tylenol No. 3, aspirin, Baclofen, Bentyl, Tessalon Perles, Symbicort, Coreg, Plavix, doxycycline, Flonase, Lasix, NPH insulin, nebulizer treatment, lisinopril, loratadine, nifedipine ER, Protonix, omega-3 fatty acid, fish oil, pravastatin, Lantus, and Lyrica. PHYSICAL EXAMINATION: VITAL SIGNS: Temperature is 98.7, blood pressure 112/51, pulse rate 65, and respirations 20. GENERAL: The patient is awake. She is alert. HEENT: Normocephalic and atraumatic. Pupils are reactive. Anicteric. NECK: Supple grossly. PULMONARY: Diminished breath sounds bilaterally with coarse. CARDIOVASCULAR: S1 and S2. Regular rate and rhythm. ABDOMEN: Soft. EXTREMITIES: No cyanosis or edema. Multiple toe amputation. NEUROLOGIC: No gross focal deficit. The patient is sitting up, awake, and alert, moving all extremities. LABORATORY DATA: Sodium is 141, potassium 4.2, chloride 104, bicarb 29, BUN is 15, creatinine 0.7, glucose is 72. WBC is 7.6, hemoglobin 9.8, hematocrit 36.9, and platelets is 300. X-ray of the chest, one view show patchy opacity in lung bases. IMPRESSION: 1. Pneumonia, community acquired, failed outpatient treatment with multiple antibiotics. 2. Multiple chronic medical problems including complication of diabetes type 2, on insulin therapy. PLAN: Zosyn IV and azithromycin. Continue with nebulizer treatment. Home medication with some adjustment. Hold off some of the patient's blood pressure medication since it is trending low. The patient has remained stable hemodynamically. No fever. We will obtain a CT of the chest without contrast to document the severity of the pneumonia. The patient had normal WBC and no fever, but the patient is already on oral antibiotics outpatient prior to admission. We will consult Dr. Luis Antonio Machado, mechanical project engineer for close monitoring. MD JEANIE Wynne/DEVONL /[id number]
[2019-07-27] MEDS: AZITHROMYCIN 500MG/NS 250 ML 250 ML IV SCH (16:25)
--- NOTE | 2019-07-27 17:27 | Consultation ---
DATE OF CONSULTATION: Pulmonary Consultation Patient of Dr. Quiñones. HISTORY OF PRESENT ILLNESS: Feli 84-year-old woman, admitted with cough, chills, aches, diagnosed with pneumonia. Cough has been productive of perez sputum. She denies fever. ALLERGIES: ALLERGIC TO CLINDAMYCIN. MEDICATIONS: She had been on doxycycline and possibly Augmentin. Her medications at home are multiple including Atrovent, insulin, aspirin, baclofen, Tessalon Perles, Symbicort, calcium, Coreg, Plavix, vitamin D, Lasix, nifedipine, Protonix, Pravachol, and Lyrica. PAST MEDICAL AND SURGICAL HISTORY: She has a history of coronary artery disease with multiple stents. History of appendectomy. SOCIAL HISTORY: Nonsmoker. PHYSICAL EXAMINATION: GENERAL: She is a well-developed sprightly white female, sitting up, eating. VITAL SIGNS: Temperature 97.4, pulse 54, respirations 18, and blood pressure 121/ . HEENT: Head, normocephalic. Eyes, extraocular movements intact. LUNGS: Rales and rhonchi, left chest. Diminished breath sounds, right base. HEART: Regular rhythm. ABDOMEN: Nontender. EXTREMITIES: Nonedematous. IMPRESSION: Pneumonia, left upper lobe. Congestive heart failure, improving on empiric antibiotic therapy. Consider resuming her Lasix. Continue supportive care. Thank you for this kind referral. MD RIK Paulino/MODL /[id number]
[2019-07-27] MEDS: PREGABALIN 25 MG CAP PO SCH (21:01)
[2019-07-27] MEDS: NIFEDIPINE CR 30 MG TAB PO SCH (21:02)
[2019-07-28] VITALS (7 sets, daily range): BP systolic 126–147; BP diastolic 51–67
[2019-07-28] MEDS: ALBUTEROL/IPRATROPIUM 3 ML NEB NEB SCH ×6 (03:00→23:08)
[2019-07-28] MEDS: PIPER-TAZ 3.375 GM 50 ML IV SCH ×3 (05:38→18:10)
[2019-07-28 06:19] LABS: BASOPHILS % 0.6 % (0.0-1.0); EOSINOPHILS # (AUTO) 0.2 (0.0-0.4); EOSINOPHILS % 2.4 % (0.0-6.0); HEMOGLOBIN 9.2 g/dL (12.0-16.0); LYMPHOCYTES # (AUTO) 1.6 (1.0-3.2); LYMPHOCYTES % 23.7 % (18.0-39.1); MEAN CORPUSCULAR HEMOGLOBIN 28.3 pg (28-32); MEAN CORPUSCULAR HGB CONC 30.7 g/dL (31-35); MEAN CORPUSCULAR VOLUME 92.3 fL (81-99); MONOCYTES # (AUTO) 0.5 (0.2-0.8); MONOCYTES % 7.3 % (4.4-11.3); NEUTROPHILS # (AUTO) 4.3 (2.1-6.9); NEUTROPHILS % 65.8 % (38.7-80.0); PLATELET COUNT 278 x10e3/uL (140-360); RED BLOOD COUNT 3.25 x10e6/uL (3.6-5.1); RED CELL DISTRIBUTION WIDTH 13.3 % (11.7-14.4)
[2019-07-28 06:33] LABS: BLOOD UREA NITROGEN 11 mg/dL (7-26); BUN/CREATININE RATIO 13 (6-25); CALCIUM 8.8 mg/dL (8.4-10.2); CARBON DIOXIDE 30 mmol/L (22-29); CHLORIDE 102 mmol/L (98-107); CREATININE, SERUM 0.86 mg/dL (0.57-1.11); EST GLOMERULAR FILTRATION RATE > 60 ML/MIN (60-); GLUCOSE 115 mg/dL (74-118); SODIUM 140 mmol/L (136-145)
[2019-07-28] MEDS: INSULIN LISPRO 100 UNIT/1 ML 3ML VIAL SQ SCH ×4 (07:30→21:37)
[2019-07-28] MEDS: BUDESONIDE/FORMOTEROL 160/4.5MCG INHALER INH SCH ×2 (07:45→19:00)
[2019-07-28] MEDS: PANTOPRAZOLE SOD 40 MG TABEC PO SCH (07:56)
[2019-07-28] MEDS: FUROSEMIDE 20 MG TAB PO SCH (08:06)
[2019-07-28] MEDS: MAGNESIUM OXIDE 400 MG TAB PO SCH (08:06)
[2019-07-28] MEDS: OMEGA 3 POLYUNSAT FATTY ACIDS 1000 MG SOFTGEL PO SCH (08:06)
[2019-07-28] MEDS: CLOPIDOGREL BISULFATE 75 MG TAB PO SCH (08:06)
[2019-07-28] MEDS: ASPIRIN 81 MG CHEW TAB PO SCH (08:06)
[2019-07-28] MEDS: CARVEDILOL 12.5 MG TAB PO SCH ×2 (08:06→19:23)
[2019-07-28] MEDS: CALCIUM CARBONATE 500 MG CHEWABLE TABS PO SCH (08:07)
[2019-07-28] MEDS: FLUTICASONE PROPIONATE NASAL SPRAY NS SCH (09:26)
[2019-07-28] MEDS: LORATADINE 10 MG TAB PO SCH (09:26)
[2019-07-28] MEDS: BENZONATATE 100 MG CAP PO PRN (16:05)
[2019-07-28] MEDS: AZITHROMYCIN 500MG/NS 250 ML 250 ML IV SCH (19:22)
--- NOTE | 2019-07-28 19:49 | NUR ---
received report from am nurse, patient in the restroom, will continue to monitor.
[2019-07-28] MEDS: PREGABALIN 25 MG CAP PO SCH (21:26)
[2019-07-28] MEDS: NIFEDIPINE CR 30 MG TAB PO SCH (21:26)
[2019-07-29] VITALS (8 sets, daily range): BP systolic 115–154; BP diastolic 56–86
[2019-07-29] MEDS: PIPER-TAZ 3.375 GM 50 ML IV SCH ×4 (00:01→18:13)
--- NOTE | 2019-07-29 01:06 | NUR ---
PATIENT CONTINUE RESTING, NO DISTRESS NOTED, CALL LIGHT IN REACH. FAMILY REMAIN AT THE BEDSIDE. WILL CONTINUE TO MONITOR.
[2019-07-29] MEDS: ALBUTEROL/IPRATROPIUM 3 ML NEB NEB SCH ×6 (04:46→23:05)
--- NOTE | 2019-07-29 06:58 | NUR ---
REPORT GIVEN TO AM NURSE, PATIENT GOING TO THE RESTROOM, FAMILY REMAIN AT THE BEDSIDE.
[2019-07-29] MEDS: BUDESONIDE/FORMOTEROL 160/4.5MCG INHALER INH SCH ×2 (07:10→20:10)
[2019-07-29] MEDS: INSULIN LISPRO 100 UNIT/1 ML 3ML VIAL SQ SCH ×4 (07:30→21:00)
[2019-07-29] MEDS: LORATADINE 10 MG TAB PO SCH (08:30)
[2019-07-29] MEDS: ASPIRIN 81 MG CHEW TAB PO SCH (08:30)
[2019-07-29] MEDS: PANTOPRAZOLE SOD 40 MG TABEC PO SCH (08:30)
[2019-07-29] MEDS: FUROSEMIDE 20 MG TAB PO SCH (08:30)
[2019-07-29] MEDS: CARVEDILOL 12.5 MG TAB PO SCH ×2 (08:30→18:13)
[2019-07-29] MEDS: MAGNESIUM OXIDE 400 MG TAB PO SCH (08:30)
[2019-07-29] MEDS: FLUTICASONE PROPIONATE NASAL SPRAY NS SCH (08:30)
[2019-07-29] MEDS: CALCIUM CARBONATE 500 MG CHEWABLE TABS PO SCH (08:30)
[2019-07-29] MEDS: OMEGA 3 POLYUNSAT FATTY ACIDS 1000 MG SOFTGEL PO SCH (08:30)
[2019-07-29] MEDS: CLOPIDOGREL BISULFATE 75 MG TAB PO SCH (08:30)
[2019-07-29] MEDS ORDERED: AZITHROMYCIN 250 MG TAB PO SCH (17:00)
[2019-07-29] MEDS: BENZONATATE 100 MG CAP PO PRN (18:21)
--- NOTE | 2019-07-29 19:05 | NUR ---
Bedside report received from morning nurse. Pt alert and oriented to name, lying in bed HOB 45 degrees. Denies pain at this time. Call light within reach. Family at bedside. Will continue to monitor.
[2019-07-29] MEDS: PREGABALIN 25 MG CAP PO SCH (21:00)
[2019-07-29] MEDS: NIFEDIPINE CR 30 MG TAB PO SCH (21:00)
[2019-07-30] VITALS: BP 126/54
[2019-07-30] MEDS: ALBUTEROL/IPRATROPIUM 3 ML NEB NEB SCH ×2 (02:47→07:25)
[2019-07-30 04:00] VITALS: BP 162/79
[2019-07-30] MEDS: PIPER-TAZ 3.375 GM 50 ML IV SCH ×2 (05:52)
--- NOTE | 2019-07-30 07:12 | NUR ---
change of report received and walking rounds completed with evening or night nurse supervisor RN. pt resting comfortably, easily aroused. no signs of distress. will continue to monitor.
[2019-07-30 08:00] VITALS: BP 120/61
[2019-07-30] MEDS: INSULIN LISPRO 100 UNIT/1 ML 3ML VIAL SQ SCH (08:41)
[2019-07-30 08:59] VITALS: BP 120/61
[2019-07-30] MEDS: FLUTICASONE PROPIONATE NASAL SPRAY NS SCH (09:00)
[2019-07-30] MEDS: CALCIUM CARBONATE 500 MG CHEWABLE TABS PO SCH (09:08)
[2019-07-30] MEDS: CLOPIDOGREL BISULFATE 75 MG TAB PO SCH (09:08)
[2019-07-30] MEDS: MAGNESIUM OXIDE 400 MG TAB PO SCH (09:09)
[2019-07-30] MEDS: OMEGA 3 POLYUNSAT FATTY ACIDS 1000 MG SOFTGEL PO SCH (09:09)
[2019-07-30] MEDS: FUROSEMIDE 20 MG TAB PO SCH (09:10)
[2019-07-30] MEDS: LORATADINE 10 MG TAB PO SCH (09:10)
[2019-07-30] MEDS: ASPIRIN 81 MG CHEW TAB PO SCH (09:10)
[2019-07-30] MEDS: PANTOPRAZOLE SOD 40 MG TABEC PO SCH (09:11)
[2019-07-30] MEDS: CARVEDILOL 12.5 MG TAB PO SCH (09:11)
[2019-07-30] MEDS: BENZONATATE 100 MG CAP PO PRN (09:17)
[2019-07-30] MEDS ORDERED: LINEZOLID 600 MG TAB PO ONE (10:30)
[2019-07-30] MEDS ORDERED: ZYVOX600 MG PO (11:22)
[2019-07-30] MEDS ORDERED: TESSALON PERLE100 MG PO (11:23)
[2019-07-30 12:00] VITALS: BP 156/68
--- NOTE | 2019-07-30 14:11 | Discharge Summary ---
PRIMARY CARE PHYSICIAN: Dr. Beverly Soto. FINAL DIAGNOSES: 1. Pulmonary consolidation with air bronchogram consistent with right middle lobe pneumonia, failed outpatient treatment with multiple oral antibiotics. 2. Vascular congestion exacerbation of acute on chronic diastolic dysfunction, congestive heart failure secondary to pulmonary stress from pneumonia. 3. Pulmonary symptoms with wheezing and coarses and rales at the bases on examination. SUMMARY: The patient is an 84-year-old female, failed outpatient treatment with multiple oral antibiotics. The patient came in. CT scan shows [id number] right and left pleural effusion consistent with atelectasis versus pulmonary edema from the exacerbation of her heart failure. She has also had a wedge-shaped consolidation with air bronchogram in the lateral aspect of the right middle lobe. She is also has some mild cardiomegaly, which is her baseline. The patient is otherwise stable. She was given diuretic aggressively and also IV antibiotics. The patient is doing much better now. Since she failed Augmentin and doxycycline as an outpatient, the patient will go home with Zyvox 600 mg twice a day for 5 days. She will continue with completing the course of her doxycycline for atypical coverage. The patient is otherwise stable. She will resume her usual home medication. I advised the patient to take extra diuretic if increase in swelling or shortness of breath due to heart failure. The patient is otherwise stable. She will follow up with her family physician, Dr. Soto, in approximately one week. MD JEANIE Wynne/JOSE /[id number]
== END 2019-07-30 12:45 | disposition home or self-care (01) | DRG 177 ==
LOC: ER 12:51 → ERHOLD 16:10 → MED/SURG3 17:06
PROVIDERS: ADMIT Internal Medicine; ATTEND Internal Medicine
DX: J15.6 Pneumonia due to other Gram-negative bacteria (principal); I50.33 Acute on chronic diastolic (congestive) heart failure; I11.0 Hypertensive heart disease with heart failure; I25.10 Atherosclerotic heart disease of native coronary artery without angina pectoris; Z95.5 Presence of coronary angioplasty implant and graft; E11.9 Type 2 diabetes mellitus without complications; Z79.4 Long term (current) use of insulin
CPT/HCPCS: 36415; 71045; 71250; 80048; 80053; 82550; 82553; 82948; 83880; 84484; 85025; 87040; 87070; 87186; 87205; 87400; 94640; 94664; 99284; J0456; J0696; J2543; J7050

== ENCOUNTER 2020-04-09 12:14 | Observation (INO) | payer MEDICARE, OTHER ==
[~2020-04-09] VITALS: Ht 152.4 cm; Wt 71.4 kg
[~2020-04-09 12:14] MED LIST changes: +BACLOFEN10 MG PO; +CALCIUM 500+D1 EACH PO; +DOXYCYCLINE HY100 MG PO; +FLUTICASONE PRO16 GM; +GLARGINE SQ; +IPRATROPIU0.2 MG/1 M; +LYRICA25 MG PO; +NOVOLIN 70100 UNIT/3 SQ; +OMEGA 3 FISH O1 EACH PO; +PANTOPRAZOLE SO40 MG PO; +SYMBICORT 16010.2 GM INH; +TESSALON PERLE100 MG PO; +VITAMIN D250 MCG PO; +ZYVOX600 MG PO
[2020-04-09] MEDS ORDERED: FUROSEMIDE INJ 10 MG/ML 4 ML VIAL IV ONE (13:00)
[2020-04-09 13:32] LABS: BASOPHILS % 0.7 % (0.0-1.0); EOSINOPHILS # (AUTO) 0.1 (0.0-0.4); LYMPHOCYTES # (AUTO) 1.2 (1.0-3.2); LYMPHOCYTES % 20.5 % (18.0-39.1); MEAN CORPUSCULAR HEMOGLOBIN 22.3 pg (28-32); MEAN CORPUSCULAR HGB CONC 28.1 g/dL (31-35); MEAN CORPUSCULAR VOLUME 79.2 fL (81-99); MONOCYTES # (AUTO) 0.5 (0.2-0.8); MONOCYTES % 8.5 % (4.4-11.3); NEUTROPHILS # (AUTO) 4.2 (2.1-6.9); NEUTROPHILS % 69.1 % (38.7-80.0); PLATELET COUNT 203 x10e3/uL (140-360); RED BLOOD COUNT 4.04 x10e6/uL (3.6-5.1); RED CELL DISTRIBUTION WIDTH 18.7 % (11.7-14.4)
--- NOTE | 2020-04-09 13:51 | Diagnostic Imaging Report ---
TECHNIQUE: Frontal view of the chest. INDICATION: ^SOB, WEIGHT GAIN, H/O CHF ^[id number] ^[id number] COMPARISON: 07/26/2019 DISCUSSION: Limited evaluation due to portable technique. Lines and hardware: None Heart and mediastinum: Cardiomediastinal silhouette is enlarged. Central vascular congestion is noted. Lungs and pleura: Prominent interstitial markings are noted. Question trace effusions. Negative for large pneumothorax. Soft tissues and bones: No acute abnormality. Stable multilevel degenerative spine and shoulder joints. IMPRESSION: Cardio megaly, central vascular congestion and prominent interstitial markings with trace effusions are concerning for fluid overload/CHF. Superimposed infection is difficult to exclude. Signed by: Etienne Rangel MD on 04/09/2020 1:48 PM
[2020-04-09 13:52] LABS: INR 1.11; PROTHROMBIN TIME 14.9 seconds (11.9-14.5)
[2020-04-09 13:53] LABS: PARTIAL THROMBOPLASTIN TIME 39.5 seconds (23.8-35.5)
[2020-04-09 14:04] LABS: ALBUMIN 4.5 g/dL (3.5-5.0); ALBUMIN/GLOBULIN RATIO 1.5 (0.8-2.0); ANION GAP 19.1 mmol/L (8-16); CALCIUM 9.2 mg/dL (8.4-10.2); CREATININE, SERUM 0.98 mg/dL (0.57-1.11); POTASSIUM 4.1 mmol/L (3.5-5.1)
[2020-04-09 14:11] LABS: CREATINE KINASE MB 2.5 ng/mL (0-5.0)
--- OUTSIDE RECORDS SUMMARY | 2020-04-09 15:40 | XMS REPORT | Clinical Summary ---
Author Author CARMELITA [facility] Address Unknown Phone Unavailable Care Team Providers Care Cargo Service Supervisor Name Role Phone Erika Sumner PCP Unavailable Allergies Comments Active Allergy Reactions Severity Noted Date Clindamycin Diarrhea, 08/28/2017 Nausea And Vomiting Medications End Date Status Medication Sig Dispensed Refills Start Date Active insulin aspart Inject 45 0 protamine-insulin aspart Units (NOVOLOG 70/30) 100 subcutaneousl unit/mL (70-30) y daily with injectionIndications: breakfast . diabetes Active calcium & magnesium Take 1 tablet 0 carbonates (MYLANTA) by mouth 311-232 mg per tablet daily. Active blood sugar diagnostic 1 each by 0 10/07/09 06 (GLUCOSE BLOOD) Strp Other - See 5 Admin Instructions route. Active insulin pen needles (BD Inject 1 0 ULTRA-FINE RANDY) 4 mm x Syringe 5 32 G subcutaneousl y. Active alendronate (FOSAMAX) 35 35 mg every 7 0 10/07 MG tablet days . 5 Active aspirin 81 MG EC tablet Take 81 mg by 0 mouth daily . 5 Active clopidogrel (PLAVIX) 75 75 mg daily . 0 mg tablet 5 Active gabapentin (NEURONTIN) Take 300 mg 0 10/07/2 01 300 MG capsule by mouth 5 nightly [...] times daily with breakfast and dinner. 09/05/2019 dicyclomine (BENTYL) 20 Take 1 tablet 20 tablet 0 mg tablet (20 mg total) 9 by mouth 2 (two) times daily. Active Problems Problem Noted Date Pleural effusion, left 06/13/2017 Multiple rib fractures 05/05/2017 Fall, initial encounter 05/05/2017 Chest wall contusion, right, initial encounter 05/05 Chest wall contusion, left, initial encounter 2016 Diarrhea 09/24/2014 PAD (peripheral artery disease) 04/24/2014 Chest pain 01/07/2013 CAD (coronary artery disease) CAD (coronary artery disease) Status post coronary artery stent place ment Overview: ICD9 DX Street [employer] Immunizations Name Dates Previously Given Next Due [...] travel history available. Last Filed Vital Signs Not on file Plan of Treatment Not on file Results Not on fileafter 04/09/2019 Insurance Payer Benefit Subscriber ID Type Phone Address Plan / Group [employer] xxxxxxxx [employer] HMO ALL Contracted Advance Directives For more information, please contact: [phone] [place] [address] Date Inactivated Comments Code Status Date Activated [...] 01/09/2013 4:26 PM All possible means of suppor t, including: cardiac massage, mechanical ventilation, and defibrillation will be used to support life. Code ONE 01/08/2013 12:06 AM
[2020-04-09 15:41] LABS: BILIRUBIN,URINE NEGATIVE (NEGATIVE); CLARITY,URINE CLEAR (CLEAR); COLOR,URINE COLORLESS (YELLOW); KETONES,URINE NEGATIVE (NEGATIVE); LEUKOCYTE ESTERASE ,URINE NEGATIVE (NEGATIVE); NITRITE,URINE NEGATIVE (NEGATIVE); PROTEIN,URINE DIPSTICK NEGATIVE (NEGATIVE); URINE UROBILINOGEN 0.2 mg/dL (0.2 - 1)
--- OUTSIDE RECORDS SUMMARY | 2020-04-09 15:41 | XMS REPORT | Continuity of Care Document ---
Author Author [facility] t Organization [facility] Address [address] [place]. [address] [place] [id number] Phone Unavailable Care Team Providers Care Tape Recording Machine Operator Name Role Phone FAYE SAGE PCP Familia JEFFERSON Attphys Unavailable MEHNAZ MON Attphys Unavailable Cameron REDDING Attphys Unavailable KRYSTAL VALENZUELA Attphys Unavailable SERG BRADLEY Attphys Unavailable MEHNAZ MON Admphys Unavailable Cameron SCHREIBER Admphys Unavailable MATEUS, YURY BRICENO Admphys Unavailable Payers Payer Name Policy Type Policy Number Effective Date Expiration Date Tod Rodriguez [id number] 2018 00:00:00 [facility] Problems Condition Name Condition Details Condition Category Status Onset Date Resolution Date Last Treatment Date Treating Clinician Comments Source Pleural effusion, left Pleural effusion, left Disease Active 2017-06-13 00:00:00 [facility] Multiple rib fractures Multiple rib fractures Disease Active 2017-05-05 00:00:00 [facility] Fall, initial encounter Fall, initial encounter Disease Active 2017-05-05 00:00:00 [facility] Chest wall contusion, right, initial encounter Chest w all contusion, right, initial encounter Disease Active 2017-05-05 00:00:00 [facility] Chest wall contusion, left, initial encounter Chest wa ll contusion, left, initial encounter Disease Active 2017-05-05 00:00:00 [facility] Diarrhea Diarrhea Disease Active 2014-09-24 00:00:00 [facility] PAD (peripheral artery disease) PAD (peripheral artery disease) Dis ease Active 2014-04-24 00:00:00 [facility] Chest pain Chest pain Disease Active 2013-01-07 00:00:00 [facility] Hypoxia Hypoxia Problem Active [facility] Pneumonia Pneumonia Problem Active [facility] CAD (coronary artery disease) CAD (coronary artery disease) Disease Active [facility] Status post coronary artery stent placement Status pos t coronary artery stent placement Disease Active Overview: ICD9 DX Repl acer [facility] Allergies, Adverse Reactions, Alerts Allergy Name Allergy Type Status Severity Reaction(s) Onset Date Inacti ve Date Treating Clinician Comments Source Clindamycin Allergy to Substance Active 2019-07-26 00:00:00 [facility] Clindamycin Propensity to adverse reactions Active Diarrhea, Nausea And Vomiting 2017-08-28 00:00:00 [facility] Social History Social Habit Start Date Stop Date Quantity Comments Source Sex Assigned At [facility] Smoking Status Start Date Stop Date Source [facility] Medications Ordered Medication Name Filled Medication Name Start Date Stop Da te Current Medication? Ordering Clinician Indication Dosage Frequency Signature (SIG) Comments Components Source NIFEdipine (ADALAT CC) 30 MG 24 hr tablet 2018-09-05 14:25:26 Yes 30mg QD Take 30 mg by mouth daily. [facility] lisinopril (PRINIVIL,ZESTRIL) 40 MG tablet 2018-09-05 14:25:26 Yes 40mg QD Take 40 mg by mouth daily. [facility] magnesium oxide (MAG-OX) 400 mg (241.3 mg magnesium) tablet 2018-09-05 14:25:26 Yes 400mg QD Take 400 mg by mouth daily. [facility] carvedilol (COREG) 12.5 MG tablet 2018-09-05 14:25:26 Yes 12.5mg Take 12.5 mg by mouth 2 (two) times daily with breakfast and dinner. [facility] furosemide (LASIX) 40 MG tablet 2018-09-05 14:25:25 Yes 40mg Q.5D Take 40 mg by mouth 2 (two) times daily. [facility] dicyclomine (BENTYL) 20 mg tablet 2018-09-05 00:00:00 2019 23:59:00 No 20mg Q.5D Take 1 tablet (20 mg total) by mouth 2 ( two) times daily. [facility] oxybutynin (DITROPAN) 5 MG tablet 2017-06-20 08:48:12 Yes 5mg Take 5 mg by mouth every night as needed . [facility] insulin aspart protamine-insulin aspart (NOVOLOG 70/30) 100 unit/mL (70-30) injection 2017-06-20 08:45:23 Yes diabetes 45U Inject 45 Units subcutaneously daily with breakfast . [facility] acetaminophen-codeine (TYLENOL #3) 300-30 mg per tablet 2017-06-13 23:26:28 Yes 1{tbl} Take 1 tablet b y mouth every 4 (four) hours as needed for Pain. [facility] docusate sodium (COLACE) 250 MG capsule 2017-06-13 13:15:45 Yes 250mg QD Take 250 mg by mouth daily. [facility] lactulose (CHRONULAC) 20 gram/30 mL solution 2017-06-13 13:15:45 Yes 20g Take 20 g by mouth 3 (three) times daily as needed. [facility] lidocaine (LIDODERM) 5 % patch 2017-06-13 13:15:45 Yes 1{patch} Q24H Place 1 patch onto the skin daily Remove & Discard patch within 12 hours or as directed by . [facility] potassium chloride (KLOR-CON) 10 MEQ CR tablet 2017-06-13 13:15: 45 Yes 10meq QD Take 10 mEq by mouth daily. [facility] ergocalciferol (VITAMIN D2) 50,000 unit capsule 2017-06-13 13:15 :45 Yes 58199D Q7D Take 50,000 Units by mouth once a week. [facility] omega-3 fatty acids-fish oil 340-1,000 mg Cap per capsule 2015-11-16 06:05:35 Yes 2g QD Take 2 g by mouth daily. [facility] blood sugar diagnostic (GLUCOSE BLOOD) Strp 2014-10-07 00:00:00 Yes 1{each} 1 each by Other - See Admin Instructions route. [facility] insulin pen needles (BD ULTRA-FINE RANDY) 4 mm x 32 G 2 00:00:00 Yes 1{syringe} Inject 1 Syringe subcutaneously. [facility] alendronate (FOSAMAX) 35 MG tablet 2014-10-07 00:00:00 Yes 35mg 35 mg every 7 days . [facility] aspirin 81 MG EC tablet 2014-10-07 00:00:00 Yes 81mg QD Take 81 mg by mouth daily . [facility] clopidogrel (PLAVIX) 75 mg tablet 2014-10-07 00:00:00 Yes 75mg QD 75 mg daily . [facility] gabapentin (NEURONTIN) 300 MG capsule 2014-10-07 00:00:00 Y es 300mg QD Take 300 mg by mouth nightly . [facility] insulin aspart protamine-insulin aspart (NOVOLOG MIX 70/30) 100 unit/mL (70-30) injection 2014-10-07 00:00:00 Yes Inject 3 5 units before dinner. [facility] pravastatin (PRAVACHOL) 20 MG tablet 2014-10-07 00:00:00 Ye s 20mg Take 20 mg by mouth. [facility] calcium & magnesium carbonates (MYLANTA) 311-232 mg per tabl et 2014-04-24 07:01:18 Yes 1{tbl} QD Take 1 tablet by mouth daily. [facility] Acetaminophen With Codeine (Tylenol With Codeine #3 Ta blet) 1 Each Tablet Acetaminophen With Codeine (Tylenol With Codeine #3 Tablet) 1 Each Tablet Yes 300 Twice A Day as needed for Mild Pain (1-3 ) Or Fever>100.8 [facility] Aspirin (Aspir 81) 81 Mg Tablet. Aspirin (Aspir 81) 81 Mg Tablet. Yes 81 Daily [facility] Baclofen 10 Mg Tablet Baclofen 10 Mg Tablet Yes 10 Bedtime as needed for Muscle Spasm [facility] Benzonatate 100 Mg Capsule Benzonatate 100 Mg Capsule Yes 100 Three Times A Day as needed for Cough [facility] Benzonatate (Tessalon Perle) 100 Mg Capsule Benzonatat e (Tessalon Perle) 100 Mg Capsule Yes 100 Every 6 Hours as needed for Co ugh [facility] Budesonide/Formoterol Fumarate (Symbicor t 160-4.5 Mcg Inhaler) 10.2 Gm Hfa.aer.ad Budesonide/Formoterol Fumarate (Symbicor t 160-4.5 Mcg Inhaler) 10.2 Gm Hfa.aer.ad Yes 2 Twice A Day [facility] Calcium Carbonate/Vitamin D3 (Calcium 500+D Tablet Camelia w) 1 Each Tab.chew Calcium Carbonate/Vitamin D3 (Calcium 500+D Tablet Chew) 1 Each Tab.chew Yes 2 Daily [facility] Carvedilol 12.5 Mg Tablet Carvedilol 12.5 Mg Tablet Yes 12.5 Twice A Day [facility] Clopidogrel Bisulfate (Clopidogrel) 75 Mg Tablet Clopi dogrel Bisulfate (Clopidogrel) 75 Mg Tablet Yes 75 Daily [facility] Doxycycline Hyclate 100 Mg Capsule Doxycycline Hyclate 100 Mg Capsule Yes 100 Twice A Day [facility] Ergocalciferol (Vitamin D2) (Vitamin D2) 50 Mcg Capsul e Ergocalciferol (Vitamin D2) (Vitamin D2) 50 Mcg Capsule Yes 1.25 Weekly [facility] Fluticasone Propionate 16 Gm [place].susp Fluticasone Propiona te 16 Gm [place].susp Yes 2 Daily [facility] Furosemide 40 Mg Tablet Furosemide 40 Mg Tablet Yes 40 Daily [facility] Glargine Glargine Yes 24 Daily With Breakfast [facility] Insulin Nph Hum/Reg Insulin Hm (Novolin 70-30 Flexpen) 100 Unit/1 Ml Insuln.pen Insulin Nph Hum/Reg Insulin Hm (Novolin 70-30 Flexpen) 100 Unit/1 Ml Insuln.pen Yes Twice Daily With Meals [facility] Ipratropium Daykin 0.2 Mg/1 Ml Solution Ipratropium B romide 0.2 Mg/1 Ml Solution Yes 2 Four Times Daily as needed fo r Rhinitis [facility] Linezolid (Zyvox) 600 Mg Tablet Linezolid (Zyvox) 600 Mg Tablet Yes 600 Twice A Day [facility] Lisinopril 10 Mg Tablet Lisinopril 10 Mg Tablet Yes 40 Daily [facility] Loratadine 10 Mg Tablet Loratadine 10 Mg Tablet Yes 10 Daily [facility] Magnesium Oxide 400 Mg Tablet Magnesium Oxide 400 Mg Tablet Yes [address] [facility] Nifedipine (Nifedipine Er) 30 Mg Tab.er.24 Nifedipine (Nifedipine Er) 30 Mg Tab.er.24 Yes 30 Bedtime [facility] [place]-3 Fatty Acids/Fish Oil ([place] 3 Fish Oil Softgel ) 1 Each Capsule. [place] Beach[place] 3 Fatty Acids/Fish Oil ([place] 3 Fish Oil Softgel) 1 Each Capsule. Yes 1 Daily [facility] Pantoprazole Sodium (Protonix) 40 Mg Tablet. Pantopr azole Sodium (Protonix) 40 Mg Tablet. Yes 20 Daily [facility] Pravastatin Sodium 40 Mg Tablet Pravastatin Sodium 40 Mg Tablet Yes 40 Daily [facility] Pregabalin (Lyrica) 25 Mg Cap Pregabalin (Lyrica) 25 Mg Cap Yes Bedtime [facility] Amoxicillin/Potassium Clav (Augmentin 50 0-125 Tablet) 1 Each Tablet, 500 Mg Oral Amoxicillin/Potassium Clav (Augmentin 50 0-125 Tablet) 1 Each Tablet, 500 Mg Oral 2019-07-30 00:00:00 No 500 Twice A Day [facility] Alendronate Sodium 35 Mg Tablet, Alendronate Sodium 35 Mg Tablet , 2019-07-26 00:00:00 No Once [facility] Gabapentin 300 Mg Capsule, 300 Mg Oral Gabapentin 300 Mg Capsule , 300 Mg Oral 2019-07-26 00:00:00 No 300 Bedtime [facility] Immunizations Ordered Immunization Name Filled Immunization Name Date Status Comments Source Pneumococcal Polysaccharide (Pneumovax) 2013-01-09 00:00:0 0 Completed [facility] Procedures Procedure Date / Time Performed Performing Clinician [facility] e Computed tomography of chest without contrast 2019-07-27 00:00:0 0 MEHNAZ MON [facility] X-ray of chest, two views 2018-11-12 00:00:00 HORACIO IVAN CH, I [facility] DRAINAGE OF TRACHEA, ENDO, DIAGN 2018-10-30 00:00:00 EMILIANO IVAN [facility] DRAINAGE OF RIGHT UPPER LUNG LOBE, ENDO, DIAGN 2018-10-30 00:00: 00 HORACIO IVAN [facility] RESPIRATORY VENTILATION, GREATER THAN 96 CONSECUTIVE HOURS 2 00:00:00 [facility] INSERTION OF ENDOTRACHEAL AIRWAY INTO TRACHEA, VIA OPENING 00:00:00 [facility] ASSISTANCE WITH RESPIRATORY VENTILATION, <24 HRS, CPAP 10-28 00:00:00 [facility] Computed tomography of chest without contrast 2018-10-26 00:00:0 0 YAA [facility] Encounters Start Date/Time End Date/Time Encounter Type Admission Type [facility] Care Department Encounter ID Source 2019-07-26 16:10:00 2019-07-30 12:45:00 Discharged Inpatient 1 MEHNAZ MON [facility] [id number] [facility] 2018-10-25 22:22:00 2018-11-13 19:17:00 Discharged Inpatient 1 YAA [facility] [id number] [facility] Results Test Description Test Time Test Comments Results Result Comments Source CHEST SINGLE (PORTABLE) 2020-04-09 13:47:00 [facility] [address] [address] Patient Name: DAYSI AGUIRRE MR #: [id number] : 1935 Age/Sex: 84/F Req #: [id number] Adm Physician: Ordered by: CALEB JEFFERSON MD Report #: [id number] Location: ER Room/Bed: Procedure: [id number] DX/CHEST SINGLE (PORTABLE) Exam Date: 04/09/20 Exam Time: 1315 REPORT STATUS: Signed TECHNIQUE: Frontal view of the chest. INDICATION: SOB, WEIGHT GAIN, H/O CHF [id number] COMPARISON: 07/26/2019 DISCUSSION: Limited evaluation due to portable technique. Lines and hardware: None Heart and mediastinum: Cardio mediastinal silhouette is enlarged. Central vascular congestion is noted. Lungs and pleura: Prominent interstitial markings are noted. Question trace effusions. Negative for large pneumothorax. Soft tissues and bones: No acute abnormality. Stable multilevel degenerative spine and shoulder joints. IMPRESSION: Cardio megaly, central vascular congestion and prominent interstitial markings with trace effusions are concerning for fluid overload/CHF. Superimposed infection is difficult to exclude. Signed by: Etienne Rangel MD on 04/09/2020 1:48 PM Dictated By: ETIENNE RANGEL MD 1348 Transcribed By: MARY on 04/09/20 1348 COPY TO: CALEB JEFFERSON MD Bedside Glucose 2019-07-30 12:04:00 Test Item Bedside Glucose (test code = 51831-0) 193 70-120 H Meter ID: [id number] [facility] 2019-07-30 07:08:00* Test Item Value Reference Range Interpretation Comments Sputum Culture (test code = 624-7) No Result [facility]ided [facility] [id number] 16:31:00* Test Item Value Reference Range Interpretation Comments Blood Culture (test code = 37976072) NO GROWTH AFTER 72 HOURS [facility] [id number] 06:35:00* Test Item Value Reference Range Interpretation Comments Sodium Level (test code = 2951-2) 140 136-145 [facility]lake[facility]assium Lewwp7340-15-96 06:35:00* Test Item Value Reference Range Interpretation Comments Potassium Level (test code = 2823-3) 4.0 3.5-5.1 [facility]lakeChloride [id number] 06:35:00* Test Item Value Reference Range Interpretation Comments Chloride Level (test code = 2075-0) 102 98-107 [facility]lakeCarbon Dioxide Huoob0917-47-12 06:35:00* Test Item Value Reference Range Interpretation Comments Carbon Dioxide Level (test code = 2028-9) 30 22-29 H [facility]lakeAnion [id number] 06:35:00* Test Item Value Reference Range Interpretation Comments Anion Gap (test code = 67509-9) 12.0 8-16 [facility]lakeBlood Urea Obvmabki3307-99-09 06:35:00* Test Item Value Reference Range Interpretation Comments Blood Urea Nitrogen (test code = 3094-0) 11 7-26 [facility]lakeCreatinine2019-12-23 06:35:00* Test Item Value Reference Range Interpretation Comments Creatinine (test code = 2160-0) 0.86 0.57-1.11 [facility]lakeBUN/Creatinine Lkkyl0497-75-85 06:35:00* Test Item Value Reference Range Interpretation Comments BUN/Creatinine Ratio (test code = 3097-3) 13 6-25 [facility]lakeEstimat Glomerular Filtration Rate 2019-07-28 06:35:00* Test Item Value Reference Range Interpretation Comments Estimat Glomerular Filtration Rate (test code = 950353365) > 60 >60 Ranges were taken from the National Kidney Disease Education Program and the [facility] literature.Reference ranges:60 or greater: Wczgxv67-23 ( for 3 consecutive months): Chronic kidney disease 15 or less: Kidney failureTexas Health Harris Methodist Hospital SouthlakeGlucose Llfbp3809-97-84 06:35:00* Test Item Value Reference Range Interpretation Comments Glucose Level (test code = OME0102) 115 74-118 [facility]lakeCalcium Wsadw1928-57-36 06:35:00* Test Item Value Reference Range Interpretation Comments Calcium Level (test code = 32734-4) 8.8 8.4-10.2 [facility]lakeWhite Blood Hdzvb0312-73-42 06:21:00* Test Item Value Reference Range Interpretation Comments White Blood Count (test code = 6690-2) 6.54 4.8-10.8 [facility]lakeRed Blood Zxlep0391-31-82 06:21:00* Test Item Value Reference Range Interpretation Comments Red Blood Count (test code = 789-8) 3.25 3.6-5.1 L [facility]lakeHemoglobin2019-12-23 06:21:00* Test Item Value Reference Range Interpretation Comments Hemoglobin (test code = 31605-8) 9.2 12.0-16.0 L [facility]lakeHematocrit2019-12-23 06:21:00* Test Item Value Reference Range Interpretation Comments Hematocrit (test code = 4544-3) 30.0 34.2-44.1 L [facility] SouthlakeMean Corpuscular Kfwdpl6907-14-98 06:21:00* Test Item Value Reference Range Interpretation Comments Mean Corpuscular Volume (test code = 787-2) 92.3 81-99 [facility]lakeMean Corpuscular Vmziyoxjfj7364-19-65 06:21:00* Test Item Value Reference Range Interpretation Comments Mean Corpuscular Hemoglobin (test code = 785-6) 28.3 28-32 [facility]lakeMean Corpuscular Hemoglobin Concent 2019-07-28 06:21:00* Test Item Value Reference Range Interpretation Comments Mean Corpuscular Hemoglobin Concent (test code = 786-4) 30.7 31-35 L [facility] SouthlakeRed Cell Distribution Xalep1240-57-93 06:21:00* Test Item Value Reference Range Interpretation Comments Red Cell Distribution Width (test code = 64001-4) 13.3 11.7 -14.4 [facility] SouthlakePlatelet Isgut2943-59-73 06:21:00* Test Item Value Reference Range Interpretation Comments Platelet Count (test code = 777-3) 278 140-360 [facility]lakeNeutrophils (%) (Auto)2019-07-28 06:21:00 * Test Item Value Reference Range Interpretation Comments Neutrophils (%) (Auto) (test code = 24657-4) 65.8 38.7-80.0 [facility]lakeLymphocytes (%) (Auto)2019-07-28 06:21:00 * Test Item Value Reference Range Interpretation Comments Lymphocytes (%) (Auto) (test code = 736-9) 23.7 18.0-39.1 [facility]lakeMonocytes (%) (Auto)2019-07-28 06:21:00* Test Item Value Reference Range Interpretation Comments Monocytes (%) (Auto) (test code = 5905-5) 7.3 4.4-11.3 [facility]lakeEosinophils (%) (Auto)2019-07-28 06:21:00 * Test Item Value Reference Range Interpretation Comments Eosinophils (%) (Auto) (test code = 713-8) 2.4 0.0-6.0 [facility]lakeBasophils (%) (Auto)2019-07-28 06:21:00* Test Item Value Reference Range Interpretation Comments Basophils (%) (Auto) (test code = 706-2) 0.6 0.0-1.0 [facility]lakeIM GRANULOCYTES %2019-07-28 06:21:00* Test Item Value Reference Range Interpretation Comments IM GRANULOCYTES % (test code = IM GRANULOCYTES %) 0.2 0.0- 1.0 [facility]lakeNeutrophils # (Auto)2019-07-28 06:21:00* Test Item Value Reference Range Interpretation Comments Neutrophils # (Auto) (test code = 751-8) 4.3 2.1-6.9 [facility]lakeLymphocytes # (Auto)2019-07-28 06:21:00* Test Item Value Reference Range Interpretation Comments Lymphocytes # (Auto) (test code = 43376-4) 1.6 1.0-3.2 [facility]lakeMonocytes # (Auto)2019-07-28 06:21:00* Test Item Value Reference Range Interpretation Comments Monocytes # (Auto) (test code = 742-7) 0.5 0.2-0.8 [facility]lakeEosinophils # (Auto)2019-07-28 06:21:00* Test Item Value Reference Range Interpretation Comments Eosinophils # (Auto) (test code = 711-2) 0.2 0.0-0.4 [facility]lakeBasophils # (Auto)2019-07-28 06:21:00* Test Item Value Reference Range Interpretation Comments Basophils # (Auto) (test code = 704-7) 0.0 0.0-0.1 [facility] SouthlakeAbsolute Immature Granulocyte (auto 2019-07-28 06:21:00* Test Item Value Reference Range Interpretation Comments Absolute Immature Granulocyte (auto (kim t code = Absolute Immature Granulocyte (auto) 0.01 0-0.1 [facility] SouthlakeInfluenza Virus Types A,B Antigen 2019-07-27 15:06:00* Test Item Value Reference Range Interpretation Comments Influenza Virus Types A,B Antigen (test code = 47703-0) NEGATIVE NEGATIVE [facility] SouthlakeB-Type Natriuretic Seougjy5079-88-78 13:14:00* Test Item Value Reference Range Interpretation Comments B-Type Natriuretic Peptide (test code = 08154-8) 1335.7 0-100 H [facility] SouthlakeCreatine Kinase OE5090-68-93 13:14:00* Test Item Value Reference Range Interpretation Comments Creatine Kinase MB (test code = 84222-9) 1.70 0-5.0 [facility] SouthlakeTroponin [id number] 13:14:00* Test Item Value Reference Range Interpretation Comments Troponin I (test code = SYY5622) 0.227 0-0.300 [facility]lakeCreatine Xydfww3219-80-86 13:13:00* Test Item Value Reference Range Interpretation Comments Creatine Kinase (test code = 2157-6) 80 29-168 [facility] SouthlakeCT CHEST [id number] 12:50:00 [facility] [address] [address] Patient Name: DAYSI AGUIRRE MR #: [id number] : 1935 Age/Sex: 84/F Req #: [id number] Adm Physician: MEHNAZ MON MD Ordered by: MEHNAZ MON MD Report #: [id number] Location: [facility] Room/Bed: 2931 Procedure: [id number]/CT CHEST WO Exam Date: 07/27/19 Exam Time: 11 10 REPORT STATUS: Signed EXAMINA TION: CT scan of the chest without contrast. TECHNIQUE: Spiral CT images o f the chest were performed from the lung apices to the level of the adrenal gl ands. No intravenous contrast was administered per physician's request. Coron al and sagittal reformatted images were obtained. COMPARISON: Portable ches t 07/26/2019 CLINICAL HISTORY:Pneumonia DISCUSSION: ABSENCE OF INTRA VENOUS CONTRAST DECREASES SENSITIVITY FOR DETECTION OF FOCAL LESIONS AND VASCU LAR PATHOLOGY. LINES/TUBES: None. LUNGS AND AIRWAYS: Moderate right and mild left lower lobe compressive atelectasis. Wedge-shaped consolidation with a few air bronchograms in the lateral aspect of the right middle lobe ag ainst the major fissure (best seen in sagittal image 34). Multiple linear op acities in the lingula, bilateral lower lobes, likely represent subsegmental a telectasis or scarring. Bilateral central bronchial wall thickening. No pulm onary nodules or masses are noted in the aerated parenchyma. Mild intralobular septal thickening in the upper lobes. The airways are clear, without endobr onchial lesions. PLEURA: Small to moderate right and small left pleural eff usions. No pneumothorax. HEART AND MEDIASTINUM: 9 mm peripherally calcif ied nodule in the left thyroid lobe (series 2, image 8). Mild cardiomegaly. Ex tensive atherosclerotic calcification of the coronary arteries and to lesser d egree thoracic aorta. Aorta is nonaneurysmal. Main pulmonary artery is borderl ine the mildly enlarged, measuring 3.1 cm. LYMPH NODES: There is no media stinal or axillary lymphadenopathy. Difficult to assess for hilar adenopathy g iven the lack of intravenous contrast. ABDOMEN: Limited unenhanced views of the upper abdomen show no abnormality within the visualized liver, spleen, pa ncreas. 3 mm calcification in the right renal sinus (series 2, image 120 and 3 mm calcification in the left superior pole (series 2, image 104) may represent nonobstructing calculi versus vascular calcifications. Marked atherosclerotic calcification of the aorta, aortic branches (particularly the origin of the SMA and bilateral renal arteries). The adrenal glands are normal. Peripherally calcified structure near level of the mary hepatis may represent a gallstone. BONES AND SOFT TISSUES: Generalized osteopenia. Moderate to marked multil evel degenerative disc changes in the thoracic spine. Bilateral breast calci fications (series 2, image 68 and 59), suggesting calcified fibroadenomas. The re are punctate calcifications in the left breast tissue (for example series 2 , images 63 and 65). IMPRESSION: 1. Small to moderate right and sm all left pleural effusions with moderate right and mild left lower lobe compre ssive atelectasis. 2. Wedge-shaped consolidation with air bronchograms in t he lateral aspect of the right middle lobe likely represents atelectasis, [place] bub[place], pneumonia is also a consideration, in the appropriate clinical setting.. 3. Mild cardiomegaly. Mild intralobular septal thickening in the upper lobes. Given bilateral pleural effusions, this suggests mild CHF/fluid overload. 4. Punctate calcifications in the left breast tissue which should be further ass essed with mammography. Signed by: Dr. Mookie Marie M.D. on 9 1:04 PM Dictated By: MOOKIE MARIE MD 1304 Transcribed By: MARY on 07/27/19 1304 CO PY TO: MEHNAZ MON MD CHEST SINGLE (PORTABLE)2019-07-26 15:16:00 [place] [address] Patient Name: DAYSI AGUIRRE MR #: [id number] : 1935 Age/Sex: 84/F Req #: [id number] Adm Physician: Ordered by: TONJA GIRARD DO Report #: [id number] Location: ER Room/Bed: Procedure: [id number] DX/CHEST SINGLE (PORTABLE) Exam Date: 07/26/19 Exam Time: 1330 REPORT STATUS: Signed EXAMINATION: CHEST SINGLE (PORTABLE) INDICATION: Cough, URI. COMPARISON: Chest radiograph 11/12/2018. FINDINGS: TUBES and LINES: None. LUNGS: Lungs are moderately inflated. There are patchy opaci ties in the bilateral lung bases. Central vascular congestion. PLEURA: N o pleural effusion or pneumothorax. HEART AND MEDIASTINUM: The cardiomedi astinal silhouette is mildly enlarged. BONES AND SOFT TISSUES: No acute o sseous lesion. Soft tissues are unremarkable. UPPER ABDOMEN: No free air under the diaphragm. IMPRESSION: Patchy opacities in the lung bases, suggestive of pneumonia in the setting of cough. Recommend follow-up chest r adiograph in 6-8 weeks to assess for resolution. Mild cardiomegaly with c entral vascular congestion. Signed by: Dr. Richard Browning MD on 07/26/2019 3:1 9 PM Dictated By: RICHARD BROWNING MD 18 Transcribed By: MARY on 07/26/199 COPY TO: TONJA LONGORIA DO Total Obbtiqgvd4782-53-60 14:19:00* Test Item Value Reference Range Interpretation Comments Total Bilirubin (test code = 1975-2) 0.4 0.2-1.2 [facility]lakeAspartate Amino Transf (AST/SGOT) 2019-07-26 14:19:00* Test Item Value Reference Range Interpretation Comments Aspartate Amino Transf (AST/SGOT) (test code = Aspartate Amino Transf (AST/SGOT)) 14 5-34 [facility]lakeAlanine Aminotransferase (ALT/SGPT) 2019-07-26 14:19:00* Test Item Value Reference Range Interpretation Comments Alanine Aminotransferase (ALT/SGPT) (test code = 1742-6) 13 0-55 [facility] SouthlakeTotal Joyrbth6442-71-17 14:19:00* Test Item Value Reference Range Interpretation Comments Total Protein (test code = 2885-2) 5.8 6.5-8.1 L [facility]lakeAlbumin2019-12-21 14:19:00* Test Item Value Reference Range Interpretation Comments Albumin (test code = 1751-7) 2.9 3.5-5.0 L [facility] SouthlakeGlobulin2019-12-21 14:19:00* Test Item Value Reference Range Interpretation Comments Globulin (test code = 73068-2) 2.9 2.3-3.5 [facility]lakeAlbumin/Globulin Hatez0545-79-74 14:19:00 * Test Item Value Reference Range Interpretation Comments Albumin/Globulin Ratio (test code = 1759-0) 1.0 0.8-2.0 [facility]lakeAlkaline Yxqlrldgxnh3276-06-55 14:19:00* Test Item Value Reference Range Interpretation Comments Alkaline Phosphatase (test code = 6768-6) 71 40-150 [facility] SouthlakeBedside Jbdyqji4897-77-14 11:29:00* Test Item Value Reference Range Interpretation Comments Bedside Glucose (test code = 31852-2) 216 70-120 H Meter ID: [id number] County Hospitalodium Level 2018-11-13 10:20:00* Test Item Value Reference Range Interpretation Comments Sodium Level (test code = 2951-2) 136 136-145 [facility]lakePotassium Rcasg9841-62-32 10:20:00* Test Item Value Reference Range Interpretation Comments Potassium Level (test code = 2823-3) 4.8 3.5-5.1 [facility] SouthlakeChloride Odwek6279-55-98 10:20:00* Test Item Value Reference Range Interpretation Comments Chloride Level (test code = 2075-0) 100 98-107 [facility] SouthlakeCarbon Dioxide Eohml8928-92-89 10:20:00* Test Item Value Reference Range Interpretation Comments Carbon Dioxide Level (test code = 2028-9) 32 22-29 H [facility] SouthlakeAnion Ujc0795-08-28 10:20:00* Test Item Value Reference Range Interpretation Comments Anion Gap (test code = 99387-9) 8.8 8-16 [facility] SouthlakeBlood Urea Sujokczy2638-10-72 10:20:00* Test Item Value Reference Range Interpretation Comments Blood Urea Nitrogen (test code = 3094-0) 16 7-26 [facility] SouthlakeCreatinine2019-04-10 10:20:00* Test Item Value Reference Range Interpretation Comments Creatinine (test code = 2160-0) 0.66 0.57-1.11 [facility] SouthlakeBUN/Creatinine Nljjc4145-46-38 10:20:00* Test Item Value Reference Range Interpretation Comments BUN/Creatinine Ratio (test code = 3097-3) 24 6-25 [facility] SouthlakeEstimat Glomerular Filtration Rate 2018-11-13 10:20:00* Test Item Value Reference Range Interpretation Comments Estimat Glomerular Filtration Rate (test code = 238692617) > 60 >60 Ranges were taken from the National Kidney Disease Education Program and the [facility] literature.Reference ranges:60 or greater: Wivlfw67-91 ( for 3 consecutive months): Chronic kidney disease 15 or less: Kidney failureTexas Health Harris Methodist Hospital SouthlakeGlucose Xtzkz6631-39-96 10:20:00* Test Item Value Reference Range Interpretation Comments Glucose Level (test code = JJX6577) 133 74-118 H [facility] SouthlakeCalcium Ubinv2428-94-10 10:20:00* Test Item Value Reference Range Interpretation Comments Calcium Level (test code = 89988-0) 8.3 8.4-10.2 L [facility] SouthlakeWhite Blood Mxmbm8802-54-02 09:54:00* Test Item Value Reference Range Interpretation Comments White Blood Count (test code = 6690-2) 8.33 4.8-10.8 [facility] SouthlakeRed Blood Uydmv6496-18-70 09:54:00* Test Item Value Reference Range Interpretation Comments Red Blood Count (test code = 789-8) 3.39 3.6-5.1 L [facility] SouthlakeHemoglobin2019-04-10 09:54:00* Test Item Value Reference Range Interpretation Comments Hemoglobin (test code = 10014-8) 9.8 12.0-16.0 L [facility] SouthlakeHematocrit2019-04-10 09:54:00* Test Item Value Reference Range Interpretation Comments Hematocrit (test code = 4544-3) 31.3 34.2-44.1 L [facility] SouthlakeMean Corpuscular Laxwou9966-98-51 09:54:00* Test Item Value Reference Range Interpretation Comments Mean Corpuscular Volume (test code = 787-2) 92.3 81-99 [facility] SouthlakeMean Corpuscular Pvzboqwayz1397-27-40 09:54:00* Test Item Value Reference Range Interpretation Comments Mean Corpuscular Hemoglobin (test code = 785-6) 28.9 28-32 [facility] SouthlakeMean Corpuscular Hemoglobin Concent 2018-11-13 09:54:00* Test Item Value Reference Range Interpretation Comments Mean Corpuscular Hemoglobin Concent (test code = 786-4) 31.3 31-35 [facility] SouthlakeRed Cell Distribution Tgauf8374-25-56 09:54:00* Test Item Value Reference Range Interpretation Comments Red Cell Distribution Width (test code = 22528-4) 15.8 11.7 -14.4 H [facility] SouthlakePlatelet Einyb0061-41-68 09:54:00* Test Item Value Reference Range Interpretation Comments Platelet Count (test code = 777-3) 268 140-360 [facility] SouthlakeNeutrophils (%) (Auto)2018-11-13 09:54:00 * Test Item Value Reference Range Interpretation Comments Neutrophils (%) (Auto) (test code = 23798-5) 67.1 38.7-80.0 [facility] SouthlakeLymphocytes (%) (Auto)2018-11-13 09:54:00 * Test Item Value Reference Range Interpretation Comments Lymphocytes (%) (Auto) (test code = 736-9) 23.9 18.0-39.1 [facility] SouthlakeMonocytes (%) (Auto)2018-11-13 09:54:00* Test Item Value Reference Range Interpretation Comments Monocytes (%) (Auto) (test code = 5905-5) 6.5 4.4-11.3 [facility]lakeEosinophils (%) (Auto)2018-11-13 09:54:00 * Test Item Value Reference Range Interpretation Comments Eosinophils (%) (Auto) (test code = 713-8) 1.4 0.0-6.0 [facility] SouthlakeBasophils (%) (Auto)2018-11-13 09:54:00* Test Item Value Reference Range Interpretation Comments Basophils (%) (Auto) (test code = 706-2) 0.4 0.0-1.0 [facility] SouthlakeIM GRANULOCYTES %2018-11-13 09:54:00* Test Item Value Reference Range Interpretation Comments IM GRANULOCYTES % (test code = IM GRANULOCYTES %) 0.7 0.0- 1.0 [facility] SouthlakeNeutrophils # (Auto)2018-11-13 09:54:00* Test Item Value Reference Range Interpretation Comments Neutrophils # (Auto) (test code = 751-8) 5.6 2.1-6.9 [facility] SouthlakeLymphocytes # (Auto)2018-11-13 09:54:00* Test Item Value Reference Range Interpretation Comments Lymphocytes # (Auto) (test code = 46277-8) 2.0 1.0-3.2 [facility]lakeMonocytes # (Auto)2018-11-13 09:54:00* Test Item Value Reference Range Interpretation Comments Monocytes # (Auto) (test code = 742-7) 0.5 0.2-0.8 [facility]lakeEosinophils # (Auto)2018-11-13 09:54:00* Test Item Value Reference Range Interpretation Comments Eosinophils # (Auto) (test code = 711-2) 0.1 0.0-0.4 [facility] SouthlakeBasophils # (Auto)2018-11-13 09:54:00* Test Item Value Reference Range Interpretation Comments Basophils # (Auto) (test code = 704-7) 0.0 0.0-0.1 [facility] SouthlakeAbsolute Immature Granulocyte (auto 2018-11-13 09:54:00* Test Item Value Reference Range Interpretation Comments Absolute Immature Granulocyte (auto (kim t code = Absolute Immature Granulocyte (auto) 0.06 0-0.1 [facility] SouthlakeCHEST 2 QDWHV5424-81-07 06:47:00 [place] [address] Patient Name: DAYSI AGUIRRE MR #: [id number] : 1935 Age/Sex: 83/F Req #: [id number] Adm Physician: MEHNAZ MON MD Ordered by: HORACIO IVAN MD Report #: [id number] Location: MED/SURG2 Room/Bed: 209 Procedure: [id number] DX/CHEST 2 VIEWS Exam Date: 11/12/18 Exam Time: 0630 REPORT STATUS: Signed EXAM INATION: CHEST 2 VIEWS INDICATION: Hypoxia. Pneumonia. SHIRIN RISON: Chest x-ray 11/04/2018. 11/03/2018. FINDINGS: PA and lateral vie ws TUBES and LINES: None. LUNGS: Lungs are moderately inflated. Incr easing bilateral airspace opacities predominantly in the upper lobes. PLE URA: Tiny bilateral pleural effusions HEART AND MEDIASTINUM: The cardiome diastinal silhouette is unremarkable. BONES AND SOFT TISSUES: No acute osseous lesion. Healed left rib fracture deformities. Soft tissues are unrema rkable. UPPER ABDOMEN: No free air under the diaphragm. IMPRESSION : Increase in bilateral multifocal airspace opacities. Signed by: Dr. Emanuel Hinkle M.D. on 11/12/2018 6:48 AM Dictated By: EMANUEL HINKLE MD 7 Transcribed By: MARY on 11/12/18647 COPY TO: HORACIO IVAN MD Total Inohdaoan4564-21-11 06:21:00* Test Item Value Reference Range Interpretation Comments Total Bilirubin (test code = 1975-2) 0.6 0.2-1.2 [facility] SouthlakeAspartate Amino Transf (AST/SGOT) 2018-11-08 06:21:00* Test Item Value Reference Range Interpretation Comments Aspartate Amino Transf (AST/SGOT) (test code = Aspartate Amino Transf (AST/SGOT)) 36 5-34 H [facility] SouthlakeAlanine Aminotransferase (ALT/SGPT) 2018-11-08 06:21:00* Test Item Value Reference Range Interpretation Comments Alanine Aminotransferase (ALT/SGPT) (test code = 1742-6) 34 0-55 [facility] SouthlakeTotal Kdqogiu2813-19-26 06:21:00* Test Item Value Reference Range Interpretation Comments Total Protein (test code = 2885-2) 4.9 6.5-8.1 L [facility] SouthlakeAlbumin2019-04-05 06:21:00* Test Item Value Reference Range Interpretation Comments Albumin (test code = 1751-7) 1.8 3.5-5.0 L [facility] SouthlakeGlobulin2019-04-05 06:21:00* Test Item Value Reference Range Interpretation Comments Globulin (test code = 75487-6) 3.1 2.3-3.5 [facility] SouthlakeAlbumin/Globulin Sjkpr9377-69-98 06:21:00 * Test Item Value Reference Range Interpretation Comments Albumin/Globulin Ratio (test code = 1759-0) 0.6 0.8-2.0 L [facility] SouthlakeAlkaline Bbywtvnfamq8967-79-80 06:21:00* Test Item Value Reference Range Interpretation Comments Alkaline Phosphatase (test code = 6768-6) 63 40-150 [facility] SouthlakeBlood Reytjpc2724-21-93 19:24:00* Test Item Value Reference Range Interpretation Comments Blood Culture (test code = 70793530) NO GROWTH AFTER 5 DAYS, FINAL REPORT [facility] SouthlakeMODIFIED BA. VFJTNXV0521-94-76 16:15:00 [place] [address] Patient Name: DAYSI AGUIRRE MR #: [id number] : 1935 Age/Sex: 83/F Req #: [id number] Adm Physician: MEHNAZ MON MD Ordered by: EWELINA TIRADO MD Report #: [id number] Location: ICU Room/Bed: ICU [facility] Procedure: [id number] DX/MODIFIED BA. SWALLOW Exam Date: 11/06/18 Exam Time: 1400 REPORT STATUS: Sig kleber PROCEDURE: X-RAY MODIFIED BARIUM SWALLOW COMPARISON: None. IND ICATION: Possible aspiration. Radiation Details: Fluoroscopy time: 2.2 mi nutes Cumulative dose: 8.9 mGy DISCUSSION: Fluoroscopic examination was p erformed in conjunction with speech pathology during swallowing a variety of t hin and thick liquid consistencies. Provided images demonstrate laryngeal pene tration with trace aspiration. Partially seen nasogastric tube. CONCLUSIO N: Modified barium swallow demonstrating laryngeal penetration with trace a spiration. Please refer to the speech pathology report for further details. Signed by: Dr. Richard Browning MD on 11/06/2018 4:20 PM Dictated By: RICHARD BROWNING MD 1620 Transcribed By: MARY on 11/06/18 1620 COPY TO: EWELINA TIRADO MD Chlamydia pneumoniae IgG Pjgrhqqh6895-86-37 08:57:00* Test Item Value Reference Range Interpretation Comments Chlamydia pneumoniae IgG Antibody (test code = 6913-8) < 1:100 Reference Range:< 1:100[facility] SouthlakeChlamydia trachomatis IgG Orquijsu0410-06-98 08:57:00* Test Item Value Reference Range Interpretation Comments Chlamydia trachomatis IgG Antibody (test code = 51501-4) < 1:100 [facility] SouthlakeChlamydia trachomatis Ab Interpret 2018-11-05 08:57:00* Test Item Value Reference Range Interpretation Comments Chlamydia trachomatis Ab Interpret (test code = Chlamydia trachomatis Ab Interpret) The performance characteristics of these listed assays were validated by [facility] The [place] FDA has not approved or cleared this test. The results of this assay can be used for clinical diagnosis without FDA approval. [facility] is a CLIA certified, CAP accredited laboratory for performing high complexity assays such as these. Testing Performed at: [facility] [address] [place], [place] [address]dia pneumoniae IgG Antibody 2018-11-05 08:57:00* Test Item Value Reference Range Interpretation Comments Chlamydia pneumoniae IgG Antibody (test code = 6913-8) < 1:100 Reference Range:< 1:100[facility]lakeChlamydia trachomatis IgG Ktcgwiyw0638-83-45 08:57:00* Test Item Value Reference Range Interpretation Comments Chlamydia trachomatis IgG Antibody (test code = 87369-7) < 1:100 [facility]lakeChlamydia trachomatis Ab Interpret 2018-11-05 08:57:00* Test Item Value Reference Range Interpretation Comments Chlamydia trachomatis Ab Interpret (test code = Chlamydia trachomatis Ab Interpret) The performance characteristics of these listed assays were validated by [employer]. The [place] FDA has not approved or cleared this test. The results of this assay can be used for clinical diagnosis without FDA approval. [facility] is a CLIA certified, CAP accredited laboratory for performing high complexity assays such as these. Testing Performed at: [facility] [address] [place], [place] [address]Chlamydia pneumoniae IgM Antibody 2018-11-05 08:33:00* Test Item Value Reference Range Interpretation Comments Chlamydia pneumoniae IgM Antibody (test code = 6914-6) <1:10 [facility]lakeChlamydia pneumoniae IgM Antibody 2018-11-05 08:33:00* Test Item Value Reference Range Interpretation Comments Chlamydia pneumoniae IgM Antibody (test code = 6914-6) <1:10 [facility] SouthlakeArterial Blood pM2894-24-69 17:47:00* Test Item Value Reference Range Interpretation Comments Arterial Blood pH (test code = 2744-1) 7.43 7.31-7.41 H [facility] SouthlakeArterial Blood Partial Pressure CO2 2018-11-04 17:47:00* Test Item Value Reference Range Interpretation Comments Arterial Blood Partial Pressure CO2 (test code = 2019-03) 36 41-51 L [facility] SouthlakeArterial Blood Partial Pressure O2 2018-11-04 17:47:00* Test Item Value Reference Range Interpretation Comments Arterial Blood Partial Pressure O2 (test code = 2019-03) 132 80-105 H [facility] SouthlakeArterial Blood UIQ20309-00-12 17:47:00* Test Item Value Reference Range Interpretation Comments Arterial Blood HCO3 (test code = 1960-4) [facility]lakeArterial Blood Base Kzndau7297-87-17 17:47:00* Test Item Value Reference Range Interpretation Comments Arterial Blood Base Excess (test code = 1925-7) 0.0 -2-3 [facility] SouthlakeArterial Blood Oxygen Saturation 2018-11-04 17:47:00* Test Item Value Reference Range Interpretation Comments Arterial Blood Oxygen Saturation (test code = 2708-6) 99.0 95-98 H [facility] SouthlakeFiO22019-04-01 17:47:00* Test Item Value Reference Range Interpretation Comments FiO2 (test code = FiO2) 40 CPAP/ PS PS 7, +5, 40%total rr: 21[facility] Arterial Blood sE3910-05-76 17:47:00* Test Item Value Reference Range Interpretation Comments Arterial Blood pH (test code = 2744-1) 7.43 7.31-7.41 H [facility] SouthlakeArterial Blood Partial Pressure CO2 2018-11-04 17:47:00* Test Item Value Reference Range Interpretation Comments Arterial Blood Partial Pressure CO2 (test code = 2018-8) 36 41-51 L [facility] SouthlakeArterial Blood Partial Pressure O2 2018-11-04 17:47:00* Test Item Value Reference Range Interpretation Comments Arterial Blood Partial Pressure O2 (test code = 2018-8) 132 80-105 H [facility] SouthlakeArterial Blood NBN82252-11-13 17:47:00* Test Item Value Reference Range Interpretation Comments Arterial Blood HCO3 (test code = 1960-4) [facility]lakeArterial Blood Base Snibxv1350-04-41 17:47:00* Test Item Value Reference Range Interpretation Comments Arterial Blood Base Excess (test code = 1925-7) 0.0 -2-3 [facility]lakeArterial Blood Oxygen Saturation 2018-11-04 17:47:00* Test Item Value Reference Range Interpretation Comments Arterial Blood Oxygen Saturation (test code = 2708-6) 99.0 95-98 H [facility] SouthlakeFiO22019-04-01 17:47:00* Test Item Value Reference Range Interpretation Comments FiO2 (test code = FiO2) 40 CPAP/ PS PS 7, +5, 40%total rr: 21[facility] HospitalUrine Legionella Feufhzc6122-25-05 06:41:00* Test Item Value Reference Range Interpretation Comments Urine Legionella Antigen (test code = 02893-3) Negative Negativ e Presumptive negative for L. pneumophila serogroup 1 antigenin urine, suggesting no recent or current infection.Legionnaires' disease cannot be ruled out since o therserogroups and species may also cause disease.Performed at: [facility] [place] [id number] Director: Zena Watson MD, Phone: [phone] Health [facility] SouthlakeMycoplasma pneumoniae IgG Btxcgrnb4619-27-56 06:41:00* Test Item Value Reference Range Interpretation Comments Mycoplasma pneumoniae IgG Antibody (test code = 5255-5) 443 0-99 H Negative: <100 Indeterminate: 100 - 320 Positive: > 320The reference interval established is intended as abaseline only. Values > 100 may indicate a recentinfection with Mycoplasma pneumoniae and need to beconf irmed either by a positive IgM result and/or anadditional specimen drawn 2-4 wee ks later showing asignificant increase in antibody levels.[facility]lakeMycoplasma pneumoniae IgM Aucbccjy0469-53-39 06:41:00* Test Item Value Reference Range Interpretation Comments Mycoplasma pneumoniae IgM Antibody (test code = 5256-3) <770 0-769 Negative <770Clinically significant amount of M. pneumoniae antibodynot detected. Low Positive 770 - 950M. pneumoniae specific IgM presumptively detected. Itis recommended that another sample be collected 1-2weeks later to assure reactivity. Positive >950Highly significant amount of M. pneumoniae specificIgM antibody detected.Performed at: [facility] [id number] Director: Zena Watson MD, Phone: [phone] Health [facility]lake Urine Legionella Xsoyynk0802-05-08 06:41:00* Test Item Value Reference Range Interpretation Comments Urine Legionella Antigen (test code = 52233-8) Negative Negativ e Presumptive negative for L. pneumophila serogroup 1 antigenin urine, suggesting no recent or current infection.Legionnaires' disease cannot be ruled out since o therserogroups and species may also cause disease.Performed at: - [facility]wn[address] [place], [place] [id number] Director: Zena Watson MD, Phone: [phone] [facility] SouthlakeMycoplasma pneumoniae IgG Tmfcpjdo1539-42-19 06:41:00* Test Item Value Reference Range Interpretation Comments Mycoplasma pneumoniae IgG Antibody (test code = 5255-5) 443 0-99 H Negative: <100 Indeterminate: 100 - 320 Positive: > 320The reference interval established is intended as abaseline only. Values > 100 may indicate a recentinfection with Mycoplasma pneumoniae and need to beconf irmed either by a positive IgM result and/or anadditional specimen drawn 2-4 wee ks later showing asignificant increase in antibody levels.[facility]Myc[facility] IgM Tgjztuak4124-28-14 06:41:00* Test Item Value Reference Range Interpretation Comments Mycoplasma pneumoniae IgM Antibody (test code = 5256-3) <770 0-769 Negative <770Clinically significant amount of M. pneumoniae antibodynot detected. Low Positive 770 - 950M. pneumoniae specific IgM presumptively detected. Itis recommended that another sample be collected 1-2weeks later to assure reactivity. Positive >950Highly significant amount of M. pneumoniae specificIgM antibody detected.Performed at: - [facility] [id number] Director: Zena Watson MD, Phone: [phone] [facility] CHEST SINGLE (PORTABLE)2018-11-04 06:31:00 [place] [address] Patient Name: DAYSI AGUIRRE MR #: [id number] : 1935 Age/Sex: 83/F Req #: [id number] Adm Physician: MEHNAZ MON MD Ordered by: HORACIO IVAN MD Report #: [id number] Location: ICU Room/Bed: ICU 1941 Procedure: 0401- 0010 DX/CHEST SINGLE (PORTABLE) Exam Date: 11/04/18 Exam Time: 06 REPORT STATUS: Sign ed EXAMINATION: CHEST SINGLE (PORTABLE) INDICATION: Mechanical Vent ilation, PNA COMPARISON: Chest x-ray 11/03/2018 at 1200 hrs, chest CT 2018 FINDINGS: AP view TUBES and LINES: Endotracheal tube tip projects 4.6 cm above the ara. NG/OG tube side hole projects over the gastric body, tip extends out of the field of view. LUNGS: Mild improve ment of multifocal airspace opacities. PLEURA: Small pleural effusions, le ft greater than right. No pneumothorax. HEART AND MEDIASTINUM: The cardiom ediastinal silhouette is unremarkable. There are atherosclerotic calcification s within the aorta. BONES AND SOFT TISSUES: No acute osseous lesion. Soft tissues are unremarkable. UPPER ABDOMEN: No free air under the diaphragm. IMPRESSION: Mild improvement in multifocal airspace opacities. Signed by: DR. Duane Short MD on 11/04/2018 6:33 AM Dictated By: ANNIE SHORT MD 2 Transc ribed By: MARY on 11/04/18632 COPY TO: HORACIO IVAN MD Bronchial Washings Pffkdtm6327-35-49 10:49:00* Test Item Value Reference Range Interpretation Comments Bronchial Washings Culture (test code = 604-9) Organism: YEAST SPEC IES [facility] Vbbcagl2573-73-61 10:49:00* Test Item Value Reference Range Interpretation Comments Bronchial Washings Culture (test code = 604-9) No Result Data Provi ded [facility])2018-11-03 06:09:00 [facility] [address] [place] [address] Patient Name: DAYSI AGUIRRE MR #: [id number] : 1935 Age/Sex: 83/F Req #: [id number] Adm Physician: MEHNAZ MON MD Ordered by: HORACIO IVAN MD Report #: [id number] Location: ICU Room/Bed: ICU [facility] Procedure: 0331- 0003 DX/CHEST SINGLE (PORTABLE) Exam Date: 11/03/18 Exam Time: 524 REPORT STATUS: Sign ed EXAMINATION: CHEST SINGLE (PORTABLE) INDICATION: pneumonia COMPARISON: Chest x-ray 11/01/2018 at 1200 hrs, chest CT 10/26/2018 FIN DINGS: AP view TUBES and LINES: Endotracheal tube tip projects 5 cm above the ara. NG/OG tube side hole projects over the gastric body, tip e xtends out of the field of view. LUNGS: Mild improvement of multifocal a irspace opacities. PLEURA: Small pleural effusions, left greater than righ t. No pneumothorax. HEART AND MEDIASTINUM: The cardiomediastinal silhouett e is unremarkable. There are atherosclerotic calcifications within the aorta. BONES AND SOFT TISSUES: No acute osseous lesion. Soft tissues are unrem arkable. UPPER ABDOMEN: No free air under the diaphragm. IMPRESSIO N: Mild improvement in multifocal airspace opacities. Signed by: DR. Kyree Short MD on 11/03/2018 6:10 AM Dictated By: DUANE SHORT MD Electr onically Signed By: DUANE SHORT MD on 11/03/18609 Transcribed By: MARY gaona 11/03/18609 COPY TO: HORACIO IVAN MD Sputum Paovvmr8272-30-29 11:57:00* Test Item Value Reference Range Interpretation Comments Sputum Culture (test code = 624-7) Organism: IRINEO PARAPSILOSIS [facility] Direct FA (LAB)2018-11-02 06:35:00* Test Item Value Reference Range Interpretation Comments Legionella Direct FA (LAB) (test code = 53552-1) Negative Negat mele Performed at: [address] [id number] Doctor Of Naturopathic Medicine: Zena Watson MD, Phone: [phone] range: None detect edCBaylor [facility] Direct FA (LAB)2018-11-02 06:35:00* Test Item Value Reference Range Interpretation Comments Legionella Direct FA (LAB) (test code = 39019-9) Negative Negat mele Performed at: [address] [id number] Doctor Of Naturopathic Medicine: Zena Watson MD, Phone: [phone] range: None detect edCCHI [facility] [place], TXChlamydia psittaci IgG Antibody 2018-11-02 06:34:00* Test Item Value Reference Range Interpretation Comments Chlamydia psittaci IgG Antibody (test code = 6916-1) <1:16 N eg:<1:16 This test was developed and its performance characteristicsdetermined by [employer] . It has not been cleared or approvedby the Food and Drug Administration. The FDA hasdetermined that such clearance or approval is notnecessary.Performed at: [address] [id number] Director: Zena Watson MD, Phone: [phone] [facility] Chlamydia psittaci IgM Optfnmia5898-54-86 06:34:00* Test Item Value Reference Range Interpretation Comments Chlamydia psittaci IgM Antibody (test code = 6917-9) <1:10 N eg:<1:10 This test was developed and its performance characteristicsdetermined by [employer] . It has not been cleared or approvedby the Food and Drug Administration. The FDA hasdetermined that such clearance or approval is notnecessary.[facility]lakeChlamydia trachomatis IgM Yjssrqex3566-40-96 06:34:00* Test Item Value Reference Range Interpretation Comments Chlamydia trachomatis IgM Antibody (test code = 92886-0) <0.8 0.0-0.7 Negative <0.8 Borderline 0.8 - 1.0 Positive > 1.0Results for this test are for research purposesonly by the assay's manufactur er. The performancecharacteristics of this product have not beenestablished. R esults should not be used as adiagnostic procedure without confirmation of thedi agnosis by another medically established diagnosticproduct or procedure.Performe d at: [facility] [address] [id number] Dire ctor: Zena Watson MD, Phone: [phone] Health Harris [facility] Hospital SouthlakeChlamydia psittaci IgG Equuksks9325-21-20 06:34:00* Test Item Value Reference Range Interpretation Comments Chlamydia psittaci IgG Antibody (test code = 6916-1) <1:16 N eg:<1:16 This test was developed and its performance characteristicsdetermined by [employer] . It has not been cleared or approvedby the Food and Drug Administration. The FDA hasdetermined that such clearance or approval is notnecessary.Performed at: [facility] [address] [id number] Director: Zena Watson MD, Phone: [phone] Health [facility]lake Chlamydia psittaci IgM Nervblfx9801-85-24 06:34:00* Test Item Value Reference Range Interpretation Comments Chlamydia psittaci IgM Antibody (test code = 6917-9) <1:10 N eg:<1:10 This test was developed and its performance characteristicsdetermined by [employer] . It has not been cleared or approvedby the Food and Drug Administration. The FDA hasdetermined that such clearance or approval is notnecessary.[facility]lakeChlamydia trachomatis IgM Mcqgwcyo2712-50-94 06:34:00* Test Item Value Reference Range Interpretation Comments Chlamydia trachomatis IgM Antibody (test code = 14799-7) <0.8 0.0-0.7 Negative <0.8 Borderline 0.8 - 1.0 Positive > 1.0Results for this test are for research purposesonly by the assay's manufactur er. The performancecharacteristics of this product have not beenestablished. R esults should not be used as adiagnostic procedure without confirmation of thedi agnosis by another medically established diagnosticproduct or procedure.Performe d at: - [facility] SystemMoezmilvbo[address] [place], [place] [id number] Dire ctor: Zena Watson MD, Phone: [phone] [facility] SINGLE (PORTABLE)2018-11-01 06:24:00 [facility] [address] [place] [address] Patient Name: DAYSI AGUIRRE MR #: [id number] : 1935 Age/Sex: 83/F Req #: [id number] Adm Physician: MEHNAZ MON MD Ordered by: HORACIO IVAN MD Report #: [id number] Location: ICU Room/Bed: ICU [facility] Procedure: 0329- 0002 DX/CHEST SINGLE (PORTABLE) Exam Date: 11/01/18 Exam Time: 0535 REPORT STATUS: Sign ed EXAMINATION: CHEST SINGLE (PORTABLE) INDICATION: intubated COMPARISON: Chest x-ray 10/30/2018 at 1200 hrs, chest CT 10/26/2018 FIN DINGS: AP view TUBES and LINES: Endotracheal tube tip projects 4 cm above the ara. NG/OG tube side hole projects over the gastric body, tip e xtends out of the field of view. LUNGS: Improvement of multifocal airspa ce opacities. PLEURA: Small pleural effusions. No pneumothorax. HEART AND MEDIASTINUM: The cardiomediastinal silhouette is unremarkable. There are atherosclerotic calcifications within the aorta. BONES AND SOFT TISSUES: No acute osseous lesion. Soft tissues are unremarkable. UPPER ABDOMEN: N o free air under the diaphragm. IMPRESSION: Improvement in multifoca l airspace opacities. Signed by: DR. Duane Short MD on 11/01/2018 6:27 AM Dictated By: DUANE SHORT MD 6 Transcribed By: MARY on 11/01/18626 COPY TO: HORACIO LOGAN MD p-ANCA Wfrua8111-92-97 16:23:00* Test Item Value Reference Range Interpretation Comments p-ANCA Titer (test code = 74662-1) <1:20 Neg:<1:20 The presence of positive fluorescence exhibiting P-ANCA orC-ANCA patterns alone is not specific for the diagnosis ofWegener's Granulomatosis (WG) or microscopic polyangiitis.Decisions about treatment should not be based solely onANCA IFA re sults. The International ANCA Group Consensusrecommends follow up testing of po sitive sera with both NH-3 and MPO-ANCA enzyme immunoassays. As many as 5% serum samples are positive only by EIA. Ref. AM J Clin Odgyln8313;111:507-513.[facility]lakec-ANCA Ierej8899-07-22 16:23:00* Test Item Value Reference Range Interpretation Comments c-ANCA Titer (test code = 93377-0) <1:20 Neg:<1:20 [facility] SouthlakeAtypical a-NFIU5046-17YMIU2528-43-01 16:23:00* Test Item Value Reference Range Interpretation Comments Atypical p-ANCA (test code = 34416-1) <1:20 Neg:<1:20 The atypical pANCA pattern has been observed in asignificant percentage of patie nts with ulcerative colitis,primary sclerosing cholangitis and autoimmune hepati tis.Performed at: [facility] LabCoRobert [place] [id number] Director: Zena Watson MD, Phone: [phone] Health Harris Methodist Hospital Southlakep-ANCA Tidqp9258-84-74 16:23:00* Test Item Value Reference Range Interpretation Comments p-ANCA Titer (test code = 24537-9) <1:20 Neg:<1:20 The presence of positive fluorescence exhibiting P-ANCA orC-ANCA patterns alone is not specific for the diagnosis ofWegener's Granulomatosis (WG) or microscopic polyangiitis.Decisions about treatment should not be based solely onANCA IFA re sults. The International ANCA Group Consensusrecommends follow up testing of po sitive sera with both NH-3 and MPO-ANCA enzyme immunoassays. As many as 5% serum samples are positive only by EIA. Ref. AM J Clin Nluqye4677;111:507-513.[facility]lakec-ANCA Rdwxb4209-44-10 16:23:00* Test Item Value Reference Range Interpretation Comments c-ANCA Titer (test code = 09868-9) <1:20 Neg:<1:20 [facility] SouthlakeAtypical q-QAQY2086-69YVML6540-94-58 16:23:00* Test Item Value Reference Range Interpretation Comments Atypical p-ANCA (test code = 60600-7) <1:20 Neg:<1:20 The atypical pANCA pattern has been observed in asignificant percentage of patie nts with ulcerative colitis,primary sclerosing cholangitis and autoimmune hepati tis.Performed at: [place] [address]Lab Director: Zena Watson MD, Phone: [phone] Health Harris Methodist Hospital SouthlakeProcalcitonin2019-03-28 14:20:00* Test Item Value Reference Range Interpretation Comments Procalcitonin (test code = 834007740) 0.71 0.00-0.08 H A procalcitonin (PCT) level above 2.0 ng/mL on the firstday of ICU admission is associated with a high risk forprogression to severe sepsis and/or septic shock. A PCT level below 0.5 ng/mL on the first day of ICUadmission is associated with a low risk for progressionto severe sepsis and/or septic shock.Note: Concentrati ons <0.5 ng/mL do not exclude aninfection, on account of localized infections (withoutsystemic signs) which can be associated with such lowconcentrations, or a systemic infection in its initialstages (<6 hours).Furthermore, increased procalcitonin can occur withoutinfection. PCT concentrations between 0.5 and 2.0 ng/mLshould be interpreted taking into account the patient'shistory. It is recommended to retest PCT within 6-24 hoursif any concentrations <2 ng/mL are obtained.Performed at: [facility] [id number] Director: Dom Ventura MD, Phone: [phone] Health Harris [facility] Hospital SouthlakeC-Reactive Xoawmlc9816-54-37 14:20:00* Test Item Value Reference Range Interpretation Comments C-Reactive Protein (test code = 1988-5) 430.1 0.0-4.9 H Results confirmed ondilution.Performed at: [facility] [id number] Director: Dom Ventura MD, Phone: [phone] Health Harris Methodist Hospital SouthlakeProcalcitonin2019-03-28 14:20:00* Test Item Value Reference Range Interpretation Comments Procalcitonin (test code = 498669016) 0.71 0.00-0.08 H A procalcitonin (PCT) level above 2.0 ng/mL on the firstday of ICU admission is associated with a high risk forprogression to severe sepsis and/or septic shock. A PCT level below 0.5 ng/mL on the first day of ICUadmission is associated with a low risk for progressionto severe sepsis and/or septic shock.Note: Concentrati ons <0.5 ng/mL do not exclude aninfection, on account of localized infections (withoutsystemic signs) which can be associated with such lowconcentrations, or a systemic infection in its initialstages (<6 hours).Furthermore, increased procalcitonin can occur withoutinfection. PCT concentrations between 0.5 and 2.0 ng/mLshould be interpreted taking into account the patient'shistory. It is recommended to retest PCT within 6-24 hoursif any concentrations <2 ng/mL are obtained.Performed at: [facility] [id number] Director: Dom Ventura MD, Phone: [phone] Health Harris Methodist Hospital SouthlakeC-Reactive Rrinwod1586-58-12 14:20:00* Test Item Value Reference Range Interpretation Comments C-Reactive Protein (test code = 1988-5) 430.1 0.0-4.9 H Results confirmed ondilution.Performed at: [facility] [id number] Director: Dom Ventura MD, Phone: [phone] Health Harris Methodist Hospital SouthlakeAnti-Nuclear Antibody Xrzfwz9954-38-45 14:18:00* Test Item Value Reference Range Interpretation Comments Anti-Nuclear Antibody Screen (test code = 5048-4) Negative . Negative <1:80 Borderline 1:80 Positive > 1:80Performed at: [address] [id number] 3Lab Director: Dom Ventura MD, Phone: [phone] Health Harris Methodist Hospital SouthlakeAnti-Nuclear Antibody Mrecfz4582-60-78 14:18:00* Test Item Value Reference Range Interpretation Comments Anti-Nuclear Antibody Screen (test code = 5048-4) Negative . Negative <1:80 Borderline 1:80 Positive > 1:80Performed at: [address] [id number] 3Lab Director: Dom Ventura MD, Phone: [phone] Health Harris Methodist Hospital SouthlakeCHEST SINGLE (PORTABLE)2018-10-30 12:11:00 [place] [address] Patient Name: DAYSI AGUIRRE MR #: [id number] : 1935 Age/Sex: 83/F Req #: [id number] Adm Physician: MEHNAZ MON MD Ordered by: HORACIO IVAN MD Report #: [id number] Location: ICU Room/Bed: ICU [facility] Procedure: 0327- 0042 DX/CHEST SINGLE (PORTABLE) Exam Date: 10/30/18 Exam Time: 1205 REPORT STATUS: Sign ed Examination: Single AP view of the chest. COMPARISON: 10/30/2018 at 05 41 INDICATION: Status post bronchoscopy DISCUSSION: Endotrac heal and enteric tubes are unchanged in position. Interval progression of mult ifocal consolidations right worse than left. No pneumothorax status post bronc hoscopy. Stable cardiomediastinal contour. No acute osseous abnormality. IM PRESSION: Stable position of support lines and tubes. Worsening multi focal consolidations right greater than left relative to the examination from 0542 hours. Signed by: Dr. Horacio Corley M.D. on 10/30/2018 12:13 PM Dictated By: HORACIO CORLEY MD 1213 COPY TO: GIRISH IVAN MD CHEST SINGLE (PORTABLE)2018-10-30 06:11:00 [place] [address] Patient Name: DAYSI AGUIRRE MR #: [id number] : 1935 Age/Sex: 83/F Req #: [id number] Adm Physician: MEHNAZ MON MD Ordered by: HORACIO IVAN MD Report #: [id number] Location: ICU Room/Bed: ICU 1941 Procedure: 7- 0001 DX/CHEST SINGLE (PORTABLE) Exam Date: Exam Reagan e: REPORT STATUS: Signed EXAMIN ATION: CHEST SINGLE (PORTABLE) INDICATION: PNEUMONIA COMPARISON: Ch est x-ray 10/29/2018, chest CT 10/26/2018 FINDINGS: AP view TUB ES and LINES: Endotracheal tube tip projects 3.9 cm above the ara. NG/ OG tube side hole and tip project over the gastric body. LUNGS: Improvement of multifocal airspace opacities. PLEURA: Small pleural effusions. No pne umothorax. HEART AND MEDIASTINUM: The cardiomediastinal silhouette is unre markable. There are atherosclerotic calcifications within the aorta. BONE S AND SOFT TISSUES: No acute osseous lesion. Soft tissues are unremarkable. UPPER ABDOMEN: No free air under the diaphragm. IMPRESSION: Imp rovement in multifocal airspace opacities. Signed by: DR. Duane Short MD on 10/30/2018 6:14 AM Dictated By: DUANE SHORT MD 3 Transcribed By: MARY on 10/30/18613 COPY TO: HORACIO IVAN MD Erythrocyte Sedimentation Xrlw3971-64-63 02:40:00* Test Item Value Reference Range Interpretation Comments Erythrocyte Sedimentation Rate (test code = 4537-7) 120 0- 20 H [facility] SouthlakeErythrocyte Sedimentation Jrcn0845-60-32 02:40:00* Test Item Value Reference Range Interpretation Comments Erythrocyte Sedimentation Rate (test code = 4537-7) 120 0- 20 H [facility] SouthlakeCreatine Kinase GE4629-88-05 00:35:00* Test Item Value Reference Range Interpretation Comments Creatine Kinase MB (test code = 05312-2) 0.60 0-5.0 [facility] SouthlakeTroponin R0756-97-24 00:35:00* Test Item Value Reference Range Interpretation Comments Troponin I (test code = MVR8376) 2.695 0-0.300 H Elevated result called to POLI WALLACE RN at 0034 on 10/30/18 by Jaylene shellTexas Health Harris Methodist Hospital SouthlakeCreatine Itnfkv9585-42-73 23:58:00* Test Item Value Reference Range Interpretation Comments Creatine Kinase (test code = 2157-6) 116 29168 VERIFIED PREVIOUS RESULTSThe [facility]als of [facility] (1&2) Scvwvued3881-93-85 22:48:00* Test Item Value Reference Range Interpretation Comments HIV (1&2) Antibody (test code = 22983-8) NON-REACTIVE NONREACTIVE [facility] P24 Oivteex7564-65-95 22:48:00* Test Item Value Reference Range Interpretation Comments HIV P24 Antigen (test code = HIV P24 Antigen) NON-REACTIVE NONREACT MELE [facility] (1&2) Szghppka3157-17-22 22:48:00* Test Item Value Reference Range Interpretation Comments HIV (1&2) Antibody (test code = 25165-4) NON-REACTIVE NONREACTIVE [facility] P24 Jglmvib9170-75-89 22:48:00* Test Item Value Reference Range Interpretation Comments HIV P24 Antigen (test code = HIV P24 Antigen) NON-REACTIVE NONREACT MELE [facility] SouthlakeLactic Acid Wfxpi8149-84-15 21:32:00* Test Item Value Reference Range Interpretation Comments Lactic Acid Level (test code = Lactic Acid Level) 14.0 4.5- 19.8 [facility] SouthlakeVancomycin Level Ljnhbf1697-08-20 21:32:00* Test Item Value Reference Range Interpretation Comments Vancomycin Level Trough (test code = 4092-3) 10.6 5.0-10.0 HH Results repeated and called to Tim Jeffrey/VERONICA at 2130 on 10/29/18 by Macho hernandez. Read back and verified.[facility] SouthlakeLactic Acid Xvwxo5837-02-80 21:32:00* Test Item Value Reference Range Interpretation Comments Lactic Acid Level (test code = Lactic Acid Level) 14.0 4.5- 19.8 [facility] SouthlakeVancomycin Level Uvosod7811-79-79 21:32:00* Test Item Value Reference Range Interpretation Comments Vancomycin Level Trough (test code = 4092-3) 10.6 5.0-10.0 HH Results repeated and called to Tim Jeffrey/VERONICA at 2130 on 10/29/18 by Macho hernandez. Read back and verified.[facility] SouthlakeInfluenza Virus Types A,B Zdwtsqu5158-49-35 10:36:00* Test Item Value Reference Range Interpretation Comments Influenza Virus Types A,B Antigen (test code = 97753-4) NEGATIVE NEGATIVE [facility] SouthlakeABDOMEN-1VIEW (KUB)2018-10-29 10:10:00 [facility] [address] [address] Patient Name: DAYSI AGUIRRE MR #: [id number] : 1935 Age/Sex: 83/F Req #: [id number] Adm Physician: MEHNAZ MON MD Ordered by: HORACIO IVAN MD Report #: [id number] Location: [facility] Room/Bed: [place] [address] Procedure: 0326- 0031 DX/ABDOMEN-1VIEW (KU) Exam Date: 10/29/18 Exam Time: 0850 REPORT STATUS: Signed Abdomen, one view dated 10/29/2018 at 9:17 AM. History: NG tube placement. Findings: There is an NG tube with tip below the diaphragm extending into the stomach. Stomach bubble is prominent. The intestinal gas pattern is nono bstructive. Diffuse vascular calcification is present. There no masses or abno rmal calcifications. The osseous structures reveal severe degenerative changes of the spine. IMPRESSION: 1. No acute abdominal abnormality. 2. NG tube with its tip below the diaphragm. Signed by: Dr. Estephania Rhodes DO on 10/29/2018 10:12 AM Dictated By: ESTEPHANIA RHODES DO Electronically Martita d By: ESTEPHANIA RHODES DO on 10/29/18 1012 Transcribed By: MARY on 10/29/18 101 2 COPY TO: HORACIO IVAN MD CHEST SINGLE (PORTABLE)2018-10-29 10:01:00 [place] [address] Patient Name: DAYSI AGUIRRE MR #: [id number] : 1935 Age/Sex: 83/F Req #: [id number] Adm Physician: MEHNAZ MON MD Ordered by: HORACIO IVAN MD Report #: [id number] Location: [facility] Room/Bed: [place] [address] Procedure: 0326- 0028 DX/CHEST SINGLE (PORTABLE) Exam Date: 10/29/18 Exam Time: 0847 REPORT STATUS: Sign ed EXAM: CHEST SINGLE (PORTABLE), AP Portable DATE: 10/29/2018 Time stamp on exam: 8:54 AM INDICATION: Respiratory distress with rapid response team tatiana chapa COMPARISON: 10/29/2018 at 5:57 AM FINDINGS: LINES/TUBES: Endotracheal tube has been added. LUNGS: Worsening multifocal pulmonary opacities. PLEURA: No effusions or pneumothorax. HEART AND MEDIASTINUM: Normal size and contour. BONES AND SOFT TISSUES: No acute findings. IMPRESSION: 1. Endotracheal tube in appropriate location. 2. Significant worsening of p ulmonary opacities. Signed by: Dr. Estephania Rhodes DO on 10/29/2018 10:04 AM Dictated By: ESTEPHANIA RHODSE DO 1004 Transcribed By: MARY on 10/29/18 1004 COPY TO: HORACIO IVAN MD CHEST SINGLE (PORTABLE)2018-10-29 07:02:00 [facility] [address] [address] Patient Name: DAYSI AGUIRRE MR #: [id number] : 1935 Age/Sex: 83/F Req #: [id number] Adm Physician: MEHNAZ MON MD Ordered by: HORACIO IVAN MD Report #: [id number] Location: [facility] Room/Bed: [place] [address] Procedure: 0326- 0003 DX/CHEST SINGLE (PORTABLE) Exam Date: 10/29/18 Exam Time: 0500 REPORT STATUS: Sign ed EXAMINATION: CHEST SINGLE (PORTABLE) INDICATION: pneumonia COMPARISON: Chest x-ray 10/27/2018, chest CT 10/26/ FINDINGS: AP view TUBES and LINES: None. LUNGS: Mild worsening of multifocal pneumon ia PLEURA: Small pleural effusions. No pneumothorax. HEART AND MEDIAS TINUM: The cardiomediastinal silhouette is unremarkable. BONES AND SOF T TISSUES: No acute osseous lesion. Soft tissues are unremarkable. UPPE R ABDOMEN: No free air under the diaphragm. IMPRESSION: Mild interva l worsening of multifocal pneumonia. Signed by: DR. Duane Short MD on 7:05 AM Dictated By: DUANE SHORT MD 4 Transcribed By: MARY on 10/29/18704 COPY TO: HORACIO IVAN MD Prothrombin [id number] 05:53:00* Test Item Value Reference Range Interpretation Comments Prothrombin Time (test code = 5902-2) 15.8 11.9-14.5 [facility] International Ratio 2018-10-29 05:53:00* Test Item Value Reference Range Interpretation Comments Prothromb Time International Ratio (test code = 6301-6) 1.20 Oral Anticoagulant Therapy INR Values:1. Low Intensity Therapy 1.5 - 2.02 . Moderate Intensity Therapy 2.0 - 3.03. High Intensity Therapy(1) 2.5 - 3. 54. High Intensity Therapy(2) 3.0 - 4.05. Panic Value INR > 5.0 [facility]lake[facility]thrombin [id number] 05:53:00* Test Item Value Reference Range Interpretation Comments Prothrombin Time (test code = 5902-2) 15.8 11.9-14.5 H [facility]lake[facility]thromb Time International Ratio 2018-10-29 05:53:00* Test Item Value Reference Range Interpretation Comments Prothromb Time International Ratio (test code = 6301-6) 1.20 Oral Anticoagulant Therapy INR Values:1. Low Intensity Therapy 1.5 - 2.02 . Moderate Intensity Therapy 2.0 - 3.03. High Intensity Therapy(1) 2.5 - 3. 54. High Intensity Therapy(2) 3.0 - 4.05. Panic Value INR > 5.0 [facility])2018-10-27 18:43:00 [place] [address] Patient Name: DAYSI AGUIRRE MR #: [id number] : 1935 Age/Sex: 83/F Req #: [id number] [facility] Physician: MEHNAZ MON MD Ordered by: HORACIO IVAN MD Report #: [id number] Location: MED/SURG3 Room/Bed: [facility] Procedure: [id number] DX/CHEST SINGLE (PORTABLE) Exam Date: 10/27/18 Exam Time: 1834 REPORT STATUS: Sign ed Examination: Single AP view of the chest. COMPARISON: None. PALLAVI CATION: Shortness of breath DISCUSSION: Lines/tubes: None. Lungs: Multifocal pneumonia most prominent involving the right lung. Pleur a: No pleural effusion or pneumothorax. Heart and mediastinum: The heart and the mediastinum are unremarkable. Bones and soft tissues: No acute bon y abnormalities. IMPRESSION: 1. No acute cardiopulmonary abnor malities. Signed by: Dr. Javier Wiley M.D. on 10/27/2018 6:44 PM D ictated By: JAVIER WILEY MD 43 COPY TO: HORACIO IVAN MD Vitamin B12 [id number] 07:54:00* Test Item Value Reference Range Interpretation Comments Vitamin B12 Level (test code = 68995-3) 248 213-816 [facility]lake[facility]olate2019-03-24 07:54:00* Test Item Value Reference Range Interpretation Comments Folate (test code = 2284-8) 10.8 7.0-15.4 [facility]lakeVitamin B12 [id number] 07:54:00* Test Item Value Reference Range Interpretation Comments Vitamin B12 Level (test code = 68196-1) 248 213-816 [facility]lakeFolate2019-03-24 07:54:00* Test Item Value Reference Range Interpretation Comments Folate (test code = 2284-8) 10.8 7.0-15.4 [facility]lakeHemoglobin A1c [id number] 07:53:00 * Test Item Value Reference Range Interpretation Comments Hemoglobin A1c Percent (test code = Hemoglobin A1c Percent) 5.7 4.0-7.0 [facility]lakeThyroid Stimulating Hormone (TSH) 2018-10-27 07:53:00* Test Item Value Reference Range Interpretation Comments Thyroid Stimulating Hormone (TSH) (test code = 99583-4) 0.420 0.350-4.940 [facility]lakeHemoglobin A1c [id number] 07:53:00 * Test Item Value Reference Range Interpretation Comments Hemoglobin A1c Percent (test code = Hemoglobin A1c Percent) 5.7 4.0-7.0 [facility]lakeThyroid Stimulating Hormone (TSH) 2018-10-27 07:53:00* Test Item Value Reference Range Interpretation Comments Thyroid Stimulating Hormone (TSH) (test code = 54793-8) 0.420 0.350-4.940 [facility]lakePhosphorus [id number] 07:34:00* Test Item Value Reference Range Interpretation Comments Phosphorus Level (test code = ENA5876) 2.6 2.3-4.7 [facility]lakeMagnesium [id number] 07:34:00* Test Item Value Reference Range Interpretation Comments Magnesium Level (test code = 93201-2) 1.9 1.3-2.1 [facility]lakeTriglycerides [id number] 07:34:00* Test Item Value Reference Range Interpretation Comments Triglycerides Level (test code = 2571-8) 68 0-149 [facility]lakeCholesterol [id number] 07:34:00* Test Item Value Reference Range Interpretation Comments Cholesterol Level (test code = 2093-3) 108 0-199 Less than 200 mg/dL Low Zxzw675 - 239 mg/dL Borderline Pugu235 m g/dl and greater High Risk [facility] SouthlakeLDL Uqqcyahznpg8268-66-62 07:34:00* Test Item Value Reference Range Interpretation Comments LDL Cholesterol (test code = 2089-1) 38 60-130 L [facility] SouthlakeHDL Gsumokstrvy0609-71-30 07:34:00* Test Item Value Reference Range Interpretation Comments HDL Cholesterol (test code = 2085-9) 56 40-60 [facility]lakeCholesterol/HDL Geaxr0169-08-69 07:34:00 * Test Item Value Reference Range Interpretation Comments Cholesterol/HDL Ratio (test code = 9830-1) 1.9 3.0-3.6 L [facility]lakePhosphorus [id number] 07:34:00* Test Item Value Reference Range Interpretation Comments Phosphorus Level (test code = FFJ9837) 2.6 2.3-4.7 [facility]lakeMagnesium [id number] 07:34:00* Test Item Value Reference Range Interpretation Comments Magnesium Level (test code = 17552-5) 1.9 1.3-2.1 [facility] SouthlakeTriglycerides Nibov5900-85-81 07:34:00* Test Item Value Reference Range Interpretation Comments Triglycerides Level (test code = 2571-8) 68 0-149 [facility]lakeCholesterol [id number] 07:34:00* Test Item Value Reference Range Interpretation Comments Cholesterol Level (test code = 2093-3) 108 0-199 Less than 200 mg/dL Low Fiia060 - 239 mg/dL Borderline Ezxf763 m g/dl and greater High Risk [facility] SouthlakeLDL Tavomjmduri4750-39-93 07:34:00* Test Item Value Reference Range Interpretation Comments LDL Cholesterol (test code = 2089-1) 38 60-130 L [facility] SouthlakeHDL Cgunltokzwa1675-68-29 07:34:00* Test Item Value Reference Range Interpretation Comments HDL Cholesterol (test code = 2085-9) 56 40-60 [facility]lakeCholesterol/HDL Lkkom8327-34-05 07:34:00 * Test Item Value Reference Range Interpretation Comments Cholesterol/HDL Ratio (test code = 9830-1) 1.9 3.0-3.6 L [facility] SouthlakeCT CHEST [id number] 13:59:00 [place] [address] Patient Name: DAYSI AGUIRRE MR #: [id number] : 1935 Age/Sex: 83/F Req #: [id number] Adm Physician: MEHNAZ MON MD Ordered by: MEHNAZ MON MD Report #: [id number] Location: [facility] Room/Bed: [facility] Procedure: [id number]/CT CHEST WO Exam Date: 10/26/18 Exam Time: 12 34 REPORT STATUS: Signed CT ches t without enhancement CPT code: 59858 INDICATION: Hemoptysis for 2 1/ 2 weeks TECHNIQUE: Thin collimation axial images obtained from the thoraci c inlet to the level of the diaphragm without intravenous contrast. Dose reduction techniques used: Automated exposure control, adjustment of the mAs a nd/or kVp according to patient size, standardized low-dose protocol, and/or it erative reconstruction technique. RADIATION DOSE: Total DLP: 481.05 mGy*cm Estimated effective dose: (DLP x 0.015 x size factor) mSv C TDIvol has been reviewed. It is below the limits set by the Radiation Protocol Committee (RPC). COMPARISON: Chest x-ray 10/25/2018. CHEST FINDINGS: Lymph nodes: No enlarged axillary, supraclavicular lymph nodes. Mediastinal lymph nodes are increased in number and size. For example, a subcarinal lymph node measures 1.5 cm in AP dimension. A right paratracheal lymph node measures 1.1 cm.. Thyroid: Normal in size with coarse calcification in the left lobe.. Mediastinum/airways: The heart is enlarged with heavy calcifications of the coronary arteries. No pericardial effusion. Main pulmonary artery jose ures 2.7 cm. The ascending aorta measures 3.3 cm. There are occasional through out the tracheobronchial tree and small amount of mucous layering dependently in the right and left bronchi. Lungs: Right: Diffusely hyperinflate d. As seen on chest x-ray, there are multifocal airspace opacities in each lob e. No increased attenuation to suggest blood products Left: Diffusely hyp erinflated. As seen on chest x-ray, there are multifocal airspace opacities in each lobe, particularly in the lower lobe. No increased attenuation to suggest blood products. Pleura: Small posterior layering right pleural effusion. No pneumothorax. ABDOMEN FINDINGS: Calcification in the hilum of the liver may be within the gallbladder. There are vascular calcifications throughout. No soft tissue mass or lymphadenopathy. Bones: Diffusely demineralized with moderate degenerative changes throughout the spine. No destructive lesions. There are multiple chronic fracture deformities of several left posterior ribs . IMPRESSION: 1. Multifocal airspace opacities consistent with pneum onia. The presence of dependently layering material in the bronchi raises the possibility of aspiration. 2. Prominent mediastinal lymph nodes may be reac tive to an infectious process. 3. Cardiomegaly and atherosclerosis. 4. Hilar calcification at the liver may be vascular or due to a calcified gallstone. Signed by: Dr. Jun Humphrey MD on 10/26/2018 2:04 PM Dictated By: JUN HUMPHREY MD 03 Transcribed By: MARY on 10/26/181403 COPY TO: MEHNAZ MON MD CXR 1 VE - [id number] 23:18:00 [place] [address] Patient Name: DAYSI AGUIRRE MR #: [id number] : 1935 Age/Sex: 83/F Req #: [id number] Adm Physician: MEHNAZ MON MD Ordered by: RICK RAVI MD Report #: [id number] Location: [facility] Room/Bed: [place] [address] Procedure: [id number] [facility] Ex[facility] Date: 10/25/18 Exam Time: 2310 REPORT STATUS: Sig kleber Examination: Single AP view of the chest. COMPARISON: None. IND ICATION: Cough with blood IMPRESSION: 1. Lines and Tubes: None 2. Bilateral basal airspace opacities, right greater than left. Ill-defined patchy airspace opacity in the right upper lobe. No effusion. Findings may rep resent multifocal pneumonia, in the appropriate clinical setting. 3. Cardiome diastinal silhouette is normal. Pulmonary vasculature is normal. 4. No acut e bony abnormalities. Deformity of the left eighth and likely ninth ribs, like ly representing healed fractures. Generalized osteopenia. Signed by: Dr. Columba Marie M.D. on 10/25/2018 11:20 PM Dictated By: MOOKIE Tripp 19 Transcribed By: MARY on 10/25/182319 COPY TO: RICK RAVI MD CT, [id number] 17:35:00Reason for exam:->ABDOMINAL PAINWhat is the patient's sedation requirement?->No SedationFINAL REPORT DOSE REDUCTION: The examination was performed according to departmental dose- optimization program which includes automated exposure control, adjustment of the mA and/or kV according to patient size and/or use of iterative reconstruction technique. TECHNIQUE: CT of the abdomen and pelvis with intravenous contrast. COMPARISON: 05/05/2017, CT, 09/24/2014 Discussion: Atelectasis/scarring lung bases noted. Partially depicted heart is enlarged. No suspicious liver lesion. There is dilatation of the common bile duct, stable fro m before. Status post cholecystectomy. A 1.5 cm cystic structure along the gallb ladder fossa with peripheral calcifications is stable from previous. Spleen, pa ncreas, adrenal glands are unremarkable. There is a subcentimeter hypodensity in the left kidney, too small to characterize. Otherwise kidneys are unremarkable. There is colonic diverticulosis. No findings of diverticulitis. There are fluid levels throughout the small bowel. Fluid levels in the colon are seen. Nonspeci fic enterocolitis is suspected. The appearance is atypical for diverticulitis. T he appendix is not well visualized. However there is no inflammatory stranding or fluid collection in the right lower quadrant to suggest the presence of appe ndicitis. No ascites. No organized fluid collections or abscess. Vascular calcif ications are noted. Aorta and IVC are normal in caliber. Uterine calcifications are seen. Otherwise uterus, bilateral adnexa, and bladder appear unremarkable. S mall fat-containing focal hernia. Bones demonstrate osteopenia and degenerative changes. Left rib deformities are noted. IMPRESSION: 1. Fluid levels in the smal l bowel and colon suggestive of nonspecific enterocolitis. Colonic diverticulosi s, no findings of diverticulitis. Signed: Sam Hyde MDReport Verified Date/Reagan e: 09/05/2018 17:35:39 Reading Location: [facility] Radiology Reading Room Elec tronically signed by: SAM HYDE M.D. on 09/05/2018 05:35 PM [id number] 15:23:00* Test Item Value Reference Range Interpretation Comments LIPASE (BEAKER) (test code = 749) 44 U/L 8-78 [id number] 15:23:00* Test Item Value Reference Range Interpretation Comments AMYLASE (BEAKER) (test code = 349) 157 U/L 25-125 H BASIC METABOLIC [id number] 15:23:00* Test Item Value Reference Range Interpretation Comments SODIUM (BEAKER) (test code = 381) 136 meq/L 136-145 POTASSIUM (BEAKER) (test code = 379) 4.4 meq/L 3.5-5.1 CHLORIDE (BEAKER) (test code = 382) 98 meq/L 98-107 CO2 (BEAKER) (test code = 355) 27 meq/L 22-29 BLOOD UREA NITROGEN (BEAKER) (test code = 354) 21 mg/dL 7-21 CREATININE (BEAKER) (test code = 358) 1.14 mg/dL 0.57-1.25 GLUCOSE RANDOM (BEAKER) (test code = 652) 279 mg/dL 70-105 H CALCIUM (BEAKER) (test code = 697) 9.2 mg/dL 8.4-10.2 EGFR (BEAKER) (test code = 1092) 46 mL/min/1.73 sq m ESTIMATED GFR IS NOT ACCURATE CREATININE CLEARANCE IN PREDICTING GLOMERULAR FILTRATION RATE. ESTIMATED GFR IS NOT APPLICABLE FOR DIALYSIS PATIENTS. HEPATIC FUNCTION [id number] 15:23:00* Test Item Value Reference Range Interpretation Comments TOTAL PROTEIN (BEAKER) (test code = 770) 7.4 gm/dL 6.0-8.3 ALBUMIN (BEAKER) (test code = 1145) 3.9 g/dL 3.5-5.0 BILIRUBIN TOTAL (BEAKER) (test code = 377) 1.0 mg/dL 0.2-1.2 BILIRUBIN DIRECT (BEAKER) (test code = 706) 0.6 mg/dL 0.1-0.5 H ALKALINE PHOSPHATASE (BEAKER) (test code = 346) 72 U/L 40-150 AST (SGOT) (BEAKER) (test code = 353) 36 U/L 5-34 H ALT (SGPT) (BEAKER) (test code = 347) 14 U/L 6-55 CBC W/PLT COUNT & AUTO [id number] 15:10:00* Test Item Value Reference Range Interpretation Comments WHITE BLOOD CELL COUNT (BEAKER) (test code = 775) 11.8 K/ L 3.5- 10.5 H RED BLOOD CELL COUNT (BEAKER) (test code = 761) 4.36 M/ L 3.93-5 .22 HEMOGLOBIN (BEAKER) (test code = 410) 13.0 GM/DL 11.2-15.7 HEMATOCRIT (BEAKER) (test code = 411) 41.9 % 34.1-44.9 MEAN CORPUSCULAR VOLUME (BEAKER) (test code = 753) 96.1 fL 79. 4-94.8 H MEAN CORPUSCULAR HEMOGLOBIN (BEAKER) (test code = 751) 29.8 pg 25.6-32.2 MEAN CORPUSCULAR HEMOGLOBIN CONC (BEAKER) (test code = 752) 31.0 GM/DL 32.2-35.5 L RED CELL DISTRIBUTION WIDTH (BEAKER) (test code = 412) 13.2 % 11.7-14.4 PLATELET COUNT (BEAKER) (test code = 756) 212 K/CU MM 150-450 MEAN PLATELET VOLUME (BEAKER) (test code = 754) 10.6 fL 9.4-12 .3 NUCLEATED RED BLOOD CELLS (BEAKER) (test code = 413) 0 /100 WBC 0 -0 NEUTROPHILS RELATIVE PERCENT (BEAKER) (test code = 429) 84 % LYMPHOCYTES RELATIVE PERCENT (BEAKER) (test code = 430) 10 % MONOCYTES RELATIVE PERCENT (BEAKER) (test code = 431) 6 % EOSINOPHILS RELATIVE PERCENT (BEAKER) (test code = 432) 0 % BASOPHILS RELATIVE PERCENT (BEAKER) (test code = 437) 0 % NEUTROPHILS ABSOLUTE COUNT (BEAKER) (test code = 670) 9.88 K/ L 1.56-6.13 H LYMPHOCYTES ABSOLUTE COUNT (BEAKER) (test code = 414) 1.13 K/ L 1.18-3.74 L MONOCYTES ABSOLUTE COUNT (BEAKER) (test code = 415) 0.66 K/ L 0. 24-0.36 H EOSINOPHILS ABSOLUTE COUNT (BEAKER) (test code = 416) 0.01 K/ L 0.04-0.36 L BASOPHILS ABSOLUTE COUNT (BEAKER) (test code = 417) 0.03 K/ L 0. 01-0.08 IMMATURE GRANULOCYTES-RELATIVE PERCENT (BEAKER) (test code = 2801) 1 % 0-1 URINALYSIS W/ [id number] 15:04:00* Test Item Value Reference Range Interpretation Comments COLOR (BEAKER) (test code = 470) Light Yellow CLARITY (BEAKER) (test code = 469) Clear SPECIFIC GRAVITY UA (BEAKER) (test code = 468) 1.006 1.001-1 .035 PH UA (BEAKER) (test code = 467) 6.5 5.0-8.0 PROTEIN UA (BEAKER) (test code = 464) Negative Negative GLUCOSE UA (BEAKER) (test code = 365) Negative Negative KETONES UA (BEAKER) (test code = 371) Trace Negative A BILIRUBIN UA (BEAKER) (test code = 462) Negative Negative BLOOD UA (BEAKER) (test code = 461) Trace Negative A NITRITE UA (BEAKER) (test code = 465) Negative Negative LEUKOCYTE ESTERASE UA (BEAKER) (test code = 466) Trace Negat mele A UROBILINOGEN UA (BEAKER) (test code = 463) 0.2 mg/dL 0.2-1.0 RBC UA (BEAKER) (test code = 519) 2 /HPF WBC UA (BEAKER) (test code = 520) 1 /HPF BACTERIA (BEAKER) (test code = 517) Occasional SQUAMOUS EPITHELIAL (BEAKER) (test code = 516) 1 /HPF HYALINE CASTS (BEAKER) (test code = 514) 17 /LPF SOURCE(BEAKER) (test code = 2335) Urine, Clean Catch POCT-GLUCOSE [id number] 08:51:00* Test Item Value Reference Range Interpretation Comments POC-GLUCOSE METER (BEAKER) (test code = 1538) 118 mg/dL 70-110 H TESTED AT [facility] [address] [facility] [address] [id number] 06:06:00* Test Item Value Reference Range Interpretation Comments MAGNESIUM (BEAKER) (test code = 627) 2.3 mg/dL 1.6-2.6 BASIC METABOLIC [id number] 06:06:00* Test Item Value Reference Range Interpretation Comments SODIUM (BEAKER) (test code = 381) 140 meq/L 136-145 POTASSIUM (BEAKER) (test code = 379) 4.7 meq/L 3.5-5.1 CHLORIDE (BEAKER) (test code = 382) 103 meq/L 98-107 CO2 (BEAKER) (test code = 355) 29 meq/L 22-29 BLOOD UREA NITROGEN (BEAKER) (test code = 354) 25 mg/dL 7-21 H CREATININE (BEAKER) (test code = 358) 0.81 mg/dL 0.57-1.25 GLUCOSE RANDOM (BEAKER) (test code = 652) 124 mg/dL 70-105 H CALCIUM (BEAKER) (test code = 697) 9.5 mg/dL 8.4-10.2 EGFR (BEAKER) (test code = 1092) 68 mL/min/1.73 sq m ESTIMATED GFR IS NOT ACCURATE CREATININE CLEARANCE IN PREDICTING GLOMERULAR FILTRATION RATE. ESTIMATED GFR IS NOT APPLICABLE FOR DIALYSIS PATIENTS. POCT-GLUCOSE [id number] 21:34:00* Test Item Value Reference Range Interpretation Comments POC-GLUCOSE METER (BEAKER) (test code = 1538) 113 mg/dL 70-110 H TESTED AT [facility] [address] [facility] [address] POCT-GLUCOSE [id number] 17:41:00* Test Item Value Reference Range Interpretation Comments POC-GLUCOSE METER (BEAKER) (test code = 1538) 116 mg/dL 70-110 H TESTED AT [place] [id number] [facility] [address] POCT-GLUCOSE [id number] 12:00:00* Test Item Value Reference Range Interpretation Comments POC-GLUCOSE METER (BEAKER) (test code = 1538) 327 mg/dL 70-110 H TESTED AT [facility] [address] [facility] [address] POCT-GLUCOSE [id number] 08:08:00* Test Item Value Reference Range Interpretation Comments POC-GLUCOSE METER (BEAKER) (test code = 1538) 186 mg/dL 70-110 H TESTED AT [facility] [address] [facility] [address] RAD, CHEST, 1 VIEW, NON [id number] 07:39:00Reason for exam:->effusionFINAL REPORT Chest one view. Clinical history: effusion Comparison: The liver 2016 Discussion: A frontal chest is provided. Cardiomed iastinal contours are unchanged. There is persistent left basilar atelectasis or consolidation. No new airspace disease identified. No evidence of pneumothor ax, or large effusion. Signed: Gumaro [place] Verified Date/Time: 06/19/2017 07:39:03 Reading Location: [facility] Radiology Reading Room [facility] signed by: GUMARO [place]GAS M.D. on 06/19/2017 07:39 AM CBC W/PLT COUNT & AUTO [id number] 07:06:00* Test Item Value Reference Range Interpretation Comments WHITE BLOOD CELL COUNT (BEAKER) (test code = 775) 5.7 K/ L 3.5- 10.5 RED BLOOD CELL COUNT (BEAKER) (test code = 761) 4.12 M/ L 3.93-5 .22 HEMOGLOBIN (BEAKER) (test code = 410) 12.3 GM/DL 11.2-15.7 HEMATOCRIT (BEAKER) (test code = 411) 38.7 % 34.1-44.9 MEAN CORPUSCULAR VOLUME (BEAKER) (test code = 753) 93.9 fL 79. 4-94.8 MEAN CORPUSCULAR HEMOGLOBIN (BEAKER) (test code = 751) 29.9 pg 25.6-32.2 MEAN CORPUSCULAR HEMOGLOBIN CONC (BEAKER) (test code = 752) 31.8 GM/DL 32.2-35.5 L RED CELL DISTRIBUTION WIDTH (BEAKER) (test code = 412) 13.2 % 11.7-14.4 PLATELET COUNT (BEAKER) (test code = 756) 210 K/CU MM 150-450 MEAN PLATELET VOLUME (BEAKER) (test code = 754) 10.4 fL 9.4-12 .3 NUCLEATED RED BLOOD CELLS (BEAKER) (test code = 413) 0 /100 WBC 0 -0 NEUTROPHILS RELATIVE PERCENT (BEAKER) (test code = 429) 55 % LYMPHOCYTES RELATIVE PERCENT (BEAKER) (test code = 430) 33 % MONOCYTES RELATIVE PERCENT (BEAKER) (test code = 431) 9 % EOSINOPHILS RELATIVE PERCENT (BEAKER) (test code = 432) 2 % BASOPHILS RELATIVE PERCENT (BEAKER) (test code = 437) 1 % NEUTROPHILS ABSOLUTE COUNT (BEAKER) (test code = 670) 3.11 K/ L 1.56-6.13 LYMPHOCYTES ABSOLUTE COUNT (BEAKER) (test code = 414) 1.90 K/ L 1.18-3.74 MONOCYTES ABSOLUTE COUNT (BEAKER) (test code = 415) 0.51 K/ L 0. 24-0.36 H EOSINOPHILS ABSOLUTE COUNT (BEAKER) (test code = 416) 0.12 K/ L 0.04-0.36 BASOPHILS ABSOLUTE COUNT (BEAKER) (test code = 417) 0.05 K/ L 0. 01-0.08 IMMATURE GRANULOCYTES-RELATIVE PERCENT (BEAKER) (test code = 2801) 0 % 0-1 [id number] 05:53:00* Test Item Value Reference Range Interpretation Comments MAGNESIUM (BEAKER) (test code = 627) 2.1 mg/dL 1.6-2.6 BASIC METABOLIC [id number] 05:53:00* Test Item Value Reference Range Interpretation Comments SODIUM (BEAKER) (test code = 381) 139 meq/L 136-145 POTASSIUM (BEAKER) (test code = 379) 4.4 meq/L 3.5-5.1 CHLORIDE (BEAKER) (test code = 382) 105 meq/L 98-107 CO2 (BEAKER) (test code = 355) 30 meq/L 22-29 H BLOOD UREA NITROGEN (BEAKER) (test code = 354) 22 mg/dL 7-21 H CREATININE (BEAKER) (test code = 358) 0.74 mg/dL 0.57-1.25 GLUCOSE RANDOM (BEAKER) (test code = 652) 149 mg/dL 70-105 H CALCIUM (BEAKER) (test code = 697) 8.8 mg/dL 8.4-10.2 EGFR (BEAKER) (test code = 1092) 76 mL/min/1.73 sq m ESTIMATED GFR IS NOT ACCURATE CREATININE CLEARANCE IN PREDICTING GLOMERULAR FILTRATION RATE. ESTIMATED GFR IS NOT APPLICABLE FOR DIALYSIS PATIENTS. POCT-GLUCOSE [id number] 21:33:00* Test Item Value Reference Range Interpretation Comments POC-GLUCOSE METER (BEAKER) (test code = 1538) 238 mg/dL 70-110 H TESTED AT [place] [id number] [facility] [address] POCT-GLUCOSE [id number] 18:42:00* Test Item Value Reference Range Interpretation Comments POC-GLUCOSE METER (JORGEAKER) (test code = 1538) 91 mg/dL 70-110 TESTED AT [place] [id number] [facility] [address] POCT-GLUCOSE [id number] 18:08:00* Test Item Value Reference Range Interpretation Comments POC-GLUCOSE METER (GUALBERTO) (test code = 1538) 48 mg/dL 70-110 L TESTED AT [address] [address] RAD, CHEST, 1 VIEW, NON [id number] 17:06:00Reason for exam:->s/p Thoracentesis pt. in u/s [...] rt Verified Date/Time: 06/18/2017 17:06:55 Reading Location: [address] Reading Room Electronically signed by: IZAIAH BRAUN MD on 2016 05:06 PM U/S, [id number] 16:39:00Laterality?->LeftReason for exam:->hx of fall with fracture [...] After the area is anesthetized, a 4 [place] catheter is advanced into the pleural space. [...] Braun Verified Date/Time: 08/18/2016 16:39:25 Reading Location: [address] Ultrasound Reading Room Estefania ctronically signed by: IZIAAH BRAUN MD on 06/18/2017 04:39 PM RAD, CHEST, 1 VIEW, NON [id number] 12:13:00Reason for exam:->PLEURAL EFFUSIONShould this be performed at the bedside?->YesFINAL REPORT Chest one view. Clinical history: PLEURAL EFFUSION Comparison: June 17, 2017 Discussion: A frontal chest is provided. Cardiomediastinal contours are unchanged. A small left effusion with left basilar atelectasis or consolidation appear unchanged. No new consolidation. No vascular congestion, or pneumothorax. Signed: Gumaro Vegas Verified Date/Time: 06/18/2017 12:13:39 Reading Location: [facility] Radiology Reading Room -GLUCOSE [id number] 10:47:00* Test Item Value Reference Range Interpretation Comments POC-GLUCOSE METER (BEAKER) (test code = 1538) 229 mg/dL 70-110 H TESTED AT [facility] [address] [facility] [address] POCT-GLUCOSE [id number] 07:54:00* Test Item Value Reference Range Interpretation Comments POC-GLUCOSE METER (BEAKER) (test code = 1538) 91 mg/dL 70-110 TESTED AT [facility] [address] [facility] [address] PT/[id number] 06:30:00* Test Item Value Reference Range Interpretation Comments PROTIME (BEAKER) (test code = 759) 14.7 seconds 11.7-14.7 INR (BEAKER) (test code = 370) 1.2 <=5.9 PARTIAL THROMBOPLASTIN TIME (BEAKER) (test code = 760) 37.6 seconds 22.5-36.0 H RECOMMENDED COUMADIN/WARFARIN INR THERAPY RANGESSTANDARD DOSE: 2.0 - 3.0 Inclu aliza: PROPHYLAXIS for venous thrombosis, systemic embolization; TREATMENT for jay ous thrombosis and/or pulmonary embolus.HIGH RISK: Target INR is 2.5-3.5 for pat ients with mechanical heart valves.CBC W/PLT COUNT & AUTO [id number] 06:22:00* Test Item Value Reference Range Interpretation Comments WHITE BLOOD CELL COUNT (BEAKER) (test code = 775) 5.8 K/ L 3.5- 10.5 RED BLOOD CELL COUNT (BEAKER) (test code = 761) 3.92 M/ L 3.93-5 .22 L HEMOGLOBIN (BEAKER) (test code = 410) 11.7 GM/DL 11.2-15.7 HEMATOCRIT (BEAKER) (test code = 411) 36.9 % 34.1-44.9 MEAN CORPUSCULAR VOLUME (BEAKER) (test code = 753) 94.1 fL 79. 4-94.8 MEAN CORPUSCULAR HEMOGLOBIN (BEAKER) (test code = 751) 29.8 pg 25.6-32.2 MEAN CORPUSCULAR HEMOGLOBIN CONC (BEAKER) (test code = 752) 31.7 GM/DL 32.2-35.5 L RED CELL DISTRIBUTION WIDTH (BEAKER) (test code = 412) 13.5 % 11.7-14.4 PLATELET COUNT (BEAKER) (test code = 756) 239 K/CU MM 150-450 MEAN PLATELET VOLUME (BEAKER) (test code = 754) 10.7 fL 9.4-12 .3 NUCLEATED RED BLOOD CELLS (BEAKER) (test code = 413) 0 /100 WBC 0 -0 NEUTROPHILS RELATIVE PERCENT (BEAKER) (test code = 429) 56 % LYMPHOCYTES RELATIVE PERCENT (BEAKER) (test code = 430) 32 % MONOCYTES RELATIVE PERCENT (BEAKER) (test code = 431) 8 % EOSINOPHILS RELATIVE PERCENT (BEAKER) (test code = 432) 3 % BASOPHILS RELATIVE PERCENT (BEAKER) (test code = 437) 1 % NEUTROPHILS ABSOLUTE COUNT (BEAKER) (test code = 670) 3.25 K/ L 1.56-6.13 LYMPHOCYTES ABSOLUTE COUNT (BEAKER) (test code = 414) 1.87 K/ L 1.18-3.74 MONOCYTES ABSOLUTE COUNT (BEAKER) (test code = 415) 0.46 K/ L 0. 24-0.36 H EOSINOPHILS ABSOLUTE COUNT (BEAKER) (test code = 416) 0.16 K/ L 0.04-0.36 BASOPHILS ABSOLUTE COUNT (BEAKER) (test code = 417) 0.04 K/ L 0. 01-0.08 IMMATURE GRANULOCYTES-RELATIVE PERCENT (BEAKER) (test code = 2801) 0 % 0-1 [id number] 06:07:00* Test Item Value Reference Range Interpretation Comments MAGNESIUM (BEAKER) (test code = 627) 2.1 mg/dL 1.6-2.6 BASIC METABOLIC [id number] 06:07:00* Test Item Value Reference Range Interpretation Comments SODIUM (BEAKER) (test code = 381) 141 meq/L 136-145 POTASSIUM (BEAKER) (test code = 379) 3.8 meq/L 3.5-5.1 CHLORIDE (BEAKER) (test code = 382) 106 meq/L 98-107 CO2 (BEAKER) (test code = 355) 28 meq/L 22-29 BLOOD UREA NITROGEN (BEAKER) (test code = 354) 23 mg/dL 7-21 H CREATININE (BEAKER) (test code = 358) 0.71 mg/dL 0.57-1.25 GLUCOSE RANDOM (BEAKER) (test code = 652) 51 mg/dL 70-105 L CALCIUM (BEAKER) (test code = 697) 8.7 mg/dL 8.4-10.2 EGFR (BEAKER) (test code = 1092) 79 mL/min/1.73 sq m ESTIMATED GFR IS NOT ACCURATE CREATININE CLEARANCE IN PREDICTING GLOMERULAR FILTRATION RATE. ESTIMATED GFR IS NOT APPLICABLE FOR DIALYSIS PATIENTS. POCT-GLUCOSE [id number] 21:52:00* Test Item Value Reference Range Interpretation Comments POC-GLUCOSE METER (BEAKER) (test code = 1538) 216 mg/dL 70-110 H TESTED AT [facility] [address] [facility] [address] RAD, CHEST, 2 [id number] 18:32:00Reason for exam:->left plerual effusion. FINAL REPORT [...] Mcdonald Verified Date/Time: 06/17/2017 18:32:22 Reading Location: [address] Ortho Consult Reading Room -GLUCOSE [id number] 17:28:00* Test Item Value Reference Range Interpretation Comments POC-GLUCOSE METER (BEAKER) (test code = 1538) 177 mg/dL 70-110 H TESTED AT [place] [id number] [facility] [address] POCT-GLUCOSE [id number] 12:36:00* Test Item Value Reference Range Interpretation Comments POC-GLUCOSE METER (BEAKER) (test code = 1538) 193 mg/dL 70-110 H TESTED AT [place] [id number] [facility] [address] RAD, CHEST, 1 VIEW, NON [id number] 09:59:00Reason for exam:->chfFINAL REPORT CHEST ONE VIEW HISTORY: Congestive heart failure COMPARISON: 06/15/2017 FINDINGS: Single portable AP examination of the chest was performed. Left lower lobe consolidation and small left pleural effusion are unchanged in appearance. Right lung clear. No right pleural effusion. No pne umothorax. Cardiac shadow normal in size. Signed: Horacio Mcdonald Verified Date/Time: 06/17/2017 09:59:30 Reading Location: [facility] B1 [id number] Ortho Consult Re ading Room -GLUCOSE [id number] 08:33:00* Test Item Value Reference Range Interpretation Comments POC-GLUCOSE METER (BEAKER) (test code = 1538) 233 mg/dL 70-110 H TESTED AT [facility] [address] [facility] [address] [id number] 06:12:00* Test Item Value Reference Range Interpretation Comments MAGNESIUM (BEAKER) (test code = 627) 1.9 mg/dL 1.6-2.6 BASIC METABOLIC [id number] 06:12:00* Test Item Value Reference Range Interpretation Comments SODIUM (BEAKER) (test code = 381) 140 meq/L 136-145 POTASSIUM (BEAKER) (test code = 379) 4.2 meq/L 3.5-5.1 CHLORIDE (BEAKER) (test code = 382) 105 meq/L 98-107 CO2 (BEAKER) (test code = 355) 26 meq/L 22-29 BLOOD UREA NITROGEN (BEAKER) (test code = 354) 21 mg/dL 7-21 CREATININE (BEAKER) (test code = 358) 0.69 mg/dL 0.57-1.25 GLUCOSE RANDOM (BEAKER) (test code = 652) 114 mg/dL 70-105 H CALCIUM (BEAKER) (test code = 697) 8.8 mg/dL 8.4-10.2 EGFR (BEAKER) (test code = 1092) 82 mL/min/1.73 sq m ESTIMATED GFR IS NOT ACCURATE CREATININE CLEARANCE IN PREDICTING GLOMERULAR FILTRATION RATE. ESTIMATED GFR IS NOT APPLICABLE FOR DIALYSIS PATIENTS. B-TYPE NATRIURETIC FACTOR (BNP)2017-06-17 06:05:00* Test Item Value Reference Range Interpretation Comments B-TYPE NATRIURETIC PEPTIDE (BEAKER) (test code = 700) 100 pg/mL 0-100 POCT-GLUCOSE [id number] 22:09:00* Test Item Value Reference Range Interpretation Comments POC-GLUCOSE METER (BEAKER) (test code = 1538) 151 mg/dL 70-110 H TESTED AT [facility] [address] [facility] [address] POCT-GLUCOSE [id number] 17:22:00* Test Item Value Reference Range Interpretation Comments POC-GLUCOSE METER (BEAKER) (test code = 1538) 131 mg/dL 70-110 H TESTED AT [address] [address] POCT-GLUCOSE [id number] 11:53:00* Test Item Value Reference Range Interpretation Comments POC-GLUCOSE METER (BEAKER) (test code = 1538) 305 mg/dL 70-110 H Notified VERONICA BENAVIDES/TESTED AT [address] [address] POCT-GLUCOSE [id number] 08:04:00* Test Item Value Reference Range Interpretation Comments POC-GLUCOSE METER (BEAKER) (test code = 1538) 171 mg/dL 70-110 H TESTED AT [address] [address] [id number] 07:29:00* Test Item Value Reference Range Interpretation Comments MAGNESIUM (BEAKER) (test code = 627) 2.0 mg/dL 1.6-2.6 BASIC METABOLIC [id number] 07:29:00* Test Item Value Reference Range Interpretation Comments SODIUM (BEAKER) (test code = 381) 140 meq/L 136-145 POTASSIUM (BEAKER) (test code = 379) 4.1 meq/L 3.5-5.1 CHLORIDE (BEAKER) (test code = 382) 105 meq/L 98-107 CO2 (BEAKER) (test code = 355) 27 meq/L 22-29 BLOOD UREA NITROGEN (BEAKER) (test code = 354) 23 mg/dL 7-21 H CREATININE (BEAKER) (test code = 358) 0.73 mg/dL 0.57-1.25 GLUCOSE RANDOM (BEAKER) (test code = 652) 149 mg/dL 70-105 H CALCIUM (BEAKER) (test code = 697) 8.7 mg/dL 8.4-10.2 EGFR (BEAKER) (test code = 1092) 77 mL/min/1.73 sq m ESTIMATED GFR IS NOT ACCURATE CREATININE CLEARANCE IN PREDICTING GLOMERULAR FILTRATION RATE. ESTIMATED GFR IS NOT APPLICABLE FOR DIALYSIS PATIENTS. CBC W/PLT COUNT & AUTO [id number] 05:35:00* Test Item Value Reference Range Interpretation Comments WHITE BLOOD CELL COUNT (BEAKER) (test code = 775) 5.1 K/ L 3.5- 10.5 RED BLOOD CELL COUNT (BEAKER) (test code = 761) 3.83 M/ L 3.93-5 .22 L HEMOGLOBIN (BEAKER) (test code = 410) 11.3 GM/DL 11.2-15.7 HEMATOCRIT (BEAKER) (test code = 411) 36.1 % 34.1-44.9 MEAN CORPUSCULAR VOLUME (BEAKER) (test code = 753) 94.3 fL 79. 4-94.8 MEAN CORPUSCULAR HEMOGLOBIN (BEAKER) (test code = 751) 29.5 pg 25.6-32.2 MEAN CORPUSCULAR HEMOGLOBIN CONC (BEAKER) (test code = 752) 31.3 GM/DL 32.2-35.5 L RED CELL DISTRIBUTION WIDTH (BEAKER) (test code = 412) 13.5 % 11.7-14.4 PLATELET COUNT (BEAKER) (test code = 756) 229 K/CU MM 150-450 MEAN PLATELET VOLUME (BEAKER) (test code = 754) 10.2 fL 9.4-12 .3 NUCLEATED RED BLOOD CELLS (BEAKER) (test code = 413) 0 /100 WBC 0 -0 NEUTROPHILS RELATIVE PERCENT (BEAKER) (test code = 429) 50 % LYMPHOCYTES RELATIVE PERCENT (BEAKER) (test code = 430) 37 % MONOCYTES RELATIVE PERCENT (BEAKER) (test code = 431) 9 % EOSINOPHILS RELATIVE PERCENT (BEAKER) (test code = 432) 3 % BASOPHILS RELATIVE PERCENT (BEAKER) (test code = 437) 1 % NEUTROPHILS ABSOLUTE COUNT (BEAKER) (test code = 670) 2.54 K/ L 1.56-6.13 LYMPHOCYTES ABSOLUTE COUNT (BEAKER) (test code = 414) 1.89 K/ L 1.18-3.74 MONOCYTES ABSOLUTE COUNT (BEAKER) (test code = 415) 0.48 K/ L 0. 24-0.36 H EOSINOPHILS ABSOLUTE COUNT (BEAKER) (test code = 416) 0.13 K/ L 0.04-0.36 BASOPHILS ABSOLUTE COUNT (BEAKER) (test code = 417) 0.03 K/ L 0. 01-0.08 IMMATURE GRANULOCYTES-RELATIVE PERCENT (BEAKER) (test code = 2801) 0 % 0-1 POCT-GLUCOSE [id number] 20:52:00* Test Item Value Reference Range Interpretation Comments POC-GLUCOSE METER (BEAKER) (test code = 1538) 232 mg/dL 70-110 H TESTED AT [place] [id number] [facility] [address] POCT-GLUCOSE [id number] 17:40:00* Test Item Value Reference Range Interpretation Comments POC-GLUCOSE METER (BEAKER) (test code = 1538) 164 mg/dL 70-110 H TESTED AT [address] [address] POCT-GLUCOSE [id number] 12:14:00* Test Item Value Reference Range Interpretation Comments POC-GLUCOSE METER (BEAKER) (test code = 1538) 246 mg/dL 70-110 H TESTED AT [address] [address] PLATELET AGGREGATION: FUNCTION [id number] 10:23:00* Test Item Value Reference Range Interpretation Comments WEAK ADP RESULT(BEAKER) (test code = 2135) 64 % 60-91 PLATELET FUNCTION SCREEN INTERP (BEAKER) (test code = 2173) 60-100% indicates normal platelet function [id number] (BEAKER) (test code = 2622) Cydney Guardado MD (electronic signature) PLATELET COUNT AGG (BEAKER) (test code = 2656) 254 K/CU MM 150-450 RAD, CHEST, 1 VIEW, NON [id number] 08:37:00Reason for exam:->chfFINAL REPORT Chest one view. Clinical history: chf Comparison: June 14, 2017 Discussion: A frontal chest is provided. Cardiomediastinal contours are unchanged. Unchanged vague opacity in the right upper lung. S table pleural-parenchymal opacity in the left lower lung. No pneumothorax. Mild interstitial prominence. Signed: Gumaro Vegas Verified Date/Time: 06/06 08:37:33 Reading Location: [facility] Radiology Reading Room El ectronically signed by: GUMARO VEGAS M.D. on 06/15/2017 08:37 AM POCT-GLUCOSE [id number] 08:21:00* Test Item Value Reference Range Interpretation Comments POC-GLUCOSE METER (BEAKER) (test code = 1538) 168 mg/dL 70-110 H TESTED AT [address] [address] [id number] 07:04:00* Test Item Value Reference Range Interpretation Comments MAGNESIUM (BEAKER) (test code = 627) 2.2 mg/dL 1.6-2.6 BASIC METABOLIC [id number] 07:04:00* Test Item Value Reference Range Interpretation Comments SODIUM (BEAKER) (test code = 381) 141 meq/L 136-145 POTASSIUM (BEAKER) (test code = 379) 3.8 meq/L 3.5-5.1 CHLORIDE (BEAKER) (test code = 382) 104 meq/L 98-107 CO2 (BEAKER) (test code = 355) 28 meq/L 22-29 BLOOD UREA NITROGEN (BEAKER) (test code = 354) 21 mg/dL 7-21 CREATININE (BEAKER) (test code = 358) 0.81 mg/dL 0.57-1.25 GLUCOSE RANDOM (BEAKER) (test code = 652) 151 mg/dL 70-105 H CALCIUM (BEAKER) (test code = 697) 9.1 mg/dL 8.4-10.2 EGFR (BEAKER) (test code = 1092) 68 mL/min/1.73 sq m ESTIMATED GFR IS NOT ACCURATE CREATININE CLEARANCE IN PREDICTING GLOMERULAR FILTRATION RATE. ESTIMATED GFR IS NOT APPLICABLE FOR DIALYSIS PATIENTS. POCT-GLUCOSE [id number] 21:27:00* Test Item Value Reference Range Interpretation Comments POC-GLUCOSE METER (BEAKER) (test code = 1538) 209 mg/dL 70-110 H TESTED AT [address] [address] POCT-GLUCOSE [id number] 17:49:00* Test Item Value Reference Range Interpretation Comments POC-GLUCOSE METER (BEAKER) (test code = 1538) 195 mg/dL 70-110 H TESTED AT [address] [address] POCT-GLUCOSE [id number] 11:56:00* Test Item Value Reference Range Interpretation Comments POC-GLUCOSE METER (BEAKER) (test code = 1538) 233 mg/dL 70-110 H TESTED AT [address] [address] RAD, CHEST, 1 VIEW, NON [id number] 08:16:00Reason for exam:->SHORTNESS OF BREATHFINAL REPORT Chest one view. Clinical history: SHORTNESS OF BREATH Comparison: 06/13/2017 Discussion: A frontal chest is provided. Cardiomediastinal contours are unchanged. Stable left lower thorax pleural parenchymal opacity. Right upper lung airspace opacity appears slightly more prominent. Low lung volume. No pneumothorax. Signed: Gumaro Vegas Verified Date/Time: 06/14/2017 08:16:32 Reading Location: [facility] Radiology Reading Room -GLUCOSE [id number] 07:47:00* Test Item Value Reference Range Interpretation Comments POC-GLUCOSE METER (BEAKER) (test code = 1538) 126 mg/dL 70-110 H TESTED AT [address] [address] POCT-GLUCOSE [id number] 07:47:00* Test Item Value Reference Range Interpretation Comments POC-GLUCOSE METER (BEAKER) (test code = 1538) 142 mg/dL 70-110 H TESTED AT [address] [address] [id number] 05:38:00* Test Item Value Reference Range Interpretation Comments MAGNESIUM (BEAKER) (test code = 627) 1.8 mg/dL 1.6-2.6 Specimen slightly hemolyzed BASIC METABOLIC [id number] 05:38:00* Test Item Value Reference Range Interpretation Comments SODIUM (BEAKER) (test code = 381) 143 meq/L 136-145 POTASSIUM (BEAKER) (test code = 379) 4.1 meq/L 3.5-5.1 Specimen slightly hemolyzed CHLORIDE (BEAKER) (test code = 382) 106 meq/L 98-107 CO2 (BEAKER) (test code = 355) 27 meq/L 22-29 BLOOD UREA NITROGEN (BEAKER) (test code = 354) 18 mg/dL 7-21 CREATININE (BEAKER) (test code = 358) 0.78 mg/dL 0.57-1.25 Specimen slightly hemolyzed GLUCOSE RANDOM (BEAKER) (test code = 652) 119 mg/dL 70-105 H CALCIUM (BEAKER) (test code = 697) 9.5 mg/dL 8.4-10.2 EGFR (BEAKER) (test code = 1092) 71 mL/min/1.73 sq m ESTIMATED GFR IS NOT ACCURATE CREATININE CLEARANCE IN PREDICTING GLOMERULAR FILTRATION RATE. ESTIMATED GFR IS NOT APPLICABLE FOR DIALYSIS PATIENTS. B-TYPE NATRIURETIC FACTOR (BNP)2017-06-14 05:34:00* Test Item Value Reference Range Interpretation Comments B-TYPE NATRIURETIC PEPTIDE (BEAKER) (test code = 700) 492 pg/mL 0-100 H CBC W/PLT COUNT & AUTO [id number] 05:08:00* Test Item Value Reference Range Interpretation Comments WHITE BLOOD CELL COUNT (BEAKER) (test code = 775) 5.9 K/ L 3.5- 10.5 RED BLOOD CELL COUNT (BEAKER) (test code = 761) 3.86 M/ L 3.93-5 .22 L HEMOGLOBIN (BEAKER) (test code = 410) 11.5 GM/DL 11.2-15.7 HEMATOCRIT (BEAKER) (test code = 411) 36.2 % 34.1-44.9 MEAN CORPUSCULAR VOLUME (BEAKER) (test code = 753) 93.8 fL 79. 4-94.8 MEAN CORPUSCULAR HEMOGLOBIN (BEAKER) (test code = 751) 29.8 pg 25.6-32.2 MEAN CORPUSCULAR HEMOGLOBIN CONC (BEAKER) (test code = 752) 31.8 GM/DL 32.2-35.5 L RED CELL DISTRIBUTION WIDTH (BEAKER) (test code = 412) 13.8 % 11.7-14.4 PLATELET COUNT (BEAKER) (test code = 756) 235 K/CU MM 150-450 MEAN PLATELET VOLUME (BEAKER) (test code = 754) 10.3 fL 9.4-12 .3 NUCLEATED RED BLOOD CELLS (BEAKER) (test code = 413) 0 /100 WBC 0 -0 NEUTROPHILS RELATIVE PERCENT (BEAKER) (test code = 429) 57 % LYMPHOCYTES RELATIVE PERCENT (BEAKER) (test code = 430) 33 % MONOCYTES RELATIVE PERCENT (BEAKER) (test code = 431) 9 % EOSINOPHILS RELATIVE PERCENT (BEAKER) (test code = 432) 1 % BASOPHILS RELATIVE PERCENT (BEAKER) (test code = 437) 1 % NEUTROPHILS ABSOLUTE COUNT (BEAKER) (test code = 670) 3.35 K/ L 1.56-6.13 LYMPHOCYTES ABSOLUTE COUNT (BEAKER) (test code = 414) 1.94 K/ L 1.18-3.74 MONOCYTES ABSOLUTE COUNT (BEAKER) (test code = 415) 0.54 K/ L 0. 24-0.36 H EOSINOPHILS ABSOLUTE COUNT (BEAKER) (test code = 416) 0.06 K/ L 0.04-0.36 BASOPHILS ABSOLUTE COUNT (BEAKER) (test code = 417) 0.03 K/ L 0. 01-0.08 IMMATURE GRANULOCYTES-RELATIVE PERCENT (BEAKER) (test code = 2801) 0 % 0-1 CREATINE KINASE (CK), TOTAL AND [id number] 21:58:00* Test Item Value Reference Range Interpretation Comments CREATINE KINASE TOTAL (BEAKER) (test code = 380) 79 U/L 29-20 0 CREATINE KINASE-MB (BEAKER) (test code = 750) 1.8 ng/mL 0.0-6.6 CREATINE KINASE-MB INDEX (BEAKER) (test code = 395) 2.3 % CK-MB Reference Range:<6.7 Normal6.7-10.0 Borderline>10.0 Abnormal TROPONIN [id number] 21:58:00* Test Item Value Reference Range Interpretation Comments TROPONIN I (BEAKER) (test code = 397) 0.02 ng/mL 0.00-0.03 Troponin I (TnI) levels [...] acute neurological disease, and per sistent tachyarrhythmia.HEMOGLOBIN [id number] 21:58:00* Test Item Value Reference Range Interpretation Comments HEMOGLOBIN A1C (BEAKER) (test code = 368) 5.9 % 4.3-6.1 TSH/FREE T4 IF [id number] 21:55:00* Test Item Value Reference Range Interpretation Comments THYROID STIMULATING HORMONE (BEAKER) (test code = 772) 0.58 uIU/mL 0.35-4.94 LIPID [id number] 21:51:00* Test Item Value Reference Range Interpretation Comments TRIGLYCERIDES (BEAKER) (test code = 540) 76 mg/dL CHOLESTEROL (BEAKER) (test code = 631) 122 mg/dL HDL CHOLESTEROL (BEAKER) (test code = 976) 58 mg/dL LDL CHOLESTEROL CALCULATED (BEAKER) (test code = 633) 49 mg/dL Triglyceride Reference Range: Low Risk <150 Borderline 150-199 High Risk 200-499 Very High Risk >=500Cholesterol Reference Range: Low Risk <200 Borderline 200-239 High Risk >240HDL Cholesterol Reference Range: Low Risk >=60 High Risk <40LDL Cholesterol Reference Range: Optimal <100 Near Optimal 100-129 Borderline 130-159 High 160-189 Very High >=190 HEPATIC FUNCTION [id number] 21:51:00* Test Item Value Reference Range Interpretation Comments TOTAL PROTEIN (BEAKER) (test code = 770) 6.9 gm/dL 6.0-8.3 ALBUMIN (BEAKER) (test code = 1145) 3.6 g/dL 3.5-5.0 BILIRUBIN TOTAL (BEAKER) (test code = 377) 0.7 mg/dL 0.2-1.2 BILIRUBIN DIRECT (BEAKER) (test code = 706) 0.3 mg/dL 0.1-0.5 ALKALINE PHOSPHATASE (BEAKER) (test code = 346) 79 U/L 40-150 AST (SGOT) (BEAKER) (test code = 353) 21 U/L 5-34 ALT (SGPT) (BEAKER) (test code = 347) 10 U/L 6-55 CT, CHEST, WITHOUT [id number] 20:07:00FINAL REPORT History: Left pleural effusion. TECHNIQUE: [...] Lazaro Verified Date/Time: 06/13/2017 20:07:50 Reading Location: [address] Consult Reading Room 0 8:07 PM CREATINE KINASE (CK), TOTAL AND [id number] 15:35:00* Test Item Value Reference Range Interpretation Comments CREATINE KINASE TOTAL (BEAKER) (test code = 380) 90 U/L 29-20 0 CREATINE KINASE-MB (BEAKER) (test code = 750) 1.9 ng/mL 0.0-6.6 CREATINE KINASE-MB INDEX (BEAKER) (test code = 395) 2.1 % CK-MB Reference Range:<6.7 Normal6.7-10.0 Borderline>10.0 Abnormal TROPONIN [id number] 15:35:00* Test Item Value Reference Range Interpretation Comments TROPONIN I (BEAKER) (test code = 397) 0.02 ng/mL 0.00-0.03 Troponin I (TnI) levels [...] (BNP)2017-06-13 15:34:00* Test Item Value Reference Range Interpretation Comments B-TYPE NATRIURETIC PEPTIDE (BEAKER) (test code = 700) 554 pg/mL 0-100 H BASIC METABOLIC [id number] 15:27:00* Test Item Value Reference Range Interpretation Comments SODIUM (BEAKER) (test code = 381) 140 meq/L 136-145 POTASSIUM (BEAKER) (test code = 379) 4.1 meq/L 3.5-5.1 CHLORIDE (BEAKER) (test code = 382) 106 meq/L 98-107 CO2 (BEAKER) (test code = 355) 26 meq/L 22-29 BLOOD UREA NITROGEN (BEAKER) (test code = 354) 13 mg/dL 7-21 CREATININE (BEAKER) (test code = 358) 0.73 mg/dL 0.57-1.25 GLUCOSE RANDOM (BEAKER) (test code = 652) 105 mg/dL 70-105 CALCIUM (BEAKER) (test code = 697) 9.5 mg/dL 8.4-10.2 EGFR (BEAKER) (test code = 1092) 77 mL/min/1.73 sq m ESTIMATED GFR IS NOT ACCURATE CREATININE CLEARANCE IN PREDICTING GLOMERULAR FILTRATION RATE. ESTIMATED GFR IS NOT APPLICABLE FOR DIALYSIS PATIENTS. CBC W/PLT COUNT & AUTO [id number] 15:09:00* Test Item Value Reference Range Interpretation Comments WHITE BLOOD CELL COUNT (BEAKER) (test code = 775) 7.1 K/ L 3.5- 10.5 RED BLOOD CELL COUNT (BEAKER) (test code = 761) 3.94 M/ L 3.93-5 .22 HEMOGLOBIN (BEAKER) (test code = 410) 11.8 GM/DL 11.2-15.7 HEMATOCRIT (BEAKER) (test code = 411) 37.1 % 34.1-44.9 MEAN CORPUSCULAR VOLUME (BEAKER) (test code = 753) 94.2 fL 79. 4-94.8 MEAN CORPUSCULAR HEMOGLOBIN (BEAKER) (test code = 751) 29.9 pg 25.6-32.2 MEAN CORPUSCULAR HEMOGLOBIN CONC (BEAKER) (test code = 752) 31.8 GM/DL 32.2-35.5 L RED CELL DISTRIBUTION WIDTH (BEAKER) (test code = 412) 13.7 % 11.7-14.4 PLATELET COUNT (BEAKER) (test code = 756) 234 K/CU MM 150-450 MEAN PLATELET VOLUME (BEAKER) (test code = 754) 10.4 fL 9.4-12 .3 NUCLEATED RED BLOOD CELLS (BEAKER) (test code = 413) 0 /100 WBC 0 -0 NEUTROPHILS RELATIVE PERCENT (BEAKER) (test code = 429) 65 % LYMPHOCYTES RELATIVE PERCENT (BEAKER) (test code = 430) 26 % MONOCYTES RELATIVE PERCENT (BEAKER) (test code = 431) 8 % EOSINOPHILS RELATIVE PERCENT (BEAKER) (test code = 432) 1 % BASOPHILS RELATIVE PERCENT (BEAKER) (test code = 437) 1 % NEUTROPHILS ABSOLUTE COUNT (BEAKER) (test code = 670) 4.59 K/ L 1.56-6.13 LYMPHOCYTES ABSOLUTE COUNT (BEAKER) (test code = 414) 1.80 K/ L 1.18-3.74 MONOCYTES ABSOLUTE COUNT (BEAKER) (test code = 415) 0.55 K/ L 0. 24-0.36 H EOSINOPHILS ABSOLUTE COUNT (BEAKER) (test code = 416) 0.07 K/ L 0.04-0.36 BASOPHILS ABSOLUTE COUNT (BEAKER) (test code = 417) 0.04 K/ L 0. 01-0.08 IMMATURE GRANULOCYTES-RELATIVE PERCENT (BEAKER) (test code = 2801) 0 % 0-1 RAD, CHEST, 2 [id number] 14:19:00Reason for exam:->SHORTNESS OF BREATHFINAL REPORT AP and lateral chest HISTORY: Shortness of breath COMPARISON: 09/24/2014. Chest CT, 05/05/2017 IMPRESSION:Cardiomegaly similar to previous. Moderate left effusion with adjacent airspace disease. Faint opacities in the right upper lobe may reflect asymmetric edema or pneumonia. No pneum othorax. Signed: Wade Gomezeport Verified Date/Time: 06/13/2017 14:19: 33 Reading Location: [facility] Reading Room -GLUCOSE [id number] 07:57:00* Test Item Value Reference Range Interpretation Comments POC-GLUCOSE METER (BEAKER) (test code = 1538) 153 mg/dL 70-110 H TESTED AT [address] [address] POCT-GLUCOSE [id number] 21:26:00* Test Item Value Reference Range Interpretation Comments POC-GLUCOSE METER (BEAKER) (test code = 1538) 211 mg/dL 70-110 H TESTED AT [address] [address] POCT-GLUCOSE [id number] 17:33:00* Test Item Value Reference Range Interpretation Comments POC-GLUCOSE METER (BEAKER) (test code = 1538) 199 mg/dL 70-110 H TESTED AT [address] [address] POCT-GLUCOSE [id number] 12:15:00* Test Item Value Reference Range Interpretation Comments POC-GLUCOSE METER (BEAKER) (test code = 1538) 208 mg/dL 70-110 H TESTED AT [address] [address] POCT-GLUCOSE [id number] 08:13:00* Test Item Value Reference Range Interpretation Comments POC-GLUCOSE METER (BEAKER) (test code = 1538) 142 mg/dL 70-110 H TESTED AT [address] [address] [id number] 06:14:00* Test Item Value Reference Range Interpretation Comments PHOSPHORUS (BEAKER) (test code = 604) 3.4 mg/dL 2.3-4.7 [id number] 06:14:00* Test Item Value Reference Range Interpretation Comments MAGNESIUM (BEAKER) (test code = 627) 1.5 mg/dL 1.6-2.6 L BASIC METABOLIC [id number] 06:14:00* Test Item Value Reference Range Interpretation Comments SODIUM (BEAKER) (test code = 381) 141 meq/L 136-145 POTASSIUM (BEAKER) (test code = 379) 4.4 meq/L 3.5-5.1 CHLORIDE (BEAKER) (test code = 382) 105 meq/L 98-107 CO2 (BEAKER) (test code = 355) 29 meq/L 22-29 BLOOD UREA NITROGEN (BEAKER) (test code = 354) 15 mg/dL 7-21 CREATININE (BEAKER) (test code = 358) 0.74 mg/dL 0.57-1.25 GLUCOSE RANDOM (BEAKER) (test code = 652) 160 mg/dL 70-105 H CALCIUM (BEAKER) (test code = 697) 9.1 mg/dL 8.4-10.2 EGFR (BEAKER) (test code = 1092) 76 mL/min/1.73 sq m ESTIMATED GFR IS NOT ACCURATE CREATININE CLEARANCE IN PREDICTING GLOMERULAR FILTRATION RATE. ESTIMATED GFR IS NOT APPLICABLE FOR DIALYSIS PATIENTS. CBC W/PLT COUNT & AUTO [id number] 05:46:00* Test Item Value Reference Range Interpretation Comments WHITE BLOOD CELL COUNT (BEAKER) (test code = 775) 4.5 K/ L 3.5- 10.5 RED BLOOD CELL COUNT (BEAKER) (test code = 761) 3.53 M/ L 3.93-5 .22 L HEMOGLOBIN (BEAKER) (test code = 410) 10.4 GM/DL 11.2-15.7 L HEMATOCRIT (BEAKER) (test code = 411) 32.7 % 34.1-44.9 L MEAN CORPUSCULAR VOLUME (BEAKER) (test code = 753) 92.6 fL 79. 4-94.8 MEAN CORPUSCULAR HEMOGLOBIN (BEAKER) (test code = 751) 29.5 pg 25.6-32.2 MEAN CORPUSCULAR HEMOGLOBIN CONC (BEAKER) (test code = 752) 31.8 GM/DL 32.2-35.5 L RED CELL DISTRIBUTION WIDTH (BEAKER) (test code = 412) 13.4 % 11.7-14.4 PLATELET COUNT (BEAKER) (test code = 756) 157 K/CU MM 150-450 MEAN PLATELET VOLUME (BEAKER) (test code = 754) 10.8 fL 9.4-12 .3 NUCLEATED RED BLOOD CELLS (BEAKER) (test code = 413) 0 /100 WBC 0 -0 NEUTROPHILS RELATIVE PERCENT (BEAKER) (test code = 429) 50 % LYMPHOCYTES RELATIVE PERCENT (BEAKER) (test code = 430) 39 % MONOCYTES RELATIVE PERCENT (BEAKER) (test code = 431) 9 % EOSINOPHILS RELATIVE PERCENT (BEAKER) (test code = 432) 2 % BASOPHILS RELATIVE PERCENT (BEAKER) (test code = 437) 0 % NEUTROPHILS ABSOLUTE COUNT (BEAKER) (test code = 670) 2.23 K/ L 1.56-6.13 LYMPHOCYTES ABSOLUTE COUNT (BEAKER) (test code = 414) 1.75 K/ L 1.18-3.74 MONOCYTES ABSOLUTE COUNT (BEAKER) (test code = 415) 0.40 K/ L 0. 24-0.36 H EOSINOPHILS ABSOLUTE COUNT (BEAKER) (test code = 416) 0.08 K/ L 0.04-0.36 BASOPHILS ABSOLUTE COUNT (BEAKER) (test code = 417) 0.02 K/ L 0. 01-0.08 IMMATURE GRANULOCYTES-RELATIVE PERCENT (BEAKER) (test code = 2801) 0 % 0-1 POCT-GLUCOSE [id number] 21:12:00* Test Item Value Reference Range Interpretation Comments POC-GLUCOSE METER (BEAKER) (test code = 1538) 206 mg/dL 70-110 H TESTED AT [address] [address] POCT-GLUCOSE [id number] 17:19:00* Test Item Value Reference Range Interpretation Comments POC-GLUCOSE METER (BEAKER) (test code = 1538) 209 mg/dL 70-110 H TESTED AT [address] [address] POCT-GLUCOSE [id number] 15:47:00* Test Item Value Reference Range Interpretation Comments POC-GLUCOSE METER (BEAKER) (test code = 1538) 210 mg/dL 70-110 H TESTED AT [address] [address] URINALYSIS W/ [id number] 14:50:00* Test Item Value Reference Range Interpretation Comments COLOR (BEAKER) (test code = 470) Light Yellow CLARITY (BEAKER) (test code = 469) Clear SPECIFIC GRAVITY UA (BEAKER) (test code = 468) 1.008 1.001-1 .035 PH UA (BEAKER) (test code = 467) 5.0 5.0-8.0 PROTEIN UA (BEAKER) (test code = 464) Negative Negative GLUCOSE UA (BEAKER) (test code = 365) Negative Negative KETONES UA (BEAKER) (test code = 371) Negative Negative BILIRUBIN UA (BEAKER) (test code = 462) Negative Negative BLOOD UA (BEAKER) (test code = 461) Trace Negative A NITRITE UA (BEAKER) (test code = 465) Negative Negative LEUKOCYTE ESTERASE UA (BEAKER) (test code = 466) Moderate Negat mele A UROBILINOGEN UA (BEAKER) (test code = 463) 0.2 mg/dL 0.2-1.0 RBC UA (BEAKER) (test code = 519) 1 /HPF WBC UA (BEAKER) (test code = 520) 15 /HPF BACTERIA (BEAKER) (test code = 517) Rare SQUAMOUS EPITHELIAL (BEAKER) (test code = 516) 2 /HPF HYALINE CASTS (BEAKER) (test code = 514) 2 /LPF SOURCE(BEAKER) (test code = 2795) Urine, Clean Catch POCT-GLUCOSE [id number] 09:47:00* Test Item Value Reference Range Interpretation Comments POC-GLUCOSE METER (BEAKER) (test code = 1538) 155 mg/dL 70-110 H TESTED AT [facility] [address] [facility] [address] BASIC METABOLIC [id number] 06:47:00* Test Item Value Reference Range Interpretation Comments SODIUM (BEAKER) (test code = 381) 139 meq/L 136-145 POTASSIUM (BEAKER) (test code = 379) 5.2 meq/L 3.5-5.1 H Specimen slightly hemolyzed CHLORIDE (BEAKER) (test code = 382) 107 meq/L 98-107 CO2 (BEAKER) (test code = 355) 25 meq/L 22-29 BLOOD UREA NITROGEN (BEAKER) (test code = 354) 19 mg/dL 7-21 CREATININE (BEAKER) (test code = 358) 0.89 mg/dL 0.57-1.25 Specimen slightly hemolyzed GLUCOSE RANDOM (BEAKER) (test code = 652) 130 mg/dL 70-105 H CALCIUM (BEAKER) (test code = 697) 9.5 mg/dL 8.4-10.2 EGFR (BEAKER) (test code = 1092) 61 mL/min/1.73 sq m ESTIMATED GFR IS NOT ACCURATE CREATININE CLEARANCE IN PREDICTING GLOMERULAR FILTRATION RATE. ESTIMATED GFR IS NOT APPLICABLE FOR DIALYSIS PATIENTS. [id number] 06:17:00* Test Item Value Reference Range Interpretation Comments PARTIAL THROMBOPLASTIN TIME (BEAKER) (test code = 760) 34.1 seconds 22.5-36.0 PROTHROMBIN TIME/[id number] 06:16:00* Test Item Value Reference Range Interpretation Comments PROTIME (BEAKER) (test code = 759) 13.7 seconds 11.7-14.7 INR (BEAKER) (test code = 370) 1.1 <=5.9 RECOMMENDED COUMADIN/WARFARIN INR THERAPY RANGESSTANDARD DOSE: 2.0 - 3.0 Inclu aliza: PROPHYLAXIS for venous thrombosis, systemic embolization; TREATMENT for jay ous thrombosis and/or pulmonary embolus.HIGH RISK: Target INR is 2.5-3.5 for pat ients with mechanical heart valves.CBC W/PLT COUNT & AUTO [id number] 06:07:00* Test Item Value Reference Range Interpretation Comments WHITE BLOOD CELL COUNT (BEAKER) (test code = 775) 7.0 K/ L 3.5- 10.5 RED BLOOD CELL COUNT (BEAKER) (test code = 761) 3.75 M/ L 3.93-5 .22 L HEMOGLOBIN (BEAKER) (test code = 410) 11.0 GM/DL 11.2-15.7 L HEMATOCRIT (BEAKER) (test code = 411) 36.7 % 34.1-44.9 MEAN CORPUSCULAR VOLUME (BEAKER) (test code = 753) 97.9 fL 79. 4-94.8 H MEAN CORPUSCULAR HEMOGLOBIN (BEAKER) (test code = 751) 29.3 pg 25.6-32.2 MEAN CORPUSCULAR HEMOGLOBIN CONC (BEAKER) (test code = 752) 30.0 GM/DL 32.2-35.5 L RED CELL DISTRIBUTION WIDTH (BEAKER) (test code = 412) 13.4 % 11.7-14.4 PLATELET COUNT (BEAKER) (test code = 756) 174 K/CU MM 150-450 MEAN PLATELET VOLUME (BEAKER) (test code = 754) 11.0 fL 9.4-12 .3 NUCLEATED RED BLOOD CELLS (BEAKER) (test code = 413) 0 /100 WBC 0 -0 NEUTROPHILS RELATIVE PERCENT (BEAKER) (test code = 429) 65 % LYMPHOCYTES RELATIVE PERCENT (BEAKER) (test code = 430) 25 % MONOCYTES RELATIVE PERCENT (BEAKER) (test code = 431) 7 % EOSINOPHILS RELATIVE PERCENT (BEAKER) (test code = 432) 2 % BASOPHILS RELATIVE PERCENT (BEAKER) (test code = 437) 1 % NEUTROPHILS ABSOLUTE COUNT (BEAKER) (test code = 670) 4.50 K/ L 1.56-6.13 LYMPHOCYTES ABSOLUTE COUNT (BEAKER) (test code = 414) 1.77 K/ L 1.18-3.74 MONOCYTES ABSOLUTE COUNT (BEAKER) (test code = 415) 0.47 K/ L 0. 24-0.36 H EOSINOPHILS ABSOLUTE COUNT (BEAKER) (test code = 416) 0.13 K/ L 0.04-0.36 BASOPHILS ABSOLUTE COUNT (BEAKER) (test code = 417) 0.04 K/ L 0. 01-0.08 IMMATURE GRANULOCYTES-RELATIVE PERCENT (BEAKER) (test code = 2801) 1 % 0-1 CT, CHEST, WITHOUT [id number] 05:21:00Reason for exam:->FALLWhat is the patient's sedation [...] MDReport Verified Date/Time: 05/05/2017 05:21:47 Reading Location: [facility] C013Y CT Body Reading Room Elec tronically [...] MDReport Verified Date/Time: 05/05/2017 05:21:47 Reading Location: [facility] B1 C013Y CT Body Reading Room Elec tronically signed by: RICK COREAS on 05/05/2017 05:21 AM
--- OUTSIDE RECORDS SUMMARY | 2020-04-09 18:36 | XMS REPORT | Clinical Summary ---
Author Author [facility]MEL[facility] Address Unknown Phone Unavailable Care Team Providers Care Heddler Tier Name Role Phone Erika Sumner PCP Unavailable [...] artery stent place ment Overview: ICD9 DX [place] Operator Immunizations Name Dates Previously Given Next Due [...] Advance Directives For more information, please contact: [phone] [place] [address] Date Inactivated Comments Code Status [...]
--- OUTSIDE RECORDS SUMMARY | 2020-04-09 18:37 | XMS REPORT | Continuity of Care Document ---
Author Author [facility] t Organization [facility] Address [address] [place]. [address] [place] [id number] Phone Unavailable Care Team Providers Care Mapping Editor Name Role Phone FAYE SAGE PCP Familia JEFFERSON Attphys Unavailable MEHNAZ MON Attphys Unavailable Cameron REDDING Attphys Unavailable KRYSTAL VALENZUELA Attphys Unavailable SERG BRADLEY Attphys Unavailable MEHNAZ MON Admphys Unavailable Cameron SCHREIBER Admphys Unavailable MATEUS, YURY BRICENO Admphys Unavailable Payers Payer Name Policy Type Policy Number Effective Date Expiration Date Tod Rodriguez [id number] 2018 00:00:00 [facility] Problems Condition Name Condition Details Condition Category Status Onset Date Resolution Date Last Treatment Date Treating Clinician Comments Source Pleural effusion, left Pleural effusion, left Disease Active 2017-06-13 00:00:00 [facility] Multiple rib fractures Multiple rib fractures Disease Active 2017-05-05 00:00:00 [facility] Fall, initial encounter Fall, initial encounter Disease Active 2017-05-05 00:00:00 [facility] Chest wall contusion, right, initial encounter Chest w all contusion, right, initial encounter Disease Active 2017-05-05 00:00:00 [facility] Chest wall contusion, left, initial encounter Chest wa ll contusion, left, initial encounter Disease Active 2017-05-05 00:00:00 [facility] Diarrhea Diarrhea Disease Active 2014-09-24 00:00:00 [facility] PAD (peripheral artery disease) PAD (peripheral artery disease) Dis ease Active 2014-04-24 00:00:00 [facility] Chest pain Chest pain Disease Active 2013-01-07 00:00:00 [facility] Hypoxia Hypoxia Problem Active [facility] Pneumonia Pneumonia Problem Active [facility] CAD (coronary artery disease) CAD (coronary artery disease) Disease Active [facility] Status post coronary artery stent placement Status pos t coronary artery stent placement Disease Active Overview: ICD9 DX Repl acer [facility] Allergies, Adverse Reactions, Alerts Allergy Name Allergy Type Status Severity Reaction(s) Onset Date Inacti ve Date Treating Clinician Comments Source Clindamycin Allergy to Substance Active 2019-07-26 00:00:00 [facility] Clindamycin Propensity to adverse reactions Active Diarrhea, Nausea And Vomiting 2017-08-28 00:00:00 [facility] Social History Social Habit Start Date Stop Date Quantity Comments Source Sex Assigned At [facility] Smoking Status Start Date Stop Date Source [facility] Ordered Medication Name Filled Medication Name Start Date Stop Da te Current Medication? Ordering Clinician Indication Dosage Frequency Signature (SIG) Comments Components Source NIFEdipine (ADALAT CC) 30 MG 24 hr tablet 2018-09-05 14:25:26 Yes 30mg QD Take 30 mg by mouth daily. [facility] lisinopril (PRINIVIL,ZESTRIL) 40 MG tablet 2018-09-05 14:25:26 Yes 40mg QD Take 40 mg by mouth daily. [facility] magnesium oxide (MAG-OX) 400 mg (241.3 mg magnesium) tablet 2018-09-05 14:25:26 Yes 400mg QD Take 400 mg by mouth daily. [facility] carvedilol (COREG) 12.5 MG tablet 2018-09-05 14:25:26 Yes 12.5mg Take 12.5 mg by mouth 2 (two) times daily with breakfast and dinner. [facility] furosemide (LASIX) 40 MG tablet 2018-09-05 14:25:25 Yes 40mg Q.5D Take 40 mg by mouth 2 (two) times daily. [facility] dicyclomine (BENTYL) 20 mg tablet 2018-09-05 00:00:00 2019 23:59:00 No 20mg Q.5D Take 1 tablet (20 mg total) by mouth 2 ( two) times daily. [facility] oxybutynin (DITROPAN) 5 MG tablet 2017-06-20 08:48:12 Yes 5mg Take 5 mg by mouth every night as needed . [facility] insulin aspart protamine-insulin aspart (NOVOLOG 70/30) 100 unit/mL (70-30) injection 2017-06-20 08:45:23 Yes diabetes 45U Inject 45 Units subcutaneously daily with breakfast . [facility] acetaminophen-codeine (TYLENOL #3) 300-30 mg per tablet 2017-06-13 23:26:28 Yes 1{tbl} Take 1 tablet b y mouth every 4 (four) hours as needed for Pain. [facility] docusate sodium (COLACE) 250 MG capsule 2017-06-13 13:15:45 Yes 250mg QD Take 250 mg by mouth daily. [facility] lactulose (CHRONULAC) 20 gram/30 mL solution 2017-06-13 13:15:45 Yes 20g Take 20 g by mouth 3 (three) times daily as needed. [facility] lidocaine (LIDODERM) 5 % patch 2017-06-13 13:15:45 Yes 1{patch} Q24H Place 1 patch onto the skin daily Remove & Discard patch within 12 hours or as directed by . [facility] potassium chloride (KLOR-CON) 10 MEQ CR tablet 2017-06-13 13:15: 45 Yes 10meq QD Take 10 mEq by mouth daily. [facility] ergocalciferol (VITAMIN D2) 50,000 unit capsule 2017-06-13 13:15 :45 Yes [id number] Q7D Take 50,000 Units by mouth once a week. [facility] omega-3 fatty acids-fish oil 340-1,000 mg Cap per capsule 2015-11-16 06:05:35 Yes 2g QD Take 2 g by mouth daily. [facility] blood sugar diagnostic (GLUCOSE BLOOD) Strp 2014-10-07 00:00:00 Yes 1{each} 1 each by Other - See Admin Instructions route. [facility] insulin pen needles (BD ULTRA-FINE RANDY) 4 mm x 32 G 2 00:00:00 Yes 1{syringe} Inject 1 Syringe subcutaneously. [facility] alendronate (FOSAMAX) 35 MG tablet 2014-10-07 00:00:00 Yes 35mg 35 mg every 7 days . [facility] aspirin 81 MG EC tablet 2014-10-07 00:00:00 Yes 81mg QD Take 81 mg by mouth daily . [facility] clopidogrel (PLAVIX) 75 mg tablet 2014-10-07 00:00:00 Yes 75mg QD 75 mg daily . [facility] gabapentin (NEURONTIN) 300 MG capsule 2014-10-07 00:00:00 Y es 300mg QD Take 300 mg by mouth nightly . [facility] insulin aspart protamine-insulin aspart (NOVOLOG MIX 70/30) 100 unit/mL (70-30) injection 2014-10-07 00:00:00 Yes Inject 3 5 units before dinner. [facility] pravastatin (PRAVACHOL) 20 MG tablet 2014-10-07 00:00:00 Ye s 20mg Take 20 mg by mouth. [facility] calcium & magnesium carbonates (MYLANTA) 311-232 mg per tabl et 2014-04-24 07:01:18 Yes 1{tbl} QD Take 1 tablet by mouth daily. [facility] Acetaminophen With Codeine (Tylenol With Codeine #3 Ta blet) 1 Each Tablet Acetaminophen With Codeine (Tylenol With Codeine #3 Tablet) 1 Each Tablet Yes 300 Twice A Day as needed for Mild Pain (1-3 ) Or Fever>100.8 [facility] Aspirin (Aspir 81) 81 Mg Tablet. Aspirin (Aspir 81) 81 Mg Tablet. Yes 81 Daily [facility] Baclofen 10 Mg Tablet Baclofen 10 Mg Tablet Yes 10 Bedtime as needed for Muscle Spasm [facility] Benzonatate 100 Mg Capsule Benzonatate 100 Mg Capsule Yes 100 Three Times A Day as needed for Cough [facility] Benzonatate (Tessalon Perle) 100 Mg Capsule Benzonatat e (Tessalon Perle) 100 Mg Capsule Yes 100 Every 6 Hours as needed for Co ugh [facility] Budesonide/Formoterol Fumarate (Symbicor t 160-4.5 Mcg Inhaler) 10.2 Gm Hfa.aer.ad Budesonide/Formoterol Fumarate (Symbicor t 160-4.5 Mcg Inhaler) 10.2 Gm Hfa.aer.ad Yes 2 Twice A Day [facility] Calcium Carbonate/Vitamin D3 (Calcium 500+D Tablet Camelia w) 1 Each Tab.chew Calcium Carbonate/Vitamin D3 (Calcium 500+D Tablet Chew) 1 Each Tab.chew Yes 2 Daily [facility] Carvedilol 12.5 Mg Tablet Carvedilol 12.5 Mg Tablet Yes 12.5 Twice A Day [facility] Clopidogrel Bisulfate (Clopidogrel) 75 Mg Tablet Clopi dogrel Bisulfate (Clopidogrel) 75 Mg Tablet Yes 75 Daily [facility] Doxycycline Hyclate 100 Mg Capsule Doxycycline Hyclate 100 Mg Capsule Yes 100 Twice A Day [facility] Ergocalciferol (Vitamin D2) (Vitamin D2) 50 Mcg Capsul e Ergocalciferol (Vitamin D2) (Vitamin D2) 50 Mcg Capsule Yes 1.25 Weekly [facility] Fluticasone Propionate 16 Gm [place].susp Fluticasone Propiona te 16 Gm [place].susp Yes 2 Daily [facility] Furosemide 40 Mg Tablet Furosemide 40 Mg Tablet Yes 40 Daily [facility] Glargine Glargine Yes 24 Daily With Breakfast [facility] Insulin Nph Hum/Reg Insulin Hm (Novolin 70-30 Flexpen) 100 Unit/1 Ml Insuln.pen Insulin Nph Hum/Reg Insulin Hm (Novolin 70-30 Flexpen) 100 Unit/1 Ml Insuln.pen Yes Twice Daily With Meals [facility] Ipratropium [place] 0.2 Mg/1 Ml Solution Ipratropium B romide 0.2 Mg/1 Ml Solution Yes 2 Four Times Daily as needed fo r Rhinitis [facility] Linezolid (Zyvox) 600 Mg Tablet Linezolid (Zyvox) 600 Mg Tablet Yes 600 Twice A Day [facility] Lisinopril 10 Mg Tablet Lisinopril 10 Mg Tablet Yes 40 Daily [facility] Loratadine 10 Mg Tablet Loratadine 10 Mg Tablet Yes 10 Daily [facility] Magnesium Oxide 400 Mg Tablet Magnesium Oxide 400 Mg Tablet Yes 400 Daily [facility] Nifedipine (Nifedipine Er) 30 Mg Tab.er.24 Nifedipine (Nifedipine Er) 30 Mg Tab.er.24 Yes 30 Bedtime [facility] Medora-3 Fatty Acids/Fish Oil (Medora 3 Fish Oil Softgel ) 1 Each Capsule. MedoraBradley 3 Fatty Acids/Fish Oil (Medora 3 Fish Oil Softgel) 1 Each Capsule. Yes 1 Daily [facility] Pantoprazole Sodium (Protonix) 40 Mg Tablet. Pantopr azole Sodium (Protonix) 40 Mg Tablet. Yes 20 Daily [facility] Pravastatin Sodium 40 Mg Tablet Pravastatin Sodium 40 Mg Tablet Yes 40 Daily [facility] Pregabalin (Lyrica) 25 Mg Cap Pregabalin (Lyrica) 25 Mg Cap Yes Bedtime [facility] Amoxicillin/Potassium Clav (Augmentin 50 0-125 Tablet) 1 Each Tablet, 500 Mg Oral Amoxicillin/Potassium Clav (Augmentin 50 0-125 Tablet) 1 Each Tablet, 500 Mg Oral 2019-07-30 00:00:00 No 500 Twice A Day [facility] Alendronate Sodium 35 Mg Tablet, Alendronate Sodium 35 Mg Tablet , 2019-07-26 00:00:00 No Once [facility] Gabapentin 300 Mg Capsule, 300 Mg Oral Gabapentin 300 Mg Capsule , 300 Mg Oral 2019-07-26 00:00:00 No 300 Bedtime [facility] Immunizations Ordered Immunization Name Filled Immunization Name Date Status Comments Source Pneumococcal Polysaccharide (Pneumovax) 2013-01-09 00:00:0 0 Completed [facility] Procedures Procedure Date / Time Performed Performing Clinician [facility] e Computed tomography of chest without contrast 2019-07-27 00:00:0 0 MEHNAZ MON [facility] X-ray of chest, two views 2018-11-12 00:00:00 HORACIO IVAN CH, I [facility] DRAINAGE OF TRACHEA, ENDO, DIAGN 2018-10-30 00:00:00 EMILIANO IVAN [facility] DRAINAGE OF RIGHT UPPER LUNG LOBE, ENDO, DIAGN 2018-10-30 00:00: 00 HORACIO IVAN [facility] RESPIRATORY VENTILATION, GREATER THAN 96 CONSECUTIVE HOURS 2 00:00:00 [place] [facility] INSERTION OF ENDOTRACHEAL AIRWAY INTO TRACHEA, VIA OPENING 00:00:00 [place] [facility] ASSISTANCE WITH RESPIRATORY VENTILATION, <24 HRS, CPAP 10-28 00:00:00 [place] [facility] Computed tomography of chest without contrast 2018-10-26 00:00:0 0 YAA [facility] Encounters Start Date/Time End Date/Time Encounter Type Admission Type [facility] Care Department Encounter ID Source 2019-07-26 16:10:00 2019-07-30 12:45:00 Discharged Inpatient 1 MEHNAZ MON [facility] [id number] [facility] 2018-10-25 22:22:00 2018-11-13 19:17:00 Discharged Inpatient 1 YAA [facility] [id number] [facility] Results Test Description Test Time Test Comments Results Result Comments Source CHEST SINGLE (PORTABLE) 2020-04-09 13:47:00 [facility] [address] [address] Patient Name: DAYSI AGUIRRE MR #: [id number] : 1935 Age/Sex: 84/F Req #: [id number] Adm Physician: Ordered by: CALEB JEFFERSON MD Report #: [id number] Location: ER Room/Bed: Procedure: [id number] DX/CHEST SINGLE (PORTABLE) Exam Date: 04/09/20 Exam [...] Test Item Bedside Glucose (test code = 53127-7) 193 70-120 H Meter ID: [id number] [facility] 2019-07-30 07:08:00* Test Item Value Reference Range Interpretation Comments Sputum Culture (test code = 624-7) No Result Data Provided [facility] [id number] 16:31:00* Test Item Value Reference Range Interpretation Comments Blood Culture (test code = 53974262) NO GROWTH AFTER 72 HOURS [facility] Yqrih8280-[facility]-27 06:35:00* Test Item Value Reference Range Interpretation Comments Sodium Level (test code = 2951-2) 140 136-145 [facility]Pot[facility] Rixei7674-56-77 06:35:00* Test Item Value Reference Range Interpretation Comments Potassium Level (test code = 2823-3) 4.0 3.5-5.1 [facility] HospitalChloride Aknxc7495-37-25 06:35:00* Test Item Value Reference Range Interpretation Comments Chloride Level (test code = 2075-0) 102 98-107 [facility] HospitalCarbon Dioxide [id number] 06:35:00* Test Item Value Reference Range Interpretation Comments Carbon Dioxide Level (test code = 2028-9) 30 22-29 H [facility] HospitalAnion Otl7699-87-16 06:35:00* Test Item Value Reference Range Interpretation Comments Anion Gap (test code = 33515-9) 12.0 8-16 [facility] HospitalBlood Urea Pxiynuba5122-65-53 06:35:00* Test Item Value Reference Range Interpretation Comments Blood Urea Nitrogen (test code = 3094-0) 11 7-26 [facility] HospitalCreatinine2019-12-23 06:35:00* Test Item Value Reference Range Interpretation Comments Creatinine (test code = 2160-0) 0.86 0.57-1.11 [facility] HospitalBUN/Creatinine Tvyjl7219-99-91 06:35:00* Test Item Value Reference Range Interpretation Comments BUN/Creatinine Ratio (test code = 3097-3) 13 6-25 [facility] HospitalEstimat Glomerular Filtration Rate 2019-07-28 06:35:00* Test Item Value Reference Range Interpretation Comments Estimat Glomerular Filtration Rate (test code = 613314986) > 60 >60 Ranges were taken from the National Kidney Disease Education Program and the [facility] literature.Reference ranges:60 or greater: Yzksun98-83 ( for 3 consecutive months): Chronic kidney disease 15 or less: Kidney failureKell West Regional HospitalGlucose Yicrz4236-90-36 06:35:00* Test Item Value Reference Range Interpretation Comments Glucose Level (test code = XFA4372) 115 74-118 [facility] HospitalCalcium Fvlul6228-28-74 06:35:00* Test Item Value Reference Range Interpretation Comments Calcium Level (test code = 32791-5) 8.8 8.4-10.2 [facility] HospitalWhite Blood Lbevm8485-32-47 06:21:00* Test Item Value Reference Range Interpretation Comments White Blood Count (test code = 6690-2) 6.54 4.8-10.8 [facility] HospitalRed Blood Imikp2142-98-67 06:21:00* Test Item Value Reference Range Interpretation Comments Red Blood Count (test code = 789-8) 3.25 3.6-5.1 L [facility] HospitalHemoglobin2019-12-23 06:21:00* Test Item Value Reference Range Interpretation Comments Hemoglobin (test code = 11906-0) 9.2 12.0-16.0 L [facility] HospitalHematocrit2019-12-23 06:21:00* Test Item Value Reference Range Interpretation Comments Hematocrit (test code = 4544-3) 30.0 34.2-44.1 L [facility] HospitalMean Corpuscular Mhfmbg6092-76-92 06:21:00* Test Item Value Reference Range Interpretation Comments Mean Corpuscular Volume (test code = 787-2) 92.3 81-99 [facility] HospitalMean Corpuscular Jloankjogn7392-40-22 06:21:00* Test Item Value Reference Range Interpretation Comments Mean Corpuscular Hemoglobin (test code = 785-6) 28.3 28-32 [facility] HospitalMean Corpuscular Hemoglobin Concent 2019-07-28 06:21:00* Test Item Value Reference Range Interpretation Comments Mean Corpuscular Hemoglobin Concent (test code = 786-4) 30.7 31-35 L [facility] HospitalRed Cell Distribution Sjxjp1086-12-03 06:21:00* Test Item Value Reference Range Interpretation Comments Red Cell Distribution Width (test code = 49474-6) 13.3 11.7 -14.4 [facility] HospitalPlatelet Iqnou5376-67-11 06:21:00* Test Item Value Reference Range Interpretation Comments Platelet Count (test code = 777-3) 278 140-360 [facility] HospitalNeutrophils (%) (Auto)2019-07-28 06:21:00 * Test Item Value Reference Range Interpretation Comments Neutrophils (%) (Auto) (test code = 56238-5) 65.8 38.7-80.0 [facility] HospitalLymphocytes (%) (Auto)2019-07-28 06:21:00 * Test Item Value Reference Range Interpretation Comments Lymphocytes (%) (Auto) (test code = 736-9) 23.7 18.0-39.1 [facility] HospitalMonocytes (%) (Auto)2019-07-28 06:21:00* Test Item Value Reference Range Interpretation Comments Monocytes (%) (Auto) (test code = 5905-5) 7.3 4.4-11.3 [facility] HospitalEosinophils (%) (Auto)2019-07-28 06:21:00 * Test Item Value Reference Range Interpretation Comments Eosinophils (%) (Auto) (test code = 713-8) 2.4 0.0-6.0 [facility] HospitalBasophils (%) (Auto)2019-07-28 06:21:00* Test Item Value Reference Range Interpretation Comments Basophils (%) (Auto) (test code = 706-2) 0.6 0.0-1.0 [facility] HospitalIM GRANULOCYTES %2019-07-28 06:21:00* Test Item Value Reference Range Interpretation Comments IM GRANULOCYTES % (test code = IM GRANULOCYTES %) 0.2 0.0- 1.0 [facility] HospitalNeutrophils # (Auto)2019-07-28 06:21:00* Test Item Value Reference Range Interpretation Comments Neutrophils # (Auto) (test code = 751-8) 4.3 2.1-6.9 [facility] HospitalLymphocytes # (Auto)2019-07-28 06:21:00* Test Item Value Reference Range Interpretation Comments Lymphocytes # (Auto) (test code = 70214-5) 1.6 1.0-3.2 [facility] HospitalMonocytes # (Auto)2019-07-28 06:21:00* Test Item Value Reference Range Interpretation Comments Monocytes # (Auto) (test code = 742-7) 0.5 0.2-0.8 [facility] HospitalEosinophils # (Auto)2019-07-28 06:21:00* Test Item Value Reference Range Interpretation Comments Eosinophils # (Auto) (test code = 711-2) 0.2 0.0-0.4 [facility] HospitalBasophils # (Auto)2019-07-28 06:21:00* Test Item Value Reference Range Interpretation Comments Basophils # (Auto) (test code = 704-7) 0.0 0.0-0.1 [facility] HospitalAbsolute Immature Granulocyte (auto 2019-07-28 06:21:00* Test Item Value Reference Range Interpretation Comments Absolute Immature Granulocyte (auto (kim t code = Absolute Immature Granulocyte (auto) 0.01 0-0.1 [facility] HospitalInfluenza Virus Types A,B Antigen 2019-07-27 15:06:00* Test Item Value Reference Range Interpretation Comments Influenza Virus Types A,B Antigen (test code = 87310-2) NEGATIVE NEGATIVE [facility] HospitalB-Type Natriuretic Etemacq8749-43-93 13:14:00* Test Item Value Reference Range Interpretation Comments B-Type Natriuretic Peptide (test code = 82058-3) 1335.7 0-100 H [facility] HospitalCreatine Kinase EO5018-50-56 13:14:00* Test Item Value Reference Range Interpretation Comments Creatine Kinase MB (test code = 84745-2) 1.70 0-5.0 [facility] HospitalTroponin [id number] 13:14:00* Test Item Value Reference Range Interpretation Comments Troponin I (test code = LEH2722) 0.227 0-0.300 [facility] HospitalCreatine Jcigoq4855-72-44 13:13:00* Test Item Value Reference Range Interpretation Comments Creatine Kinase (test code = 2157-6) 80 29-168 [facility] HospitalCT CHEST [id number] 12:50:00 [facility] [address] [address] Patient Name: DAYSI AGUIRRE MR #: [id number] : 1935 Age/Sex: 84/F Req #: [id number] Adm Physician: MEHNAZ MON MD Ordered by: MEHNAZ MON MD Report #: [id number] Location: [facility] Room/Bed: 2931 Procedure: 1222-[address]/CT CHEST [...] MEHNAZ MON MD CHEST SINGLE (PORTABLE)2019-07-26 15:16:[address] [address] Patient Name: DAYSI AGUIRRE MR #: [id number] : 1935 Age/Sex: 84/F Req #: [id number] Adm Physician: Ordered by: TONJA GIRARD DO Report #: [id number] Location: ER Room/Bed: Procedure: [id number] DX/CHEST SINGLE (PORTABLE) Exam Date: 07/26/19 Exam [...] 07/26/199 COPY TO: TONJA LONGORIA DO Total Lpxzfrwhz0233-35-09 14:19:00* Test Item Value Reference Range Interpretation Comments Total Bilirubin (test code = 1975-2) 0.4 0.2-1.2 [facility] HospitalAspartate Amino Transf (AST/SGOT) 2019-07-26 14:19:00* Test Item Value Reference Range Interpretation Comments Aspartate Amino Transf (AST/SGOT) (test code = Aspartate Amino Transf (AST/SGOT)) 14 5-34 [facility] HospitalAlanine Aminotransferase (ALT/SGPT) 2019-07-26 14:19:00* Test Item Value Reference Range Interpretation Comments Alanine Aminotransferase (ALT/SGPT) (test code = 1742-6) 13 0-55 [facility] HospitalTotal Qvklcmv2513-98-47 14:19:00* Test Item Value Reference Range Interpretation Comments Total Protein (test code = 2885-2) 5.8 6.5-8.1 L [facility] HospitalAlbumin2019-12-21 14:19:00* Test Item Value Reference Range Interpretation Comments Albumin (test code = 1751-7) 2.9 3.5-5.0 L [facility] HospitalGlobulin2019-12-21 14:19:00* Test Item Value Reference Range Interpretation Comments Globulin (test code = 70536-2) 2.9 2.3-3.5 [facility] HospitalAlbumin/Globulin Fvgrf5797-48-85 14:19:00 * Test Item Value Reference Range Interpretation Comments Albumin/Globulin Ratio (test code = 1759-0) 1.0 0.8-2.0 [facility] HospitalAlkaline Virbidzarlk3419-26-96 14:19:00* Test Item Value Reference Range Interpretation Comments Alkaline Phosphatase (test code = 6768-6) 71 40-150 [facility] HospitalBedside Jhfqxry5514-36-86 11:29:00* Test Item Value Reference Range Interpretation Comments Bedside Glucose (test code = 46378-0) 216 70-120 H Meter ID: [id number] [facility] Hospitalodium Level 2018-11-13 10:20:00* Test Item Value Reference Range Interpretation Comments Sodium Level (test code = 2951-2) 136 136-145 [facility] HospitalPotassium Cettr3596-38-95 10:20:00* Test Item Value Reference Range Interpretation Comments Potassium Level (test code = 2823-3) 4.8 3.5-5.1 [facility] HospitalChloride Jxwrl7475-89-76 10:20:00* Test Item Value Reference Range Interpretation Comments Chloride Level (test code = 2075-0) 100 98-107 [facility] HospitalCarbon Dioxide Fbzsu7545-49-57 10:20:00* Test Item Value Reference Range Interpretation Comments Carbon Dioxide Level (test code = 2028-9) 32 22-29 H [facility] HospitalAnion Riz7360-07-21 10:20:00* Test Item Value Reference Range Interpretation Comments Anion Gap (test code = 36445-3) 8.8 8-16 [facility] HospitalBlood Urea Wtmzclzk3423-63-40 10:20:00* Test Item Value Reference Range Interpretation Comments Blood Urea Nitrogen (test code = 3094-0) 16 7-26 [facility] HospitalCreatinine2019-04-10 10:20:00* Test Item Value Reference Range Interpretation Comments Creatinine (test code = 2160-0) 0.66 0.57-1.11 [facility] HospitalBUN/Creatinine Chvgd2014-32-73 10:20:00* Test Item Value Reference Range Interpretation Comments BUN/Creatinine Ratio (test code = 3097-3) 24 6-25 [facility] HospitalEstimat Glomerular Filtration Rate 2018-11-13 10:20:00* Test Item Value Reference Range Interpretation Comments Estimat Glomerular Filtration Rate (test code = 966351161) > 60 >60 Ranges were taken from the National Kidney Disease Education Program and the [facility] literature.Reference ranges:60 or greater: Leiwvt61-37 ( for 3 consecutive months): Chronic kidney disease 15 or less: Kidney failureKell West Regional HospitalGlucose Jvnrh1531-27-84 10:20:00* Test Item Value Reference Range Interpretation Comments Glucose Level (test code = OHN9348) 133 74-118 H [facility] HospitalCalcium Xjjav0405-66-53 10:20:00* Test Item Value Reference Range Interpretation Comments Calcium Level (test code = 04767-5) 8.3 8.4-10.2 L [facility] HospitalWhite Blood Cbyuc1207-55-47 09:54:00* Test Item Value Reference Range Interpretation Comments White Blood Count (test code = 6690-2) 8.33 4.8-10.8 [facility] HospitalRed Blood Dsian0022-96-47 09:54:00* Test Item Value Reference Range Interpretation Comments Red Blood Count (test code = 789-8) 3.39 3.6-5.1 L [facility] HospitalHemoglobin2019-04-10 09:54:00* Test Item Value Reference Range Interpretation Comments Hemoglobin (test code = 50281-7) 9.8 12.0-16.0 L [facility] HospitalHematocrit2019-04-10 09:54:00* Test Item Value Reference Range Interpretation Comments Hematocrit (test code = 4544-3) 31.3 34.2-44.1 L [facility] HospitalMean Corpuscular Xsjbxq2420-00-14 09:54:00* Test Item Value Reference Range Interpretation Comments Mean Corpuscular Volume (test code = 787-2) 92.3 81-99 [facility] HospitalMean Corpuscular Wwfodgftti3484-96-84 09:54:00* Test Item Value Reference Range Interpretation Comments Mean Corpuscular Hemoglobin (test code = 785-6) 28.9 28-32 [facility] HospitalMean Corpuscular Hemoglobin Concent 2018-11-13 09:54:00* Test Item Value Reference Range Interpretation Comments Mean Corpuscular Hemoglobin Concent (test code = 786-4) 31.3 31-35 [facility] HospitalRed Cell Distribution Jpezy9439-55-80 09:54:00* Test Item Value Reference Range Interpretation Comments Red Cell Distribution Width (test code = 45162-2) 15.8 11.7 -14.4 H [facility] HospitalPlatelet Xqyvb7442-42-45 09:54:00* Test Item Value Reference Range Interpretation Comments Platelet Count (test code = 777-3) 268 140-360 [facility] HospitalNeutrophils (%) (Auto)2018-11-13 09:54:00 * Test Item Value Reference Range Interpretation Comments Neutrophils (%) (Auto) (test code = 43606-0) 67.1 38.7-80.0 [facility] HospitalLymphocytes (%) (Auto)2018-11-13 09:54:00 * Test Item Value Reference Range Interpretation Comments Lymphocytes (%) (Auto) (test code = 736-9) 23.9 18.0-39.1 [facility] HospitalMonocytes (%) (Auto)2018-11-13 09:54:00* Test Item Value Reference Range Interpretation Comments Monocytes (%) (Auto) (test code = 5905-5) 6.5 4.4-11.3 [facility] HospitalEosinophils (%) (Auto)2018-11-13 09:54:00 * Test Item Value Reference Range Interpretation Comments Eosinophils (%) (Auto) (test code = 713-8) 1.4 0.0-6.0 [facility] HospitalBasophils (%) (Auto)2018-11-13 09:54:00* Test Item Value Reference Range Interpretation Comments Basophils (%) (Auto) (test code = 706-2) 0.4 0.0-1.0 [facility] HospitalIM GRANULOCYTES %2018-11-13 09:54:00* Test Item Value Reference Range Interpretation Comments IM GRANULOCYTES % (test code = IM GRANULOCYTES %) 0.7 0.0- 1.0 [facility] HospitalNeutrophils # (Auto)2018-11-13 09:54:00* Test Item Value Reference Range Interpretation Comments Neutrophils # (Auto) (test code = 751-8) 5.6 2.1-6.9 [facility] HospitalLymphocytes # (Auto)2018-11-13 09:54:00* Test Item Value Reference Range Interpretation Comments Lymphocytes # (Auto) (test code = 25320-7) 2.0 1.0-3.2 [facility] HospitalMonocytes # (Auto)2018-11-13 09:54:00* Test Item Value Reference Range Interpretation Comments Monocytes # (Auto) (test code = 742-7) 0.5 0.2-0.8 [facility] HospitalEosinophils # (Auto)2018-11-13 09:54:00* Test Item Value Reference Range Interpretation Comments Eosinophils # (Auto) (test code = 711-2) 0.1 0.0-0.4 [facility] HospitalBasophils # (Auto)2018-11-13 09:54:00* Test Item Value Reference Range Interpretation Comments Basophils # (Auto) (test code = 704-7) 0.0 0.0-0.1 [facility] HospitalAbsolute Immature Granulocyte (auto 2018-11-13 09:54:00* Test Item Value Reference Range Interpretation Comments Absolute Immature Granulocyte (auto (kim t code = Absolute Immature Granulocyte (auto) 0.06 0-0.1 [facility] HospitalCHEST 2 PVTYP5240-12-65 06:47:00 [place] [address] Patient Name: DAYSI AGUIRRE MR #: [id number] : 1935 Age/Sex: 83/F Req #: [id number] Adm Physician: MEHNAZ MON MD Ordered by: HORACIO IVAN MD Report #: [id number] Location: MED/SURG2 Room/Bed: 209 Procedure: 0409- 0004 [...] 11/12/18647 COPY TO: HORACIO IVAN MD Total Bhgthnqqr1225-28-09 06:21:00* Test Item Value Reference Range Interpretation Comments Total Bilirubin (test code = 1975-2) 0.6 0.2-1.2 [facility] HospitalAspartate Amino Transf (AST/SGOT) 2018-11-08 06:21:00* Test Item Value Reference Range Interpretation Comments Aspartate Amino Transf (AST/SGOT) (test code = Aspartate Amino Transf (AST/SGOT)) 36 5-34 H [facility] HospitalAlanine Aminotransferase (ALT/SGPT) 2018-11-08 06:21:00* Test Item Value Reference Range Interpretation Comments Alanine Aminotransferase (ALT/SGPT) (test code = 1742-6) 34 0-55 [facility] HospitalTotal Dxzvftk5728-11-76 06:21:00* Test Item Value Reference Range Interpretation Comments Total Protein (test code = 2885-2) 4.9 6.5-8.1 L [facility] HospitalAlbumin2019-04-05 06:21:00* Test Item Value Reference Range Interpretation Comments Albumin (test code = 1751-7) 1.8 3.5-5.0 L [facility] HospitalGlobulin2019-04-05 06:21:00* Test Item Value Reference Range Interpretation Comments Globulin (test code = 19179-2) 3.1 2.3-3.5 [facility] HospitalAlbumin/Globulin Nizui6114-82-36 06:21:00 * Test Item Value Reference Range Interpretation Comments Albumin/Globulin Ratio (test code = 1759-0) 0.6 0.8-2.0 L [facility] HospitalAlkaline Mvjyigmgcvp0941-68-01 06:21:00* Test Item Value Reference Range Interpretation Comments Alkaline Phosphatase (test code = 6768-6) 63 40-150 [facility] HospitalBlood Awsodre9007-47-82 19:24:00* Test Item Value Reference Range Interpretation Comments Blood Culture (test code = 53268641) NO GROWTH AFTER 5 DAYS, FINAL REPORT [facility] HospitalMODIFIED BA. HJXPFQN1954-45-60 16:15:00 [place] [address] Patient Name: DAYSI AGUIRRE MR #: [id number] : 1935 Age/Sex: 83/F Req #: [id number] Adm Physician: MEHNAZ MON MD Ordered by: EWELINA TIRADO MD Report #: [id number] Location: ICU Room/Bed: ICU [facility] Procedure: 0 403-0023 DX/MODIFIED BA. SWALLOW Exam [...] TO: EWELINA TIRADO MD Chlamydia pneumoniae IgG Xgyziygl6086-74-67 08:57:00* Test Item Value Reference Range Interpretation Comments Chlamydia pneumoniae IgG Antibody (test code = 6913-8) < 1:100 Reference Range:< 1:100[facility] HospitalChlamydia trachomatis IgG Mehknxmh9383-79-97 08:57:00* Test Item Value Reference Range Interpretation Comments Chlamydia trachomatis IgG Antibody (test code = 14985-5) < 1:100 [facility] HospitalChlamydia trachomatis Ab Interpret 2018-11-05 08:57:00* Test Item Value Reference Range Interpretation Comments Chlamydia trachomatis Ab Interpret (test code = Chlamydia trachomatis Ab Interpret) The performance characteristics of these listed assays were validated by [employer] The [place] FDA has not approved or cleared this test. The results of this assay can be used for clinical diagnosis without FDA approval. [facility] is a CLIA certified, CAP accredited laboratory for performing high complexity assays such as these. Testing Performed at: [facility] [address] [place], [place] [address]dia pneumoniae IgG Antibody 2018-11-05 08:57:00* Test Item Value Reference Range Interpretation Comments Chlamydia pneumoniae IgG Antibody (test code = 6913-8) < 1:100 Reference Range:< 1:100[facility] HospitalChlamydia trachomatis IgG Ijemvdug0777-32-97 08:57:00* Test Item Value Reference Range Interpretation Comments Chlamydia trachomatis IgG Antibody (test code = 05949-0) < 1:100 [facility] HospitalChlamydia trachomatis Ab Interpret 2018-11-05 08:57:00* Test Item Value Reference Range Interpretation Comments Chlamydia trachomatis Ab Interpret (test code = Chlamydia trachomatis Ab Interpret) The performance characteristics of these listed assays were validated by [employer]. The [place] FDA has not approved or cleared this test. The results of this assay can be used for clinical diagnosis without FDA approval. [facility] is a CLIA certified, CAP accredited laboratory for performing high complexity assays such as these. Testing Performed at: [facility] [address] [place], [place] [address]Chlamydia pneumoniae IgM Antibody 2018-11-05 08:33:00* Test Item Value Reference Range Interpretation Comments Chlamydia pneumoniae IgM Antibody (test code = 6914-6) <1:10 [facility] HospitalChlamydia pneumoniae IgM Antibody 2018-11-05 08:33:00* Test Item Value Reference Range Interpretation Comments Chlamydia pneumoniae IgM Antibody (test code = 6914-6) <1:10 [facility] HospitalArterial Blood oR7000-97-57 17:47:00* Test Item Value Reference Range Interpretation Comments Arterial Blood pH (test code = 2744-1) 7.43 7.31-7.41 H [facility] HospitalArterial Blood Partial Pressure CO2 2018-11-04 17:47:00* Test Item Value Reference Range Interpretation Comments Arterial Blood Partial Pressure CO2 (test code = 2019-03) 36 41-51 L [facility] HospitalArterial Blood Partial Pressure O2 2018-11-04 17:47:00* Test Item Value Reference Range Interpretation Comments Arterial Blood Partial Pressure O2 (test code = 2019-03) 132 80-105 H [facility] HospitalArterial Blood TWT43734-75-41 17:47:00* Test Item Value Reference Range Interpretation Comments Arterial Blood HCO3 (test code = 1960-4) [facility] HospitalArterial Blood Base Rblsks6054-94-61 17:47:00* Test Item Value Reference Range Interpretation Comments Arterial Blood Base Excess (test code = 1925-7) 0.0 -2-3 [facility] HospitalArterial Blood Oxygen Saturation 2018-11-04 17:47:00* Test Item Value Reference Range Interpretation Comments Arterial Blood Oxygen Saturation (test code = 2708-6) 99.0 95-98 H [facility] HospitalFiO22019-04-01 17:47:00* Test Item Value Reference Range Interpretation Comments FiO2 (test code = FiO2) 40 CPAP/ PS PS 7, +5, 40%total rr: 21[facility] Arterial Blood pY2543-27-96 17:47:00* Test Item Value Reference Range Interpretation Comments Arterial Blood pH (test code = 2744-1) 7.43 7.31-7.41 H [facility] HospitalArterial Blood Partial Pressure CO2 2018-11-04 17:47:00* Test Item Value Reference Range Interpretation Comments Arterial Blood Partial Pressure CO2 (test code = 2018-8) 36 41-51 L [facility] HospitalArterial Blood Partial Pressure O2 2018-11-04 17:47:00* Test Item Value Reference Range Interpretation Comments Arterial Blood Partial Pressure O2 (test code = 2018-8) 132 80-105 H [facility] HospitalArterial Blood LRH09528-60-43 17:47:00* Test Item Value Reference Range Interpretation Comments Arterial Blood HCO3 (test code = 1960-4) [facility] HospitalArterial Blood Base Cmnfgt9376-89-50 17:47:00* Test Item Value Reference Range Interpretation Comments Arterial Blood Base Excess (test code = 1925-7) 0.0 -2-3 [facility] HospitalArterial Blood Oxygen Saturation 2018-11-04 17:47:00* Test Item Value Reference Range Interpretation Comments Arterial Blood Oxygen Saturation (test code = 2708-6) 99.0 95-98 H [facility] HospitalFiO22019-04-01 17:47:00* Test Item Value Reference Range Interpretation Comments FiO2 (test code = FiO2) 40 CPAP/ PS PS 7, +5, 40%total rr: 21CH[facility]ck[facility]neyUrine Legionella Livvadk7301-68-02 06:41:00* Test Item Value Reference Range Interpretation Comments Urine Legionella Antigen (test code = 09291-1) Negative Negativ e Presumptive negative for L. pneumophila serogroup 1 antigenin urine, suggesting no recent or current infection.Legionnaires' disease cannot be ruled out since o therserogroups and species may also cause disease.Performed at: [facility] [place] [id number] Director: Zena Watson MD, Phone: [phone] West Regional HospitalMycoplasma pneumoniae IgG Ggghhwlb0566-37-90 06:41:00* Test Item Value Reference Range Interpretation [...] ks later showing asignificant increase in antibody levels.[facility] HospitalMycoplasma pneumoniae IgM Yrzkkywm0794-57-61 06:41:00* Test Item Value Reference Range Interpretation Comments Mycoplasma pneumoniae IgM Antibody (test code = 5256-3) <770 0-769 Negative <770Clinically significant amount of M. pneumoniae antibodynot detected. Low Positive 770 - 950M. pneumoniae specific IgM presumptively detected. Itis recommended that another sample be collected 1-2weeks later to assure reactivity. Positive >950Highly significant amount of M. pneumoniae specificIgM antibody detected.Performed at: [facility] [id number] Director: Zena Watson MD, Phone: [phone] West Regional Hospital Urine Legionella Sodwque4830-45-19 06:41:00* Test Item Value Reference Range Interpretation Comments Urine Legionella Antigen (test code = 00191-5) Negative Negativ e Presumptive negative for L. pneumophila serogroup 1 antigenin urine, suggesting no recent or current infection.Legionnaires' disease cannot be ruled out since o therserogroups and species may also cause disease.Performed at: - [facility] [place], [place] [id number] Director: Zena Watson MD, Phone: [phone] West Regional HospitalMycoplasma pneumoniae IgG Nnixguxi2616-31-62 06:41:00* Test Item Value Reference Range Interpretation [...] later showing asignificant increase in antibody levels.[facility]ck[facility]neyMycoplasma pneumoniae IgM Esgtytxi0840-78-88 06:41:00* Test Item Value Reference Range Interpretation Comments Mycoplasma pneumoniae IgM Antibody (test code = 5256-3) <770 0-769 Negative <770Clinically significant amount of M. pneumoniae antibodynot detected. Low Positive 770 - 950M. pneumoniae specific IgM presumptively detected. Itis recommended that another sample be collected 1-2weeks later to assure reactivity. Positive >950Highly significant amount of M. pneumoniae specificIgM antibody detected.Performed at: - [facility] [id number] Director: Zena Watson MD, Phone: [phone] [facility] CHEST SINGLE (PORTABLE)2018-11-04 06:31:00 [place] [address] Patient Name: DAYSI AGUIRRE MR #: [id number] : 1935 Age/Sex: 83/F Req #: [id number] Adm Physician: MEHNAZ MON MD Ordered by: HORACIO IVAN MD Report #: [id number] Location: ICU Room/Bed: ICU 1941 Procedure: 0401- [...] COPY TO: HORACIO IVAN MD Bronchial Washings Wzbirwn8290-26-01 10:49:00* Test Item Value Reference Range Interpretation Comments Bronchial Washings Culture (test code = 604-9) Organism: YEAST SPEC IES [facility] HospitalBronchial Washings Mxaljsv1945-82-19 10:49:00* Test Item Value Reference Range Interpretation Comments Bronchial Washings Culture (test code = 604-9) No Result Data Provi ded [facility] HospitalCHEST SINGLE (PORTABLE)2018-11-03 06:09:00 [facility] [address] [place] [address] Patient Name: DAYSI AGUIRRE MR #: [id number] : 1935 Age/Sex: 83/F Req #: [id number] Adm Physician: MEHNAZ MON MD Ordered by: HORACIO IVAN MD Report #: [id number] Location: ICU Room/Bed: ICU [facility] Procedure: 0331- 0003 DX/CHEST SINGLE (PORTABLE) Exam [...] 11/03/18609 COPY TO: HORACIO IVAN MD Sputum Crwgwqk4269-46-86 11:57:00* Test Item Value Reference Range Interpretation Comments Sputum Culture (test code = 624-7) Organism: IRINEO PARAPSILOSIS [facility] Direct FA (LAB)2018-11-02 06:35:00* Test Item Value Reference Range Interpretation Comments Legionella Direct FA (LAB) (test code = 03582-8) Negative Negat mele Performed at: [address] [id number] Pig Sticker: Zena Watson MD, Phone: [phone] range: None detect edCMemorial Herm[facility] Direct FA (LAB)2018-11-02 06:35:00* Test Item Value Reference Range Interpretation Comments Legionella Direct FA (LAB) (test code = 68955-6) Negative Negat mele Performed at: [address] [id number] [employer]: Zena Watson MD, Phone: [phone] range: None detect edCParis Regional Medical CenterChlamydia psittaci IgG Antibody 2018-11-02 06:34:00* Test Item Value Reference Range Interpretation Comments Chlamydia psittaci IgG Antibody (test code = 6916-1) <1:16 N eg:<1:16 This test was developed and its performance characteristicsdetermined by [email or web address] . It has not been cleared or approvedby the Food and Drug Administration. The FDA hasdetermined that such clearance or approval is notnecessary.Performed at: [address] [id number] Director: Zena Watson MD, Phone: [phone] [facility] Chlamydia psittaci IgM Swvyhzmg6072-24-79 06:34:00* Test Item Value Reference Range Interpretation Comments Chlamydia psittaci IgM Antibody (test code = 6917-9) <1:10 N eg:<1:10 This test was developed and its performance characteristicsdetermined by [email or web address] . It has not been cleared or approvedby the Food and Drug Administration. The FDA hasdetermined that such clearance or approval is notnecessary.[facility] HospitalChlamydia trachomatis IgM Zxdzpada6709-88-01 06:34:00* Test Item Value Reference Range Interpretation Comments Chlamydia trachomatis IgM Antibody (test code = 12127-2) <0.8 0.0-0.7 Negative <0.8 Borderline 0.8 - 1.0 Positive > 1.0Results for this test are for research purposesonly by the assay's manufactur er. The performancecharacteristics of this product have not beenestablished. R esults should not be used as adiagnostic procedure without confirmation of thedi agnosis by another medically established diagnosticproduct or procedure.Performe d at: [facility] [employer] [id number] Dire ctor: Zena Watson MD, Phone: [phone] West Regional HospitalChlamydia psittaci IgG Zypkwrwb1406-38-94 06:34:00* Test Item Value Reference Range Interpretation Comments Chlamydia psittaci IgG Antibody (test code = 6916-1) <1:16 N eg:<1:16 This test was developed and its performance characteristicsdetermined by [email or web address] . It has not been cleared or approvedby the Food and Drug Administration. The FDA hasdetermined that such clearance or approval is notnecessary.Performed at: [facility] [employer] [id number] Director: Zena Watson MD, Phone: [phone] West Regional Hospital Chlamydia psittaci IgM Ghwutcjd9798-80-47 06:34:00* Test Item Value Reference Range Interpretation Comments Chlamydia psittaci IgM Antibody (test code = 6917-9) <1:10 N eg:<1:10 This test was developed and its performance characteristicsdetermined by [email or web address] . It has not been cleared or approvedby the Food and Drug Administration. The FDA hasdetermined that such clearance or approval is notnecessary.[facility] HospitalChlamydia trachomatis IgM Nkpigsku7273-21-68 06:34:00* Test Item Value Reference Range Interpretation Comments Chlamydia trachomatis IgM Antibody (test code = 65678-0) <0.8 0.0-0.7 Negative <0.8 Borderline 0.8 - 1.0 Positive > 1.0Results for this test are for research purposesonly by the assay's manufactur er. The performancecharacteristics of this product have not beenestablished. R esults should not be used as adiagnostic procedure without confirmation of thedi agnosis by another medically established diagnosticproduct or procedure.Performe d at: - [facility]Co[facility] HospitalTfzptairqd1878 [place], [place] [id number] Dire ctor: Zena Watson MD, Phone: [phone] [facility] SINGLE (PORTABLE)2018-11-01 06:24:00 [facility] [address] [place] [address] Patient Name: DAYSI AGUIRRE MR #: [id number] : 1935 Age/Sex: 83/F Req #: [id number] Adm Physician: MEHNAZ MON MD Ordered by: HORACIO IVAN MD Report #: [id number] Location: ICU Room/Bed: ICU [facility] Procedure: [id number]- 0002 DX/CHEST SINGLE (PORTABLE) Exam [...] 11/01/18626 COPY TO: HORACIO LOGAN MD p-ANCA Uiusd2439-68-49 16:23:00* Test Item Value Reference Range Interpretation Comments p-ANCA Titer (test code = 51565-6) <1:20 Neg:<1:20 The presence of positive fluorescence exhibiting P-ANCA orC-ANCA patterns alone is not specific for the diagnosis ofWegener's Granulomatosis (WG) or microscopic polyangiitis.Decisions about treatment should not be based solely onANCA IFA re sults. The International ANCA Group Consensusrecommends follow up testing of po sitive sera with both KY-3 and MPO-ANCA enzyme immunoassays. As many as 5% serum samples are positive only by EIA. Ref. AM J Clin Dbguee6753;111:507-513.[facility] Hospitalc-ANCA Ywqpm1750-80-30 16:23:00* Test Item Value Reference Range Interpretation Comments c-ANCA Titer (test code = 05442-7) <1:20 Neg:<1:20 [facility] HospitalAtypical j-VULM5183-72CCXV8214-71-18 16:23:00* Test Item Value Reference Range Interpretation Comments Atypical p-ANCA (test code = 10703-5) <1:20 Neg:<1:20 The atypical pANCA pattern has been observed in asignificant percentage of patie nts with ulcerative colitis,primary sclerosing cholangitis and autoimmune hepati tis.Performed at: [facility] [place]CoWilliam [place] [id number] Director: Zena Watson MD, Phone: [phone] West Regional Hospitalp-ANCA Awgeb3059-99-37 16:23:00* Test Item Value Reference Range Interpretation Comments p-ANCA Titer (test code = 41857-2) <1:20 Neg:<1:20 The presence of positive fluorescence exhibiting P-ANCA orC-ANCA patterns alone is not specific for the diagnosis ofWegener's Granulomatosis (WG) or microscopic polyangiitis.Decisions about treatment should not be based solely onANCA IFA re sults. The International ANCA Group Consensusrecommends follow up testing of po sitive sera with both KY-3 and MPO-ANCA enzyme immunoassays. As many as 5% serum samples are positive only by EIA. Ref. AM J Clin Fhfqoz1091;111:507-513.[facility] Hospitalc-ANCA Tqrwz1026-67-37 16:23:00* Test Item Value Reference Range Interpretation Comments c-ANCA Titer (test code = 62792-0) <1:20 Neg:<1:20 [facility] HospitalAtypical i-UZFU6636-41EWNS3951-48-75 16:23:00* Test Item Value Reference Range Interpretation Comments Atypical p-ANCA (test code = 38118-1) <1:20 Neg:<1:20 The atypical pANCA pattern has been observed in asignificant percentage of patie nts with ulcerative colitis,primary sclerosing cholangitis and autoimmune hepati tis.Performed at: [place] [address]Lab Director: Zena Watson MD, Phone: [phone] West Regional HospitalProcalcitonin2019-03-28 14:20:00* Test Item Value Reference Range Interpretation Comments Procalcitonin (test code = 569008586) 0.71 0.00-0.08 H A procalcitonin (PCT) level [...] any concentrations <2 ng/mL are obtained.Performed at: [employer] [id number] Director: Dom Ventura MD, Phone: [phone] West Regional HospitalC-Reactive Wiliiiw4519-71-45 14:20:00* Test Item Value Reference Range Interpretation Comments C-Reactive Protein (test code = 1988-5) 430.1 0.0-4.9 H Results confirmed ondilution.Performed at: [employer] [id number] Director: Dom Ventura MD, Phone: [phone] West Regional HospitalProcalcitonin2019-03-28 14:20:00* Test Item Value Reference Range Interpretation Comments Procalcitonin (test code = 566983417) 0.71 0.00-0.08 H A procalcitonin (PCT) level [...] any concentrations <2 ng/mL are obtained.Performed at: [facility] [id number] Director: Dom Ventura MD, Phone: [phone] West Regional HospitalC-Reactive Ifjzsdk7840-76-68 14:20:00* Test Item Value Reference Range Interpretation Comments C-Reactive Protein (test code = 1988-5) 430.1 0.0-4.9 H Results confirmed ondilution.Performed at: [facility] Lab[address] [id number] Director: Dom Ventura MD, Phone: [phone] West Regional HospitalAnti-Nuclear Antibody Atoqla4568-37-72 14:18:00* Test Item Value Reference Range Interpretation Comments Anti-Nuclear Antibody Screen (test code = 5048-4) Negative . Negative <1:80 Borderline 1:80 Positive > 1:80Performed at: [address] [id number]Lab Director: Dom Ventura MD, Phone: [phone] West Regional HospitalAnti-Nuclear Antibody Xeqvcg1646-54-71 14:18:00* Test Item Value Reference Range Interpretation Comments Anti-Nuclear Antibody Screen (test code = 5048-4) Negative . Negative <1:80 Borderline 1:80 Positive > 1:80Performed at: [address] [id number] 3Lab Director: Dom Ventura MD, Phone: [phone] West Regional HospitalCHEST SINGLE (PORTABLE)2018-10-30 12:11:00 [place] [address] Patient Name: DAYSI AGUIRRE MR #: [id number] : 1935 Age/Sex: 83/F Req #: [id number] Adm Physician: MEHNAZ MON MD Ordered by: HORACIO IVAN MD Report #: [id number] Location: ICU Room/Bed: ICU [facility] Procedure: 0327- 0042 DX/CHEST SINGLE (PORTABLE) Exam [...] GIRISH IVAN MD CHEST SINGLE (PORTABLE)2018-10-30 06:11:00 [place] [address] Patient Name: DAYSI AGUIRRE MR #: [id number] : 1935 Age/Sex: 83/F Req #: [id number] Adm Physician: MEHNAZ MON MD Ordered by: HORACIO IVAN MD Report #: [id number] Location: ICU Room/Bed: ICU 1941 Procedure: 7- [...] COPY TO: HORACIO IVAN MD Erythrocyte Sedimentation Yidz0564-81-99 02:40:00* Test Item Value Reference Range Interpretation Comments Erythrocyte Sedimentation Rate (test code = 4537-7) 120 0- 20 H [facility] HospitalErythrocyte Sedimentation Dckg0459-79-27 02:40:00* Test Item Value Reference Range Interpretation Comments Erythrocyte Sedimentation Rate (test code = 4537-7) 120 0- 20 H [facility] HospitalCreatine Kinase CE1684-42-12 00:35:00* Test Item Value Reference Range Interpretation Comments Creatine Kinase MB (test code = 51088-6) 0.60 0-5.0 [facility] HospitalTroponin K4029-09-13 00:35:00* Test Item Value Reference Range Interpretation Comments Troponin I (test code = MGY6931) 2.695 0-0.300 H Elevated result called to POLI WALLACE RN at 0034 on 10/30/18 by Jaylene shellKell West Regional HospitalCreatine Ltmxcc7104-77-73 23:58:00* Test Item Value Reference Range Interpretation Comments Creatine Kinase (test code = 2157-6) 116 29168 VERIFIED [facility]VI[facility]ULTS[facility] (1&2) Pqbdhnnn6962-71-26 22:48:00* Test Item Value Reference Range Interpretation Comments HIV (1&2) Antibody (test code = 27627-9) NON-REACTIVE NONREACTIVE [facility] P24 Jmiwrct1421-84-19 22:48:00* Test Item Value Reference Range Interpretation Comments HIV P24 Antigen (test code = HIV P24 Antigen) NON-REACTIVE NONREACT MELE [facility] (1&2) Gzhzhdbm9297-37-04 22:48:00* Test Item Value Reference Range Interpretation Comments HIV (1&2) Antibody (test code = 90257-1) NON-REACTIVE NONREACTIVE [facility] P24 Bnyekqv0192-36-30 22:48:00* Test Item Value Reference Range Interpretation Comments HIV P24 Antigen (test code = HIV P24 Antigen) NON-REACTIVE NONREACT MLEE [facility] HospitalLactic Acid Ywhis1326-16-02 21:32:00* Test Item Value Reference Range Interpretation Comments Lactic Acid Level (test code = Lactic Acid Level) 14.0 4.5- 19.8 [facility] HospitalVancomycin Level Syncho6388-25-22 21:32:00* Test Item Value Reference Range Interpretation Comments Vancomycin Level Trough (test code = 4092-3) 10.6 5.0-10.0 HH Results repeated and called to Tim Jeffrey/VERONICA at 2130 on 10/29/18 by Macho hernandez. Read back and verified.[facility] HospitalLactic Acid Ljobx2352-07-47 21:32:00* Test Item Value Reference Range Interpretation Comments Lactic Acid Level (test code = Lactic Acid Level) 14.0 4.5- 19.8 [facility] HospitalVancomycin Level Kgrzce4967-05-27 21:32:00* Test Item Value Reference Range Interpretation Comments Vancomycin Level Trough (test code = 4092-3) 10.6 5.0-10.0 HH Results repeated and called to Tim Jeffrey/VERONICA at 2130 on 10/29/18 by Macho hernandez. Read back and verified.[facility] HospitalInfluenza Virus Types A,B Ptdicrw8539-41-59 10:36:00* Test Item Value Reference Range Interpretation Comments Influenza Virus Types A,B Antigen (test code = 01480-4) NEGATIVE NEGATIVE [facility] HospitalABDOMEN-1VIEW (KUB)2018-10-29 10:10:00 [facility] [address] [place] [address] Patient Name: DAYSI AGUIRRE MR #: [id number] : 1935 Age/Sex: 83/F Req #: [id number] Adm Physician: MEHNAZ MON MD Ordered by: HORACIO IVAN MD Report #: [id number] Location: [facility] Room/Bed: [place] [address] Procedure: 0326- 0031 DX/ABDOMEN-1VIEW (KU) Exam Date: [...] HORACIO IVAN MD CHEST SINGLE (PORTABLE)2018-10-29 10:01:00 [place] [address] Patient Name: DAYSI AGUIRRE MR #: [id number] : 1935 Age/Sex: 83/F Req #: [id number] Adm Physician: MEHNAZ MON MD Ordered by: HORACIO IVAN MD Report #: [id number] Location: [facility] Room/Bed: [place] [address] Procedure: 0326- 0028 DX/CHEST SINGLE (PORTABLE) Exam [...] on 10/29/2018 10:04 AM Dictated By: ESTEPHANIA RHODES DO 1004 Transcribed By: MARY on 10/29/18 1004 COPY TO: HORACIO IVAN MD CHEST SINGLE (PORTABLE)2018-10-29 07:02:00 [facility] [address] [place] [address] Patient Name: DAYSI AGUIRRE MR #: [id number] : 1935 Age/Sex: 83/F Req #: [id number] Adm Physician: MEHNAZ MON MD Ordered by: HORACIO IVAN MD Report #: [id number] Location: [facility] Room/Bed: [place] [address] Procedure: 0326- 0003 DX/CHEST SINGLE (PORTABLE) Exam [...] 10/29/18704 COPY TO: HORACIO IVAN MD Prothrombin Fqsc6187-16-21 05:53:00* Test Item Value Reference Range Interpretation Comments Prothrombin Time (test code = 5902-2) 15.8 11.9-14.5 H [facility] HospitalProthromb Time International Ratio 2018-10-29 05:53:00* Test Item Value Reference Range Interpretation Comments Prothromb Time International Ratio (test code = 6301-6) 1.20 Oral Anticoagulant Therapy INR Values:1. Low Intensity Therapy 1.5 - 2.02 . Moderate Intensity Therapy 2.0 - 3.03. High Intensity Therapy(1) 2.5 - 3. 54. High Intensity Therapy(2) 3.0 - 4.05. Panic Value INR > 5.0 [facility] HospitalProthrombin Pcpi5644-95-91 05:53:00* Test Item Value Reference Range Interpretation Comments Prothrombin Time (test code = 5902-2) 15.8 11.9-14.5 H [facility] HospitalProthromb Time International Ratio 2018-10-29 05:53:00* Test Item Value Reference Range Interpretation Comments Prothromb Time International Ratio (test code = 6301-6) 1.20 Oral Anticoagulant Therapy INR Values:1. Low Intensity Therapy 1.5 - 2.02 . Moderate Intensity Therapy 2.0 - 3.03. High Intensity Therapy(1) 2.5 - 3. 54. High Intensity Therapy(2) 3.0 - 4.05. Panic Value INR > 5.0 [facility] HospitalCHEST SINGLE (PORTABLE)2018-10-27 18:43:00 [place] [address] Patient Name: DAYSI AGUIRRE MR #: [id number] : 1935 Age/Sex: 83/F Req #: [id number] [facility] Physician: MEHNAZ MON MD Ordered by: HORACIO IVAN MD Report #: [id number] Location: MED/SURG3 Room/Bed: [facility] Procedure: 0324- 0031 DX/CHEST SINGLE (PORTABLE) Exam [...] COPY TO: HORACIO IVAN MD Vitamin B12 Olire9658-92-54 07:54:00* Test Item Value Reference Range Interpretation Comments Vitamin B12 Level (test code = 38589-7) 248 213-816 [facility] HospitalFolate2019-03-24 07:54:00* Test Item Value Reference Range Interpretation Comments Folate (test code = 2284-8) 10.8 7.0-15.4 [facility] HospitalVitamin B12 Hphnv3814-14-24 07:54:00* Test Item Value Reference Range Interpretation Comments Vitamin B12 Level (test code = 22231-9) 248 213-816 [facility] HospitalFolate2019-03-24 07:54:00* Test Item Value Reference Range Interpretation Comments Folate (test code = 2284-8) 10.8 7.0-15.4 [facility] HospitalHemoglobin A1c Xzncuez6337-11-95 07:53:00 * Test Item Value Reference Range Interpretation Comments Hemoglobin A1c Percent (test code = Hemoglobin A1c Percent) 5.7 4.0-7.0 [facility] HospitalThyroid Stimulating Hormone (TSH) 2018-10-27 07:53:00* Test Item Value Reference Range Interpretation Comments Thyroid Stimulating Hormone (TSH) (test code = 32348-8) 0.420 0.350-4.940 [facility] HospitalHemoglobin A1c Sjckjch3263-67-88 07:53:00 * Test Item Value Reference Range Interpretation Comments Hemoglobin A1c Percent (test code = Hemoglobin A1c Percent) 5.7 4.0-7.0 [facility] HospitalThyroid Stimulating Hormone (TSH) 2018-10-27 07:53:00* Test Item Value Reference Range Interpretation Comments Thyroid Stimulating Hormone (TSH) (test code = 29303-5) 0.420 0.350-4.940 [facility] HospitalPhosphorus Qtvni5147-15-56 07:34:00* Test Item Value Reference Range Interpretation Comments Phosphorus Level (test code = JSV5437) 2.6 2.3-4.7 [facility] HospitalMagnesium Srkum7440-13-62 07:34:00* Test Item Value Reference Range Interpretation Comments Magnesium Level (test code = 41643-7) 1.9 1.3-2.1 [facility] HospitalTriglycerides Wzfke0008-11-30 07:34:00* Test Item Value Reference Range Interpretation Comments Triglycerides Level (test code = 2571-8) 68 0-149 [facility] HospitalCholesterol Erfyu2846-95-94 07:34:00* Test Item Value Reference Range Interpretation Comments Cholesterol Level (test code = 2093-3) 108 0-199 Less than 200 mg/dL Low Nitp971 - 239 mg/dL Borderline Tcda754 m g/dl and greater High Risk [facility] HospitalLDL Hnchoqrxvri5048-57-45 07:34:00* Test Item Value Reference Range Interpretation Comments LDL Cholesterol (test code = 2089-1) 38 60-130 L [facility] HospitalHDL Npujuigrwvu5720-19-34 07:34:00* Test Item Value Reference Range Interpretation Comments HDL Cholesterol (test code = 2085-9) 56 40-60 [facility] HospitalCholesterol/HDL Zdgay0244-85-44 07:34:00 * Test Item Value Reference Range Interpretation Comments Cholesterol/HDL Ratio (test code = 9830-1) 1.9 3.0-3.6 L [facility] HospitalPhosphorus Zasms7598-97-69 07:34:00* Test Item Value Reference Range Interpretation Comments Phosphorus Level (test code = QEI7694) 2.6 2.3-4.7 [facility] HospitalMagnesium Waspo5632-68-62 07:34:00* Test Item Value Reference Range Interpretation Comments Magnesium Level (test code = 72925-3) 1.9 1.3-2.1 [facility] HospitalTriglycerides Mvdtu4493-36-02 07:34:00* Test Item Value Reference Range Interpretation Comments Triglycerides Level (test code = 2571-8) 68 0-149 [facility] HospitalCholesterol Dczse8996-83-75 07:34:00* Test Item Value Reference Range Interpretation Comments Cholesterol Level (test code = 2093-3) 108 0-199 Less than 200 mg/dL Low Hguf496 - 239 mg/dL Borderline Kjpe698 m g/dl and greater High Risk [facility] HospitalLDL Fgcvrjkxbnd9238-98-14 07:34:00* Test Item Value Reference Range Interpretation Comments LDL Cholesterol (test code = 2089-1) 38 60-130 L [facility] HospitalHDL Ipuqdkvkosv7782-11-22 07:34:00* Test Item Value Reference Range Interpretation Comments HDL Cholesterol (test code = 2085-9) 56 40-60 [facility] HospitalCholesterol/HDL Zgptn0596-06-76 07:34:00 * Test Item Value Reference Range Interpretation Comments Cholesterol/HDL Ratio (test code = 9830-1) 1.9 3.0-3.6 L [facility] HospitalCT CHEST AD8694-32-66 13:59:00 [place] [address] Patient Name: DAYSI AGUIRRE MR #: [id number] : 1935 Age/Sex: 83/F Req #: [id number] Adm Physician: MEHNAZ MON MD Ordered by: MEHNAZ MON MD Report #: [id number] [facility]: [facility] Room/Bed: [facility] Procedure: 0323-[address]/CT CHEST WO Exam Date: 10/26/18 Exam Time: 12 34 REPORT STATUS: Signed CT ches t without enhancement CPT code: 45516 INDICATION: Hemoptysis for 2 1/ 2 weeks [...] on 10/26/2018 2:04 PM Dictated By: JUN HUMHPREY MD 03 Transcribed By: MARY on 10/26/181403 COPY TO: MEHNAZ MON MD CXR 1 VE - ECGN3537-00-25 23:18:00 [place] [address] Patient Name: DAYSI AGUIRRE MR #: [id number] : 1935 Age/Sex: 83/F Req #: [id number] Adm Physician: MEHNAZ MON MD Ordered by: RICK RAVI MD Report #: [id number] Location: [facility] Room/Bed: [place] [address] Procedure: [id number] [facility]: 10/25/18 Exam Time: 2310 REPORT [...] 10/25/182319 COPY TO: RICK RAVI MD CT, GFQPGME5625-86-46 17:35:00Reason for exam:->ABDOMINAL PAINWhat is the patient's [...] Verified Date/Reagan e: 09/05/2018 17:35:39 Reading Location: [facility] Radiology Reading Room Elec tronically signed by: SAM HYDE M.D. on 09/05/2018 05:35 PM CXJQMI2638-30-85 15:23:00* Test Item Value Reference Range Interpretation Comments LIPASE (BEAKER) (test code = 749) 44 U/L 8-78 DKWXHJJ6587-76-39 15:23:00* Test Item Value Reference Range Interpretation Comments AMYLASE (BEAKER) (test code = 349) 157 U/L 25-125 H BASIC METABOLIC BQDOG0875-64-55 15:23:00* Test Item Value Reference Range Interpretation [...] NOT APPLICABLE FOR DIALYSIS PATIENTS. HEPATIC FUNCTION OLLAY8447-75-71 15:23:00* Test Item Value Reference Range Interpretation [...] U/L 6-55 CBC W/PLT COUNT & AUTO KJIRDDWRJVOS4511-02-86 15:10:00* Test Item Value Reference Range Interpretation [...] = 2801) 1 % 0-1 URINALYSIS W/ EKPUVTBBPLV7386-86-07 15:04:00* Test Item Value Reference Range Interpretation [...] 514) 17 /LPF SOURCE(BEAKER) (test code = 7305) Urine, Clean Catch POCT-GLUCOSE HNLMG1746-81-29 08:51:00* Test Item Value Reference Range Interpretation Comments POC-GLUCOSE METER (BEAKER) (test code = 1538) 118 mg/dL 70-110 H TESTED AT [facility] [address] [facility] [address] MMRQVUKRA6477-85-51 06:06:00* Test Item Value Reference Range Interpretation Comments MAGNESIUM (BEAKER) (test code = 627) 2.3 mg/dL 1.6-2.6 BASIC METABOLIC ATKLW8651-05-94 06:06:00* Test Item Value Reference Range Interpretation [...] IS NOT APPLICABLE FOR DIALYSIS PATIENTS. POCT-GLUCOSE XQZVJ9804-73-53 21:34:00* Test Item Value Reference Range Interpretation Comments POC-GLUCOSE METER (BEAKER) (test code = 1538) 113 mg/dL 70-110 H TESTED AT [facility] [address] [facility] [address] POCT-GLUCOSE ZDAOY9573-29-12 17:41:00* Test Item Value Reference Range Interpretation Comments POC-GLUCOSE METER (BEAKER) (test code = 1538) 116 mg/dL 70-110 H TESTED AT [place] [address] [facility] [address] POCT-GLUCOSE AIVEC6895-43-33 12:00:00* Test Item Value Reference Range Interpretation Comments POC-GLUCOSE METER (BEAKER) (test code = 1538) 327 mg/dL 70-110 H TESTED AT [facility] [address] [facility] [address] POCT-GLUCOSE ZOKQC3639-39-53 08:08:00* Test Item Value Reference Range Interpretation Comments POC-GLUCOSE METER (BEAKER) (test code = 1538) 186 mg/dL 70-110 H TESTED AT [facility] [address] [facility] [address] RAD, CHEST, 1 VIEW, NON RXVS6846-49-72 07:39:00Reason for exam:->effusionFINAL REPORT Chest one view. Clinical history: effusion Comparison: The liver 2016 Discussion: A frontal chest is provided. Cardiomed iastinal contours are unchanged. There is persistent left basilar atelectasis or consolidation. No new airspace disease identified. No evidence of pneumothor ax, or large effusion. Signed: Gumaro Vegas Verified Date/Time: 06/19/2017 07:39:03 Reading Location: [facility] Radiology Reading Room [facility] signed by: GUMARO VEGAS M.D. on 06/19/2017 07:39 AM CBC W/PLT COUNT & AUTO LBLOGOASIBPO4196-31-43 07:06:00* Test Item Value Reference Range Interpretation [...] (test code = 2801) 0 % 0-1 XWVCDKRFP2775-88-92 05:53:00* Test Item Value Reference Range Interpretation Comments MAGNESIUM (BEAKER) (test code = 627) 2.1 mg/dL 1.6-2.6 BASIC METABOLIC [id number] 05:53:00* Test Item Value Reference Range Interpretation [...] IS NOT APPLICABLE FOR DIALYSIS PATIENTS. POCT-GLUCOSE MOUXM7469-59-77 21:33:00* Test Item Value Reference Range Interpretation Comments POC-GLUCOSE METER (BEAKER) (test code = 1538) 238 mg/dL 70-110 H TESTED AT [place] [address] [facility] [address] POCT-GLUCOSE [id number] 18:42:00* Test Item Value Reference Range Interpretation Comments POC-GLUCOSE METER (JORGEAKER) (test code = 1538) 91 mg/dL 70-110 TESTED AT [place] [address] [facility] [address] POCT-GLUCOSE [id number] 18:08:00* Test Item Value Reference Range Interpretation Comments POC-GLUCOSE METER (GUALBERTO) (test code = 1538) 48 mg/dL 70-110 L TESTED AT [address] [address] RAD, CHEST, 1 VIEW, NON [id number] 17:06:00Reason for exam:->s/p Thoracentesis pt. in u/s [...] rt Verified Date/Time: 06/18/2017 17:06:55 Reading Location: [address] Reading Room Electronically signed by: IZAIAH BRAUN MD on 2016 05:06 PM U/S, YXKCQLWEEHIZC0019-24-36 16:39:00Laterality?->LeftReason for exam:->hx of fall with fracture [...] After the area is anesthetized, a 4 St Helenian catheter is advanced into the pleural space. [...] Braun Verified Date/Time: 08/18/2016 16:39:25 Reading Location: [address] Ultrasound Reading Room Estefania ctronically signed by: IZAIAH BRAUN MD on 06/18/2017 04:39 PM RAD, CHEST, 1 VIEW, NON [id number] 12:13:00Reason for exam:->PLEURAL EFFUSIONShould this be performed at the bedside?->YesFINAL REPORT Chest one view. Clinical history: PLEURAL EFFUSION Comparison: June 17, 2017 Discussion: A frontal chest is provided. Cardiomediastinal contours are unchanged. A small left effusion with left basilar atelectasis or consolidation appear unchanged. No new consolidation. No vascular congestion, or pneumothorax. Signed: Gumaro Vegas Verified Date/Time: 06/18/2017 12:13:39 Reading Location: [facility] Radiology Reading Room -GLUCOSE [id number] 10:47:00* Test Item Value Reference Range Interpretation Comments POC-GLUCOSE METER (BEAKER) (test code = 1538) 229 mg/dL 70-110 H TESTED AT [facility] [address] [facility] [address] POCT-GLUCOSE [id number] 07:54:00* Test Item Value Reference Range Interpretation Comments POC-GLUCOSE METER (BEAKER) (test code = 1538) 91 mg/dL 70-110 TESTED AT [facility] [address] [facility] [address] PT/[id number] 06:30:00* Test Item Value Reference Range Interpretation [...] mechanical heart valves.CBC W/PLT COUNT & AUTO LRTGJTIQGXLQ1636-71-51 06:22:00* Test Item Value Reference Range Interpretation [...] (test code = 2801) 0 % 0-1 NPWKJNESC5705-46-03 06:07:00* Test Item Value Reference Range Interpretation Comments MAGNESIUM (BEAKER) (test code = 627) 2.1 mg/dL 1.6-2.6 BASIC METABOLIC [id number] 06:07:00* Test Item Value Reference Range Interpretation [...] IS NOT APPLICABLE FOR DIALYSIS PATIENTS. POCT-GLUCOSE [id number] 21:52:00* Test Item Value Reference Range Interpretation Comments POC-GLUCOSE METER (BEAKER) (test code = 1538) 216 mg/dL 70-110 H TESTED AT [facility] [address] [facility] [address] RAD, CHEST, 2 [id number] 18:32:00Reason for exam:->left plerual effusion. FINAL REPORT [...] Mcdonald Verified Date/Time: 06/17/2017 18:32:22 Reading Location: [address] Ortho Consult Reading Room -GLUCOSE [id number] 17:28:00* Test Item Value Reference Range Interpretation Comments POC-GLUCOSE METER (BEAKER) (test code = 1538) 177 mg/dL 70-110 H TESTED AT [place] [address] [facility] [address] POCT-GLUCOSE [id number] 12:36:00* Test Item Value Reference Range Interpretation Comments POC-GLUCOSE METER (BEAKER) (test code = 1538) 193 mg/dL 70-110 H TESTED AT [place] [address] [facility] [address] RAD, CHEST, 1 VIEW, NON [id number] 09:59:00Reason for exam:->chfFINAL REPORT CHEST ONE VIEW HISTORY: Congestive heart failure COMPARISON: 06/15/2017 FINDINGS: Single portable AP examination of the chest was performed. Left lower lobe consolidation and small left pleural effusion are unchanged in appearance. Right lung clear. No right pleural effusion. No pne umothorax. Cardiac shadow normal in size. Signed: Horacio Mcdonald Verified Date/Time: 06/17/2017 09:59:30 Reading Location: [facility] B1 C013X Ortho Consult Re ading Room -GLUCOSE [id number] 08:33:00* Test Item Value Reference Range Interpretation Comments POC-GLUCOSE METER (BEAKER) (test code = 1538) 233 mg/dL 70-110 H TESTED AT [facility] [address] [facility] [address] [id number] 06:12:00* Test Item Value Reference Range Interpretation Comments MAGNESIUM (BEAKER) (test code = 627) 1.9 mg/dL 1.6-2.6 BASIC METABOLIC [id number] 06:12:00* Test Item Value Reference Range Interpretation [...] code = 700) 100 pg/mL 0-100 POCT-GLUCOSE [id number] 22:09:00* Test Item Value Reference Range Interpretation Comments POC-GLUCOSE METER (BEAKER) (test code = 1538) 151 mg/dL 70-110 H TESTED AT [facility] [address] [facility] [address] POCT-GLUCOSE [id number] 17:22:00* Test Item Value Reference Range Interpretation Comments POC-GLUCOSE METER (BEAKER) (test code = 1538) 131 mg/dL 70-110 H TESTED AT [address] [address] POCT-GLUCOSE [id number] 11:53:00* Test Item Value Reference Range Interpretation Comments POC-GLUCOSE METER (BEAKER) (test code = 1538) 305 mg/dL 70-110 H Notified VERONICA BENAVIDES/TESTED AT [address] [address] POCT-GLUCOSE [id number] 08:04:00* Test Item Value Reference Range Interpretation Comments POC-GLUCOSE METER (BEAKER) (test code = 1538) 171 mg/dL 70-110 H TESTED AT [address] [address] [id number] 07:29:00* Test Item Value Reference Range Interpretation Comments MAGNESIUM (BEAKER) (test code = 627) 2.0 mg/dL 1.6-2.6 BASIC METABOLIC [id number] 07:29:00* Test Item Value Reference Range Interpretation [...] DIALYSIS PATIENTS. CBC W/PLT COUNT & AUTO [id number] 05:35:00* Test Item Value Reference Range Interpretation [...] code = 2801) 0 % 0-1 POCT-GLUCOSE [id number] 20:52:00* Test Item Value Reference Range Interpretation Comments POC-GLUCOSE METER (BEAKER) (test code = 1538) 232 mg/dL 70-110 H TESTED AT [place] [address] [facility] [address] POCT-GLUCOSE [id number] 17:40:00* Test Item Value Reference Range Interpretation Comments POC-GLUCOSE METER (BEAKER) (test code = 1538) 164 mg/dL 70-110 H TESTED AT [address] [address] POCT-GLUCOSE [id number] 12:14:00* Test Item Value Reference Range Interpretation Comments POC-GLUCOSE METER (BEAKER) (test code = 1538) 246 mg/dL 70-110 H TESTED AT [address] [address] PLATELET AGGREGATION: FUNCTION [id number] 10:23:00* Test Item Value Reference Range Interpretation Comments WEAK ADP RESULT(BEAKER) (test code = 2135) 64 % 60-91 PLATELET FUNCTION SCREEN INTERP (BEAKER) (test code = 2173) 60-100% indicates normal platelet function BUEJ-SUWVSUXQINT-9731 (BEAKER) (test code = 2622) Cydney Guardado MD (electronic signature) PLATELET COUNT AGG (BEAKER) (test code = 2656) 254 K/CU MM 150-450 RAD, CHEST, 1 VIEW, NON [id number] 08:37:00Reason for exam:->chfFINAL REPORT Chest one view. Clinical history: chf Comparison: June 14, 2017 Discussion: A frontal chest is provided. Cardiomediastinal contours are unchanged. Unchanged vague opacity in the right upper lung. S table pleural-parenchymal opacity in the left lower lung. No pneumothorax. Mild interstitial prominence. Signed: Gumaro Vegas Verified Date/Time: 06/06 08:37:33 Reading Location: [facility] Radiology Reading Room El ectronically signed by: GUMARO VEGAS M.D. on 06/15/2017 08:37 AM POCT-GLUCOSE [id number] 08:21:00* Test Item Value Reference Range Interpretation Comments POC-GLUCOSE METER (BEAKER) (test code = 1538) 168 mg/dL 70-110 H TESTED AT [address] [address] [id number] 07:04:00* Test Item Value Reference Range Interpretation Comments MAGNESIUM (BEAKER) (test code = 627) 2.2 mg/dL 1.6-2.6 BASIC METABOLIC [id number] 07:04:00* Test Item Value Reference Range Interpretation [...] IS NOT APPLICABLE FOR DIALYSIS PATIENTS. POCT-GLUCOSE [id number] 21:27:00* Test Item Value Reference Range Interpretation Comments POC-GLUCOSE METER (BEAKER) (test code = 1538) 209 mg/dL 70-110 H TESTED AT [address] [address] POCT-GLUCOSE [id number] 17:49:00* Test Item Value Reference Range Interpretation Comments POC-GLUCOSE METER (BEAKER) (test code = 1538) 195 mg/dL 70-110 H TESTED AT [address] [address] POCT-GLUCOSE [id number] 11:56:00* Test Item Value Reference Range Interpretation Comments POC-GLUCOSE METER (BEAKER) (test code = 1538) 233 mg/dL 70-110 H TESTED AT [address] [address] RAD, CHEST, 1 VIEW, NON [id number] 08:16:00Reason for exam:->SHORTNESS OF BREATHFINAL REPORT Chest one view. Clinical history: SHORTNESS OF BREATH Comparison: 06/13/2017 Discussion: A frontal chest is provided. Cardiomediastinal contours are unchanged. Stable left lower thorax pleural parenchymal opacity. Right upper lung airspace opacity appears slightly more prominent. Low lung volume. No pneumothorax. Signed: G[place]aro [place] Verified Date/Time: 06/14/2017 08:16:32 Reading Location: [facility] Radiology Reading Room -GLUCOSE [id number] 07:47:00* Test Item Value Reference Range Interpretation Comments POC-GLUCOSE METER (BEAKER) (test code = 1538) 126 mg/dL 70-110 H TESTED AT [address] [address] POCT-GLUCOSE [id number] 07:47:00* Test Item Value Reference Range Interpretation Comments POC-GLUCOSE METER (BEAKER) (test code = 1538) 142 mg/dL 70-110 H TESTED AT [address] [address] [id number] 05:38:00* Test Item Value Reference Range Interpretation Comments MAGNESIUM (BEAKER) (test code = 627) 1.8 mg/dL 1.6-2.6 Specimen slightly hemolyzed BASIC METABOLIC [id number] 05:38:00* Test Item Value Reference Range Interpretation [...] 0-100 H CBC W/PLT COUNT & AUTO [id number] 05:08:00* Test Item Value Reference Range Interpretation [...] % 0-1 CREATINE KINASE (CK), TOTAL AND [id number] 21:58:00* Test Item Value Reference Range Interpretation Comments CREATINE KINASE TOTAL (BEAKER) (test code = 380) 79 U/L 29-20 0 CREATINE KINASE-MB (BEAKER) (test code = 750) 1.8 ng/mL 0.0-6.6 CREATINE KINASE-MB INDEX (BEAKER) (test code = 395) 2.3 % CK-MB Reference Range:<6.7 Normal6.7-10.0 Borderline>10.0 Abnormal TROPONIN [id number] 21:58:00* Test Item Value Reference Range Interpretation [...] acute neurological disease, and per sistent tachyarrhythmia.HEMOGLOBIN [id number] 21:58:00* Test Item Value Reference Range Interpretation Comments HEMOGLOBIN A1C (BEAKER) (test code = 368) 5.9 % 4.3-6.1 TSH/FREE T4 IF [id number] 21:55:00* Test Item Value Reference Range Interpretation Comments THYROID STIMULATING HORMONE (BEAKER) (test code = 772) 0.58 uIU/mL 0.35-4.94 LIPID [id number] 21:51:00* Test Item Value Reference Range Interpretation [...] High 160-189 Very High >=190 HEPATIC FUNCTION [id number] 21:51:00* Test Item Value Reference Range Interpretation [...] 347) 10 U/L 6-55 CT, CHEST, WITHOUT [id number] 20:07:00FINAL REPORT History: Left pleural effusion. TECHNIQUE: [...] Lazaro Verified Date/Time: 06/13/2017 20:07:50 Reading Location: [address] Consult Reading Room 0 8:07 PM CREATINE KINASE (CK), TOTAL AND [id number] 15:35:00* Test Item Value Reference Range Interpretation Comments CREATINE KINASE TOTAL (BEAKER) (test code = 380) 90 U/L 29-20 0 CREATINE KINASE-MB (BEAKER) (test code = 750) 1.9 ng/mL 0.0-6.6 CREATINE KINASE-MB INDEX (BEAKER) (test code = 395) 2.1 % CK-MB Reference Range:<6.7 Normal6.7-10.0 Borderline>10.0 Abnormal TROPONIN [id number] 15:35:00* Test Item Value Reference Range Interpretation [...] 700) 554 pg/mL 0-100 H BASIC METABOLIC [id number] 15:27:00* Test Item Value Reference Range Interpretation [...] DIALYSIS PATIENTS. CBC W/PLT COUNT & AUTO [id number] 15:09:00* Test Item Value Reference Range Interpretation [...] 2801) 0 % 0-1 RAD, CHEST, 2 [id number] 14:19:00Reason for exam:->SHORTNESS OF BREATHFINAL REPORT AP and lateral chest HISTORY: Shortness of breath COMPARISON: 09/24/2014. Chest CT, 05/05/2017 IMPRESSION:Cardiomegaly similar to previous. Moderate left effusion with adjacent airspace disease. Faint opacities in the right upper lobe may reflect asymmetric edema or pneumonia. No pneum othorax. Signed: Wade [place] Verified Date/Time: 06/13/2017 14:19: 33 Reading Location: [facility] Reading Room -GLUCOSE [id number] 07:57:00* Test Item Value Reference Range Interpretation Comments POC-GLUCOSE METER (BEAKER) (test code = 1538) 153 mg/dL 70-110 H TESTED AT [address] [address] POCT-GLUCOSE [id number] 21:26:00* Test Item Value Reference Range Interpretation Comments POC-GLUCOSE METER (BEAKER) (test code = 1538) 211 mg/dL 70-110 H TESTED AT [address] [address] POCT-GLUCOSE [id number] 17:33:00* Test Item Value Reference Range Interpretation Comments POC-GLUCOSE METER (BEAKER) (test code = 1538) 199 mg/dL 70-110 H TESTED AT [address] [address] POCT-GLUCOSE [id number] 12:15:00* Test Item Value Reference Range Interpretation Comments POC-GLUCOSE METER (BEAKER) (test code = 1538) 208 mg/dL 70-110 H TESTED AT [address] [address] POCT-GLUCOSE [id number] 08:13:00* Test Item Value Reference Range Interpretation Comments POC-GLUCOSE METER (BEAKER) (test code = 1538) 142 mg/dL 70-110 H TESTED AT [address] [address] [id number] 06:14:00* Test Item Value Reference Range Interpretation Comments PHOSPHORUS (BEAKER) (test code = 604) 3.4 mg/dL 2.3-4.7 [id number] 06:14:00* Test Item Value Reference Range Interpretation Comments MAGNESIUM (BEAKER) (test code = 627) 1.5 mg/dL 1.6-2.6 L BASIC METABOLIC [id number] 06:14:00* Test Item Value Reference Range Interpretation [...] DIALYSIS PATIENTS. CBC W/PLT COUNT & AUTO [id number] 05:46:00* Test Item Value Reference Range Interpretation [...] code = 2801) 0 % 0-1 POCT-GLUCOSE [id number] 21:12:00* Test Item Value Reference Range Interpretation Comments POC-GLUCOSE METER (BEAKER) (test code = 1538) 206 mg/dL 70-110 H TESTED AT [address] [address] POCT-GLUCOSE [id number] 17:19:00* Test Item Value Reference Range Interpretation Comments POC-GLUCOSE METER (BEAKER) (test code = 1538) 209 mg/dL 70-110 H TESTED AT [address] [address] POCT-GLUCOSE [id number] 15:47:00* Test Item Value Reference Range Interpretation Comments POC-GLUCOSE METER (BEAKER) (test code = 1538) 210 mg/dL 70-110 H TESTED AT [address] [address] URINALYSIS W/ [id number] 14:50:00* Test Item Value Reference Range Interpretation [...] code = 2795) Urine, Clean Catch POCT-GLUCOSE [id number] 09:47:00* Test Item Value Reference Range Interpretation Comments POC-GLUCOSE METER (BEAKER) (test code = 1538) 155 mg/dL 70-110 H TESTED AT [facility] [address] [facility] [address] BASIC METABOLIC [id number] 06:47:00* Test Item Value Reference Range Interpretation [...] GFR IS NOT APPLICABLE FOR DIALYSIS PATIENTS. [id number] 06:17:00* Test Item Value Reference Range Interpretation Comments PARTIAL THROMBOPLASTIN TIME (BEAKER) (test code = 760) 34.1 seconds 22.5-36.0 PROTHROMBIN TIME/[id number] 06:16:00* Test Item Value Reference Range Interpretation [...] mechanical heart valves.CBC W/PLT COUNT & AUTO [id number] 06:07:00* Test Item Value Reference Range Interpretation [...] 2801) 1 % 0-1 CT, CHEST, WITHOUT [id number] 05:21:00Reason for exam:->FALLWhat is the patient's sedation [...] MDReport Verified Date/Time: 05/05/2017 05:21:47 Reading Location: [facility] C013Y CT Body Reading Room Elec tronically [...] MDReport Verified Date/Time: 05/05/2017 05:21:47 Reading Location: [facility] B1 C013Y CT Body Reading Room Elec tronically signed by: RICK COREAS on 05/05/2017 05:21 AM
--- NOTE | 2020-04-09 18:54 | Emergency Department Note ---
History of Present Illnes History of Present Illness Chief Complaint: COVID PUI History of Present Illness This is a 84 year old female Patient in from home with complaints of 3lb weight gain and shortness of breath over the last day, progressive LE edema and SOB x 3 days. Patient has a history of CHF and is on a diuretic. Patient called her heart doctor with [facility] and she was told to come to the ER for evaluation. 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 Any updates have been documented here. Past Medical History Recent Fever: No Clinical Suspicion of Infectio: No New/Unexplained Change in Ment: No Past Medical History: Hypertension, Diabetes, CHF, CAD, GERD, Hyperlipedemia Past Surgical History: None Other Surgery: MULTIPLE CARDIAC STENTS Social History Smoking Cessation: Never Smoker Counseling Performed: No Alcohol Use: None Any Illegal Drug Use: No TB Exposure/Symptoms: No Physically hurt or threatened: No Family History Family history of heart diseas: No Other Last Tetanus: UNK Any Pre-Existing Lines (PICC,: No Review of Systems Review of Systems Constitutional: Reports no symptoms EENTM: Reports no symptoms Cardiovascular: Reports as per HPI, Reports edema Respiratory: Reports as per HPI, Reports dyspnea Gastrointestinal: Reports no symptoms Genitourinary: Reports no symptoms Musculoskeletal: Reports no symptoms Integumentary: Reports no symptoms Neurological: Reports no symptoms Psychological: Reports no symptoms Endocrine: Reports no symptoms Hematological/Lymphatic: Reports no symptoms Physical Exam Related Data Allergies: Coded Allergies: clindamycin (Verified Allergy, Unknown, 07/26/19) Triage Vital Signs Vital Signs Date Time Temp Pulse Resp B/P (MAP) Pulse Ox O2 Delivery O2 Flow Rate FiO2 04/09/20 12:52 98.4 74 17 125/53 97 Room Air Vital signs reviewed: Yes Physical Exam CONSTITUTIONAL Constitutional: Present well-developed, Present well-nourished HENT HENT: Present normocephalic, Present atraumatic, Present oropharynx clear/moist, Present nose normal HENT L/R: Present left ext ear normal, Present right ext ear normal EYES Eyes: Reports PERRL, Reports conjunctivae normal NECK Neck: Present ROM normal PULMONARY Pulmonary: Present effort normal, Present rales (bibasilar) CARDIOVASCULAR Cardiovascular: Present regular rhythm, Present heart sounds normal, Present LLE edema (3+), Present RLE edema (3+) GASTROINTESTINAL Abdominal: Present soft, Present nontender, Present bowel sounds normal GENITOURINARY Genitourinary: Present exam deferred SKIN Skin: Present warm, Present dry MUSCULOSKELETAL Musculoskeletal: Present ROM normal NEUROLOGICAL Neurological: Present alert, Present oriented x 3, Present no gross motor or sensory deficits PSYCHOLOGICAL Psychological: Present mood/affect normal, Present judgement normal Results Laboratory Result Diagram: 04/09/20 1300 04/09/20 1300 Laboratory Laboratory Tests Test 04/09/20 13:53 04/09/20 13:00 04/09/20 12:53 Urine Color Colorless (YELLOW) Urine Clarity Clear (CLEAR) Urine pH 8 (5 - 7) Urine Specific [place] 1.020 (1.010-1.025) Urine Protein Negative (NEGATIVE) Urine Glucose (UA) Negative (NEGATIVE) Urine Ketones Negative (NEGATIVE) Urine Blood Negative (NEGATIVE) Urine Nitrite Negative (NEGATIVE) Urine Bilirubin Negative (NEGATIVE) Urine Urobilinogen 0.2 mg/dL (0.2 - 1) Urine Leukocyte Esterase Negative (NEGATIVE) Urine RBC None /HPF (0-5) Urine WBC None /HPF (0-5) Urine Epithelial Cells None /LPF (NONE) Urine Bacteria None /HPF (NONE) White Blood Count 6.00 x10e3/uL (4.8-10.8) Red Blood Count 4.04 x10e6/uL (3.6-5.1) Hemoglobin 9.0 g/dL (12.0-16.0) Hematocrit 32.0 % (34.2-44.1) Mean Corpuscular Volume 79.2 fL (81-99) Mean Corpuscular Hemoglobin 22.3 pg (28-32) Mean Corpuscular Hemoglobin Concent 28.1 g/dL (31-35) Red Cell Distribution Width 18.7 % (11.7-14.4) Platelet Count 203 x10e3/uL (140-360) Neutrophils (%) (Auto) 69.1 % (38.7-80.0) Lymphocytes (%) (Auto) 20.5 % (18.0-39.1) Monocytes (%) (Auto) 8.5 % (4.4-11.3) Eosinophils (%) (Auto) 1.0 % (0.0-6.0) Basophils (%) (Auto) 0.7 % (0.0-1.0) Neutrophils # (Auto) 4.2 (2.1-6.9) Lymphocytes # (Auto) 1.2 (1.0-3.2) Monocytes # (Auto) 0.5 (0.2-0.8) Eosinophils # (Auto) 0.1 (0.0-0.4) Basophils # (Auto) 0.0 (0.0-0.1) Absolute Immature Granulocyte (auto 0.01 x10e3/uL (0-0.1) Prothrombin Time 14.9 seconds (11.9-14.5) Prothromb Time International Ratio 1.11 Activated Partial Thromboplast Time 39.5 seconds (23.8-35.5) Sodium Level 144 mmol/L (136-145) Potassium Level 4.1 mmol/L (3.5-5.1) Chloride Level 102 mmol/L (98-107) Carbon Dioxide Level 27 mmol/L (22-29) Anion Gap 19.1 mmol/L (8-16) Blood Urea Nitrogen 26 mg/dL (7-26) Creatinine 0.98 mg/dL (0.57-1.11) Estimat Glomerular Filtration Rate 54 ML/MIN (60-) BUN/Creatinine Ratio 27 (6-25) Glucose Level 79 mg/dL (74-118) Calcium Level 9.2 mg/dL (8.4-10.2) Total Bilirubin 1.0 mg/dL (0.2-1.2) Aspartate Amino Transf (AST/SGOT) 22 IU/L (5-34) Alanine Aminotransferase (ALT/SGPT) 11 IU/L (0-55) Alkaline Phosphatase 68 IU/L (40-150) Creatine Kinase 117 IU/L (29-168) Creatine Kinase MB 2.50 ng/mL (0-5.0) Troponin I 0.072 ng/mL (0-0.300) B-Type Natriuretic Peptide 1575.8 pg/mL (0-100) Total Protein 7.5 g/dL (6.5-8.1) Albumin 4.5 g/dL (3.5-5.0) Globulin 3.0 g/dL (2.3-3.5) Albumin/Globulin Ratio 1.5 (0.8-2.0) Lab results reviewed: Yes Imaging Imaging results reviewed: Yes Procedures 12 Lead ECG Interpretation ECG Interpretation : ECG: ECG 1 Heel Cementer Machine: Interpreted by ED physician Date: Apr 09, 2020 Time: 13:25 Rhythm: sinus rhythm (1st degree avb) Rate: normal (76) QRS axis: normal ST segment flattening: II, III, aVF, V4, V5, V6 T wave inversion: II, III, aVF, V5, V6 Clinical Impression: abnormal ECG Assessment & Plan Medical Decision Making MDM cbc, chem, cardiacs, ecg, cxr, bnp - likely chf, r/o stemi/nstemi, renal failure, pneumonia Reassessment Reassessment Admit to Dr Sheikh (gerald pt) Assessment & Plan Final Impression: (1) CHF exacerbation Depart Disposition: ADMITTED Last Vital Signs Date Time Temp Pulse Resp B/P (MAP) Pulse Ox O2 Delivery O2 Flow Rate FiO2 04/09/20 18:04 66 16 166/63 97 Room Air 04/09/20 13:42 98.1 Home Meds Reported Medications Benzonatate (TESSALON PERLE) 100 Mg Capsule, 100 MG PO Q6H PRN for COUGH 07/30/19 Linezolid (ZYVOX) 600 Mg Tablet, 600 MG PO BID, #30 TAB 07/30/19 Pregabalin (LYRICA) 25 Mg Cap, 25-50 MG PO HS, #30 CAP 07/26/19 Pantoprazole Sodium* (PROTONIX) 40 Mg Tablet.dr, 20 MG PO DAILY, TAB 07/26/19 Ipratropium [employer] (IPRATROPIUM BROMIDE) 0.2 Mg/1 Ml Solution, 2 SPRAYS NA QID PRN for RHINITIS, EACH 07/26/19 [Glargine] No Conflict Check, 24 UNITS SQ DAILY WITH BREAKFAST 07/26/19 Insulin NPH Hum/Reg Insulin Hm (Novolin 70-30 Flexpen) 100 Unit/1 Ml Insuln.pen, 10-20 UNITS SQ BIDWM 07/26/19 Fluticasone Propionate (FLUTICASONE PROPIONATE) 16 Gm Grassflat.susp, 2 SPRAYS NA DAILY 07/26/19 Ergocalciferol (Vitamin D2) (Vitamin D2) 50 Mcg Capsule, 1.25 MG PO WEEKLY 07/26/19 Doxycycline Hyclate (DOXYCYCLINE HYCLATE) 100 Mg Capsule, 100 MG PO BID, CAP 07/26/19 [place]-3 Fatty Acids/Fish Oil (OMEGA 3 FISH OIL SOFTGEL) 1 Each Capsule.dr, 1 CAP PO DAILY 07/26/19 Calcium Carbonate/Vitamin D3 (CALCIUM 500+D TABLET CHEW) 1 Each Tab.chew, 2 TAB PO DAILY 07/26/19 Budesonide/Formoterol Fumarate (SYMBICORT 160-4.5 MCG INHALER) 10.2 Gm Hfa.aer.ad, 2 INH INH BID 07/26/19 Baclofen (BACLOFEN) 10 Mg Tablet, 10 MG PO HS PRN for MUSCLE SPASM, #90 TAB 07/26/19 Aspirin (ASPIR 81) 81 Mg Tablet.dr, 81 MG PO DAILY 10/26/18 Lisinopril (LISINOPRIL) 10 Mg Tablet, 40 MG PO DAILY, #30 TAB 10/25/18 Benzonatate (BENZONATATE) 100 Mg Capsule, 100 MG PO TID PRN for COUGH, CAP 10/25/18 Furosemide (FUROSEMIDE) 40 Mg Tablet, 40 MG PO Daily, #30 TAB 10/25/18 Magnesium Oxide (MAGNESIUM OXIDE) 400 Mg Tablet, 400 MG PO DAILY, TAB 10/25/18 Pravastatin Sodium (PRAVASTATIN SODIUM) 40 Mg Tablet, 40 MG PO DAILY 10/25/18 Nifedipine (NIFEDIPINE ER) 30 Mg Tab.er.24, 30 MG PO HS 10/25/18 Carvedilol (CARVEDILOL) 12.5 Mg Tablet, 12.5 MG PO BID, #60 TAB 10/25/18 Clopidogrel Bisulfate (CLOPIDOGREL) 75 Mg Tablet, 75 MG PO DAILY, #30 TAB 10/25/18 Acetaminophen With Codeine (TYLENOL WITH CODEINE #3 TABLET) 1 Each Tablet, 300 MG PO BID PRN for Mild Pain (1-3) or Fever>100.8, TAB 10/25/18 Loratadine (LORATADINE) 10 Mg Tablet, 10 MG PO DAILY, #30 TAB 10/25/18 Medications in the ED Furosemide 40 mg ONCE ONCE IV Last administered on 04/09/20at 14:03; Admin Dose 40 MG; Start 04/09/20 at 13:00; Stop 04/09/20 at 13:32; Status DC CALEB JEFFERSON MD Apr 09, 2020 18:53
[2020-04-09] MEDS ORDERED: BACLOFEN 10 MG TAB PO PRN (21:00)
[2020-04-09] MEDS ORDERED: ACETAMINOPHEN/CODEINE 300MG - 30MG TAB PO PRN (21:00)
[2020-04-09] MEDS ORDERED: CLONIDINE HCL 0.1 MG TAB PO PRN (21:00)
[2020-04-09] MEDS ORDERED: IPRATROPIUM BROMIDE 0.02% 2.5 ML NEB NEB PRN (21:00)
[2020-04-09 22:25] VITALS: BP 161/60
--- NOTE | 2020-04-09 22:37 | NUR ---
RECEIVED REPORT FROM PREVIOUS NURSE. PATIENT IN BED ASLEEP. DAUGHTER AT THE BEDSIDE. CALL LIGHT WITHIN REACH.
[2020-04-09 23:38] VITALS: BP 161/60
[2020-04-10] VITALS (8 sets, daily range): BP systolic 124–167; BP diastolic 43–60
--- NOTE | 2020-04-10 01:00 | NUR ---
HAD TO DRAW BLOOD AND YOMI GREEN AND PURPLE TOP FOR THE PATIENT BECAUSE SHE HAD AN ACTIVE BNP ORDER AND MIDNIGHT CARDIAC MARKERS. NOTICED LAB WAS ONLY RUNNING THE GREEN TOP FOR CARDIAC MARKERS AND NOT THE PURPLE TOP. CALLED LAB AND TALKED TO DIDIER AND SHE SAID SHE WAS RUN THE PURPLE TOP FOR THE BNP.
[2020-04-10 01:04] LABS: CREATINE KINASE MB 1.8 ng/mL (0-5.0)
--- NOTE | 2020-04-10 04:30 | NUR ---
CALLED RESPIRATORY FOR TREATMENT FOR THE PATIENT BECAUSE PATIENT IS WHEEZING. WAITING FOR RESPIRATORY TO COME SEE THE PATIENT
[2020-04-10 05:50] LABS: BASOPHILS % 0.7 % (0.0-1.0); EOSINOPHILS # (AUTO) 0.1 (0.0-0.4); HEMATOCRIT 29.9 % (34.2-44.1); HEMOGLOBIN 8.5 g/dL (12.0-16.0); LYMPHOCYTES # (AUTO) 1.4 (1.0-3.2); LYMPHOCYTES % 23.9 % (18.0-39.1); MEAN CORPUSCULAR HEMOGLOBIN 22.1 pg (28-32); MEAN CORPUSCULAR HGB CONC 28.4 g/dL (31-35); MEAN CORPUSCULAR VOLUME 77.9 fL (81-99); MONOCYTES # (AUTO) 0.5 (0.2-0.8); NEUTROPHILS # (AUTO) 3.9 (2.1-6.9); NEUTROPHILS % 65.1 % (38.7-80.0); PLATELET COUNT 197 x10e3/uL (140-360); RED BLOOD COUNT 3.84 x10e6/uL (3.6-5.1); RED CELL DISTRIBUTION WIDTH 18.6 % (11.7-14.4)
[2020-04-10 06:07] LABS: ALANINE AMINOTRANSFERASE 10 IU/L (0-55); ALBUMIN 3.8 g/dL (3.5-5.0); ALBUMIN/GLOBULIN RATIO 1.4 (0.8-2.0); ALKALINE PHOSPHATASE 64 IU/L (40-150); ANION GAP 15.6 mmol/L (8-16); BLOOD UREA NITROGEN 20 mg/dL (7-26); BUN/CREATININE RATIO 25 (6-25); CALCIUM 8.8 mg/dL (8.4-10.2); CARBON DIOXIDE 27 mmol/L (22-29); CHLORIDE 103 mmol/L (98-107); CREATININE, SERUM 0.79 mg/dL (0.57-1.11); EST GLOMERULAR FILTRATION RATE > 60 ML/MIN (60-); GLUCOSE 111 mg/dL (74-118); POTASSIUM 3.6 mmol/L (3.5-5.1); SODIUM 142 mmol/L (136-145)
[2020-04-10 06:28] LABS: CREATINE KINASE MB 3.2 ng/mL (0-5.0)
--- NOTE | 2020-04-10 06:52 | Diagnostic Imaging Report ---
EXAMINATION: CHEST SINGLE (PORTABLE) INDICATION: ^CHF ^[id number] ^[id number] COMPARISON: 04/09/2020 FINDINGS: AP view TUBES and LINES: None. LUNGS: Lungs are well inflated. Pulmonary vascular congestion and mild interstitial edema. PLEURA: Small bilateral pleural effusions. No visible pneumothorax. HEART AND MEDIASTINUM: The cardiomediastinal silhouette is enlarged. BONES AND SOFT TISSUES: No acute osseous lesion. Soft tissues are unremarkable. UPPER ABDOMEN: No free air under the diaphragm. IMPRESSION: No change from prior exam. Signed by: Dr. Doc Flor MD on 04/10/2020 6:48 AM
--- NOTE | 2020-04-10 07:00 | NUR ---
RCD PT AT BED PT IS ALERT AND ORIENTED AND RESTING ON BED IV PATENT FAMILY AT BED SIDE BED LOW AND LOCKED CALL LIGHT IN REACH
--- NOTE | 2020-04-10 07:10 | NUR ---
GAVE BEDSIDE SHIFT REPORT TO ONCOMING NURSE. CALL LIGHT WITHIN REACH. PATIENT IN BED. DAUGHTER AT BEDSIDE. GINAKER AT BEDSIDE. HOURLY ROUNDING PERFORMED. Addendum: 04/10/20 at 0715 by Gillian Rivera RN STILL WAITING FOR PATIENT TO HAVE RESPIRATORY TREATMENT
[2020-04-10] MEDS: PANTOPRAZOLE SOD 40 MG TABEC PO SCH (07:30)
[2020-04-10] MEDS: ASPIRIN 81 MG CHEW TAB PO SCH (09:00)
[2020-04-10] MEDS: CARVEDILOL 12.5 MG TAB PO SCH ×2 (09:00→17:00)
[2020-04-10] MEDS: CALCIUM CARBONATE 500 MG CHEWABLE TABS PO SCH (09:00)
[2020-04-10] MEDS ORDERED: BUDESONIDE/FORMOTEROL 160/4.5MCG INHALER INH SCH (09:00)
[2020-04-10] MEDS: FUROSEMIDE INJ 10 MG/ML 4 ML VIAL IV SCH ×2 (09:00→17:00)
[2020-04-10] MEDS: FLUTICASONE PROPIONATE NASAL SPRAY NS SCH (09:00)
[2020-04-10] MEDS: CLOPIDOGREL BISULFATE 75 MG TAB PO SCH (09:00)
[2020-04-10 12:32] LABS: CREATINE KINASE MB 3.5 ng/mL (0-5.0)
--- NOTE | 2020-04-10 14:38 | NUR ---
Nutrition Screen Note RD Recommendation for Physician: -Recommend cardiac diet Plan of Care: RD following, monitoring for tolerance and adequacy Nutrition reason for involvement: Diagnosis - CHF Primary Diagnose(s): CHF exacerbation PMH: Congestive heart failure, Previous severe infection, pneumonia with respiratory failure. Peripheral vascular disease with carotid stent, toe amputation and lower extremity stent. Diabetes type 2, hypertension, dyslipidemia, reflux history, allergic rhinitis. Ht: 60 in Wt: 159.25 lb BMI: 31.1 kg/m2 IBW:[address] Assessment: (04/10/20) Chart reviewed. Labs and meds reviewed. Pt is an 84 year old female admitted with CHF exacerbation. Pt is primarily Turkmen speaking per chart. There are no reports of recent unintentional weight loss or decreased appetite prior to admission per chart. RN stated pt ate all of her breakfast this morning. Last recorded weight was 145 lbs in July 2019. Will continue to monitor. Current Diet: ADA diet Malnutrition Evaluation (04/10/20) The patient does not meet criteria for a specified degree of malnutrition at this time. Will re-evaluate at follow-up as appropriate. Diet Education Needs Assessment: RD is available for diet education as needed Nutrition Care Level: low Signed: Jaz Tran, RD, LD
[2020-04-10] MEDS ORDERED: DEXTROSE 50% SYRINGE 50 ML IV PRN (15:30)
[2020-04-10] MEDS ORDERED: LACTULOSE SYRUP 20 GM/30 ML UDC PO NR (15:30)
[2020-04-10] MEDS: INSULIN REGULAR, HUMAN 100 UNIT/1 ML 3ML VIAL SQ SCH ×2 (16:30→20:25)
[2020-04-10] MEDS ORDERED: ENOXAPARIN SOD INJ 40 MG/0.4 ML SYR SC SCH (17:00)
--- NOTE | 2020-04-10 17:03 | History and Physical ---
PRIMARY CARE PHYSICIAN: Dr. Soto at [facility]. CHIEF COMPLAINT: Shortness of breath, especially with exertion. HISTORY OF PRESENT ILLNESS: This is an 84-year-old female with past medical history of hypertension, high cholesterol, systolic congestive heart failure, diabetes, and PVD, presented to the ER with complaints of worsening shortness of breath. She is Japanese speaking. The daughter is at the bedside and able to obtain information from her. She denies any chest pain, fever, nausea, vomiting, dizziness, or passing out. She reports she was noticing that she had trouble taking deep breath and increased shortness of breath with exertion. She follows up with heart failure Clinic with [facility] and has had a drastic increase in her weight in the past week, greater than 3 pounds in 2 days. So, she called the heart failure nurse and was instructed to come to the ER. In the ER, chest x-ray shows cardiomegaly, central vascular congestion, and prominent interstitial markings with trace effusion that are concerning for fluid overload or CHF. She was started on IV Lasix and admitted for further management. PAST MEDICAL HISTORY: 1. Systolic congestive heart failure. 2. Hypertension. 3. High cholesterol. 4. CAD, status post stent. 5. Diabetes. 6. PVD with stent placement in the iliac and lower extremities. SURGICAL HISTORY: 1. Left toes amputation, partial. 2. Lower extremity stents and PCI. FAMILY MEDICAL HISTORY: She reports father and siblings with heart attack. Mother of throat cancer. SOCIAL HISTORY: She denies any tobacco, alcohol, or illicit drug use. She lives with her daughter. ALLERGIES: SHE IS ALLERGIC TO CLINDAMYCIN. REVIEW OF SYSTEMS: Ten systems reviewed and negative except as reported in HPI. PHYSICAL EXAMINATION: VITAL SIGNS: Temperature 98.4, pulse is 75, respirations 19, blood pressure 124/53, and pulse ox is 100% on room air. GENERAL: No acute distress. HEENT: Normocephalic, atraumatic. NECK: Supple. LUNGS: Decreased breath sounds. ABDOMEN: Soft and nontender. Obese. MUSCULOSKELETAL: Moves all extremities. Left lower extremity noted with increased 2+ edema. NEUROLOGY: Alert, awake, and oriented x3. SKIN: Dry. PSYCH: Calm. LABORATORY DATA: WBC 6.02, hemoglobin 8.5, hematocrit 29.9, and platelet 197. Sodium 142, potassium 3.6, BUN 20, creatinine 0.79, and estimated GFR is greater than 60. AST 20, ALT 10. Troponin x3 negative. BNP 1575 and 2536. PT 14.9, INR 1.11, APTT 39.5. UA negative. COVID PCR is pending. Urine culture is pending. IMAGING: Chest x-ray, cardiomegaly and interstitial marking which may represent fluid overload/CHF. IMPRESSION: 1. Acute respiratory distress due to fluid overload. She was started on Lasix IV b.i.d. The chest x-ray noted with fluid overload/congestive heart failure. We will continue to diurese and recheck. 2. Acute systolic congestive heart failure with exacerbation. Continue IV Lasix. Echo done with EF of 30-35%, which is the same as last time. Cardiology has been consulted and resumed on current home medications. 3. Hypertension. Blood pressure is stable on carvedilol b.i.d. and clonidine p.r.n. 4. High cholesterol. Continue with statin. 5. Diabetes type 2. Sliding scale insulin as needed. 6. History of coronary artery disease, status post stent. Continue Plavix and aspirin. 7. History of peripheral vascular disease with stent in the lower extremities. Continue Plavix. 8. Constipation. We will give lactulose x1 and start on Colace daily. 9. Deep vein thrombosis prophylaxis. Lovenox subcu. Dictated by TOMMIE Desai Gonzalo Sheikh MD MY/MODL /[id number]
--- NOTE | 2020-04-10 18:40 | NUR ---
PT RESTING ON BED BED SIDE REPORT GIVEN TO ONCOMING NURSE
[2020-04-10] MEDS: BUDESONIDE/FORMOTEROL 160/4.5MCG INHALER INH SCH (20:25)
[2020-04-10] MEDS ORDERED: PRAVASTATIN 20 MG TAB PO SCH (21:00)
[2020-04-11 04:00] VITALS: BP 151/53
[2020-04-11] MEDS: BUDESONIDE/FORMOTEROL 160/4.5MCG INHALER INH SCH (06:38)
[2020-04-11] MEDS: PANTOPRAZOLE SOD 40 MG TABEC PO SCH (07:30)
[2020-04-11] MEDS: INSULIN REGULAR, HUMAN 100 UNIT/1 ML 3ML VIAL SQ SCH ×2 (07:30→11:30)
[2020-04-11 08:39] VITALS: BP 127/64
[2020-04-11 08:45] VITALS: BP 127/64
[2020-04-11] MEDS: FUROSEMIDE INJ 10 MG/ML 4 ML VIAL IV SCH (09:00)
[2020-04-11] MEDS: CLOPIDOGREL BISULFATE 75 MG TAB PO SCH (09:00)
[2020-04-11] MEDS ORDERED: POTASSIUM BICARBONATE/CIT AC 20 MEQ TABLET.EFF PO SCH (09:00)
[2020-04-11] MEDS: CARVEDILOL 12.5 MG TAB PO SCH (09:00)
[2020-04-11] MEDS: CALCIUM CARBONATE 500 MG CHEWABLE TABS PO SCH (09:00)
[2020-04-11] MEDS ORDERED: LORATADINE 10 MG TAB PO SCH (09:00)
[2020-04-11] MEDS: ASPIRIN 81 MG CHEW TAB PO SCH (09:00)
[2020-04-11] MEDS: FLUTICASONE PROPIONATE NASAL SPRAY NS SCH (09:00)
[2020-04-11 12:29] VITALS: BP 119/52
[2020-04-11] MEDS ORDERED: LOSARTAN POTASS25 MG PO (12:57)
[2020-04-11] MEDS ORDERED: BENZONATATE100 MG PO (12:57)
[2020-04-11] MEDS ORDERED: LISINOPRIL10 MG PO (13:08)
--- NOTE | 2020-04-11 14:39 | Diagnostic Imaging Report ---
EXAMINATION: CHEST SINGLE (PORTABLE) INDICATION: cough COMPARISON: Multiple prior chest x-ray examinations most recent dated 04/10/2020. FINDINGS: AP view TUBES and LINES: None. LUNGS: Lungs are not well inflated. Pulmonary vascular congestion and mild interstitial edema. PLEURA: Small bilateral pleural effusions. No visible pneumothorax. HEART AND MEDIASTINUM: The cardiomediastinal silhouette is enlarged. BONES AND SOFT TISSUES: No acute osseous lesion. Soft tissues are unremarkable. UPPER ABDOMEN: No free air under the diaphragm. IMPRESSION: No change from prior exam. Signed by: Hayden Dang MD on 04/11/2020 2:35 PM
--- NOTE | 2020-04-11 15:00 | NUR ---
PT WENT HOME IN SAFE CONDITION WITH HER DAUGHTER
--- NOTE | 2020-04-11 20:47 | Consultation ---
DATE OF CONSULTATION: 04/11/2020 Cardiac Consultation REASON FOR CONSULTATION: Congestive heart failure, coronary artery disease, peripheral arterial vascular disease, complex case. HISTORY: An 84-year-old lady was known with multiple medical health problems. Her cardiovascular disease started many years ago when she got major myocardial infarction in 2010. She had acute PCI. Since that time, she is having heart failure. She had repeated PCIs. She does have also severe peripheral arterial vascular disease. She is followed in [facility]. She had a carotid stent. She got peripheral angiogram and peripheral lower extremity intervention, questionable details. She is also known to have advanced congestive heart failure. In fact, she is in the Heart failure [facility] in [facility] and she is followed by them every week with phone call, and she is in close contact with her PCP. The patient came to this institution because of weight gain, shortness of breaths, cough, orthopnea, paroxysmal nocturnal dyspnea. She called [facility], and she was advised to come to the emergency room. In the emergency room, differently, she was in heart failure. She is started on IV Lasix. She improved dramatically. The patient does have chronic congestive heart failure and she adjusts her diuretics, but she was a little bit late on her diuretic adjustment. She denied having any chest pain. Her BNP was markedly elevated. Her chest x-ray consistent with heart failure. The patient baseline is class 3 to early class 4 heart failure like symptoms. There is a worsening orthopnea, paroxysmal nocturnal dyspnea, cough, and respiratory distress. There is no angina surprisingly, however, this could be with the shortness of breath equivalent. REVIEW OF SYSTEMS: Review of systems was done to all systems, will be summarized for clarity. GENERAL: No fever, no chills. HEENT: Congestion, but no fever, no chills, no contact with people with COVID. CARDIAC AND PULMONARY: Class 3 to early class 4 heart failure at best time with periods of exacerbation. GI: Bloating indigestion. No hematemesis. No melena. : Incontinence. No hematuria. No dysuria. MUSCULOSKELETAL: Aches and pains. ENDOCRINE: No heat, no cold intolerance. HEMATOLOGIC: Easy bruising, but no bleeding. SKIN: No skin rashes. SOCIAL HISTORY: She lives with family with excellent support. There is no history of smoking or alcohol use. HOME MEDICATIONS: Long list includin. Aspirin 81 mg a day. 2. Plavix 75 mg a day. 3. Clonidine 0.1 mg t.i.d. 4. Coreg 12.5 mg twice a day. 5. Nifedipine 30 mg a day. 6. Lisinopril 40 mg a day. 7. Pravastatin 40 mg a day. 8. Baclofen nebulizers. 9. Lasix 40 mg twice a day. 10. Potassium supplement. ALLERGIES: CLINDAMYCIN. PAST MEDICAL HISTORY: 1. Chronic advanced severe congestive heart failure. 2. Coronary artery disease, status post prior myocardial infarction, multiple PCI. 3. Multiple procedures on the lower extremities. 4. History of carotid stent. 5. Diabetes mellitus. 6. Hypertension. 7. Hyperlipidemia. 8. History of amputation of the left toe. PHYSICAL EXAMINATION: VITAL SIGNS: Height of 5 feet, weight of 157 pounds, blood pressure 120/50, heart rate of 60, respiratory rate of 18, afebrile. HEENT: Pupils are reactive. NECK: No elevation of jugular venous pulsation today. CHEST: Few crackles. HEART: PMI in the fifth left intercostal space. Normal first and second heart sounds. ABDOMEN: Soft. EXTREMITIES: No cyanosis, no clubbing. Decreased feet pulses. NEUROLOGIC: Awake, alert, and oriented. No gross deficits. LABORATORY DATA: BNP markedly elevated. Chest x-ray showing cardiomegaly, volume overload. EKG showing normal sinus rhythm, first-degree AV block, nonspecific ST changes. Poor R-wave progression anteriorly with ST-T segment changes in the anterolateral leads. Echocardiogram by report showing ejection fraction in the 30, which is similar to her echocardiogram last year. Lab showed sodium of 142, potassium 3.6, BUN 20, creatinine of 0.8. Hemoglobin of 8.5 only, hematocrit 29%. IMPRESSION AND PLAN: 1. Exacerbation of systolic heart failure. 2. Advanced coronary artery disease. 3. Advanced peripheral vascular disease. 4. Carotid disease. 5. Congestive heart failure, chronic. 6. Hyperlipidemia. 7. Hypertension. 8. Anemia with no history of melena. The patient is on appropriate medication. She is followed carefully with the Heart failure Clinic every week. She wants to go home tomorrow is her birthday. She and her daughter understand their condition. I gave her a copy of her lab work showing her hemoglobin 8.5 and hematocrit 29% to discuss it with her PCP and to compare it with her old lab and to see if anything needs to be done. I also told her to see her group exercise instructor because he knows her anatomy and to discuss if they need any further testing on her heart. Also, I discussed with her briefly code status and ICD and defibrillator, etc. The patient's daughter verbalized an understanding. We gave her copy of her lab and she will follow up with her group exercise instructor and PCP. MD DANIELLE June/JOSE /[id number]
--- NOTE | 2020-04-12 19:57 | Discharge Summary ---
PRIMARY CARE PHYSICIAN: Dr. Soto at [facility]. FINAL DISCHARGE DIAGNOSIS: 1. Acute respiratory distress due to pulmonary edema/fluid overload. 2. Acute systolic congestive heart failure with exacerbation. 3. Hypertension. 4. High cholesterol. 5. Diabetes type 2. 6. History of coronary artery disease. 7. Chronic PVD. 8. Chronic anemia. CONSULTANTS: Dr. Fernandez with Cardiology. PROCEDURES: Echocardiogram, which showed an EF of 30% to 35%. HISTORY: Per HPI. HOSPITAL COURSE: This is an 84-year-old female, who presented to the ER with complaints of increased shortness of breath and increased weight. Chest x-ray showed cardiomegaly, central vascular congestion and prominent interstitial markings with trace effusions that are concerning for fluid overload or CHF. She was started on IV Lasix and started diuresing. Admission weight was 159 pounds, today is down to 157 pounds. Troponins were negative, echocardiogram showed EF of 30% to 35%, which was similar from the last admission in October. She reports overall is feeling much better, able to take deep breaths and ambulating with less shortness of breath. She reports dry cough, chest x-ray unchanged. She wants to go home as tomorrow is her birthday, so we will discharge her home since her symptoms have improved and her daughter and the patient have been following up with [facility] failure [facility] regularly so is planning to make an appointment with her planner chief and [facility] failure Clinic in 2 days. She is chest pain-free, no fever, chills, nausea, or vomiting. PHYSICAL EXAMINATION: VITAL SIGNS: Temperature 97.7, pulse is 57, respirations 18, blood pressure 119/52, pulse ox is 95% on room air. GENERAL: No acute distress. HEENT: Normocephalic, atraumatic. NECK: Supple. LUNGS: Decreased breath sounds. ABDOMEN: Soft and nontender. MUSCULOSKELETAL: Moves all extremities. Mild edema in the bilateral lower extremities. NEUROLOGIC: Alert, awake, and oriented x3. CONDITION AT DISCHARGE: Stable and improved. DC medications. Please see medication reconciliation list. FOLLOWUP: Followup with PCP and Cardiology next week. TIME SPENT: Total discharge time is 32 minutes. Dictated by TOMMIE Dseai Yiching MD GENOVEVA Nguyen/JOSE /[id number]
== END 2020-04-11 15:11 | disposition home or self-care (01) ==
LOC: ER 13:00 → ERHOLD 18:13 → MED/SURG 22:11
PROVIDERS: ADMIT Internal Medicine; ATTEND Internal Medicine
DX: I11.0 Hypertensive heart disease with heart failure (principal); E78.00 Pure hypercholesterolemia, unspecified; E11.9 Type 2 diabetes mellitus without complications; I25.10 Atherosclerotic heart disease of native coronary artery without angina pectoris; D64.9 Anemia, unspecified; E11.51 Type 2 diabetes mellitus with diabetic peripheral angiopathy without gangrene; Z79.4 Long term (current) use of insulin; R06.03 Acute respiratory distress; I50.23 Acute on chronic systolic (congestive) heart failure; Z95.820 Peripheral vascular angioplasty status with implants and grafts; Z95.5 Presence of coronary angioplasty implant and graft; Z11.59 Encounter for screening for other viral diseases; I25.2 Old myocardial infarction; E78.5 Hyperlipidemia, unspecified
CPT/HCPCS: 36415 ×3; 71045 ×3; 80053 ×2; 81001; 82550 ×2; 82553 ×2; 82948 ×3; 83880 ×2; 84484 ×2; 85025 ×2; 85610; 85730; 87086; 93005; 93306; 94640; 94664; 96372; 99284; G0378 ×3; J1650; J1817; J1940 ×3; S0164 ×2; U0002

== ENCOUNTER 2020-08-16 12:52 | Inpatient (IN) | payer MEDICARE ==
[~2020-08-16] VITALS: Ht 180.3 cm; Wt 71.2 kg
[~2020-08-16 12:52] MED LIST changes: +LOSARTAN POTASS25 MG PO
[2020-08-16 15:12] LABS: BASOPHILS # (AUTO) 0.1 (0.0-0.1); BASOPHILS % 0.8 % (0.0-1.0); EOSINOPHILS # (AUTO) 0.2 (0.0-0.4); EOSINOPHILS % 2.3 % (0.0-6.0); HEMATOCRIT 36.4 % (34.2-44.1); HEMOGLOBIN 11.1 g/dL (12.0-16.0); LYMPHOCYTES # (AUTO) 1.4 (1.0-3.2); LYMPHOCYTES % 20.5 % (18.0-39.1); MEAN CORPUSCULAR HEMOGLOBIN 27.5 pg (28-32); MEAN CORPUSCULAR HGB CONC 30.5 g/dL (31-35); MEAN CORPUSCULAR VOLUME 90.1 fL (81-99); MONOCYTES # (AUTO) 0.5 (0.2-0.8); MONOCYTES % 7.7 % (4.4-11.3); NEUTROPHILS # (AUTO) 4.5 (2.1-6.9); NEUTROPHILS % 68.2 % (38.7-80.0); PLATELET COUNT 287 x10e3/uL (140-360); RED BLOOD COUNT 4.04 x10e6/uL (3.6-5.1); RED CELL DISTRIBUTION WIDTH 19.3 % (11.7-14.4)
[2020-08-16 15:17] LABS: INR 1.02
[2020-08-16 15:18] LABS: PARTIAL THROMBOPLASTIN TIME 36.4 seconds (23.8-35.5)
[2020-08-16 15:21] LABS: CLARITY,URINE CLEAR (CLEAR); COLOR,URINE YELLOW (YELLOW); LEUKOCYTE ESTERASE ,URINE NEGATIVE (NEGATIVE); NITRITE,URINE NEGATIVE (NEGATIVE)
[2020-08-16 15:22] LABS: KETONES,URINE NEGATIVE (NEGATIVE); PROTEIN,URINE DIPSTICK NEGATIVE (NEGATIVE); URINE UROBILINOGEN 0.2 mg/dL (0.2 - 1)
[2020-08-16 15:34] LABS: ALANINE AMINOTRANSFERASE 10 IU/L (0-55); ALBUMIN 3.9 g/dL (3.5-5.0); ALKALINE PHOSPHATASE 96 IU/L (40-150); ANION GAP 16.1 mmol/L (8-16); BLOOD UREA NITROGEN 21 mg/dL (7-26); CALCIUM 9.2 mg/dL (8.4-10.2); CARBON DIOXIDE 27 mmol/L (22-29); CHLORIDE 103 mmol/L (98-107); GLUCOSE 159 mg/dL (74-118); POTASSIUM 4.1 mmol/L (3.5-5.1); SODIUM 142 mmol/L (136-145)
[2020-08-16 15:44] LABS: RBC,URINE 0-5 /HPF (0-5); WBC,URINE (MAN) 0-5 /HPF (0-5)
[2020-08-16 15:45] LABS: EPITHELIAL CELLS,URINE RARE /LPF
[2020-08-16 15:57] LABS: BUN/CREATININE RATIO 28 (6-25); CREATININE, SERUM 0.78 mg/dL (0.57-1.11); EST GLOMERULAR FILTRATION RATE > 60 ML/MIN (60-)
[2020-08-16] MEDS ORDERED: MORPHINE SULFATE INJ 2 MG/ML SYR IV PRN (16:00)
[2020-08-16] MEDS ORDERED: ONDANSETRON HCL INJ 2MG/ML 2ML 2 MG/ML VIAL IV PRN (16:00)
[2020-08-16] MEDS ORDERED: ENOXAPARIN SOD INJ 40 MG/0.4 ML SYR SC STA (16:41)
[2020-08-16] MEDS ORDERED: MAG-OXIDE400 MG (17:10)
[2020-08-16] MEDS ORDERED: SPIRONOLACTONE25 MG (17:10)
[2020-08-16] MEDS ORDERED: NIFEDIPINE ER30 MG (17:10)
[2020-08-16] MEDS ORDERED: PANTOPRAZOLE SO20 MG (17:10)
[2020-08-16 17:44] VITALS: BP 153/63
[2020-08-16] MEDS ORDERED: DEXTROSE 50% SYRINGE 50 ML IV PRN (17:45)
[2020-08-16] MEDS ORDERED: CALCIUM CARBONATE 500 MG CHEWABLE TABS PO PRN (17:45)
[2020-08-16] MEDS ORDERED: ACETAMINOPHEN/CODEINE 300MG - 30MG TAB PO PRN (17:45)
[2020-08-16] MEDS ORDERED: BENZONATATE 100 MG CAP PO PRN (17:45)
[2020-08-16 17:46] VITALS: BP 153/63
[2020-08-16] MEDS: MORPHINE SULFATE INJ 4 MG/ML INJ 1ML IV PRN ×2 (17:47→21:51)
[2020-08-16 18:08] VITALS: BP 153/63
[2020-08-16 20:00] VITALS: BP 123/70
[2020-08-16 21:00] VITALS: BP 123/70
[2020-08-16] MEDS: INSULIN REGULAR, HUMAN 100 UNIT/1 ML 3ML VIAL SQ SCH (21:00)
[2020-08-16] MEDS: PREGABALIN 50 MG CAP PO SCH (21:41)
[2020-08-16] MEDS: BUDESONIDE/FORMOTEROL 160/4.5MCG INHALER INH SCH (22:10)
[2020-08-17] VITALS (8 sets, daily range): BP systolic 97–126; BP diastolic 42–53
[2020-08-17] MEDS: MORPHINE SULFATE INJ 4 MG/ML INJ 1ML IV PRN ×2 (02:58→09:50)
[2020-08-17 05:20] LABS: BASOPHILS % 0.6 % (0.0-1.0); EOSINOPHILS % 0.6 % (0.0-6.0); HEMATOCRIT 30.2 % (34.2-44.1); HEMOGLOBIN 9.1 g/dL (12.0-16.0); LYMPHOCYTES # (AUTO) 1.3 (1.0-3.2); LYMPHOCYTES % 20.5 % (18.0-39.1); MEAN CORPUSCULAR HEMOGLOBIN 27.7 pg (28-32); MEAN CORPUSCULAR HGB CONC 30.1 g/dL (31-35); MEAN CORPUSCULAR VOLUME 91.8 fL (81-99); MONOCYTES # (AUTO) 0.7 (0.2-0.8); MONOCYTES % 10.5 % (4.4-11.3); NEUTROPHILS # (AUTO) 4.3 (2.1-6.9); NEUTROPHILS % 67.6 % (38.7-80.0); PLATELET COUNT 226 x10e3/uL (140-360); RED BLOOD COUNT 3.29 x10e6/uL (3.6-5.1)
[2020-08-17 05:50] LABS: ANION GAP 17.3 mmol/L (8-16); BLOOD UREA NITROGEN 23 mg/dL (7-26); BUN/CREATININE RATIO 27 (6-25); CALCIUM 8.5 mg/dL (8.4-10.2); CARBON DIOXIDE 27 mmol/L (22-29); CHLORIDE 102 mmol/L (98-107); CREATININE, SERUM 0.84 mg/dL (0.57-1.11); EST GLOMERULAR FILTRATION RATE > 60 ML/MIN (60-); GLUCOSE 143 mg/dL (74-118); POTASSIUM 4.3 mmol/L (3.5-5.1); SODIUM 142 mmol/L (136-145)
[2020-08-17] MEDS: INSULIN REGULAR, HUMAN 100 UNIT/1 ML 3ML VIAL SQ SCH ×4 (07:30→21:00)
[2020-08-17] MEDS: BUDESONIDE/FORMOTEROL 160/4.5MCG INHALER INH SCH ×2 (08:12→20:41)
[2020-08-17] MEDS ORDERED: FLUTICASONE PROPIONATE NASAL SPRAY NS SCH (09:00)
[2020-08-17] MEDS ORDERED: LISINOPRIL 20 MG TAB PO SCH (09:00)
[2020-08-17] MEDS ORDERED: LORATADINE 10 MG TAB PO SCH (09:00)
[2020-08-17] MEDS ORDERED: CARVEDILOL 12.5 MG TAB PO SCH ×2 (09:00→21:00)
[2020-08-17] MEDS ORDERED: OMEGA 3 POLYUNSAT FATTY ACIDS 1000 MG SOFTGEL PO SCH (09:00)
[2020-08-17] MEDS ORDERED: MAGNESIUM OXIDE 400 MG TAB PO SCH (09:00)
[2020-08-17] MEDS ORDERED: SODIUM CHLORIDE 0.9% 1000ML 1,000 ML SCH (09:30)
[2020-08-17] MEDS ORDERED: HEPARIN SOD/SOD CHLORIDE 1,000 ML ONE (10:02)
[2020-08-17] MEDS ORDERED: DEXAMETHASONE SOD PHOS INJ 4 MG/ML VIAL ONE (13:27)
[2020-08-17] MEDS ORDERED: ONDANSETRON HCL INJ 2MG/ML 2ML 2 MG/ML VIAL ONE (13:27)
[2020-08-17] MEDS ORDERED: LIDOCAINE HCL 2% LOCAL INJ 5 ML SDV VIAL INJ ONE (13:27)
[2020-08-17] MEDS ORDERED: KETOROLAC TROMETHAMINE 30 MG/ML VIAL ONE (13:27)
[2020-08-17] MEDS ORDERED: ETOMIDATE 2 MG/ML 10 ML INJ IV ONE (13:27)
[2020-08-17] MEDS ORDERED: MIDAZOLAM HCL 2 MG/2 ML VIAL ONE (13:33)
[2020-08-17] MEDS ORDERED: KETAMINE HCL INJ 50 MG/ML 10 ML VIAL ONE (13:33)
[2020-08-17] MEDS ORDERED: FENTANYL CITRATE/PF 100MCG/2 ML INJ ONE (13:33)
[2020-08-17] MEDS ORDERED: SODIUM CHLORIDE 0.9% 50ML 100 ML ONE (13:51)
[2020-08-17] MEDS ORDERED: DIGOXIN INJ 0.25 MG/ML 2 ML AMP ONE (14:27)
[2020-08-17] MEDS ORDERED: AMIODARONE HCL 150MG 100 ML IV ONE (14:30)
[2020-08-17] MEDS ORDERED: BUPIVACAINE HCL 0.5% INJ 30 ML VIAL INJ ONE (16:45)
[2020-08-17] MEDS ORDERED: HYDROCODONE/APAP 5MG-325MG TAB PO PRN (19:15)
[2020-08-17] MEDS ORDERED: SODIUM CHLORIDE 0.9% 1000ML 1,000 ML IV SCH (19:15)
[2020-08-17] MEDS: PREGABALIN 50 MG CAP PO SCH (21:00)
[2020-08-18] MEDS ORDERED: CEFAZOLIN SOD 1 GM/NS 50ML 50 ML IV SCH
[2020-08-18] MEDS ORDERED: LISINOPRIL 10 MG TAB PO SCH (09:00)
[2020-08-18] MEDS ORDERED: ENOXAPARIN SOD INJ 40 MG/0.4 ML SYR SC SCH (17:00)
== END 2020-08-18 10:43 | disposition expired | DRG 480 ==
LOC: ER 12:59 → ERHOLD 15:47 → MED/SURG2 17:29 → MED/SURG3 08-17 17:48
PROVIDERS: ADMIT Internal Medicine; ATTEND Internal Medicine
PROC: 0QH634Z Insertion of Internal Fixation Device into Right Upper Femur, Percutaneous Approach (ICD-10-PCS; principal; 2020-08-17 14:30)
DX: S72.91XA Unspecified fracture of right femur, initial encounter for closed fracture (principal); U07.1 COVID-19; J96.01 Acute respiratory failure with hypoxia; I50.22 Chronic systolic (congestive) heart failure; I25.2 Old myocardial infarction; I25.10 Atherosclerotic heart disease of native coronary artery without angina pectoris; Z95.5 Presence of coronary angioplasty implant and graft; E11.51 Type 2 diabetes mellitus with diabetic peripheral angiopathy without gangrene; E78.5 Hyperlipidemia, unspecified; I11.0 Hypertensive heart disease with heart failure; D63.8 Anemia in other chronic diseases classified elsewhere; Z95.820 Peripheral vascular angioplasty status with implants and grafts; W19.XXXA Unspecified fall, initial encounter; I46.9 Cardiac arrest, cause unspecified
CPT/HCPCS: 36415; 51700; 70450; 71045; 76000; 80048; 80053; 81001; 82948; 83735; 85025; 85610; 85730; 86850; 86900; 93005; 93306; 94664; 99284; C1713; J0690; J1100; J1160; J1650; J1817; J1885; J2001; J2250; J2270; J2405; J3010; J7030; U0002